=== PATIENT | male | born 1945 | race Caucasian/White ===

== ENCOUNTER 2016-08-16 21:07 | Inpatient (IN) | payer MEDICARE, OTHER ==
[2016-08-16] MEDS ORDERED: SODIUM CHLORIDE 0.9% 1,000 ML IV STA ×2 (22:11)
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
[2016-08-16 22:45] LABS: Basophils % (A) 0 %; CH 29.2; CHCM 32.8; Eosinophils % (A) 0 %; HCT 35.1 % (39.0-53.0); HDW 2.34; HGB 11.4 gm/dL (13.0-17.5); Luc # (Auto) 0.08; Luc % (Auto) 1; Lymphocytes # (A) 0.5 k/uL (1.0-4.8); Lymphocytes % (A) 6 %; MCH 28.9 pg (25.0-35.0); MCHC 32.3 g/dL (31.0-37.0); MCV 89.5 fL (80.0-100.0); Mean Platelet Volume 7.9; Monocytes # (A) 0.5 k/uL (0-1.0); Monocytes % (A) 7 %; Neutrophils # (A) 6.5 k/uL (1.3-7.7); Neutrophils % (A) 86 %; RBC 3.92 m/uL (4.30-5.90); RDW 12.7 % (11.5-15.5); WBC 7.6 k/uL (3.8-10.6); WBC (Perox) 8.19
[2016-08-16 22:53] LABS: INR 2.7 (<1.1); Partial Thromboplastin Time 27.9 sec (22.0-30.0); Prothrombin Time 26.5 sec (9.0-12.0)
[2016-08-16 22:56] LABS: ALT 48 U/L (21-72); AST 65 U/L (17-59); Alkaline Phosphatase 85 U/L (38-126); Anion Gap 10 mmol/L; Blood Urea Nitrogen 17 mg/dL (9-20); Calcium 8.7 mg/dL (8.4-10.2); Carbon Dioxide 31 mmol/L (22-30); Chloride 95 mmol/L (98-107); Glucose 203 mg/dL (74-99); Magnesium 1.6 mg/dL (1.6-2.3); Non-African American GFR(MDRD) >60 (>60 ml/min/1.73 sqM); Potassium 4.7 mmol/L (3.5-5.1); Sodium 136 mmol/L (137-145); Total Bilirubin 0.8 mg/dL (0.2-1.3); Total Protein 6.7 g/dL (6.3-8.2)
--- NOTE | 2016-08-16 23:12 | CT ---
EXAMINATION TYPE: CT brain shengine wo con DATE OF EXAM: 08/16/2016 11:04 PM COMPARISON: 12/28/2014 HISTORY: Fall today. CT DLP: 1599.60 mGycm Automated exposure control for dose reduction was used. TECHNIQUE: CT scan of the head and cervical spine are performed without contrast. FINDINGS: There is cerebral cortical atrophy. There is no mass effect nor midline shift. There is n o sign of intracranial hemorrhage. The calvarium is intact. The cervical vertebra have normal alignment. There is moderate anterior spurring from C4 to T1. Facet joints are intact. There is mild multilevel hypertrophic facet arthropathy. The skull base is intact . IMPRESSION: Cerebral cortical atrophy without significant change compared to 12/28/2014. Spondylotic changes in the cervical spine. No fracture seen.
[2016-08-16 23:29] LABS: Troponin I 0.025 ng/mL (0.000-0.034)
[2016-08-16 23:35] LABS: Creatine Kinase MB 7.8 ng/mL (0.0-2.4)
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
[2016-08-17] MEDS ORDERED: SODIUM CHLORIDE 0.9% 2,000 ML IV STA (00:05)
[2016-08-17] MEDS ORDERED: SODIUM CHLORIDE 0.9% 500 ML IV STA (00:05)
[2016-08-17] MEDS ORDERED: SODIUM CHLORIDE 0.9% 1,000 ML IV STA ×2 (00:05)
[2016-08-17 02:42] LABS: Appearance,Urine Cloudy (Clear); Bilirubin,Urine Negative (Negative); Glucose,Urine (UA) Trace (Negative); Ketones,Urine Negative (Negative); Leukocyte Esterase,Urine Negative (Negative); Mucus,Urine Occasional /hpf; Nitrite,Urine Negative (Negative); PH, Urine 6.5 (5.0-8.0); Particle Count 7092; Protein,Urine 3+ (Negative); RBC,Urine 14 /hpf (0-5); Specific Gravity,Urine 1.022 (1.001-1.035); Squamous Epithelial Cell,Urine <1 /hpf (0-4); UA Billing (MACRO vs. MICRO) MICRO; WBC,Urine 4 /hpf (0-5)
[2016-08-17 03:37] VITALS: BMI 36.5
[2016-08-17 08:36] LABS: Anion Gap 9 mmol/L; Blood Urea Nitrogen 15 mg/dL (9-20); Calcium 8.1 mg/dL (8.4-10.2); Carbon Dioxide 26 mmol/L (22-30); Chloride 105 mmol/L (98-107); Glucose 141 mg/dL (74-99); Non-African American GFR(MDRD) >60 (>60 ml/min/1.73 sqM); Potassium 4.2 mmol/L (3.5-5.1); Sodium 140 mmol/L (137-145)
[2016-08-17] MEDS: ENOXAPARIN 40 MG/0.4 ML SYRINGE SQ SCH (09:16)
[2016-08-17] MEDS: DIGOXIN 125 MCG TAB PO SCH (12:27)
[2016-08-17] MEDS: glipiZIDE 10 MG TAB PO SCH ×2 (12:28→18:41)
[2016-08-17] MEDS: levETIRAcetam 250 MG TAB PO SCH (12:29)
[2016-08-17] MEDS: ATORVASTATIN 10 MG TAB PO SCH (12:29)
[2016-08-17 12:42] LABS: Glucose,Whole Blood 276 mg/dL (75-99)
[2016-08-17] MEDS: metFORMIN 500 MG TAB PO SCH ×2 (12:50→18:41)
[2016-08-17] MEDS: INSULIN LISPRO (humaLOG) 300 UNIT/3 ML VIAL SQ SCH ×3 (12:54→20:57)
[2016-08-17] MEDS: PRIMIDONE 250 MG TAB PO SCH ×2 (13:53→20:56)
[2016-08-17] MEDS: LISINOPRIL 20 MG TAB PO SCH (13:53)
[2016-08-17 13:58] LABS: Hemoglobin A1C 5.6 % (4.2-6.1)
[2016-08-17] MEDS: ATENOLOL 50 MG TAB PO SCH ×2 (17:52→20:56)
[2016-08-17 17:57] LABS: Glucose,Whole Blood 56 mg/dL (75-99)
[2016-08-17 18:02] LABS: Glucose,Whole Blood 74 mg/dL (75-99)
[2016-08-17] MEDS: ZOLPIDEM 10 MG TAB PO SCH (20:56)
[2016-08-17 21:13] LABS: Glucose,Whole Blood 191 mg/dL (75-99)
[2016-08-17] MEDS ORDERED: guaiFENesin 600 MG TABLET.ER PO PRN (22:06)
--- NOTE | 2016-08-17 22:44 | HP ---
REASON FOR ADMISSION: Fall and rhabdomyolysis. HISTORY OF PRESENT ILLNESS: This is a 70-year-old gentleman who currently lives by himself, is admitted to the hospital after the patient sustained a fall while getting out of his bathtub. Patient states that he fell in an awkward position, was not able to pull himself out for about 6 hours. Finally, the patient was found by the fire department and was triaged through the emergency room. The patient denies having any overt tenderness. Patient was seen in the ER. Initial eval, including multiple radiologic imaging to rule out occult fractures, was negative. Patient was noted to have a creatine kinase level in the 1800s. Patient's kidney function appears to be normal. Patient today was seen at bedside, was in good spirits, states that he felt that he was just stuck in an awkward position. Patient states that he has been progressively getting worse in the recent times. Of note, the patient uses 2 to 3L of supplemental oxygen for advanced COPD. It appears that the patient has never lived by himself and has multiple mechanical obstructions as well as some issues with some debility. Patient denies having any chest pain, difficulty in breathing, nausea, vomiting, urinary urgency or frequency. REVIEW OF SYSTEMS: A 14-point review of systems was done; none pertinent other than what was mentioned in HPI. Past medical history includes COPD, chronic hypoxic respiratory failure, dyslipidemia, hypertension, diabetes mellitus, history of seizure disorder. SURGERIES: Orthopedic surgery in the past. SOCIAL HISTORY: Was a past smoker, quit a few years ago. Denies any alcohol use. Currently lives by himself. Denies any illicit drug use. FAMILY HISTORY: Not pertinent to the current admission. Medications included: 1. Atenolol. 2. Digoxin. 3. Enalapril. 4. Primidone. 5. Nystatin. 6. Coumadin. 7. Zolpidem. 8. Glipizide. 9. Metformin. 10. Keppra. ALLERGIES: No known drug allergies were reported. PHYSICAL EXAM: Vitals were reviewed. Heart rate is 84, respiratory rate 20, blood pressure is anywhere from 140 to 250 over 68 to 72 diastolic. GENERAL APPEARANCE: Alert, oriented x3. Does not appear to be in distress. HEENT: Head is atraumatic, normocephalic. Pupils are equal, round, reactive to light and accommodation. Neck is supple. No JVD. LUNGS: Good air entry. Clear to auscultation. No abnormal sounds appreciated; however, slightly diminished. HEART: S1, S2 heard. Regular rate and rhythm. No murmurs appreciated. Abdomen is soft, nontender. No organomegaly. LOWER EXTREMITIES: No overt edema noted. Straight leg is negative bilaterally. Neurologically, moves all 4 extremities. Laboratory data include hemoglobin 11.4, hematocrit 35.1, white count 7.6, platelets 123. Sodium 136, potassium 4.7, chloride 95, bicarb 31, BUN 17, creatinine 0.67 and random glucose of 203. ASSESSMENT AND PLAN: 1. Rhabdomyolysis. 2. Chronic hypoxic respiratory failure. 3. Debility. 4. Diabetes mellitus type 2. 5. History of seizures. 6. History of hypertension. 7. Unknown why patient is documented to be on Coumadin. 8. Patient apparently is having some diarrhea as well. PLAN: Will have a PT, OT consult. Will need to assess safety at home. Will need to investigate the need for Coumadin therapy. Labs appear to be stable. Will hold off on metformin and glipizide at this time. Repeat creatinine kinase level will be done in the a.m. If patient will need placement in regard to getting rehab, that will be determined by the evaluation of Physical Therapy.
[2016-08-18 06:58] LABS: Glucose,Whole Blood 129 mg/dL (75-99)
[2016-08-18 07:31] LABS: Basophils % (A) 1 %; CH 28.8; CHCM 31.2; Eosinophils % (A) 1 %; HCT 33.1 % (39.0-53.0); HDW 2.44; HGB 10.3 gm/dL (13.0-17.5); Hypochromasia Slight; Luc # (Auto) 0.13; Luc % (Auto) 3; Lymphocytes % (A) 21 %; MCHC 31.2 g/dL (31.0-37.0); Mean Platelet Volume 8.2; Monocytes # (A) 0.5 k/uL (0-1.0); Monocytes % (A) 10 %; Neutrophils # (A) 3.1 k/uL (1.3-7.7); Neutrophils % (A) 64 %; RBC 3.56 m/uL (4.30-5.90); RDW 12.8 % (11.5-15.5); WBC 4.8 k/uL (3.8-10.6); WBC (Perox) 5.36
[2016-08-18 07:36] LABS: INR 1.5 (<1.1); Prothrombin Time 14.7 sec (9.0-12.0)
[2016-08-18 07:44] LABS: ALT 64 U/L (21-72); AST 111 U/L (17-59); Alkaline Phosphatase 75 U/L (38-126); Anion Gap 8 mmol/L; Blood Urea Nitrogen 15 mg/dL (9-20); Calcium 7.8 mg/dL (8.4-10.2); Carbon Dioxide 27 mmol/L (22-30); Chloride 106 mmol/L (98-107); Glucose 118 mg/dL (74-99); Magnesium 1.7 mg/dL (1.6-2.3); Non-African American GFR(MDRD) >60 (>60 ml/min/1.73 sqM); Potassium 4.3 mmol/L (3.5-5.1); Sodium 141 mmol/L (137-145); Total Bilirubin 0.6 mg/dL (0.2-1.3); Total Protein 5.8 g/dL (6.3-8.2)
[2016-08-18 07:57] LABS: Creatine Kinase 2785 U/L (55-170)
[2016-08-18] MEDS: INSULIN LISPRO (humaLOG) 300 UNIT/3 ML VIAL SQ SCH ×4 (08:37→20:25)
[2016-08-18] MEDS ORDERED: IPRATROPIUM-ALBUTEROL 3 ML NEB INHALATION PRN (08:54)
[2016-08-18] MEDS: ENOXAPARIN 40 MG/0.4 ML SYRINGE SQ SCH (08:55)
[2016-08-18] MEDS: LISINOPRIL 20 MG TAB PO SCH (08:55)
[2016-08-18] MEDS: PRIMIDONE 250 MG TAB PO SCH ×2 (08:55→20:26)
[2016-08-18] MEDS: ATENOLOL 50 MG TAB PO SCH ×2 (08:55→20:24)
[2016-08-18] MEDS: levETIRAcetam 250 MG TAB PO SCH (08:55)
[2016-08-18] MEDS: DIGOXIN 125 MCG TAB PO SCH (08:56)
[2016-08-18] MEDS: ATORVASTATIN 10 MG TAB PO SCH (08:56)
--- NOTE | 2016-08-18 09:26 | XR ---
EXAMINATION TYPE: XR chest 1V portable DATE OF EXAM: 08/18/2016 9:09 AM COMPARISON: 08/16/2016 HISTORY: Pain TECHNIQUE: Single frontal view of the chest is obtained. FINDINGS: Aorta is prominent. Pulmonary hilum are prominent likely the basis of pulmonary arterial h ypertension. There are subsegmental consolidation at the left lung base. No pneumothorax. Arthropathy of the shoulders and diffuse osteopenia noted. Hypertrophic changes of the spine. Talc ar tifact compatible with chronic foreign body is stable. IMPRESSION: 1. Left basilar atelectasis or early infiltrate. 2. Pulmonary hilum are prominent likely in the basis of pulmonary arterial hypertension.
[2016-08-18 12:22] LABS: Glucose,Whole Blood 189 mg/dL (75-99)
[2016-08-18] MEDS: IPRATROPIUM-ALBUTEROL 3 ML NEB INHALATION PRN ×2 (14:54→19:53)
[2016-08-18 17:16] LABS: Glucose,Whole Blood 182 mg/dL (75-99)
--- NOTE | 2016-08-18 17:25 | P.PN ---
Subjective This is a 70-year-old gentleman that was admitted to the hospital after sustaining a fall and being caught around his commode. Patient was noted to have rhabdomyolysis. Patient was admitted to the hospital. A PTOT therapy evaluation was done fairly patient is a 3 person assist to get off the bed. Patient this a.m. stated that he was having some cough nonproductive in nature hence a chest x-ray was done which to me appears nonspecific however a early infiltrate was right on the official read. Denies having any fevers, chills, nausea, vomiting. Patient may complaint is cough that is minimally productive in nature. Objective - Vital Signs Vital signs: Vital Signs Temp 97 F L 08/18/16 12:51 Pulse 74 08/18/16 15:05 Resp 24 08/18/16 12:51 BP 145/67 08/18/16 07:00 Pulse Ox 93 L 08/18/16 12:51 Intake & Output 08/17/16 08/18/16 08/18/16 18:59 06:59 18:59 Intake Total 720 900 720 Output Total 225 Balance 720 900 495 Intake: Intake, IV Titration 900 Amount Sodium Chloride 0.9% 1, 900 000 ml @ 100 mls/hr IV . Q10H STA Rx#:[id number] Oral 720 720 Output: Urine 225 Other: Voiding Method Urinal # Voids 2 1 1 - Exam Physical exam Gen. appearance oriented 3 in no distress Neck is supple no JVD Lungs early on 2 L supplement oxygen, expiratory wheezing appreciated transmitted from the hypopharynx rhonchi appreciated on the left side. Heart S1-S2 heard regular rate and rhythm no murmurs appreciated Abdomen is soft nontender no organomegaly bowel sounds are intact Neurologically cranial nerves II-12 grossly intact no focal motor or sensory deficits noted Skin no abnormalities appreciated - Labs CBC & Chem 7: 08/18/16 07:11 08/18/16 07:11 Labs: Abnormal Lab Results - Last 24 Hours (Table) 08/17/16 08/17/16 08/17/16 Range/Units 17:42 18:00 20:53 RBC (4.30-5.90) m/uL Hgb (13.0-17.5) gm/dL Hct (39.0-53.0) % Plt Count (150-450) k/uL PT (9.0-12.0) sec Creatinine (0.66-1.25) mg/dL Glucose (74-99) mg/dL POC Glucose (mg/dL) 56 L 74 L 191 H (75-99) mg/dL Calcium (8.4-10.2) mg/dL AST (17-59) U/L Creatine Kinase (55-170) U/L Total Protein (6.3-8.2) g/dL Albumin (3.5-5.0) g/dL 08/18/16 08/18/16 08/18/16 Range/Units 06:56 07:11 07:11 RBC 3.56 L (4.30-5.90) m/uL Hgb 10.3 L (13.0-17.5) gm/dL Hct 33.1 L (39.0-53.0) % Plt Count 108 L (150-450) k/uL PT 14.7 H (9.0-12.0) sec Creatinine (0.66-1.25) mg/dL Glucose (74-99) mg/dL POC Glucose (mg/dL) 129 H (75-99) mg/dL Calcium (8.4-10.2) mg/dL AST (17-59) U/L Creatine Kinase (55-170) U/L Total Protein (6.3-8.2) g/dL Albumin (3.5-5.0) g/dL 08/18/16 08/18/16 08/18/16 Range/Units 07:11 12:20 17:13 RBC (4.30-5.90) m/uL Hgb (13.0-17.5) gm/dL Hct (39.0-53.0) % Plt Count (150-450) k/uL PT (9.0-12.0) sec Creatinine 0.61 L (0.66-1.25) mg/dL Glucose 118 H (74-99) mg/dL POC Glucose (mg/dL) 189 H 182 H (75-99) mg/dL Calcium 7.8 L (8.4-10.2) mg/dL AST 111 H (17-59) U/L Creatine Kinase 2785 H (55-170) U/L Total Protein 5.8 L (6.3-8.2) g/dL Albumin 2.9 L (3.5-5.0) g/dL Microbiology - Last 24 Hours (Table) 08/17/16 02:10 Urine Culture - Final Urine,Clean Catch Assessment and Plan Plan: #1 acute exacerbation of COPD in a patient with chronic hypoxic respiratory failure secondary to tracheobronchitis #2 rhabdomyolysis that is getting worse #3 debility #4 diabetes most type II #5 history of seizure disorder #6 history of hypertension And hold off on Coumadin. Patient was not able to appropriately answer why he was on Coumadin patient however did sustain a fall recently the risks of him being anticoagulated her are higher than having benefits. Lovenox for DVT prophylaxis Continue ongoing care. Patient's IV fluids will be decreased. A repeat CK level will be done tomorrow if CK levels trend up patient may benefit from receiving additional IV fluids. Continue ongoing care.
[2016-08-18 20:03] LABS: Glucose,Whole Blood 203 mg/dL (75-99)
[2016-08-18] MEDS: predniSONE 20 MG TAB PO SCH (20:26)
[2016-08-18] MEDS: ZOLPIDEM 10 MG TAB PO SCH (20:26)
[2016-08-18] MEDS: DOXYCYCLINE 50 MG CAP PO SCH (20:27)
[2016-08-19 06:47] LABS: Glucose,Whole Blood 177 mg/dL (75-99)
[2016-08-19 07:24] LABS: Basophils % (A) 0 %; CH 28.8; Eosinophils % (A) 1 %; HCT 32.7 % (39.0-53.0); HDW 2.46; HGB 10.2 gm/dL (13.0-17.5); Hypochromasia Slight; Luc # (Auto) 0.15; Luc % (Auto) 3; Lymphocytes # (A) 1.1 k/uL (1.0-4.8); Lymphocytes % (A) 24 %; MCH 29.3 pg (25.0-35.0); MCHC 31.3 g/dL (31.0-37.0); MCV 93.4 fL (80.0-100.0); Mean Platelet Volume 8.1; Monocytes # (A) 0.5 k/uL (0-1.0); Monocytes % (A) 10 %; Neutrophils # (A) 2.8 k/uL (1.3-7.7); Neutrophils % (A) 62 %; RDW 12.6 % (11.5-15.5); WBC 4.6 k/uL (3.8-10.6); WBC (Perox) 4.72
[2016-08-19 07:26] LABS: INR 1.4 (<1.1)
[2016-08-19 07:31] LABS: ALT 66 U/L (21-72); AST 99 U/L (17-59); Alkaline Phosphatase 77 U/L (38-126); Anion Gap 6 mmol/L; Blood Urea Nitrogen 15 mg/dL (9-20); Calcium 7.9 mg/dL (8.4-10.2); Carbon Dioxide 28 mmol/L (22-30); Chloride 104 mmol/L (98-107); Creatine Kinase 1533 U/L (55-170); Glucose 170 mg/dL (74-99); Magnesium 1.8 mg/dL (1.6-2.3); Non-African American GFR(MDRD) >60 (>60 ml/min/1.73 sqM); Potassium 4.2 mmol/L (3.5-5.1); Sodium 138 mmol/L (137-145); Total Bilirubin 0.5 mg/dL (0.2-1.3); Total Protein 5.6 g/dL (6.3-8.2)
[2016-08-19] MEDS: PRIMIDONE 250 MG TAB PO SCH ×2 (08:18→20:38)
[2016-08-19] MEDS: DOXYCYCLINE 50 MG CAP PO SCH ×2 (08:18→20:37)
[2016-08-19] MEDS: ATENOLOL 50 MG TAB PO SCH ×2 (08:19→20:38)
[2016-08-19] MEDS: predniSONE 20 MG TAB PO SCH ×2 (08:19→20:38)
[2016-08-19] MEDS: ATORVASTATIN 10 MG TAB PO SCH (08:19)
[2016-08-19] MEDS: INSULIN LISPRO (humaLOG) 300 UNIT/3 ML VIAL SQ SCH ×4 (08:19→20:33)
[2016-08-19] MEDS: LISINOPRIL 20 MG TAB PO SCH (08:19)
[2016-08-19] MEDS: levETIRAcetam 250 MG TAB PO SCH (08:19)
[2016-08-19] MEDS: ENOXAPARIN 40 MG/0.4 ML SYRINGE SQ SCH (08:19)
[2016-08-19] MEDS: DIGOXIN 125 MCG TAB PO SCH (08:20)
[2016-08-19] MEDS: IPRATROPIUM-ALBUTEROL 3 ML NEB INHALATION PRN ×4 (09:26→20:21)
[2016-08-19 11:50] LABS: Glucose,Whole Blood 203 mg/dL (75-99)
[2016-08-19 17:12] LABS: Glucose,Whole Blood 257 mg/dL (75-99)
[2016-08-19 20:34] LABS: Glucose,Whole Blood 258 mg/dL (75-99)
[2016-08-19] MEDS: ZOLPIDEM 10 MG TAB PO SCH (20:38)
[2016-08-19] MEDS: WARFARIN 10 MG TAB PO SCH (20:38)
--- NOTE | 2016-08-19 22:14 | PN ---
DATE OF SERVICE: 08/19/2016 This 70-year-old gentleman who was admitted with COPD acute exacerbation with rhabdomyolysis. The patient is being closely monitored. No chest pain or palpitations. No fever. On exam, alert and oriented x3. Pulse 74, blood pressure 130/60, respiratory rate 16, temperature 98.6, pulse ox 98% on room air. HEENT: Conjunctivae normal. NECK: No jugular venous distension. CARDIOVASCULAR: S1 and S2 muffled. RESPIRATORY: Breath sounds diminished in the bases. A few scattered rhonchi and crackles. ABDOMEN: Soft, nontender. LEGS: No edema. NERVOUS SYSTEM: Nonfocal. LABS: WBC 4.6, hemoglobin is 10.2, platelets are 125. Accu-Cheks noted. Albumin is 2.9. ASSESSMENT: 1. Chronic obstructive pulmonary disease exacerbation, with acute hypoxic respiratory failure secondary to acute purulent tracheobronchitis. 2. Acute rhabdomyolysis. 3. Debility. 4. Diabetes mellitus type 2. 5. History of seizure disorder. 6. History of hypertension. 7. Increased CK to 1533. 8. Increased random blood sugar. 9. Thrombocytopenia, mild. 10. Atrial fibrillation history. 11. History of congestive heart failure. 12. Diabetes mellitus. 13. Hyperlipidemia. 14. Hypertension. 15. History of tremors. 16. Previous history of nicotine dependence. 17. History of THC. 18. FULL CODE. RECOMMENDATIONS AND DISCUSSION: In this 70-year-old gentleman who presented with multiple complex medical issues, we will monitor the patient closely, continue with the current medications, continue with symptomatic treatment. Otherwise, at this time I recommend resuming the home medications. The INR was found to be 2.7, but I would recommend resuming the home medication of Coumadin and continue to monitor. Will monitor the response of the PT, INR closely. The digoxin dose has been reduced. The prognosis is guarded because of multiple complex medical issues. Further recommendations to follow.
[2016-08-20 07:09] LABS: Glucose,Whole Blood 151 mg/dL (75-99)
[2016-08-20] MEDS: INSULIN LISPRO (humaLOG) 300 UNIT/3 ML VIAL SQ SCH ×4 (07:36→21:58)
[2016-08-20] MEDS: levETIRAcetam 250 MG TAB PO SCH (07:37)
[2016-08-20] MEDS: LISINOPRIL 20 MG TAB PO SCH (07:37)
[2016-08-20] MEDS: DOXYCYCLINE 50 MG CAP PO SCH ×2 (07:37→21:58)
[2016-08-20] MEDS: ATENOLOL 50 MG TAB PO SCH ×2 (07:37→21:57)
[2016-08-20] MEDS: predniSONE 20 MG TAB PO SCH ×2 (07:37→21:58)
[2016-08-20] MEDS: DIGOXIN 125 MCG TAB PO SCH (07:38)
[2016-08-20] MEDS: PANTOPRAZOLE 40 MG TABLET PO SCH (07:38)
[2016-08-20] MEDS: PRIMIDONE 250 MG TAB PO SCH ×2 (07:38→21:57)
[2016-08-20] MEDS: LINAGLIPTIN 5 MG TABLET PO SCH (07:38)
[2016-08-20] MEDS: ATORVASTATIN 10 MG TAB PO SCH (07:39)
[2016-08-20 08:00] LABS: Basophils % (A) 1 %; CH 29.2; CHCM 32.1; Eosinophils % (A) 1 %; HCT 31.4 % (39.0-53.0); HDW 2.57; HGB 9.8 gm/dL (13.0-17.5); Luc % (Auto) 3; Lymphocytes # (A) 1.1 k/uL (1.0-4.8); Lymphocytes % (A) 29 %; MCH 28.8 pg (25.0-35.0); MCHC 31.4 g/dL (31.0-37.0); MCV 91.6 fL (80.0-100.0); Mean Platelet Volume 8.3; Monocytes # (A) 0.4 k/uL (0-1.0); Monocytes % (A) 9 %; Neutrophils # (A) 2.3 k/uL (1.3-7.7); Neutrophils % (A) 58 %; RBC 3.42 m/uL (4.30-5.90); RDW 12.6 % (11.5-15.5); WBC 3.9 k/uL (3.8-10.6); WBC (Perox) 4.28
[2016-08-20] MEDS: IPRATROPIUM-ALBUTEROL 3 ML NEB INHALATION PRN ×4 (08:00→21:01)
[2016-08-20 08:06] LABS: INR 1.3 (<1.1); Prothrombin Time 12.7 sec (9.0-12.0)
[2016-08-20 08:16] LABS: ALT 87 U/L (21-72); AST 102 U/L (17-59); Alkaline Phosphatase 85 U/L (38-126); Anion Gap 3 mmol/L; Blood Urea Nitrogen 15 mg/dL (9-20); Calcium 8.1 mg/dL (8.4-10.2); Carbon Dioxide 33 mmol/L (22-30); Chloride 104 mmol/L (98-107); Creatine Kinase 848 U/L (55-170); Glucose 151 mg/dL (74-99); Non-African American GFR(MDRD) >60 (>60 ml/min/1.73 sqM); Potassium 4.3 mmol/L (3.5-5.1); Sodium 140 mmol/L (137-145); Total Bilirubin 0.6 mg/dL (0.2-1.3); Total Protein 5.6 g/dL (6.3-8.2)
[2016-08-20 11:45] LABS: Glucose,Whole Blood 155 mg/dL (75-99)
[2016-08-20 17:04] LABS: Glucose,Whole Blood 178 mg/dL (75-99)
[2016-08-20] MEDS: WARFARIN 10 MG TAB PO SCH (17:18)
--- NOTE | 2016-08-20 21:22 | PN ---
This 70-year-old gentleman was admitted with COPD acute exacerbation, also had acute rhabdomyolysis. The patient also had debility, general medical debility and gait dysfunction also. No chest pain or palpitations. No fever. On exam, alert and oriented times three. Pulse is 81, blood pressure 155/88, respirations 18, temperature 97.8, pulse ox 94% on 2 L. HEENT: Conjunctivae normal. NECK: No jugular venous distention. CARDIOVASCULAR: S1, S2 muffled. RESPIRATORY: Breath sounds diminished at the bases. A few scattered rhonchi and crackles. ABDOMEN: Soft, nontender. LEGS: No edema. No swelling. Nervous system: No focal deficits. LABS: WBC is 3.1, hemoglobin is 9.8. Albumin is 2.8. ASSESSMENT: 1. Chronic obstructive pulmonary disease acute exacerbation with acute hypoxic respiratory failure secondary to acute purulent tracheobronchitis. 2. Acute rhabdomyolysis. 3. Debility medical. 4. Diabetes type 2. 5. History of seizure disorder. 6. History of hypertension. 7. Increased CK,. 8. Increased random blood sugar. 9. Thrombocytopenia, mild. 10. Atrial fibrillation history. 11. History of congestive heart failure. 12. Type 2 diabetes mellitus. 13. History of hypertension. 14. Hyperlipidemia. 15. History of tremors. 16. History of previous history of nicotine dependence. 17. History of THC. 18. FULL CODE. RECOMMENDATIONS AND DISCUSSION: In this 70-year-old gentleman who presented with multiple complex medical issues. We will monitor the patient closely. Continue the current medications, continue symptomatic treatment. Otherwise, at this time, I would recommend continue with monitor. Rhabdomyolysis. Otherwise PT, OT evaluation. Continue to monitor. Possible ECF rehab. Guarded prognosis. Further recommendations to follow. MTDD
[2016-08-20 21:39] LABS: Glucose,Whole Blood 203 mg/dL (75-99)
[2016-08-20] MEDS: CYANOCOBALAMIN 500 MCG TAB PO SCH (21:57)
[2016-08-20] MEDS: ZOLPIDEM 10 MG TAB PO SCH (22:00)
[2016-08-21 06:48] LABS: Glucose,Whole Blood 164 mg/dL (75-99)
[2016-08-21] MEDS: IPRATROPIUM-ALBUTEROL 3 ML NEB INHALATION PRN ×2 (07:30→12:33)
[2016-08-21] MEDS: PRIMIDONE 250 MG TAB PO SCH (07:32)
[2016-08-21] MEDS: LISINOPRIL 20 MG TAB PO SCH (07:32)
[2016-08-21] MEDS: predniSONE 20 MG TAB PO SCH (07:32)
[2016-08-21] MEDS: LINAGLIPTIN 5 MG TABLET PO SCH (07:32)
[2016-08-21] MEDS: ATORVASTATIN 10 MG TAB PO SCH (07:33)
[2016-08-21] MEDS: PANTOPRAZOLE 40 MG TABLET PO SCH (07:33)
[2016-08-21] MEDS: DIGOXIN 125 MCG TAB PO SCH (07:33)
[2016-08-21] MEDS: DOXYCYCLINE 50 MG CAP PO SCH (07:35)
[2016-08-21] MEDS: levETIRAcetam 250 MG TAB PO SCH (07:35)
[2016-08-21] MEDS: ATENOLOL 50 MG TAB PO SCH (07:36)
[2016-08-21 07:55] LABS: Basophils % (A) 0 %; CH 28.8; Eosinophils # (A) 0.1 k/uL (0-0.7); Eosinophils % (A) 1 %; HDW 2.62; HGB 9.9 gm/dL (13.0-17.5); Luc # (Auto) 0.15; Luc % (Auto) 3; Lymphocytes # (A) 1.3 k/uL (1.0-4.8); Lymphocytes % (A) 24 %; MCHC 32.1 g/dL (31.0-37.0); MCV 90.4 fL (80.0-100.0); Mean Platelet Volume 7.5; Monocytes # (A) 0.5 k/uL (0-1.0); Monocytes % (A) 8 %; Neutrophils # (A) 3.5 k/uL (1.3-7.7); Neutrophils % (A) 64 %; RBC 3.43 m/uL (4.30-5.90); RDW 12.5 % (11.5-15.5); WBC 5.5 k/uL (3.8-10.6); WBC (Perox) 5.68
[2016-08-21 08:02] LABS: INR 1.9 (<1.1); Prothrombin Time 18.1 sec (9.0-12.0)
[2016-08-21 08:10] LABS: ALT 86 U/L (21-72); AST 84 U/L (17-59); Alkaline Phosphatase 98 U/L (38-126); Anion Gap 7 mmol/L; Blood Urea Nitrogen 14 mg/dL (9-20); Calcium 8.2 mg/dL (8.4-10.2); Carbon Dioxide 31 mmol/L (22-30); Chloride 102 mmol/L (98-107); Creatine Kinase 614 U/L (55-170); Glucose 162 mg/dL (74-99); Non-African American GFR(MDRD) >60 (>60 ml/min/1.73 sqM); Potassium 4.5 mmol/L (3.5-5.1); Sodium 140 mmol/L (137-145); Total Bilirubin 0.7 mg/dL (0.2-1.3); Total Protein 5.7 g/dL (6.3-8.2)
[2016-08-21] MEDS: INSULIN LISPRO (humaLOG) 300 UNIT/3 ML VIAL SQ SCH ×2 (08:27→12:52)
[2016-08-21 11:07] LABS: Glucose,Whole Blood 216 mg/dL (75-99)
[2016-08-21] MEDS: CYANOCOBALAMIN 500 MCG TAB PO SCH (12:52)
[2016-08-21 14:21] VITALS: BP 164/77; PULSE 85; RESP 16; TEMP 97.2
--- NOTE | 2016-08-21 14:32 | DS ---
DATE OF ADMISSION: 08/17/2016 DATE OF DISCHARGE: FINAL DIAGNOSES: 1. Chronic obstructive pulmonary disease acute exacerbation, with acute hypoxic respiratory failure secondary to acute purulent tracheobronchitis and acute rhabdomyolysis. 2. Medical debility, general. 3. Gait dysfunction. 4. Diabetes mellitus type 2. 5. History of seizure disorder. 6. History of hypertension. 7. Increased creatinine kinase with acute rhabdomyolysis. 8. Increased random blood sugar. 9. Thrombocytopenia, mild. 10. Atrial fibrillation history. 11. History of congestive heart failure. 12. Diabetes mellitus type 2. 13. Hypertension. 14. Hyperlipidemia. 15. History of tremors. 16. Previous history of nicotine dependence. 17. History of THC. 18. FULL CODE. DISCHARGE DISPOSITION: The patient will be discharged in a stable condition with guarded prognosis. Total time taken 35 minutes. The patient will be transferred to [facility]. HISTORY OF PRESENT ILLNESS: This 70-year-old gentleman with a past medical history of multiple medical problems as mentioned earlier being followed by Dr. Argueta in the outpatient setting, admitted with COPD acute exacerbation as well as acute respiratory failure, acute tracheobronchitis. The patient was treated with bronchodilators and other medications. Patient improved significantly. On exam, vitals are stable. CARDIOVASCULAR SYSTEM: S1, S2 muffled. A few scattered rhonchi. ABDOMEN: Soft. NERVOUS SYSTEM: No focal deficits. Hemoglobin is 9.9. The patient will be discharged in a stable condition with guarded prognosis with the follow advice: 1. Diet is cardiac. 2. Activity limited until followup. 3. Follow up with Dr. Argueta after discharge from the [facility]. 4. Follow up with Dr. Rose in 2 to 3 days. 5. CBC, BMP in [facility] in 2 to 3 days. Medications will be: 1. Vitamin B12 five hundred mg p.o. daily. 2. Lanoxin 125 mcg p.o. daily. 3. Vibramycin 100 mg p.o. b.i.d. for 5 days. 4. Low scale 150 to 200 = 2 units; 201 to 250 = 4 units; 251 to 300 = 6 units: 301 to 350 = 8 units; 351 to 400 = 10 units, more than 400 call. 5. Albuterol Atrovent updrafts q.i.d. and p.r.n. 6. Zestril 20 mg p.o. daily. 7. Protonix 40 mg p.o. daily. 8. Mysoline 250 mg p.o. b.i.d. 9. Onglyza 5 mg p.o. daily. 10. Zocor 20 mg q.h.s. 11. Coumadin 20 mg Sunday, Sunday, Sunday, Sunday, , Sunday. 12. Coumadin 15 mg on Sunday. 13. PT, INR on a daily basis. 14. Ambien 10 mg q.h.s. p.r.n. for sleep. 15. Mucinex 600 mg p.o. b.i.d. 16. Keppra 250 mg p.o. daily. 17. Metformin 1000 mg p.o. b.i.d. 18. Prednisone taper so that will be 40 mg daily for 3 days, 30 for 3 days; 20 for 3 days, 10 for 3 days and then discontinue.
[2016-08-25] MEDS ORDERED: WARFARIN 10 MG TAB PO SCH (18:00)
== END 2016-08-21 16:00 | DRG 557 ==
LOC: EC 21:07 → 3SUR 08-17 00:07
PROVIDERS: ADMIT Hospitalist; ATTEND Hospitalist
DX: M62.82 Rhabdomyolysis (principal); J96.21 Acute and chronic respiratory failure with hypoxia; Z99.81 Dependence on supplemental oxygen; I48.2 Chronic atrial fibrillation; D69.6 Thrombocytopenia, unspecified; I11.0 Hypertensive heart disease with heart failure; I50.9 Heart failure, unspecified; E11.9 Type 2 diabetes mellitus without complications; G40.909 Epilepsy, unspecified, not intractable, without status epilepticus; J44.0 Chronic obstructive pulmonary disease with (acute) lower respiratory infection; J44.1 Chronic obstructive pulmonary disease with (acute) exacerbation; J20.9 Acute bronchitis, unspecified; E78.5 Hyperlipidemia, unspecified; R25.1 Tremor, unspecified; R26.9 Unspecified abnormalities of gait and mobility; Z79.01 Long term (current) use of anticoagulants; Z79.84 Long term (current) use of oral hypoglycemic drugs; Z79.899 Other long term (current) drug therapy; Z87.891 Personal history of nicotine dependence; W18.2XXA Fall in (into) shower or empty bathtub, initial encounter; Y92.002 Bathroom of unspecified non-institutional (private) residence as the place of occurrence of the external cause
CPT/HCPCS: 36415; 70450; 71010; 72125; 72170; 80048; 80053; 81001; 82550; 82553; 83036; 83735; 84100; 84484; 85025; 85610; 85730; 87086; 93005; 94640; 94760; 99285

== ENCOUNTER 2016-12-25 10:31 | Inpatient (IN) | payer MEDICARE, OTHER ==
[~2016-12-25 10:31] MED LIST: HUMAN PROTHROMBIN COMPLX 500 UNIT/16 ML VIAL IV ONE
[2016-12-25] MEDS ORDERED: SODIUM CHLORIDE 0.9% 1,000 ML IV STA (11:22)
[2016-12-25] MEDS ORDERED: PANTOPRAZOLE 40 MG/10 ML VIAL IVP STA (11:22)
[2016-12-25 12:38] LABS: Basophils % (A) 0 %; CH 28.8; CHCM 33.3; Eosinophils # (A) 0.2 k/uL (0-0.7); Eosinophils % (A) 2 %; HCT 29.6 % (39.0-53.0); HGB 9.9 gm/dL (13.0-17.5); Luc # (Auto) 0.15; Luc % (Auto) 1; Lymphocytes # (A) 1.1 k/uL (1.0-4.8); Lymphocytes % (A) 10 %; MCHC 33.3 g/dL (31.0-37.0); Mean Platelet Volume 7.1; Monocytes # (A) 0.7 k/uL (0-1.0); Monocytes % (A) 7 %; Neutrophils # (A) 8.6 k/uL (1.3-7.7); Neutrophils % (A) 80 %; RDW 12.7 % (11.5-15.5); WBC 10.7 k/uL (3.8-10.6); WBC (Perox) 11.52
[2016-12-25 12:42] LABS: Appearance,Urine Turbid (Clear); Bacteria,Urine Occasional /hpf; Bilirubin,Urine Negative (Negative); Glucose,Urine (UA) Negative (Negative); Ketones,Urine Negative (Negative); Leukocyte Esterase,Urine Trace (Negative); Nitrite,Urine Negative (Negative); PH, Urine 5.5 (5.0-8.0); Particle Count 135540; Protein,Urine 2+ (Negative); RBC,Urine >182 /hpf (0-5); Specific Gravity,Urine 1.025 (1.001-1.035); Squamous Epithelial Cell,Urine 6 /hpf (0-4); UA Billing (MACRO vs. MICRO) MICRO; Urobilinogen,Urine <2.0 mg/dL (<2.0); WBC,Urine 2 /hpf (0-5)
[2016-12-25 12:57] LABS: ALT 19 U/L (21-72); AST 38 U/L (17-59); Alkaline Phosphatase 104 U/L (38-126); Anion Gap 10 mmol/L; Blood Urea Nitrogen 23 mg/dL (9-20); Calcium 8.9 mg/dL (8.4-10.2); Carbon Dioxide 28 mmol/L (22-30); Chloride 104 mmol/L (98-107); Glucose 159 mg/dL (74-99); Non-African American GFR(MDRD) >60 (>60 ml/min/1.73 sqM); Sodium 142 mmol/L (137-145); Total Bilirubin 1.3 mg/dL (0.2-1.3); Total Protein 6.6 g/dL (6.3-8.2)
[2016-12-25 12:59] LABS: INR >10.0 (<1.1); Partial Thromboplastin Time 67.5 sec (22.0-30.0); Prothrombin Time >130.0 sec (9.0-12.0)
[2016-12-25] MEDS ORDERED: PHYTONADIONE 10 MG in SODIUM CHLORIDE 0.9% 50 ML IVPB STA (13:03)
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
[2016-12-25] MEDS ORDERED: ONDANSETRON 4 MG/2 ML VIAL IVP PRN (14:21)
[2016-12-25] MEDS ORDERED: NALOXONE 0.4 MG/ML 1 ML VIAL IV PRN (14:21)
[2016-12-25] MEDS ORDERED: HUMAN PROTHROMBIN COMPLX IV ONE ×2 (14:38→15:15)
--- NOTE | 2016-12-25 15:05 | ED ---
Medical Decision Making - Medical Decision Making The EKG shows atrial fibrillation with a slow ventricular response at a rate of 58. The QRS duration is 88 and the QTc interval is 392. There is no acute ST- T wave changes noted. - Lab Data Result diagrams: 12/25/16 12:08 12/25/16 12:08 Lab Results 12/25/16 12/25/16 12/25/16 Range/Units 12:08 12:08 12:08 WBC 10.7 H (3.8-10.6) k/uL RBC 3.40 L (4.30-5.90) m/uL Hgb 9.9 L (13.0-17.5) gm/dL Hct 29.6 L (39.0-53.0) % MCV 87.0 (80.0-100.0) fL MCH 29.0 (25.0-35.0) pg MCHC 33.3 (31.0-37.0) g/dL RDW 12.7 (11.5-15.5) % Plt Count 200 (150-450) k/uL Neutrophils % 80 % Lymphocytes % 10 % Monocytes % 7 % Eosinophils % 2 % Basophils % 0 % Neutrophils # 8.6 H (1.3-7.7) k/uL Lymphocytes # 1.1 (1.0-4.8) k/uL Monocytes # 0.7 (0-1.0) k/uL Eosinophils # 0.2 (0-0.7) k/uL Basophils # 0.0 (0-0.2) k/uL PT >130.0 H (9.0-12.0) sec INR >10.0 H* (<1.1) APTT 67.5 H (22.0-30.0) sec Sodium 142 (137-145) mmol/L Potassium 5.0 (3.5-5.1) mmol/L Chloride 104 (98-107) mmol/L Carbon Dioxide 28 (22-30) mmol/L Anion Gap 10 mmol/L BUN 23 H (9-20) mg/dL Creatinine 0.97 (0.66-1.25) mg/dL Est GFR (MDRD) Af Amer >60 (>60 ml/min/1.73 sqM) Est GFR (MDRD) Non-Af >60 (>60 ml/min/1.73 sqM) Glucose 159 H (74-99) mg/dL Calcium 8.9 (8.4-10.2) mg/dL Total Bilirubin 1.3 (0.2-1.3) mg/dL AST 38 (17-59) U/L ALT 19 L (21-72) U/L Alkaline Phosphatase 104 (38-126) U/L Total Protein 6.6 (6.3-8.2) g/dL Albumin 3.4 L (3.5-5.0) g/dL Urine Color Urine Appearance (Clear) Urine pH (5.0-8.0) Ur Specific [place] (1.001-1.035) Urine Protein (Negative) Urine Glucose (UA) (Negative) Urine Ketones (Negative) Urine Blood (Negative) Urine Nitrite (Negative) Urine Bilirubin (Negative) Urine Urobilinogen (<2.0) mg/dL Ur Leukocyte Esterase (Negative) Urine RBC (0-5) /hpf Urine WBC (0-5) /hpf Ur Squamous Epith Cells (0-4) /hpf Urine Bacteria (None) /hpf Stool Occult Blood (Negative) 12/25/16 12/25/16 Range/Units 12:08 13:09 WBC (3.8-10.6) k/uL RBC (4.30-5.90) m/uL Hgb (13.0-17.5) gm/dL Hct (39.0-53.0) % MCV (80.0-100.0) fL MCH (25.0-35.0) pg MCHC (31.0-37.0) g/dL RDW (11.5-15.5) % Plt Count (150-450) k/uL Neutrophils % % Lymphocytes % % Monocytes % % Eosinophils % % Basophils % % Neutrophils # (1.3-7.7) k/uL Lymphocytes # (1.0-4.8) k/uL Monocytes # (0-1.0) k/uL Eosinophils # (0-0.7) k/uL Basophils # (0-0.2) k/uL PT (9.0-12.0) sec INR (<1.1) APTT (22.0-30.0) sec Sodium (137-145) mmol/L Potassium (3.5-5.1) mmol/L Chloride (98-107) mmol/L Carbon Dioxide (22-30) mmol/L Anion Gap mmol/L BUN (9-20) mg/dL Creatinine (0.66-1.25) mg/dL Est GFR (MDRD) Af Amer (>60 ml/min/1.73 sqM) Est GFR (MDRD) Non-Af (>60 ml/min/1.73 sqM) Glucose (74-99) mg/dL Calcium (8.4-10.2) mg/dL Total Bilirubin (0.2-1.3) mg/dL AST (17-59) U/L ALT (21-72) U/L Alkaline Phosphatase (38-126) U/L Total Protein (6.3-8.2) g/dL Albumin (3.5-5.0) g/dL Urine Color Dark Brown Urine Appearance Turbid (Clear) Urine pH 5.5 (5.0-8.0) Ur Specific [place] 1.025 (1.001-1.035) Urine Protein 2+ H (Negative) Urine Glucose (UA) Negative (Negative) Urine Ketones Negative (Negative) Urine Blood Moderate H (Negative) Urine Nitrite Negative (Negative) Urine Bilirubin Negative (Negative) Urine Urobilinogen <2.0 (<2.0) mg/dL Ur Leukocyte Esterase Trace H (Negative) Urine RBC >182 H (0-5) /hpf Urine WBC 2 (0-5) /hpf Ur Squamous Epith Cells 6 H (0-4) /hpf Urine Bacteria Occasional H (None) /hpf Stool Occult Blood Positive (Negative) Disposition Clinical Impression: Anemia, GI bleed, Hematuria, Contusion, Hyperglycemia, Chronic atrial fibrillation, Warfarin-induced coagulopathy Disposition: ADMITTED IP TO THIS [facility] Condition: Critical
[2016-12-25 15:17] LABS: Glucose,Whole Blood 112 mg/dL (75-99)
[2016-12-25] MEDS: LINAGLIPTIN 5 MG TABLET PO SCH (16:50)
[2016-12-25 17:40] VITALS: BMI 31.9
[2016-12-25 18:47] LABS: CH 28.4; CHCM 30.9; HCT 30.3 % (39.0-53.0); HDW 2.39; HGB 9.9 gm/dL (13.0-17.5); Hypochromasia Slight; MCH 30.1 pg (25.0-35.0); MCHC 32.6 g/dL (31.0-37.0); Mean Platelet Volume 7.4; RBC 3.29 m/uL (4.30-5.90); RDW 13.1 % (11.5-15.5); WBC 10.1 k/uL (3.8-10.6)
[2016-12-25 18:49] LABS: MCV 92.2 fL (80.0-100.0)
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
[2016-12-25 19:41] LABS: INR 1.2 (<1.1)
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
[2016-12-25] MEDS ORDERED: ATROPINE SULFATE 0.1 MG/ML 10ML SYRINGE ONE (20:42)
[2016-12-25] MEDS: ZOLPIDEM 10 MG TAB PO SCH (20:55)
[2016-12-25] MEDS: ATORVASTATIN 10 MG TAB PO SCH (20:55)
[2016-12-25] MEDS: CARBIDOPA-LEVODOPA 25-100 MG 1 EACH TAB PO SCH (20:55)
[2016-12-25] MEDS: ATENOLOL 50 MG TAB PO SCH (20:55)
[2016-12-25] MEDS: LISINOPRIL 20 MG TAB PO SCH (20:56)
[2016-12-25] MEDS: SULFAMETHOX-TMP 800-160MG 1 EACH TAB PO SCH (20:56)
[2016-12-25] MEDS: INSULIN LISPRO (humaLOG) 300 UNIT/3 ML VIAL SQ SCH (20:56)
[2016-12-25] MEDS ORDERED: glipiZIDE 5 MG TAB PO SCH (21:00)
[2016-12-25] MEDS ORDERED: metFORMIN 500 MG TAB PO SCH (21:00)
[2016-12-25 21:08] LABS: Glucose,Whole Blood 127 mg/dL (75-99)
[2016-12-25 23:44] LABS: Hemoglobin A1C 5.7 % (4.2-6.1)
[2016-12-26 06:15] LABS: ALT 23 U/L (21-72); AST 31 U/L (17-59); Alkaline Phosphatase 83 U/L (38-126); Anion Gap 5 mmol/L; Blood Urea Nitrogen 25 mg/dL (9-20); Calcium 8.5 mg/dL (8.4-10.2); Carbon Dioxide 28 mmol/L (22-30); Chloride 108 mmol/L (98-107); Glucose 76 mg/dL (74-99); Magnesium 1.9 mg/dL (1.6-2.3); Non-African American GFR(MDRD) >60 (>60 ml/min/1.73 sqM); Phosphorous 3.3 mg/dL (2.5-4.5); Potassium 5.1 mmol/L (3.5-5.1); Sodium 141 mmol/L (137-145); Total Bilirubin 1.7 mg/dL (0.2-1.3); Total Protein 5.6 g/dL (6.3-8.2)
[2016-12-26 06:26] LABS: INR 1.1 (<1.1); Prothrombin Time 11.3 sec (9.0-12.0)
[2016-12-26 06:39] LABS: Basophils # (A) 0.1 k/uL (0-0.2); Basophils % (A) 1 %; CH 28.7; CHCM 31.9; Eosinophils # (A) 0.3 k/uL (0-0.7); Eosinophils % (A) 4 %; HDW 2.49; HGB 9.2 gm/dL (13.0-17.5); Luc # (Auto) 0.21; Luc % (Auto) 3; Lymphocytes # (A) 1.5 k/uL (1.0-4.8); Lymphocytes % (A) 20 %; MCH 29.7 pg (25.0-35.0); MCHC 32.9 g/dL (31.0-37.0); MCV 90.5 fL (80.0-100.0); Monocytes # (A) 0.6 k/uL (0-1.0); Monocytes % (A) 8 %; Neutrophils # (A) 5.1 k/uL (1.3-7.7); Neutrophils % (A) 65 %; RBC 3.09 m/uL (4.30-5.90); RDW 12.6 % (11.5-15.5); WBC 7.8 k/uL (3.8-10.6); WBC (Perox) 8.26
--- NOTE | 2016-12-26 07:44 | HP ---
DATE OF ADMISSION: REASON FOR ADMISSION: Bleeding. HISTORY OF PRESENTING ILLNESS: This is a 71-year-old male with a history of chronic atrial fibrillation on anticoagulation comes into the hospital with easy bruising and a significant amount of pain in his right forearm. Patient was noted to have extensive bruising all over the body. Patient was also noted to have dark stools and hematuria during the last 3 to 4 days. Patient states that he has not been to his doctor for P, INR check. Patient has been taking about 15 to 20 mg of Coumadin over the last 2 months. Patient states that his oral intake has been decreased in the recent time. The patient states that he has also been on Bactrim for a chronic right lower extremity cellulitis. At this time, patient denies having any chest pain, difficulty in breathing, nausea, vomiting. Patient was given a dose of vitamin K 10 mg IV piggyback in the emergency room. I spoke to the emergency physician with the patient with ongoing bleeding and significant INR. I ordered a 5000 unit bolus of ( ) to be given stat. Patient is seen in the emergency room. States to have some pain in his right upper arm. No other complaints are reported. Fourteen-point review of systems was done; none pertinent other than what was mentioned above. Home medications include: 1. Zocor. 2. Coumadin. 3. Metformin. 4. Saxagliptin. 5. Atenolol. 6. Sinemet. 7. Digoxin. 8. Vasotec. 9. Multivitamin. 10. Prilosec. 11. Bactrim. 12. Glipizide. ALLERGIES: No known drug allergies. Past medical history includes chronic atrial fibrillation, diabetes mellitus, chronic hypoxic respiratory failure, history of fall, heart failure, dyslipidemia. Surgical history includes orthopedic surgery. SOCIAL HISTORY: He smokes marijuana regularly. Former smoker. Denies illicit drug use or alcohol use. FAMILY HISTORY: Not pertinent to current admission. VITALS: Temperature is 97.6, heart rate is 53, respiratory rate 18, blood pressure 157/82, saturating 98% on 2 L supplemental oxygen. Patient appears to be comfortable. Denies having any distress. NECK: Supple. No JVD. FACE: Some bleeding is noted on the end of the lip. LUNGS: Diminished breath sounds. No rhonchi, wheezing or crackles. HEART: S1, S2. Regular rate and rhythm. No murmurs appreciated. However, patient appears to be going in and out of atrial fibrillation. SKIN: A large ecchymosis noted on the right upper arm. Multiple ecchymosis with underlying hematoma noted. Multiple ecchymosis noted throughout the body. EXTREMITIES: 1+ pitting edema noted. FEET: No open wounds. NEURO: No focal motor or sensory deficits noted. ABDOMINAL EXAM: No flank tenderness. Soft, nontender, no organomegaly. Laboratory data include hemoglobin 9.1, hematocrit 29.6, white count 10.7, platelets of 200. Sodium 142, potassium 5, chloride 104, bicarb 28, BUN 23, creatinine 0.97. ASSESSMENT AND PLAN: 1. Coumadin toxicity with active bleeding. 2. Chronic atrial fibrillation. 3. Congestive heart failure. 4. Osteomyelitis of the right ankle on Bactrim. 5. Diabetes mellitus. 6. Fall. 7. Anemia with an acute blood loss. 8. Chronic obstructive pulmonary disease with chronic hypoxic respiratory failure. 9. Dyslipidemia. PLAN: As discussed, the patient was given ( ) vitamin K. A stat repeat PT, INR will be done thereafter. Continue with ongoing care. Monitor hemoglobin serial. Lower extremity Dopplers can be done. The patient can be triaged out of the intensive care unit once PT, INR is improved. Discussed with the patient regarding cessation of Coumadin. Thereafter will be likely started on aspirin or Xarelto Patient's CHADS score is at least 4, which does put him at a high risk for strokes in the future. A digoxin level was also obtained. Continue ongoing care.
[2016-12-26 08:09] LABS: Glucose,Whole Blood 87 mg/dL (75-99)
--- NOTE | 2016-12-26 08:09 | XR ---
EXAMINATION TYPE: XR chest 1V portable DATE OF EXAM: 12/26/2016 CLINICAL HISTORY: Difficulty breathing . TECHNIQUE: Single AP portable upright view of the chest is obtained. COMPARISON: Chest x-ray from August 18, 2016. Older x-rays back to April 16, 2015. FINDINGS: There is chronic parenchymal change with persistent small left pleural effusion or pleural thickening. There is no suspicious focal airspace opacity or pneumothorax seen bilaterally. There is persistent cardiomegaly. There is multilevel spurring in the spine. There are healing left posterior lateral sixth and seventh rib fractures. Multiple irregular hyperdense possible metallic foreign bod ies are redemonstrated throughout the thorax from remote injury. IMPRESSION: Chronic parenchymal change with persistent small left pleural effusion or pleural thicken ing, no suspicious focal infiltrate.
[2016-12-26] MEDS: metFORMIN 500 MG TAB PO SCH ×2 (08:15→17:36)
[2016-12-26] MEDS: ATENOLOL 50 MG TAB PO SCH ×2 (08:37→22:02)
[2016-12-26] MEDS: CARBIDOPA-LEVODOPA 25-100 MG 1 EACH TAB PO SCH ×2 (08:37→22:02)
[2016-12-26] MEDS: INSULIN LISPRO (humaLOG) 300 UNIT/3 ML VIAL SQ SCH ×3 (08:37→18:17)
[2016-12-26] MEDS: DIGOXIN 250 MCG TAB PO SCH (08:37)
[2016-12-26] MEDS: PANTOPRAZOLE 40 MG/10 ML VIAL IV SCH (08:38)
[2016-12-26] MEDS: SULFAMETHOX-TMP 800-160MG 1 EACH TAB PO SCH ×2 (08:38→22:02)
[2016-12-26] MEDS: glipiZIDE 5 MG TAB PO SCH ×2 (08:39→17:36)
--- NOTE | 2016-12-26 08:47 | US ---
EXAMINATION TYPE: US venous doppler duplex LE BI DATE OF EXAM: 12/26/2016 8:18 AM COMPARISON: NONE CLINICAL HISTORY: r/o DVT, ICU patient with leg swelling. SIDE PERFORMED: Bilateral TECHNIQUE: The lower extremity deep venous system is examined utilizing real time linear array sonog jacinta with graded compression, doppler sonography and color-flow sonography. VESSELS IMAGED: External Iliac Vein (EIV) Common Femoral Vein Deep Femoral Vein Greater Saphenous Vein * Femoral Vein Popliteal Vein Small Saphenous Vein * Proximal Calf Veins (* superficial vessels) Right Leg: Negative for DVT Left Leg: Negative for DVT No popliteal fossa lesion is seen. IMPRESSION: THIS EXAMINATION IS NEGATIVE FOR DVT IN BOTH LEGS.
[2016-12-26] MEDS: MAGNESIUM SULFATE-D5W PMX 1 GM in DEXTROSE/WATER 1 100ML.BAG IVPB SCH ×2 (08:59→09:45)
[2016-12-26] MEDS ORDERED: LINAGLIPTIN 5 MG TABLET PO SCH (09:00)
--- NOTE | 2016-12-26 10:27 | P.PN ---
Subjective 71-year-old male patient maintained on long-term articulation with warfarin for chronic atrial fibrillation. The patient has not checked his Coumadin level for more than 2 months. He noted that he was bruising easily and for that reason came into the emergency department. He was found to be Coumadin toxic with an INR of above 10. He had an extensive bruising of the right upper extremity/forearm. He has also noted some dark urine and he thought it may be a bloody urine/hematuria. He also passed a bowel movement left-sided was black. No bright red blood per rectum. He also noted some bleeding scabs-like lesions in different parts of his body. He typically uses an electric razor to shave and was using that he had a little area of bleeding near his left lip. For all this reasons he came into the hospital and at that point he was found to have an INR of above 10, PTT of 130 and a PTT of 67. The patient was given Kcentra and the patient also received vitamin K as were told from the reports from the emergency department. We don't see documented in the chart and were not sure if the patient really receive this. The patient following that he was moved to the intensive care unit. Currently is resting, comfortably. He did have his dinner. Denies having any other complaints. No further bleeding has been noted. The patient's urine analysis showed significant number of red cells above 182 per high-power field yet there is no gross hematuria. Hemoglobin is at 9.9. A repeat coagulation profile is still pending. Meanwhile , the patient has noted to have chronic swelling lower extremities. 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 The patient also has some increased warmth in his left ankle which is also swollen. Denies gout. Denies trauma to the leg. No cellulitis. No redness. No open wounds or sores. On 12/26/2016 the patient is doing well. No further bleeding episodes. The patient's INR has normalized. The patient has no epistaxis. No hemoptysis. No upper GI bleeding. No lower GI bleeding. No hematuria. No other complaints otherwise. His hemoglobin is at 9.2. Rest of the electrodes are all within normal limits. Hemodynamically stable. The Doppler of the lower extremities was negative for any DVT. X-ray of the left ankle showed no evidence of any fracture. Objective - Vital Signs Vital signs: Vital Signs Temp 98.0 F 12/26/16 08:00 Pulse 66 12/26/16 10:00 Resp 20 12/26/16 10:00 BP 131/63 12/26/16 10:00 Pulse Ox 97 12/26/16 10:00 Intake & Output 12/25/16 12/26/16 12/26/16 18:59 06:59 18:59 Intake Total 500 1350 300 Output Total 150 675 200 Balance 350 675 100 Weight 119 kg 120.3 kg Intake: IV 500 1300 300 Empty Bag 1 bag @ 504 mls 250 /hr IV .Q21M ONE with Human Prothrombin Complx 5,503 unit Rx#:[id number] Magnesium Sulfate-D5w Pmx 200 1 gm In Dextrose/Water 1 100ml.bag @ 100 mls/hr IVPB Q1H [facility] Rx#: [id number] Sodium Chloride 0.9% 1, 250 1300 100 000 ml @ 100 mls/hr IV . Q10H STA Rx#:[id number] Oral 50 Output: Urine 150 675 200 Other: Voiding Method Urinal - Exam The patient appeared well nourished and normally developed. Vital signs as documented. Head exam is unremarkable. No scleral icterus or corneal arcus noted. Neck is without jugular venous distension, thyromegaly, or carotid bruits. Carotid upstrokes are brisk bilaterally. Lungs are clear to auscultation and percussion. Cardiac exam reveals the PMI to be normally sized and situated. Rhythm is irregular secondary to his atrial fibrillation. First and second heart sounds normal. No murmurs, rubs or gallops. Abdominal exam reveals normal bowel sounds, no masses, no organomegaly and no aortic enlargement. Extremities are edematous and both femoral and pedal pulses are normal. The ankles are swollen bilaterally and there is at least +1-2 pitting edema in both lower extremities more so on the right. No open wounds or sores. There is extensive skin bruising and his forearm on the right. - Labs CBC & Chem 7: 12/26/16 05:20 12/26/16 05:20 Labs: Abnormal Lab Results - Last 24 Hours (Table) 12/25/16 12/25/16 12/25/16 Range/Units 12:08 12:08 12:08 WBC 10.7 H (3.8-10.6) k/uL RBC 3.40 L (4.30-5.90) m/uL Hgb 9.9 L (13.0-17.5) gm/dL Hct 29.6 L (39.0-53.0) % Neutrophils # 8.6 H (1.3-7.7) k/uL PT >130.0 H (9.0-12.0) sec INR >10.0 H* (<1.1) APTT 67.5 H (22.0-30.0) sec Chloride (98-107) mmol/L BUN 23 H (9-20) mg/dL Glucose 159 H (74-99) mg/dL POC Glucose (mg/dL) (75-99) mg/dL Total Bilirubin (0.2-1.3) mg/dL ALT 19 L (21-72) U/L Total Protein (6.3-8.2) g/dL Albumin 3.4 L (3.5-5.0) g/dL Urine Protein (Negative) Urine Blood (Negative) Ur Leukocyte Esterase (Negative) Urine RBC (0-5) /hpf Ur Squamous Epith Cells (0-4) /hpf Urine Bacteria (None) /hpf 12/25/16 12/25/16 12/25/16 Range/Units 12:08 15:15 18:31 WBC (3.8-10.6) k/uL RBC 3.29 L (4.30-5.90) m/uL Hgb 9.9 L (13.0-17.5) gm/dL Hct 30.3 L (39.0-53.0) % Neutrophils # (1.3-7.7) k/uL PT (9.0-12.0) sec INR (<1.1) APTT (22.0-30.0) sec Chloride (98-107) mmol/L BUN (9-20) mg/dL Glucose (74-99) mg/dL POC Glucose (mg/dL) 112 H (75-99) mg/dL Total Bilirubin (0.2-1.3) mg/dL ALT (21-72) U/L Total Protein (6.3-8.2) g/dL Albumin (3.5-5.0) g/dL Urine Protein 2+ H (Negative) Urine Blood Moderate H (Negative) Ur Leukocyte Esterase Trace H (Negative) Urine RBC >182 H (0-5) /hpf Ur Squamous Epith Cells 6 H (0-4) /hpf Urine Bacteria Occasional H (None) /hpf 12/25/16 12/26/16 12/26/16 Range/Units 20:48 05:20 05:20 WBC (3.8-10.6) k/uL RBC 3.09 L (4.30-5.90) m/uL Hgb 9.2 L (13.0-17.5) gm/dL Hct 28.0 L (39.0-53.0) % Neutrophils # (1.3-7.7) k/uL PT (9.0-12.0) sec INR (<1.1) APTT (22.0-30.0) sec Chloride 108 H (98-107) mmol/L BUN 25 H (9-20) mg/dL Glucose (74-99) mg/dL POC Glucose (mg/dL) 127 H (75-99) mg/dL Total Bilirubin 1.7 H (0.2-1.3) mg/dL ALT (21-72) U/L Total Protein 5.6 L (6.3-8.2) g/dL Albumin 2.9 L (3.5-5.0) g/dL Urine Protein (Negative) Urine Blood (Negative) Ur Leukocyte Esterase (Negative) Urine RBC (0-5) /hpf Ur Squamous Epith Cells (0-4) /hpf Urine Bacteria (None) /hpf Assessment and Plan Plan: assessment 1 Coumadin toxicity, with some limited skin bruising, hematuria and melanotic stools, the patient was treated with K centra and vitamin K. The Coumadin toxicity recovered and the patient's INR and PT has completely normalized. No evidence of any ongoing bleeding. The patient is hemodynamically stable. Hemoglobin is stable. Coumadin will be restarted a lower dose at 10 mg with close monitoring on outpatient basis. 2 chronic atrial fibrillation, rate controlled 3 CHF 4 osteomyelitis of the right ankle maintained on Bactrim on outpatient basis 5 diabetes mellitus 6 falls 7 bilateral lower extremity swelling likely secondary to CHF 8 anemia, likely chronic 9 chronic tremors 10 COPD with chronic hypoxic respiratory failure maintained on oxygen somewhere between 2-3 L/m nasal cannula 11 hyperlipidemia Plan I had a lengthy discussion with the patient. I gave him the options of new agent anticoagulation is not needed monitoring however the patient assistance he wants to stay on Coumadin. I am a bit concerned knowing that his levels have been low and the patient does have been gradually increased over the past several months to recheck maximum dose of 20 mg on a daily basis with 10 mg on weekends. [facility] have been achiness adjustments. He is also chronically on Bactrim which I don't think it's cannot make a whole lot of interaction as long as the patient remains on Bactrim for osteomyelitis. We'll given 10 mg of Coumadin today. We'll recheck his PT/INR. He came moved out of the intensive care unit. No need for bridging therapy. The long-term anticoagulation is being given for chronic atrial fibrillation.
[2016-12-26] MEDS: MULTIVITAMINS, THERA 1 EACH TAB PO SCH (11:51)
[2016-12-26 12:12] LABS: Glucose,Whole Blood 101 mg/dL (75-99)
[2016-12-26] MEDS: LINAGLIPTIN 5 MG TABLET PO SCH (16:34)
[2016-12-26 17:49] LABS: Glucose,Whole Blood 135 mg/dL (75-99)
[2016-12-26] MEDS ORDERED: WARFARIN 10 MG TAB PO ONE (18:00)
--- NOTE | 2016-12-26 18:20 | P.PN ---
Subjective REASON FOR ADMISSION: Bleeding. HISTORY OF PRESENTING ILLNESS: This is a 71-year-old male with a history of chronic atrial fibrillation on anticoagulation comes into the hospital with easy bruising and a significant amount of pain in his right forearm. Patient was noted to have extensive bruising all over the body. Patient was also noted to have dark stools and hematuria during the last 3 to 4 days. Patient states that he has not been to his doctor for P, INR check. Patient has been taking about 15 to 20 mg of Coumadin over the last 2 months. Patient states that his oral intake has been decreased in the recent time. The patient states that he has also been on Bactrim for a chronic right lower extremity cellulitis. At this time, patient denies having any chest pain, difficulty in breathing, nausea, vomiting. Patient was given a dose of vitamin K 10 mg IV piggyback in the emergency room. I spoke to the emergency physician with the patient with ongoing bleeding and significant INR. I ordered a 5000 unit bolus of ( ) to be given stat. Patient is seen in the emergency room. States to have some pain in his right upper arm. No other complaints are reported. Fourteen-point review of systems was done; none pertinent other than what was mentioned above. 12/26/16 states to be feeling better no cp, marshal, nausea, vomiting, no further episodes of hematuria or bloody stools noted Physical exam Patient appears to be comfortable. Denies having any distress. NECK: Supple. No JVD. FACE: Some bleeding is noted on the end of the lip. LUNGS: Diminished breath sounds. No rhonchi, wheezing or crackles. HEART: Irregular irregular no murmurs appreciated SKIN: A large ecchymosis noted on the right upper arm. Multiple ecchymosis with underlying hematoma noted. Multiple ecchymosis noted throughout the body. EXTREMITIES: 1+ pitting edema noted. FEET: No open wounds. NEURO: No focal motor or sensory deficits noted. ABDOMINAL EXAM: No flank tenderness. Soft, nontender, no organomegaly. Objective - Vital Signs Vital signs: Vital Signs Temp 98.4 F 12/26/16 16:00 Pulse 58 L 12/26/16 18:00 Resp 20 12/26/16 18:00 BP 143/58 12/26/16 18:00 Pulse Ox 99 12/26/16 18:00 Intake & Output 06/12/0612/26/16 12/26/16 18:59 06:59 18:59 Intake Total 500 1350 580 Output Total 150 675 500 Balance 350 675 80 Weight 119 kg 120.3 kg Intake: IV 500 1300 300 Empty Bag 1 bag @ 504 mls 250 /hr IV .Q21M ONE with Human Prothrombin Complx 5,503 unit Rx#:[id number] Magnesium Sulfate-D5w Pmx 200 1 gm In Dextrose/Water 1 100ml.bag @ 100 mls/hr IVPB Q1H [facility] Rx#: [id number] Sodium Chloride 0.9% 1, 250 1300 100 000 ml @ 100 mls/hr IV . Q10H STA Rx#:[id number] Oral 50 280 Output: Urine 150 675 500 Other: Voiding Method Urinal # Voids 0 - Labs CBC & Chem 7: 12/26/16 05:20 12/26/16 05:20 Labs: Abnormal Lab Results - Last 24 Hours (Table) 12/25/16 12/25/16 12/26/16 Range/Units 18:31 20:48 05:20 RBC 3.29 L 3.09 L (4.30-5.90) m/uL Hgb 9.9 L 9.2 L (13.0-17.5) gm/dL Hct 30.3 L 28.0 L (39.0-53.0) % Chloride (98-107) mmol/L BUN (9-20) mg/dL POC Glucose (mg/dL) 127 H (75-99) mg/dL Total Bilirubin (0.2-1.3) mg/dL Total Protein (6.3-8.2) g/dL Albumin (3.5-5.0) g/dL 12/26/16 12/26/16 12/26/16 Range/Units 05:20 12:10 17:42 RBC (4.30-5.90) m/uL Hgb (13.0-17.5) gm/dL Hct (39.0-53.0) % Chloride 108 H (98-107) mmol/L BUN 25 H (9-20) mg/dL POC Glucose (mg/dL) 101 H 135 H (75-99) mg/dL Total Bilirubin 1.7 H (0.2-1.3) mg/dL Total Protein 5.6 L (6.3-8.2) g/dL Albumin 2.9 L (3.5-5.0) g/dL Assessment and Plan Plan: ASSESSMENT AND PLAN: 1. Coumadin toxicity with active bleeding. 2. Chronic atrial fibrillation. 3. Congestive heart failure. 4. Osteomyelitis of the right ankle on Bactrim. 5. Diabetes mellitus. 6. Fall. 7. Anemia with an acute blood loss. 8. Chronic obstructive pulmonary disease with chronic hypoxic respiratory failure. 9. Dyslipidemia. PLAN: pt didnot want novel anticoagulants restart coumadin 10mg check PT/INR CHADSVASC of atleast 4 pt consult unstable in the recent times will eval if pt benefits from short term rehab
[2016-12-26] MEDS: ZOLPIDEM 10 MG TAB PO SCH (22:02)
[2016-12-26] MEDS: ATORVASTATIN 10 MG TAB PO SCH (22:02)
[2016-12-26] MEDS: LISINOPRIL 20 MG TAB PO SCH (22:03)
[2016-12-26 22:07] LABS: Glucose,Whole Blood 89 mg/dL (75-99)
[2016-12-27 05:02] LABS: INR 1.2 (<1.1); Prothrombin Time 11.5 sec (9.0-12.0)
[2016-12-27 05:13] LABS: Phosphorous 3.3 mg/dL (2.5-4.5)
[2016-12-27 05:22] LABS: % Iron Saturation 16.2 % (20-50)
[2016-12-27] MEDS: metFORMIN 500 MG TAB PO SCH ×2 (07:49→16:44)
[2016-12-27] MEDS: glipiZIDE 5 MG TAB PO SCH ×2 (07:49→16:44)
[2016-12-27] MEDS: ATENOLOL 50 MG TAB PO SCH ×2 (09:29→20:47)
[2016-12-27] MEDS: CARBIDOPA-LEVODOPA 25-100 MG 1 EACH TAB PO SCH ×2 (09:29→20:47)
[2016-12-27] MEDS: PANTOPRAZOLE 40 MG/10 ML VIAL IV SCH (09:30)
[2016-12-27] MEDS: SULFAMETHOX-TMP 800-160MG 1 EACH TAB PO SCH ×2 (09:30→20:47)
[2016-12-27] MEDS: DIGOXIN 250 MCG TAB PO SCH (09:30)
[2016-12-27] MEDS: MULTIVITAMINS, THERA 1 EACH TAB PO SCH (12:32)
--- NOTE | 2016-12-27 13:28 | P.PN ---
Subjective Principal diagnosis: Hypercoagulopathy, warfarin toxicity 71-year-old male patient maintained on long-term articulation with warfarin for chronic atrial fibrillation. The patient has not checked his Coumadin level for more than 2 months. He noted that he was bruising easily and for that reason came into the emergency department. He was found to be Coumadin toxic with an INR of above 10. He had an extensive bruising of the right upper extremity/forearm. He has also noted some dark urine and he thought it may be a bloody urine/hematuria. He also passed a bowel movement left-sided was black. No bright red blood per rectum. He also noted some bleeding scabs-like lesions in different parts of his body. He typically uses an electric razor to shave and was using that he had a little area of bleeding near his left lip. For all this reasons he came into the hospital and at that point he was found to have an INR of above 10, PTT of 130 and a PTT of 67. The patient was given Kcentra and the patient also received vitamin K as were told from the reports from the emergency department. We don't see documented in the chart and were not sure if the patient really receive this. The patient following that he was moved to the intensive care unit. Currently is resting, comfortably. He did have his dinner. Denies having any other complaints. No further bleeding has been noted. The patient's urine analysis showed significant number of red cells above 182 per high-power field yet there is no gross hematuria. Hemoglobin is at 9.9. A repeat coagulation profile is still pending. Meanwhile , the patient has noted to have chronic swelling lower extremities. 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 The patient also has some increased warmth in his left ankle which is also swollen. Denies gout. Denies trauma to the leg. No cellulitis. No redness. No open wounds or sores. On 12/26/2016 the patient is doing well. No further bleeding episodes. The patient's INR has normalized. The patient has no epistaxis. No hemoptysis. No upper GI bleeding. No lower GI bleeding. No hematuria. No other complaints otherwise. His hemoglobin is at 9.2. Rest of the electrodes are all within normal limits. Hemodynamically stable. The Doppler of the lower extremities was negative for any DVT. X-ray of the left ankle showed no evidence of any fracture. Patient is seen again today 12/27/2016 in follow-up on the regular medical floor. He is awake and alert in no acute distress. He has had no GI bleeding. No hematuria. No hemoptysis. No abdominal complaints. INR 1.2. Objective - Vital Signs Vital signs: Vital Signs Temp 98.7 F 12/26/16 23:00 Pulse 63 12/26/16 23:00 Resp 24 12/27/16 08:00 BP 120/59 12/26/16 23:00 Pulse Ox 95 12/26/16 23:00 Intake & Output 12/26/16 12/27/16 12/27/16 18:59 06:59 18:59 Intake Total 580 450 Output Total 500 1375 Balance 80 -925 Weight 120 kg 120 kg Intake: IV 300 Magnesium Sulfate-D5w Pmx 200 1 gm In Dextrose/Water 1 100ml.bag @ 100 mls/hr IVPB Q1H [facility] Rx#: [id number] Sodium Chloride 0.9% 1, 100 000 ml @ 100 mls/hr IV . Q10H STA Rx#:[id number] Oral 280 450 Output: Urine 500 1375 Other: Voiding Method Urinal Urinal Urinal # Voids 0 0 - Exam The patient appeared well nourished and normally developed. Vital signs as documented. Head exam is unremarkable. No scleral icterus or corneal arcus noted. Neck is without jugular venous distension, thyromegaly, or carotid bruits. Carotid upstrokes are brisk bilaterally. Lungs are clear to auscultation and percussion. Cardiac exam reveals the PMI to be normally sized and situated. Rhythm is irregular secondary to his atrial fibrillation. First and second heart sounds normal. No murmurs, rubs or gallops. Abdominal exam reveals normal bowel sounds, no masses, no organomegaly and no aortic enlargement. Extremities are edematous and both femoral and pedal pulses are normal. The ankles are swollen bilaterally and there is at least +1-2 pitting edema in both lower extremities more so on the right. No open wounds or sores. There is extensive skin bruising and his forearm on the right. - Labs CBC & Chem 7: 12/26/16 05:20 12/26/16 05:20 Labs: Abnormal Lab Results - Last 24 Hours (Table) 12/26/16 12/27/16 Range/Units 17:42 04:00 POC Glucose (mg/dL) 135 H (75-99) mg/dL Iron 44 L (49-181) ug/dL % Saturation 16.2 L (20-50) % Assessment and Plan Plan: assessment 1 Coumadin toxicity, with some limited skin bruising, hematuria and melanotic stools, the patient was treated with K centra and vitamin K. The Coumadin toxicity recovered and the patient's INR and PT has completely normalized. No evidence of any ongoing bleeding. The patient is hemodynamically stable. Hemoglobin is stable. Coumadin will be restarted a lower dose at 10 mg with close monitoring on outpatient basis. 2 chronic atrial fibrillation, rate controlled 3 CHF 4 osteomyelitis of the right ankle maintained on Bactrim on outpatient basis 5 diabetes mellitus 6 falls 7 bilateral lower extremity swelling likely secondary to CHF 8 anemia, likely chronic 9 chronic tremors 10 COPD with chronic hypoxic respiratory failure maintained on oxygen somewhere between 2-3 L/m nasal cannula 11 hyperlipidemia Plan The patient was seen and evaluated by Dr. Watts. No further critical care issues. He is currently stable. We'll follow him on an as-needed basis.
--- NOTE | 2016-12-27 16:08 | CDI ---
In responding to this query, please exercise your independent professional judgment. The [facility] Coding Staff and Clinical Documentation Specialists appreciate your assistance in clarifying documentation, maintaining compliance with coding guidelines, accurately documenting patients condition and capturing severity of illness. The fact that a question is asked does not imply that any particular answer is desired or expected. Communication forms are a method of clarifying documentation and are not made part of the Legal Health Record. Thank you in advance for your clarification. Last Revision, May 2015 Lashay Keyes [address] [facility] [place] [address] Documentation Clarification Form Date: 12/27/2016 3:54:00 PM From: Christine Hung Admit Date: 12/25/2016 2:21:00 PM Patient Name: Gerson Pickard Visit Number: [id number] Discharge Date: Dr. Salty Macias The patient has diabetes, as indicated in your H&P and progress notes. Clinical Indicators: Per past medical history. Labs: Glucose on [id number] Hemoglobin A1c 5.7 Treatment: Monitor glucose per orders Metformin PO per orders Glucotrol PO per orders Humalog SQ per orders (now DC) In order to capture the severity of Illness and necessary documentation specificity, please clarify: DM Type 1 DM Type 2 DM due to underlying condition, specify (e.g. Cushings syndrome) Drug/chemical induced DM (document the drug/chemical) Gestational DM Unable to Determine Other Condition Please document any body system complications or specific manifestations related to the diabetes: Controlled or Uncontrolled Diabetic Nephropathy Diabetic Autonomic Neuropathy Diabetic Amyotrophy Diabetic Peripheral Vascular Disease Proliferative diabetic retinopathy with macular edema Diabetic foot ulcers, specify location Hyperglycemia Hyperosmolarity Other condition Please document in your progress notes and discharge summary in order to capture severity of illness and risk of mortality. Include clinical findings that support your diagnosis. FYI: Press F11 to launch patient chart. Place X here if this finding has no clinical significance, is not applicable or if you are not able to provide any additional documentation. MTDD
[2016-12-27] MEDS: LINAGLIPTIN 5 MG TABLET PO SCH (16:44)
[2016-12-27 17:29] LABS: Glucose,Whole Blood 98 mg/dL (75-99)
--- NOTE | 2016-12-27 18:22 | P.PN ---
Subjective REASON FOR ADMISSION: Bleeding. HISTORY OF PRESENTING ILLNESS: This is a 71-year-old male with a history of chronic atrial fibrillation on anticoagulation comes into the hospital with easy bruising and a significant amount of pain in his right forearm. Patient was noted to have extensive bruising all over the body. Patient was also noted to have dark stools and hematuria during the last 3 to 4 days. Patient states that he has not been to his doctor for P, INR check. Patient has been taking about 15 to 20 mg of Coumadin over the last 2 months. Patient states that his oral intake has been decreased in the recent time. The patient states that he has also been on Bactrim for a chronic right lower extremity cellulitis. At this time, patient denies having any chest pain, difficulty in breathing, nausea, vomiting. Patient was given a dose of vitamin K 10 mg IV piggyback in the emergency room. I spoke to the emergency physician with the patient with ongoing bleeding and significant INR. I ordered a 5000 unit bolus of ( ) to be given stat. Patient is seen in the emergency room. States to have some pain in his right upper arm. No other complaints are reported. Fourteen-point review of systems was done; none pertinent other than what was mentioned above. 12/26/16 states to be feeling better no cp, marshal, nausea, vomiting, no further episodes of hematuria or bloody stools noted 12/27/16 continues to complaint of pain in his right forearm doesnot want novel anticoagulants is concerned about restarting warfarin Physical exam Patient appears to be comfortable. Denies having any distress. NECK: Supple. No JVD. FACE: Some bleeding is noted on the end of the lip. LUNGS: Diminished breath sounds. No rhonchi, wheezing or crackles. HEART: Irregular irregular no murmurs appreciated SKIN: A large ecchymosis noted on the right upper arm. Multiple ecchymosis with underlying hematoma noted. Multiple ecchymosis noted throughout the body. EXTREMITIES: 1+ pitting edema noted. FEET: No open wounds. NEURO: No focal motor or sensory deficits noted. ABDOMINAL EXAM: No flank tenderness. Soft, nontender, no organomegaly. Objective - Vital Signs Vital signs: Vital Signs Temp 98.4 F 12/27/16 15:00 Pulse 64 12/27/16 15:00 Resp 24 12/27/16 16:00 BP 119/69 12/27/16 15:00 Pulse Ox 95 12/27/16 15:00 Intake & Output 12/26/16 12/27/16 12/27/16 18:59 06:59 18:59 Intake Total 613 841 1455 Output Total 500 1375 Balance 80 -925 1200 Weight 120 kg 120 kg Intake: IV 300 Magnesium Sulfate-D5w Pmx 200 1 gm In Dextrose/Water 1 100ml.bag @ 100 mls/hr IVPB Q1H ELIZABETH Rx#: [id number] Sodium Chloride 0.9% 1, 100 000 ml @ 100 mls/hr IV . Q10H STA Rx#:[id number] Oral [id number] Output: Urine 500 1375 Other: Voiding Method Urinal Urinal Urinal # Voids 0 0 - Labs CBC & Chem 7: 12/26/16 05:20 12/26/16 05:20 Labs: Abnormal Lab Results - Last 24 Hours (Table) 12/27/16 Range/Units 04:00 Iron 44 L (49-181) ug/dL % Saturation 16.2 L (20-50) % Assessment and Plan Plan: ASSESSMENT AND PLAN: 1. Coumadin toxicity with active bleeding. 2. Chronic atrial fibrillation. 3. Congestive heart failure. 4. Osteomyelitis of the right ankle on Bactrim. 5. Diabetes mellitus. 6. Fall. 7. Anemia with an acute blood loss. 8. Chronic obstructive pulmonary disease with chronic hypoxic respiratory failure. 9. Dyslipidemia. PLAN: pt didnot want novel anticoagulants check PT/INR CHADSVASC of atleast 4 Dc home with home care hold off on anticoagulation for atleast 1 week. can follow up with cardiology and restart at that time
[2016-12-27] MEDS: ATORVASTATIN 10 MG TAB PO SCH (20:46)
[2016-12-27] MEDS: ZOLPIDEM 10 MG TAB PO SCH (20:46)
[2016-12-27] MEDS: LISINOPRIL 20 MG TAB PO SCH (20:47)
[2016-12-27 21:36] LABS: Glucose,Whole Blood 94 mg/dL (75-99)
[2016-12-28] MEDS: metFORMIN 500 MG TAB PO SCH (07:20)
[2016-12-28] MEDS: glipiZIDE 5 MG TAB PO SCH (07:20)
[2016-12-28 07:32] LABS: Glucose,Whole Blood 87 mg/dL (75-99)
[2016-12-28 08:26] VITALS: RESP 18
[2016-12-28] MEDS: ATENOLOL 50 MG TAB PO SCH (08:30)
[2016-12-28] MEDS: CARBIDOPA-LEVODOPA 25-100 MG 1 EACH TAB PO SCH (08:30)
[2016-12-28] MEDS: DIGOXIN 250 MCG TAB PO SCH (08:31)
[2016-12-28] MEDS: SULFAMETHOX-TMP 800-160MG 1 EACH TAB PO SCH (08:31)
[2016-12-28 08:57] LABS: INR 1.4 (<1.1); Prothrombin Time 13.5 sec (9.0-12.0)
[2016-12-28 09:10] LABS: Magnesium 1.7 mg/dL (1.6-2.3); Phosphorous 3.3 mg/dL (2.5-4.5)
[2016-12-28 11:46] LABS: Glucose,Whole Blood 94 mg/dL (75-99)
[2016-12-28] MEDS: MULTIVITAMINS, THERA 1 EACH TAB PO SCH (12:49)
[2016-12-28 14:54] VITALS: BP 152/80; PULSE 75; TEMP 98.2
--- NOTE | 2016-12-28 19:49 | P.DS ---
Providers Date of admission: 12/25/16 14:21 Attending physician: Tracey Schilling Consults: 12/25/16 14:39 Consult Physician Urgent Consulting Provider: Shanita Watts Consult Reason/Comments: ICU mgmt Do you want consulting provider notified?: Yes Primary care physician: Edi Love Hospital Course: REASON FOR ADMISSION: Bleeding. HISTORY OF PRESENTING ILLNESS: This is a 71-year-old male with a history of chronic atrial fibrillation on anticoagulation comes into the hospital with easy bruising and a significant amount of pain in his right forearm. Patient was noted to have extensive bruising all over the body. Patient was also noted to have dark stools and hematuria during the last 3 to 4 days. Patient states that he has not been to his doctor for P, INR check. Patient has been taking about 15 to 20 mg of Coumadin over the last 2 months. Patient states that his oral intake has been decreased in the recent time. The patient states that he has also been on Bactrim for a chronic right lower extremity cellulitis. At this time, patient denies having any chest pain, difficulty in breathing, nausea, vomiting. Patient was given a dose of vitamin K 10 mg IV piggyback in the emergency room. I spoke to the emergency physician with the patient with ongoing bleeding and significant INR. I ordered a 5000 unit bolus of ( ) to be given stat. Patient is seen in the emergency room. States to have some pain in his right upper arm. No other complaints are reported. Fourteen-point review of systems was done; none pertinent other than what was mentioned above. 12/26/16 states to be feeling better no cp, marshal, nausea, vomiting, no further episodes of hematuria or bloody stools noted 12/27/16 continues to complaint of pain in his right forearm doesnot want novel anticoagulants is concerned about restarting warfarin 12/28/16 doing well Physical exam Patient appears to be comfortable. Denies having any distress. NECK: Supple. No JVD. FACE: Some bleeding is noted on the end of the lip. LUNGS: Diminished breath sounds. No rhonchi, wheezing or crackles. HEART: Irregular irregular no murmurs appreciated SKIN: A large ecchymosis noted on the right upper arm. Multiple ecchymosis with underlying hematoma noted. Multiple ecchymosis noted throughout the body. EXTREMITIES: 1+ pitting edema noted. FEET: No open wounds. NEURO: No focal motor or sensory deficits noted. ABDOMINAL EXAM: No flank tenderness. Soft, nontender, no organomegaly. ASSESSMENT AND PLAN: 1. Coumadin toxicity with active bleeding. 2. Chronic atrial fibrillation. 3. Congestive heart failure. 4. Osteomyelitis of the right ankle on Bactrim. 5. Diabetes mellitus. type 2 6. Fall. 7. Anemia with an acute blood loss. 8. Chronic obstructive pulmonary disease with chronic hypoxic respiratory failure. 9. Dyslipidemia. PLAN: pt didnot want novel anticoagulants check PT/INR CHADSVASC of atleast 4 Dc home with home care hold off on anticoagulation for atleast 1 week. restart on sunday can follow up with cardiology and restart at that time Patient Condition at Discharge: Critical Plan - Discharge Summary New Discharge Prescriptions: New Warfarin Sodium 10 mg PO DAILY #30 tab Continue metFORMIN HCL 1,000 mg PO BID Simvastatin [Zocor] 20 mg PO HS Saxagliptin HCl [Onglyza] 5 mg PO DAILY Zolpidem Tartrate [Ambien] 10 mg PO HS #10 tablet Sulfamethox-Tmp 800-160Mg [Bactrim DS 800-160 mg] 1 tab PO BID glipiZIDE [Glipizide] 5 mg PO BID Multivitamins, Thera [Multivitamin (formulary)] 1 tab PO DAILY Carbidopa-Levodopa 25-100 mg [Sinemet 25-100 mg] 1 tab PO BID Enalapril [Vasotec] 5 mg PO BID Digoxin [Lanoxin] 250 mcg PO DAILY Atenolol [Tenormin] 100 mg PO BID Omeprazole [PriLOSEC] 20 mg PO DAILY Discontinued Warfarin [Coumadin] 20 mg PO SUMOTUWETHSA Warfarin [Coumadin] 15 mg PO FR Discharge Medication List Simvastatin [Zocor] 20 mg PO HS 08/03/14 [History] metFORMIN HCL 1,000 mg PO BID 08/03/14 [History] Saxagliptin HCl [Onglyza] 5 mg PO DAILY 08/17/16 [History] Zolpidem Tartrate [Ambien] 10 mg PO HS #10 tablet 08/21/16 [Rx] Atenolol [Tenormin] 100 mg PO BID 12/25/16 [History] Carbidopa-Levodopa 25-100 mg [Sinemet 25-100 mg] 1 tab PO BID 12/25/16 [History] Digoxin [Lanoxin] 250 mcg PO DAILY 12/25/16 [History] Enalapril [Vasotec] 5 mg PO BID 12/25/16 [History] Multivitamins, Thera [Multivitamin (formulary)] 1 tab PO DAILY 12/25/16 [History ] Omeprazole [PriLOSEC] 20 mg PO DAILY 12/25/16 [History] Sulfamethox-Tmp 800-160Mg [Bactrim DS 800-160 mg] 1 tab PO BID 12/25/16 [History ] glipiZIDE [Glipizide] 5 mg PO BID 12/25/16 [History] Warfarin Sodium 10 mg PO DAILY #30 tab 12/28/16 [Rx] Follow up Appointment(s)/Referral(s): Edi Love MD [Primary Care Provider] - 01/01/17 11:20 am Barber Laws MD [STAFF PHYSICIAN] - 1 Week (cardiology office will call patient at home to schedule appt) Patient Instructions/Handouts: Warfarin (By mouth), Gastrointestinal Bleeding ( DC), Hematuria (GEN) Discharge Disposition: HOME SELF-CARE
[2016-12-28] MEDS ORDERED: PANTOPRAZOLE 40 MG TABLET PO SCH (21:00)
== END 2016-12-28 16:40 | disposition home or self-care (01) | DRG 813 ==
LOC: EC 10:31 → 6ICU 14:21 → 5MS5E 12-27 08:39
PROVIDERS: ADMIT Internal Medicine; ATTEND Internal Medicine
DX: D68.32 Hemorrhagic disorder due to extrinsic circulating anticoagulants (principal); J96.11 Chronic respiratory failure with hypoxia; E11.622 Type 2 diabetes mellitus with other skin ulcer; I11.0 Hypertensive heart disease with heart failure; D62 Acute posthemorrhagic anemia; I50.9 Heart failure, unspecified; E11.65 Type 2 diabetes mellitus with hyperglycemia; K92.2 Gastrointestinal hemorrhage, unspecified; L03.115 Cellulitis of right lower limb; L97.319 Non-pressure chronic ulcer of right ankle with unspecified severity; M86.8X7 Other osteomyelitis, ankle and foot; E11.69 Type 2 diabetes mellitus with other specified complication; I48.2 Chronic atrial fibrillation; J44.9 Chronic obstructive pulmonary disease, unspecified; R31.0 Gross hematuria; T45.515A Adverse effect of anticoagulants, initial encounter; S50.11XA Contusion of right forearm, initial encounter; E78.5 Hyperlipidemia, unspecified; F12.90 Cannabis use, unspecified, uncomplicated; R25.1 Tremor, unspecified; Z91.81 History of falling; Z99.81 Dependence on supplemental oxygen; Z79.01 Long term (current) use of anticoagulants; Z79.84 Long term (current) use of oral hypoglycemic drugs; Z79.899 Other long term (current) drug therapy; Z87.891 Personal history of nicotine dependence
CPT/HCPCS: 36415; 71010; 80053; 80162; 81001; 82272; 82607; 83036; 83540; 83550; 83735; 84100; 85025; 85027; 85610; 85730; 93005; 93970; 96361; 96365; 96375; 99285

== ENCOUNTER 2017-03-13 17:19 | Inpatient (IN) | payer MEDICARE, OTHER ==
[2017-03-13] MEDS ORDERED: NITROGLYCERIN OINT 1 INCH/GM PACKET TOPICAL STA (17:57)
--- NOTE | 2017-03-13 17:59 | ED ---
SOB HPI - General Chief Complaint: Shortness of Breath Stated Complaint: MONIKA Time Seen by Provider: 03/13/17 17:29 Source: patient Mode of arrival: wheelchair - History of Present Illness Initial Comments: This is a 71-year-old male with a history of CHF who is chronically on 3 L of oxygen at home who presents emergency department for worsening shortness of breath over the last couple of days. He states that it's worse with exertion and laying flat. He's had to turn his oxygen up to 5 L at times because he becomes so short of breath. He denies any chest pain or jaw pain. He does admit to some increased lower extremity swelling. He states he's been compliant with his medications. He did run out of his enalapril however was able to get a temporary prescription through his primary doctor which she filled today. He states he did not miss any doses. He denies any history of COPD. No fevers or chills. He is coughing up some phlegm. He denies any other complaints. - Related Data Home Medications Medication Instructions Recorded Confirmed Simvastatin [Zocor] 20 mg PO HS 08/03/14 12/25/16 metFORMIN HCL 1,000 mg PO BID 08/03/14 12/25/16 Saxagliptin HCl [Onglyza] 5 mg PO DAILY 08/17/16 12/25/16 Atenolol [Tenormin] 100 mg PO BID 12/25/16 12/25/16 Carbidopa-Levodopa 25-100 mg 1 tab PO BID 12/25/16 12/25/16 [Sinemet 25-100 mg] Digoxin [Lanoxin] 250 mcg PO DAILY 12/25/16 12/25/16 Enalapril [Vasotec] 5 mg PO BID 12/25/16 12/25/16 Multivitamins, Thera [Multivitamin 1 tab PO DAILY 12/25/16 12/25/16 (formulary)] Omeprazole [PriLOSEC] 20 mg PO DAILY 12/25/16 12/25/16 Sulfamethox-Tmp 800-160Mg [Bactrim 1 tab PO BID 12/25/16 12/25/16 DS 800-160 mg] glipiZIDE [Glipizide] 5 mg PO BID 12/25/16 12/25/16 Previous Rx's Medication Instructions Recorded Zolpidem Tartrate [Ambien] 10 mg PO HS #10 tablet 08/21/16 Warfarin Sodium 10 mg PO DAILY #30 tab 12/28/16 Allergies Allergy/AdvReac Type Severity Reaction Status Date / Time No Known Allergies Allergy Verified 03/13/17 17:28 Review of Systems ROS Statement: Those systems with pertinent positive or pertinent negative responses have been documented in the HPI. ROS Other: All systems not noted in ROS Statement are negative. Past Medical History Past Medical History: Atrial Fibrillation, Heart Failure, Diabetes Mellitus, Hyperlipidemia, Hypertension Additional Past Medical History / Comment(s): Tremors, chronic S2 lites of the right ankle maintained on Bactrim on outpatient basis, chronic atrial fibrillation , diabetes mellitus, chronic hypoxic respiratory failure on home O2 , hypertension, chronic lower extremities edema, previous history of marijuana use, previous history of falls. History of Any Multi-Drug Resistant Organisms: None Reported Past Surgical History: Orthopedic Surgery Additional Past Surgical History / Comment(s): COMPOUND FX OF TIB/FIB R/T SHRAPNEL, liver injury with questionable surgical intervention to control the injury/bleed Past Anesthesia/Blood Transfusion Reactions: No Reported Reaction Past Psychological History: No Psychological Hx Reported Smoking Status: Former smoker Past Alcohol Use History: None Reported Past Drug Use History: Marijuana - Past Family History Mother Additional Family Medical History / Comment(s): patient unaware of family medical history. He was adopted General Exam - General Exam Comments Initial Comments: Constitutional: Awake alert Appears comfortable Head: Normocephalic atraumatic Eyes: no conjunctival injection No scleral icterus EOMI Neck: Mild JVD Supple Heart: Regular rate rhythm normal S1-S2 no murmurs Lungs: Conversation all dyspnea, no respiratory distress, bibasilar rales Abdomen: Soft nondistended nontender Extremities: There is pitting edema up to the knees bilaterally DP pulses intact Radial pulses intact Neuro: A&Ox3 No focal neurologic deficits Psych: Appropriate mood and affect Course Vital Signs 03/13/17 03/13/17 17:21 19:09 Temperature 98 F Pulse Rate 61 70 Respiratory 22 Rate Blood Pressure 150/70 147/70 O2 Sat by Pulse 94 L 94 L Oximetry - Reevaluation(s) Reevaluation #1: 03/13/17 17:59 EKG showing atrial fibrillation with a rate of 67. No abnormal ST segment changes or T-wave inversions. QTC is 386. Other intervals normal. No ectopy. Medical Decision Making - Medical Decision Making This is a 71-year-old male who presents emergency department for progressively worsening shortness of breath over the last couple of days. On arrival the patient's oxygen saturations were 88-89% on his usual 3 L. He is improved after 94% on 4 L. Chest x-ray appears to have pleural effusions consistent with CHF exacerbation. The patient was given nitro paste and also Lasix 40 mg once. Spoke with Dr. Daley about the admission and he accepts the admission. Dr. Giraldo will be placed on consult patient. The patient agrees with the plan. - Lab Data Result diagrams: 03/13/17 17:50 03/13/17 17:50 Lab Results 03/13/17 03/13/17 03/13/17 Range/Units 17:50 17:50 17:50 WBC 6.5 (3.8-10.6) k/uL RBC 3.64 L (4.30-5.90) m/uL Hgb 10.1 L (13.0-17.5) gm/dL Hct 33.2 L (39.0-53.0) % MCV 91.2 (80.0-100.0) fL MCH 27.8 (25.0-35.0) pg MCHC 30.4 L (31.0-37.0) g/dL RDW 13.1 (11.5-15.5) % Plt Count 188 (150-450) k/uL Neutrophils % 76 % Lymphocytes % 12 % Monocytes % 7 % Eosinophils % 2 % Basophils % 1 % Neutrophils # 4.9 (1.3-7.7) k/uL Lymphocytes # 0.8 L (1.0-4.8) k/uL Monocytes # 0.5 (0-1.0) k/uL Eosinophils # 0.1 (0-0.7) k/uL Basophils # 0.0 (0-0.2) k/uL Hypochromasia Moderate PT 48.3 H (9.0-12.0) sec INR 4.9 H (<1.2) APTT (22.0-30.0) sec Sodium 141 (137-145) mmol/L Potassium 5.1 (3.5-5.1) mmol/L Chloride 101 (98-107) mmol/L Carbon Dioxide 33 H (22-30) mmol/L Anion Gap 7 mmol/L BUN 17 (9-20) mg/dL Creatinine 0.80 (0.66-1.25) mg/dL Est GFR (MDRD) Af Amer >60 (>60 ml/min/1.73 sqM) Est GFR (MDRD) Non-Af >60 (>60 ml/min/1.73 sqM) Glucose 121 H (74-99) mg/dL Calcium 9.1 (8.4-10.2) mg/dL Magnesium 1.6 (1.6-2.3) mg/dL Total Bilirubin 0.9 (0.2-1.3) mg/dL AST 16 L (17-59) U/L ALT 24 (21-72) U/L Alkaline Phosphatase 87 (38-126) U/L CK-MB (CK-2) (0.0-2.4) ng/mL Troponin I (0.000-0.034) ng/mL NT-Pro-B Natriuret Pep pg/mL Total Protein 6.0 L (6.3-8.2) g/dL Albumin 3.2 L (3.5-5.0) g/dL 03/13/17 03/13/17 03/13/17 Range/Units 17:50 17:50 17:50 WBC (3.8-10.6) k/uL RBC (4.30-5.90) m/uL Hgb (13.0-17.5) gm/dL Hct (39.0-53.0) % MCV (80.0-100.0) fL MCH (25.0-35.0) pg MCHC (31.0-37.0) g/dL RDW (11.5-15.5) % Plt Count (150-450) k/uL Neutrophils % % Lymphocytes % % Monocytes % % Eosinophils % % Basophils % % Neutrophils # (1.3-7.7) k/uL Lymphocytes # (1.0-4.8) k/uL Monocytes # (0-1.0) k/uL Eosinophils # (0-0.7) k/uL Basophils # (0-0.2) k/uL Hypochromasia PT (9.0-12.0) sec INR (<1.2) APTT 35.6 H (22.0-30.0) sec Sodium (137-145) mmol/L Potassium (3.5-5.1) mmol/L Chloride (98-107) mmol/L Carbon Dioxide (22-30) mmol/L Anion Gap mmol/L BUN (9-20) mg/dL Creatinine (0.66-1.25) mg/dL Est GFR (MDRD) Af Amer (>60 ml/min/1.73 sqM) Est GFR (MDRD) Non-Af (>60 ml/min/1.73 sqM) Glucose (74-99) mg/dL Calcium (8.4-10.2) mg/dL Magnesium (1.6-2.3) mg/dL Total Bilirubin (0.2-1.3) mg/dL AST (17-59) U/L ALT (21-72) U/L Alkaline Phosphatase (38-126) U/L CK-MB (CK-2) 0.7 (0.0-2.4) ng/mL Troponin I <0.012 (0.000-0.034) ng/mL NT-Pro-B Natriuret Pep 2520 pg/mL Total Protein (6.3-8.2) g/dL Albumin (3.5-5.0) g/dL Disposition Clinical Impression: Congestive heart failure Disposition: ADMITTED IP TO THIS HOSP Condition: Serious Referrals: Edi Love MD [Primary Care Provider] - 1-2 days
[2017-03-13 18:04] LABS: Basophils % (A) 1 %; CH 27.7; CHCM 30.6; Eosinophils # (A) 0.1 k/uL (0-0.7); Eosinophils % (A) 2 %; HCT 33.2 % (39.0-53.0); HDW 2.49; HGB 10.1 gm/dL (13.0-17.5); Hypochromasia Moderate; Luc # (Auto) 0.12; Luc % (Auto) 2; Lymphocytes # (A) 0.8 k/uL (1.0-4.8); Lymphocytes % (A) 12 %; MCH 27.8 pg (25.0-35.0); MCHC 30.4 g/dL (31.0-37.0); MCV 91.2 fL (80.0-100.0); Mean Platelet Volume 7.7; Monocytes # (A) 0.5 k/uL (0-1.0); Monocytes % (A) 7 %; Neutrophils # (A) 4.9 k/uL (1.3-7.7); Neutrophils % (A) 76 %; RBC 3.64 m/uL (4.30-5.90); RDW 13.1 % (11.5-15.5); WBC 6.5 k/uL (3.8-10.6); WBC (Perox) 6.63
[2017-03-13 18:09] LABS: INR 4.9 (<1.2); Prothrombin Time 48.3 sec (9.0-12.0)
--- NOTE | 2017-03-13 18:18 | XR ---
EXAMINATION TYPE: XR chest 1V portable DATE OF EXAM: 03/13/2017 COMPARISON: December 26, 2006 HISTORY: Dyspnea TECHNIQUE: Single frontal AP portable upright radiograph. FINDINGS: Axial the prior study is blunting of the costophrenic angles bilaterally, left greater than right. The findings are accompanied with a meniscus interface, suggesting bilateral pleural effusion s, [id number] in volume and associated with a component of the bibasilar lung airlessness. Con current lung base bronchopneumonia can be clinically excluded. There is no pneumothorax. The upper and mid lungs are clear bilaterally. Mildly enlarged cardiac silhouette is redemonstrated. Multifocal subcentimeter metallic irregular shaped opacities over the chest are redemonstrated, uncha nged. The skeletal structures are unremarkable, with redemonstration of the previously seen old remodeled l eft posterior-lateral rib fractures. IMPRESSION: INTERVAL DEVELOPMENT OF SMALL BILATERAL PLEURAL EFFUSIONS, GREATER ON THE LEFT.
[2017-03-13] MEDS ORDERED: FUROSEMIDE 10 MG/ML 4 ML VIAL IV STA (18:30)
[2017-03-13 18:40] LABS: Creatine Kinase MB 0.7 ng/mL (0.0-2.4); Troponin I <0.012 ng/mL (0.000-0.034)
[2017-03-13 18:48] LABS: ALT 24 U/L (21-72); AST 16 U/L (17-59); Alkaline Phosphatase 87 U/L (38-126); Anion Gap 7 mmol/L; Blood Urea Nitrogen 17 mg/dL (9-20); Calcium 9.1 mg/dL (8.4-10.2); Carbon Dioxide 33 mmol/L (22-30); Chloride 101 mmol/L (98-107); Glucose 121 mg/dL (74-99); Magnesium 1.6 mg/dL (1.6-2.3); Non-African American GFR(MDRD) >60 (>60 ml/min/1.73 sqM); Potassium 5.1 mmol/L (3.5-5.1); Sodium 141 mmol/L (137-145); Total Bilirubin 0.9 mg/dL (0.2-1.3)
[2017-03-13] MEDS ORDERED: metFORMIN 500 MG TAB PO STA (19:25)
[2017-03-13] MEDS ORDERED: glipiZIDE 5 MG TAB PO STA (19:26)
[2017-03-13 21:35] LABS: Glucose,Whole Blood 126 mg/dL (75-99)
[2017-03-13] MEDS: ATENOLOL 50 MG TAB PO SCH (21:36)
[2017-03-13] MEDS: CARBIDOPA-LEVODOPA 25-100 MG 1 EACH TAB PO SCH (21:37)
[2017-03-13] MEDS: SULFAMETHOX-TMP 800-160MG 1 EACH TAB PO SCH (21:37)
[2017-03-13] MEDS: ATORVASTATIN 10 MG TAB PO SCH (21:37)
[2017-03-13] MEDS: ZOLPIDEM 10 MG TAB PO SCH (23:15)
[2017-03-14 00:32] LABS: Creatine Kinase MB 0.7 ng/mL (0.0-2.4); Troponin I 0.015 ng/mL (0.000-0.034)
[2017-03-14 06:15] LABS: Glucose,Whole Blood 72 mg/dL (75-99)
[2017-03-14] MEDS: PANTOPRAZOLE 40 MG TABLET PO SCH (06:41)
[2017-03-14 07:09] LABS: Creatine Kinase MB 0.6 ng/mL (0.0-2.4); Troponin I 0.016 ng/mL (0.000-0.034)
[2017-03-14 07:34] LABS: Cholesterol 111 mg/dL (<200); HDL Cholesterol 36 mg/dL (40-60)
[2017-03-14 08:11] LABS: Creatine Kinase <20 U/L (55-170)
[2017-03-14] MEDS ORDERED: glipiZIDE 5 MG TAB PO SCH (09:00)
[2017-03-14] MEDS ORDERED: metFORMIN 500 MG TAB PO SCH (09:00)
[2017-03-14] MEDS ORDERED: DIGOXIN 250 MCG TAB PO SCH (09:00)
[2017-03-14] MEDS: ATENOLOL 50 MG TAB PO SCH ×3 (09:28→22:26)
[2017-03-14] MEDS: LINAGLIPTIN 5 MG TABLET PO SCH (09:30)
[2017-03-14] MEDS: SULFAMETHOX-TMP 800-160MG 1 EACH TAB PO SCH ×2 (09:31→19:56)
[2017-03-14] MEDS: LISINOPRIL 20 MG TAB PO SCH (09:31)
[2017-03-14 11:47] LABS: Glucose,Whole Blood 117 mg/dL (75-99)
--- NOTE | 2017-03-14 12:01 | P.HPIM ---
History of Present Illness 71-year-old male in admitted to the emergency room with history of shortness of breath of with cough with sputum. The patient's and chronic atrial fibrillation. Diabetic Review of Systems Constitutional: Reports fatigue Cardiovascular: Reports edema Respiratory: Reports cough with sputum Neurological: Reports tremors Past Medical History Past Medical History: Atrial Fibrillation, Heart Failure, Diabetes Mellitus, Hyperlipidemia, Hypertension, Osteoarthritis (OA), Pneumonia Additional Past Medical History / Comment(s): Tremors, chronic osteomylitis of the right ankle maintained on Bactrim on outpatient basis, chronic hypoxic respiratory failure on home O2 - 3L HOME 02, chronic lower extremities edema, falls History of Any Multi-Drug Resistant Organisms: None Reported Past Surgical History: Orthopedic Surgery Additional Past Surgical History / Comment(s): COMPOUND FX OF TIB/FIB R/T SHRAPNEL, liver injury with questionable surgical intervention to control the injury/bleed Past Anesthesia/Blood Transfusion Reactions: No Reported Reaction Past Psychological History: No Psychological Hx Reported Smoking Status: Former smoker Past Alcohol Use History: None Reported Additional Past Alcohol Use History / Comment(s): NONE SINCE AGE 35 Past Drug Use History: Marijuana Additional Drug Use History / Comment(s): HX OF DRUG USE - marijuana, NONE SINCE AGE 25 OR 30 - Past Family History Mother Additional Family Medical History / Comment(s): patient unaware of family medical history. He was adopted Medications and Allergies Home Medications Medication Instructions Recorded Confirmed Type Simvastatin [Zocor] 20 mg PO HS 08/03/14 03/13/17 History metFORMIN HCL 1,000 mg PO BID 08/03/14 03/13/17 History Saxagliptin HCl [Onglyza] 5 mg PO DAILY 08/17/16 03/13/17 History Atenolol [Tenormin] 100 mg PO BID 12/25/16 03/13/17 History Carbidopa-Levodopa 25-100 mg 1 tab PO BID 12/25/16 03/13/17 History [Sinemet 25-100 mg] Digoxin [Lanoxin] 250 mcg PO DAILY 12/25/16 03/13/17 History Enalapril [Vasotec] 5 mg PO BID 12/25/16 03/13/17 History Multivitamins, Thera [Multivitamin 1 tab PO DAILY 12/25/16 03/13/17 History (formulary)] Omeprazole [PriLOSEC] 20 mg PO DAILY 12/25/16 03/13/17 History Sulfamethox-Tmp 800-160Mg [Bactrim 1 tab PO BID 12/25/16 03/13/17 History DS 800-160 mg] glipiZIDE [Glipizide] 10 mg PO BID 12/25/16 03/13/17 History Calcium Carb-Vit D 500Mg-200Un 1 tab PO TID 03/13/17 03/13/17 History [Oscal 500+D] Cyanocobalamin (Vitamin B-12) 1,000 mcg PO BID 03/13/17 03/13/17 History [Vitamin B-12] Glucosam/Lopez-Msm1/C/Jay/Bosw 1 tab PO BID 03/13/17 03/13/17 History [Glucosamine-Chondroitin Tablet] Vitamin C 250mg Chewable Tab 250 mg PO DAILY 03/13/17 03/13/17 History Allergies Allergy/AdvReac Type Severity Reaction Status Date / Time No Known Allergies Allergy Verified 03/13/17 21:11 Physical Exam Vitals: Vital Signs Temp Pulse Pulse Resp BP BP Pulse Ox 03/14/17 08:00 97.4 F L 61 16 161/75 4 L 03/14/17 03:24 97 F L 61 18 149/74 95 03/14/17 00:00 55 L 18 151/71 97 03/13/17 21:29 68 03/13/17 20:18 97.2 F L 68 18 166/77 98 03/13/17 19:54 97.4 F L 64 22 181/83 94 L 03/13/17 19:09 70 22 147/70 94 L 03/13/17 17:21 98 F 61 150/70 94 L Intake and Output 03/13/17 03/14/17 03/14/17 22:59 06:59 14:59 Intake Total 360 360 Output Total 500 850 125 Balance -500 -490 235 Intake: Oral 360 360 Output: Urine 500 850 125 Other: Weight 137.7 kg 134.9 kg - Constitutional General appearance: obese - EENT Eyes: PERRLA Ears: bilateral: normal - Neck Neck: normal ROM - Respiratory Respiratory: bilateral: diminished - Cardiovascular Rhythm: irregularly irregular Abnormal Heart Sounds: systolic murmur leg Peripheral Edema: bilateral: 2+ - Gastrointestinal General gastrointestinal: soft - Integumentary Integumentary: normal - Neurologic Neurologic: CNII-XII intact - Musculoskeletal Musculoskeletal: generalized weakness - Psychiatric Psychiatric: A&O x's 3, appropriate affect, intact judgment & insight Results CBC & Chem 7: 03/13/17 17:50 03/13/17 17:50 Labs: Abnormal Lab Results - Last 24 Hours (Table) 03/13/17 03/13/17 03/13/17 Range/Units 17:50 17:50 17:50 RBC 3.64 L (4.30-5.90) m/uL Hgb 10.1 L (13.0-17.5) gm/dL Hct 33.2 L (39.0-53.0) % MCHC 30.4 L (31.0-37.0) g/dL Lymphocytes # 0.8 L (1.0-4.8) k/uL PT 48.3 H (9.0-12.0) sec INR 4.9 H (<1.2) APTT (22.0-30.0) sec Carbon Dioxide 33 H (22-30) mmol/L Glucose 121 H (74-99) mg/dL POC Glucose (mg/dL) (75-99) mg/dL AST 16 L (17-59) U/L Total Creatine Kinase (55-170) U/L Total Protein 6.0 L (6.3-8.2) g/dL Albumin 3.2 L (3.5-5.0) g/dL HDL Cholesterol (40-60) mg/dL 03/13/17 03/13/17 03/13/17 Range/Units 17:50 21:34 23:33 RBC (4.30-5.90) m/uL Hgb (13.0-17.5) gm/dL Hct (39.0-53.0) % MCHC (31.0-37.0) g/dL Lymphocytes # (1.0-4.8) k/uL PT (9.0-12.0) sec INR (<1.2) APTT 35.6 H (22.0-30.0) sec Carbon Dioxide (22-30) mmol/L Glucose (74-99) mg/dL POC Glucose (mg/dL) 126 H (75-99) mg/dL AST (17-59) U/L Total Creatine Kinase 23 L (55-170) U/L Total Protein (6.3-8.2) g/dL Albumin (3.5-5.0) g/dL HDL Cholesterol (40-60) mg/dL 03/14/17 03/14/17 03/14/17 Range/Units 06:07 06:07 06:10 RBC (4.30-5.90) m/uL Hgb (13.0-17.5) gm/dL Hct (39.0-53.0) % MCHC (31.0-37.0) g/dL Lymphocytes # (1.0-4.8) k/uL PT (9.0-12.0) sec INR (<1.2) APTT (22.0-30.0) sec Carbon Dioxide (22-30) mmol/L Glucose (74-99) mg/dL POC Glucose (mg/dL) 72 L (75-99) mg/dL AST (17-59) U/L Total Creatine Kinase <20 L (55-170) U/L Total Protein (6.3-8.2) g/dL Albumin (3.5-5.0) g/dL HDL Cholesterol 36 L (40-60) mg/dL 03/14/17 Range/Units 11:28 RBC (4.30-5.90) m/uL Hgb (13.0-17.5) gm/dL Hct (39.0-53.0) % MCHC (31.0-37.0) g/dL Lymphocytes # (1.0-4.8) k/uL PT (9.0-12.0) sec INR (<1.2) APTT (22.0-30.0) sec Carbon Dioxide (22-30) mmol/L Glucose (74-99) mg/dL POC Glucose (mg/dL) 117 H (75-99) mg/dL AST (17-59) U/L Total Creatine Kinase (55-170) U/L Total Protein (6.3-8.2) g/dL Albumin (3.5-5.0) g/dL HDL Cholesterol (40-60) mg/dL Chest x-ray: report reviewed Thrombosis Risk Factor Assmnt - Choose All That Apply Any of the Below Risk Factors Present?: Yes Each Factor Represents 1 point: Obesity (BMI >25), Swollen legs (current) Other Risk Factors: Yes Each Risk Factor Represents 2 Points: Age 61-74 years Other congenital or acquired thrombophilia - If yes, enter type in comment: No Thrombosis Risk Factor Assessment Total Risk Factor Score: 4 Thrombosis Risk Factor Assessment Level: Moderate Risk Assessment and Plan Plan: Assessment Congestive heart failure awaiting echo report Pleural effusion History of atrial fibrillation Diabetes type 2 Hyperlipidemia Resting tremors Hypertension Chronic respiratory failure on home O2 Lower extremity edema Plan Consultation with cardiology and pulmonology
[2017-03-14] MEDS: CARBIDOPA-LEVODOPA 25-100 MG 1 EACH TAB PO SCH ×2 (12:44→19:56)
[2017-03-14 12:57] LABS: INR 4.8 (<1.2); Prothrombin Time 47.8 sec (9.0-12.0)
--- NOTE | 2017-03-14 14:29 | P.CRDCN ---
History of Present Illness History of present illness: Patient admitted with shortness of breath and cough No chest discomfort Being treated for pneumonitis No syncope no dizziness no palpitations Past history of hypertension, atrial fibrillation, adult onset diabetes Medication list was reviewed and as documented in the chart NO KNOWN DRUG ALLERGIES Labs are reviewed, hemoglobin 10.1, potassium 5.1 daily functions are normal INR 4.8, normal troponins, LDL 55 HDL 36 total cholesterol 111 triglycerides 98 On examination, he is afebrile 97.4F pulse rate in the 60s nighttime bradycardia noted blood pressure 149/74 to 161/75 mmHg, blood pressure is elevated Rhythm irregular no murmurs no gallops Breath sounds decreased bilaterally with some crackles at bases bilaterally Abdomen soft nontender Mild bilateral lower extremity edema Suggest 40 mg by mouth Lasix daily Reduce atenolol to total of 150 mrem by mouth daily, reduce digoxin to 0.125 g by mouth daily Add Amlodipine if blood pressure is consistently elevated 2-D echo and Doppler study to assess cardiac structure and function Check TSH Past Medical History Past Medical History: Atrial Fibrillation, Heart Failure, Diabetes Mellitus, Hyperlipidemia, Hypertension, Osteoarthritis (OA), Pneumonia Additional Past Medical History / Comment(s): Tremors, chronic osteomylitis of the right ankle maintained on Bactrim on outpatient basis, chronic hypoxic respiratory failure on home O2 - 3L HOME 02, chronic lower extremities edema, falls History of Any Multi-Drug Resistant Organisms: None Reported Past Surgical History: Orthopedic Surgery Additional Past Surgical History / Comment(s): COMPOUND FX OF TIB/FIB R/T SHRAPNEL, liver injury with questionable surgical intervention to control the injury/bleed Past Anesthesia/Blood Transfusion Reactions: No Reported Reaction Past Psychological History: No Psychological Hx Reported Smoking Status: Former smoker Past Alcohol Use History: None Reported Additional Past Alcohol Use History / Comment(s): NONE SINCE AGE 35 Past Drug Use History: Marijuana Additional Drug Use History / Comment(s): HX OF DRUG USE - marijuana, NONE SINCE AGE 25 OR 30 - Past Family History Mother Additional Family Medical History / Comment(s): patient unaware of family medical history. He was adopted Medications and Allergies Home Medications Medication Instructions Recorded Confirmed Type Simvastatin [Zocor] 20 mg PO HS 08/03/14 03/13/17 History metFORMIN HCL 1,000 mg PO BID 08/03/14 03/13/17 History Saxagliptin HCl [Onglyza] 5 mg PO DAILY 08/17/16 03/13/17 History Atenolol [Tenormin] 100 mg PO BID 12/25/16 03/13/17 History Carbidopa-Levodopa 25-100 mg 1 tab PO BID 12/25/16 03/13/17 History [Sinemet 25-100 mg] Digoxin [Lanoxin] 250 mcg PO DAILY 12/25/16 03/13/17 History Enalapril [Vasotec] 5 mg PO BID 12/25/16 03/13/17 History Multivitamins, Thera [Multivitamin 1 tab PO DAILY 12/25/16 03/13/17 History (formulary)] Omeprazole [PriLOSEC] 20 mg PO DAILY 12/25/16 03/13/17 History Sulfamethox-Tmp 800-160Mg [Bactrim 1 tab PO BID 12/25/16 03/13/17 History DS 800-160 mg] glipiZIDE [Glipizide] 10 mg PO BID 12/25/16 03/13/17 History Calcium Carb-Vit D 500Mg-200Un 1 tab PO TID 03/13/17 03/13/17 History [Oscal 500+D] Cyanocobalamin (Vitamin B-12) 1,000 mcg PO BID 03/13/17 03/13/17 History [Vitamin B-12] Glucosam/Lopez-Msm1/C/Jay/Bosw 1 tab PO BID 03/13/17 03/13/17 History [Glucosamine-Chondroitin Tablet] Vitamin C 250mg Chewable Tab 250 mg PO DAILY 03/13/17 03/13/17 History Allergies Allergy/AdvReac Type Severity Reaction Status Date / Time No Known Allergies Allergy Verified 03/13/17 21:11 Physical Exam Vitals: Vital Signs Temp Pulse Pulse Resp BP BP Pulse Ox 03/14/17 08:00 97.4 F L 61 16 161/75 4 L 03/14/17 03:24 97 F L 61 18 149/74 95 03/14/17 00:00 55 L 18 151/71 97 03/13/17 21:29 68 03/13/17 20:18 97.2 F L 68 18 166/77 98 03/13/17 19:54 97.4 F L 64 22 181/83 94 L 03/13/17 19:09 70 22 147/70 94 L 03/13/17 17:21 98 F 61 150/70 94 L Intake and Output 03/13/17 03/14/17 03/14/17 22:59 06:59 14:59 Intake Total 360 597 Output Total 500 850 125 Balance -500 -490 472 Intake: Oral 360 597 Output: Urine 500 850 125 Other: Weight 137.7 kg 134.9 kg Results 03/13/17 17:50 03/13/17 17:50 Cardiac Enzymes 03/13/17 03/13/17 03/13/17 Range/Units 17:50 17:50 23:33 AST 16 L (17-59) U/L CK-MB (CK-2) 0.7 0.7 (0.0-2.4) ng/mL Troponin I <0.012 0.015 (0.000-0.034) ng/mL 03/14/17 Range/Units 06:07 AST (17-59) U/L CK-MB (CK-2) 0.6 (0.0-2.4) ng/mL Troponin I 0.016 (0.000-0.034) ng/mL Coagulation 03/13/17 03/13/17 03/14/17 Range/Units 17:50 17:50 06:07 PT 48.3 H 47.8 H (9.0-12.0) sec APTT 35.6 H (22.0-30.0) sec Lipids 03/14/17 Range/Units 06:07 Triglycerides 98 (<150) mg/dL Cholesterol 111 (<200) mg/dL HDL Cholesterol 36 L (40-60) mg/dL CBC 03/13/17 Range/Units 17:50 WBC 6.5 (3.8-10.6) k/uL RBC 3.64 L (4.30-5.90) m/uL Hgb 10.1 L (13.0-17.5) gm/dL Hct 33.2 L (39.0-53.0) % Plt Count 188 (150-450) k/uL Comprehensive Metabolic Panel 03/13/17 Range/Units 17:50 Sodium 141 (137-145) mmol/L Potassium 5.1 (3.5-5.1) mmol/L Chloride 101 (98-107) mmol/L Carbon Dioxide 33 H (22-30) mmol/L BUN 17 (9-20) mg/dL Creatinine 0.80 (0.66-1.25) mg/dL Glucose 121 H (74-99) mg/dL Calcium 9.1 (8.4-10.2) mg/dL AST 16 L (17-59) U/L ALT 24 (21-72) U/L Alkaline Phosphatase 87 (38-126) U/L Total Protein 6.0 L (6.3-8.2) g/dL Albumin 3.2 L (3.5-5.0) g/dL Current Medications Generic Name Dose Route Start Last Admin Trade Name Freq PRN Reason Stop Dose Admin Atenolol 100 mg 03/15/17 09:00 Tenormin PO QAM [facility] Atenolol 50 mg 03/14/17 18:00 Tenormin PO DAILY@1800 [facility] Atorvastatin Calcium 10 mg 03/13/17 21:00 03/13/17 21:37 Lipitor PO 10 mg HS [facility] Administration Carbidopa/Levodopa 1 each 03/13/17 21:00 03/14/17 12:44 Sinemet 25-100 PO 1 each BID [facility] Administration Digoxin 125 mcg 03/14/17 13:07 Lanoxin PO DAILY [facility] Furosemide 40 mg 03/14/17 13:15 Lasix PO DAILY [facility] Glipizide 5 mg 03/14/17 09:00 03/14/17 09:30 Glucotrol PO 5 mg BID [facility] Administration Linagliptin 5 mg 03/14/17 09:00 03/14/17 09:30 Tradjenta PO 5 mg DAILY [facility] Administration Lisinopril 20 mg 03/14/17 09:00 03/14/17 09:31 Zestril PO 20 mg DAILY [facility] Administration Metformin HCl 1,000 mg 03/14/17 09:00 03/14/17 09:31 Glucophage PO 1,000 mg BID [facility] Administration Pantoprazole Sodium 40 mg 03/14/17 07:30 03/14/17 06:41 Protonix PO 40 mg [id number]-[id number] [facility] Administration Trimethoprim/Sulfamethoxazole 1 each 03/13/17 21:00 03/14/17 09:31 Bactrim Ds PO 1 each BID [facility] Administration Warfarin Sodium 10 mg 03/14/17 09:00 Coumadin PO DAILY [facility] Zolpidem Tartrate 10 mg 03/13/17 21:00 03/13/17 23:15 Ambien PO 10 mg HS [facility] Administration Intake and Output 03/13/17 03/14/17 03/14/17 22:59 06:59 14:59 Intake Total 360 597 Output Total 500 850 125 Balance -500 -460 092 Intake: Oral 360 597 Output: Urine 500 850 125 Other: Weight 137.7 kg 134.9 kg 03/13/17 17:50 03/13/17 17:50
[2017-03-14 14:47] VITALS: BMI 38.2
[2017-03-14 16:48] LABS: Glucose,Whole Blood 84 mg/dL (75-99)
[2017-03-14] MEDS: glipiZIDE 5 MG TAB PO SCH (16:55)
[2017-03-14] MEDS: metFORMIN 500 MG TAB PO SCH (16:55)
[2017-03-14] MEDS: FUROSEMIDE 40 MG TAB PO SCH (16:55)
[2017-03-14] MEDS: ZOLPIDEM 10 MG TAB PO SCH (19:55)
[2017-03-14] MEDS: ATORVASTATIN 10 MG TAB PO SCH (19:55)
[2017-03-14 20:42] LABS: Glucose,Whole Blood 92 mg/dL (75-99)
[2017-03-15 03:14] LABS: Glucose,Whole Blood 85 mg/dL (75-99)
[2017-03-15 06:11] LABS: Glucose,Whole Blood 83 mg/dL (75-99)
[2017-03-15 06:33] LABS: INR 2.9 (<1.2)
[2017-03-15] MEDS: PANTOPRAZOLE 40 MG TABLET PO SCH (06:41)
[2017-03-15] MEDS: glipiZIDE 5 MG TAB PO SCH ×2 (06:41→16:57)
[2017-03-15] MEDS: metFORMIN 500 MG TAB PO SCH ×2 (06:41→16:57)
[2017-03-15] MEDS: ATENOLOL 50 MG TAB PO SCH ×2 (08:26→17:37)
[2017-03-15] MEDS: LINAGLIPTIN 5 MG TABLET PO SCH (08:26)
[2017-03-15] MEDS: FUROSEMIDE 40 MG TAB PO SCH (08:27)
[2017-03-15] MEDS: CARBIDOPA-LEVODOPA 25-100 MG 1 EACH TAB PO SCH ×2 (08:27→21:03)
[2017-03-15] MEDS: DIGOXIN 125 MCG TAB PO SCH (08:27)
[2017-03-15] MEDS: LISINOPRIL 20 MG TAB PO SCH (08:28)
[2017-03-15] MEDS: SULFAMETHOX-TMP 800-160MG 1 EACH TAB PO SCH ×2 (08:28→21:03)
--- NOTE | 2017-03-15 11:17 | ECHOF ---
Referral Reason:CHF MEASUREMENTS -------- HEIGHT: 188.0 cm WEIGHT: 134.7 kg BP: 161/75 RVIDd: 3.7 cm (< 3.3) IVSd: 1.3 cm (0.6 - 1.1) LVIDd: 5.5 cm (3.9 - 5.3) LVPWd: 1.3 cm (0.6 - 1.1) IVSs: 1.7 cm LVIDs: 4.3 cm LVPWs: 1.5 cm LAESV Index (A-L): 28.15 ml/m Ao Diam: 3.7 cm (2.0 - 3.7) AV Cusp: 2.4 cm (1.5 - 2.6) LA Diam: 4.2 cm (2.7 - 3.8) MV EXCURSION: 24.729 mm (> 18.000) MV EF SLOPE: 140 mm/s (70 - 150) EPSS: 1.6 cm RAP: 5.00 mmHg RVSP: 44.50 mmHg FINDINGS -------- Atrial fibrillation. This was a technically difficult study with suboptimal views. The left ventricle is mildly dilated. Overall left ventricular systolic function is normal with, an EF between 55 - 60 %. The right ventricle is normal in size and function. LA is midly dilated 29-33ml/m2. The right atrium is normal in size. 1.5mg of Definity was utilized for enhancement of images Aortic valve is trileaflet and is mildly thickened. There is no evidence of aortic regurgitation. There is no evidence of aortic stenosis. The mitral valve leaflets are mildly thickened. There is trace to mild mitral regurgitation. Mild tricuspid regurgitation present. There is mild pulmonary hypertension. The right ventricular systolic pressure, as measured by Doppler, is 44.50mmHg. The pulmonic valve was not well visualized. The aortic root size is normal. The inferior vena cava is dilated with no significant inspiratory collapse which is consistent estimated right atrial pressure of >20 mmHg. The pericardium is normal. There is no pericardial effusion. CONCLUSIONS -------- 1. Atrial fibrillation. 2. Mild tricuspid regurgitation present. 3. There is mild pulmonary hypertension. 4. The right ventricular systolic pressure, as measured by Doppler, is 44.50mmHg. 5. The pulmonic valve was not well visualized. 6. The aortic root size is normal. 7. The inferior vena cava is dilated with no significant inspiratory collapse which is consistent estimated right atrial pressure of >20 mmHg. 8. There is no pericardial effusion. 9. This was a technically difficult study with suboptimal views. 10. The left ventricle is mildly dilated. 11. Overall left ventricular systolic function is normal with, an EF between 55 - 60 %. 12. LA is midly dilated 29-33ml/m2. 13. 1.5mg of Definity was utilized for enhancement of images 14. Aortic valve is trileaflet and is mildly thickened. 15. The mitral valve leaflets are mildly thickened. 16. There is trace to mild mitral regurgitation. IT TEACHER: Johan Acevedo RDCS
[2017-03-15] MEDS ORDERED: IPRATROPIUM-ALBUTEROL 3 ML NEB INHALATION PRN (11:42)
--- NOTE | 2017-03-15 11:42 | P.CNPUL ---
History of Present Illness Consult date: 03/15/17 Requesting physician: Edi Love History of present illness: This is a 71-year-old gentleman with a known history of atrial fibrillation maintained on warfarin, congestive heart failure, chronic obstructive pulmonary disease with chronic hypoxic respiratory failure on 3 L/m in the home setting, diabetes mellitus, hyperlipidemia, hypertension. He follows with Dr. Love in the outpatient setting. He presented to the emergency room on 03/13/2017 with complaints of increasing shortness of breath. He was also having difficulty laying flat to breathe and he had turned up his oxygen to 5 L and was still quite short of breath. He presented to the emergency room for the same. His chest x-ray showed small bilateral pleural effusions greater on the left. He is admitted for CHF exacerbation. ProBNP level [id number] His echocardiogram revealed preserved left ventricular systolic function with an ejection fraction between 55 and 60%. There is mild pulmonary hypertension with an RVSP of 45 mmHg. He is seen today in consultation on the selective care unit. He is quite sleepy currently. He does arouse to verbal stimuli and is answering yes and no questions appropriately. He denies any worsening shortness of breath at this time. No cough or congestion. He remains in a negative balance. He is maintaining O2 saturations in the mid 90s on 4 L/m per nasal cannula. He is afebrile. Review of Systems 12 point review of system was conducted. All negative other than as mentioned in HPI. Past Medical History Past Medical History: Atrial Fibrillation, Heart Failure, Diabetes Mellitus, Hyperlipidemia, Hypertension, Osteoarthritis (OA), Pneumonia Additional Past Medical History / Comment(s): Tremors, chronic osteomylitis of the right ankle maintained on Bactrim on outpatient basis, chronic hypoxic respiratory failure on home O2 - 3L HOME 02, chronic lower extremities edema, falls History of Any Multi-Drug Resistant Organisms: None Reported Past Surgical History: Orthopedic Surgery Additional Past Surgical History / Comment(s): COMPOUND FX OF TIB/FIB R/T SHRAPNEL, liver injury with questionable surgical intervention to control the injury/bleed Past Anesthesia/Blood Transfusion Reactions: No Reported Reaction Past Psychological History: No Psychological Hx Reported Smoking Status: Former smoker Past Alcohol Use History: None Reported Additional Past Alcohol Use History / Comment(s): NONE SINCE AGE 35 Past Drug Use History: Marijuana Additional Drug Use History / Comment(s): HX OF DRUG USE - marijuana, NONE SINCE AGE 25 OR 30 - Past Family History Mother Additional Family Medical History / Comment(s): patient unaware of family medical history. He was adopted Medications and Allergies Home Medications Medication Instructions Recorded Confirmed Type Simvastatin [Zocor] 20 mg PO HS 08/03/14 03/13/17 History metFORMIN HCL 1,000 mg PO BID 08/03/14 03/13/17 History Saxagliptin HCl [Onglyza] 5 mg PO DAILY 08/17/16 03/13/17 History Atenolol [Tenormin] 100 mg PO BID 12/25/16 03/13/17 History Carbidopa-Levodopa 25-100 mg 1 tab PO BID 12/25/16 03/13/17 History [Sinemet 25-100 mg] Digoxin [Lanoxin] 250 mcg PO DAILY 12/25/16 03/13/17 History Enalapril [Vasotec] 5 mg PO BID 12/25/16 03/13/17 History Multivitamins, Thera [Multivitamin 1 tab PO DAILY 12/25/16 03/13/17 History (formulary)] Omeprazole [PriLOSEC] 20 mg PO DAILY 12/25/16 03/13/17 History Sulfamethox-Tmp 800-160Mg [Bactrim 1 tab PO BID 12/25/16 03/13/17 History DS 800-160 mg] glipiZIDE [Glipizide] 10 mg PO BID 12/25/16 03/13/17 History Calcium Carb-Vit D 500Mg-200Un 1 tab PO TID 03/13/17 03/13/17 History [Oscal 500+D] Cyanocobalamin (Vitamin B-12) 1,000 mcg PO BID 03/13/17 03/13/17 History [Vitamin B-12] Glucosam/Lopez-Msm1/C/Jay/Bosw 1 tab PO BID 03/13/17 03/13/17 History [Glucosamine-Chondroitin Tablet] Vitamin C 250mg Chewable Tab 250 mg PO DAILY 03/13/17 03/13/17 History Allergies Allergy/AdvReac Type Severity Reaction Status Date / Time No Known Allergies Allergy Verified 03/13/17 21:11 Physical Exam Vitals: Vital Signs Temp Pulse Resp BP Pulse Ox 03/15/17 08:00 97.8 F 58 L 18 157/77 95 03/15/17 03:42 97.8 F 74 18 156/76 93 L 03/15/17 00:00 98.1 F 67 18 157/72 93 L 03/14/17 20:00 97.1 F L 55 L 18 142/67 97 03/14/17 16:00 66 134/78 93 L Intake and Output 03/14/17 03/15/17 03/15/17 22:59 06:59 14:59 Intake Total 236 118 Output Total 300 Balance 236 -300 118 Intake: Oral 236 118 Output: Urine 300 Other: Voiding Method Urinal Urinal # Voids 1 Weight 135.4 kg GENERAL EXAM: Alert, comfortable in no apparent distress. HEAD: Normocephalic. EYES: Normal reaction of pupils, equal size. NOSE: Clear with pink turbinates. THROAT: No erythema or exudates. NECK: No masses, no significant JVD. CHEST: No chest wall deformity. LUNGS: Equal air entry with crackles in bilateral bases. CVS: S1 and S2 normal with no audible murmurs, regular rhythm. ABDOMEN: No hepatosplenomegaly, normal bowel sounds, no guarding or rigidity. Extremities: There is 1-2+ lower extremity edema. Changes of chronic venous stasis. Results - Laboratory Findings CBC and BMP: 03/13/17 17:50 03/13/17 17:50 PT/INR, D-dimer PT 28.0 sec (9.0-12.0) H 03/15/17 05:22 INR 2.9 (<1.2) H 03/15/17 05:22 Abnormal lab findings: Abnormal Labs 03/13/17 03/13/17 03/13/17 17:50 17:50 17:50 RBC 3.64 L Hgb 10.1 L Hct 33.2 L MCHC 30.4 L Lymphocytes # 0.8 L PT 48.3 H INR 4.9 H APTT Carbon Dioxide 33 H Glucose 121 H POC Glucose (mg/dL) AST 16 L Total Creatine Kinase Total Protein 6.0 L Albumin 3.2 L HDL Cholesterol 03/13/17 03/13/17 03/13/17 17:50 21:34 23:33 RBC Hgb Hct MCHC Lymphocytes # PT INR APTT 35.6 H Carbon Dioxide Glucose POC Glucose (mg/dL) 126 H AST Total Creatine Kinase 23 L Total Protein Albumin HDL Cholesterol 03/14/17 03/14/17 03/14/17 06:07 06:07 06:07 RBC Hgb Hct MCHC Lymphocytes # PT 47.8 H INR 4.8 H APTT Carbon Dioxide Glucose POC Glucose (mg/dL) AST Total Creatine Kinase <20 L Total Protein Albumin HDL Cholesterol 36 L 03/14/17 03/14/17 03/15/17 06:10 11:28 05:22 RBC Hgb Hct MCHC Lymphocytes # PT 28.0 H INR 2.9 H APTT Carbon Dioxide Glucose POC Glucose (mg/dL) 72 L 117 H AST Total Creatine Kinase Total Protein Albumin HDL Cholesterol - Diagnostic Findings Chest x-ray: image reviewed Assessment and Plan Plan: Impression: #1 Acute exacerbation of chronic diastolic congestive heart failure. #2 Acute exacerbation of chronic obstructive pulmonary disease. #3 Acute on chronic hypoxic respiratory failure secondary to above, maintained on 3 L/m per nasal cannula in the outpatient setting. #4 History of chronic tobacco use. #5 Atrial fibrillation, anticoagulated with warfarin, initially supra therapeutic at 4.9. Currently 2.9. #6 Diabetes mellitus. #7 Chronic venous stasis of the lower extremities secondary to congestive heart failure. #8 Osteomyelitis of the right ankle maintained on Bactrim in the outpatient setting. #9 Chronic tremors. #10 Hyperlipidemia. #11 Hypertension. Plan: The patient was seen and evaluated by Dr. Barros. His chest x-ray and labs were reviewed. We will add DuoNeb inhalations 4 times a day and when necessary. We will also add Pulmicort and Perforomist inhalations twice a day. He would benefit from a follow-up appointment in our office to perform pulmonary function testing to evaluate the severity of his COPD. In the interim, we'll continue to follow make further recommendations based on his clinical status. Time with Patient: Greater than 30
[2017-03-15 11:49] LABS: Glucose,Whole Blood 69 mg/dL (75-99)
[2017-03-15 12:07] LABS: Glucose,Whole Blood 73 mg/dL (75-99)
[2017-03-15] MEDS: amLODIPine 5 MG TAB PO SCH (12:21)
--- NOTE | 2017-03-15 12:28 | P.PN ---
Subjective This is a 71-year-old gentleman with a known history of atrial fibrillation maintained on warfarin, congestive heart failure, chronic obstructive pulmonary disease with chronic hypoxic respiratory failure on 3 L/m in the home setting, diabetes mellitus, hyperlipidemia, hypertension. He follows with Dr. Love in the outpatient setting. He presented to the emergency room on 03/13/2017 with complaints of increasing shortness of breath. He was also having difficulty laying flat to breathe and he had turned up his oxygen to 5 L and was still quite short of breath. He presented to the emergency room for the same. His chest x-ray showed small bilateral pleural effusions greater on the left. He is admitted for CHF exacerbation. ProBNP level 2520 His echocardiogram revealed preserved left ventricular systolic function with an ejection fraction between 55 and 60%. There is mild pulmonary hypertension with an RVSP of 45 mmHg. He is seen today in consultation on the selective care unit. He is quite sleepy currently. He does arouse to verbal stimuli and is answering yes and no questions appropriately. He denies any worsening shortness of breath at this time. No cough or congestion. He remains in a negative balance. He is maintaining O2 saturations in the mid 90s on 4 L/m per nasal cannula. He is afebrile. Patient seen and examined this morning. Seems to be unhappy about everything. Breathing overall has been stable. INR is 2.9 today. He was initiated on 40 mg of by mouth Lasix yesterday by Dr. Salinas which we will continue. Patient was initiated on DuoNeb and inhalers by pulmonary. Objective - Vital Signs Vital signs: Vital Signs Temp 97.8 F 03/15/17 08:00 Pulse 58 L 03/15/17 08:00 Resp 18 03/15/17 08:00 BP 157/77 03/15/17 08:00 Pulse Ox 95 03/15/17 08:30 Intake & Output 03/14/17 03/15/17 03/15/17 18:59 06:59 18:59 Intake Total 833 118 Output Total 125 300 Balance 708 -300 118 Weight 134.9 kg 135.4 kg Intake: Oral 833 118 Output: Urine 125 300 Other: Voiding Method Urinal # Voids 1 - Exam GENERAL EXAM: Alert, comfortable in no apparent distress. HEAD: Normocephalic. EYES: Normal reaction of pupils, equal size. NOSE: Clear with pink turbinates. THROAT: No erythema or exudates. NECK: No masses, no significant JVD. CHEST: No chest wall deformity. LUNGS: Equal air entry with crackles in bilateral bases. CVS: S1 and S2 normal with no audible murmurs, regular rhythm. ABDOMEN: No hepatosplenomegaly, normal bowel sounds, no guarding or rigidity. Extremities: There is 1+ lower extremity edema. Changes of chronic venous stasis. - Labs CBC & Chem 7: 03/13/17 17:50 03/13/17 17:50 Labs: Abnormal Lab Results - Last 24 Hours (Table) 03/14/17 03/15/17 03/15/17 Range/Units 06:07 05:22 11:47 PT 47.8 H 28.0 H (9.0-12.0) sec INR 4.8 H 2.9 H (<1.2) POC Glucose (mg/dL) 69 L (75-99) mg/dL 03/15/17 Range/Units 12:05 PT (9.0-12.0) sec INR (<1.2) POC Glucose (mg/dL) 73 L (75-99) mg/dL Assessment and Plan (1) COPD exacerbation Status: Acute (2) Diastolic CHF, acute on chronic Status: Acute (3) Nicotine dependence Status: Acute (4) Diabetes Status: Acute (5) HTN (hypertension) Status: Acute (6) Hyperlipemia Status: Acute (7) Venous stasis Status: Acute (8) Osteomyelitis Status: Acute Plan: Echo with Doppler study was performed which revealed an ejection fraction of 55- 60%. From cardiology's perspective, we will recommend to continue current dose of oral diuretics. We will follow this patient with you now on an as-needed basis only, please don't hesitate to call with any questions. Patient has been advised to follow-up with Dr. Giraldo in the office post discharge. DNP note has been reviewed, I agree with a documented findings and plan of care. Patient was seen and examined.
[2017-03-15] MEDS: IPRATROPIUM-ALBUTEROL 3 ML NEB INHALATION SCH ×3 (13:28→20:18)
[2017-03-15] MEDS: WARFARIN 10 MG TAB PO SCH (13:54)
[2017-03-15 16:37] LABS: Glucose,Whole Blood 124 mg/dL (75-99)
[2017-03-15] MEDS: methylPREDNISolone SOD SUCCI 40 MG/ML 1 ML VIAL IV SCH (17:01)
[2017-03-15] MEDS: WARFARIN 5 MG TAB PO SCH (17:38)
--- NOTE | 2017-03-15 18:47 | P.PN ---
Subjective Patient resting in bed this morning on exam patient was lethargic. Awaiting pulmonology consultation Objective - Vital Signs Vital signs: Vital Signs Temp 97.5 F L 03/15/17 16:00 Pulse 64 03/15/17 16:00 Resp 16 03/15/17 16:00 BP 153/70 03/15/17 16:00 Pulse Ox 94 L 03/15/17 16:00 Intake & Output 03/14/17 03/15/17 03/15/17 18:59 06:59 18:59 Intake Total 833 454 Output Total 125 300 375 Balance 708 -300 79 Weight 134.9 kg 135.4 kg Intake: Oral 833 454 Output: Urine 125 300 375 Other: Voiding Method Urinal Urinal # Voids 1 1 - Constitutional General appearance: Present: obese - EENT Eyes: Present: PERRLA Ears: bilateral: normal - Neck Neck: Present: normal ROM - Respiratory Respiratory: bilateral: diminished - Cardiovascular Rhythm: irregularly irregular Abnormal Heart Sounds: Present: systolic murmur - Gastrointestinal General gastrointestinal: Present: soft - Integumentary Integumentary Comment(s): Venous stasis - Neurologic Neurologic: Present: CNII-XII intact - Musculoskeletal Musculoskeletal: Present: generalized weakness - Psychiatric Psychiatric: Present: A&O x's 3, appropriate affect, intact judgment & insight - Labs CBC & Chem 7: 03/13/17 17:50 03/13/17 17:50 Labs: Abnormal Lab Results - Last 24 Hours (Table) 03/15/17 03/15/17 03/15/17 Range/Units 05:22 11:47 12:05 PT 28.0 H (9.0-12.0) sec INR 2.9 H (<1.2) POC Glucose (mg/dL) 69 L 73 L (75-99) mg/dL 03/15/17 Range/Units 16:35 PT (9.0-12.0) sec INR (<1.2) POC Glucose (mg/dL) 124 H (75-99) mg/dL - Imaging and Cardiology Chest x-ray: report reviewed Assessment and Plan Plan: Assessment Congestive heart failure chronic diastolic dysfunction Diabetes type 2 Chronic leg edema Hypertension Resting tremor Chronic respiratory failure on home O2 Atrial fibrillation Hyperlipidemia Plan Continue consultation with pulmonology and cardiology
[2017-03-15] MEDS: FORMOTEROL FUMARATE 20 MCG/2 ML NEBU INHALATION SCH (20:18)
[2017-03-15] MEDS: BUDESONIDE 1 MG/2 ML NEBU INHALATION SCH (20:18)
[2017-03-15] MEDS: ZOLPIDEM 10 MG TAB PO SCH (21:03)
[2017-03-15] MEDS: ATORVASTATIN 10 MG TAB PO SCH (21:04)
[2017-03-15 21:33] LABS: Glucose,Whole Blood 208 mg/dL (75-99)
[2017-03-16] MEDS: methylPREDNISolone SOD SUCCI 40 MG/ML 1 ML VIAL IV SCH ×3 (00:59→16:52)
[2017-03-16 06:02] LABS: Glucose,Whole Blood 216 mg/dL (75-99)
[2017-03-16] MEDS: PANTOPRAZOLE 40 MG TABLET PO SCH (06:32)
[2017-03-16] MEDS: metFORMIN 500 MG TAB PO SCH ×2 (06:32→16:52)
[2017-03-16] MEDS: glipiZIDE 5 MG TAB PO SCH ×2 (06:32→17:13)
[2017-03-16 07:13] LABS: INR 1.9 (<1.2)
[2017-03-16] MEDS: IPRATROPIUM-ALBUTEROL 3 ML NEB INHALATION SCH ×4 (08:39→20:03)
[2017-03-16] MEDS: BUDESONIDE 1 MG/2 ML NEBU INHALATION SCH ×2 (08:39→20:02)
[2017-03-16] MEDS: FORMOTEROL FUMARATE 20 MCG/2 ML NEBU INHALATION SCH ×2 (08:39→20:04)
[2017-03-16] MEDS: ATENOLOL 50 MG TAB PO SCH ×2 (09:35→16:52)
[2017-03-16] MEDS: DIGOXIN 125 MCG TAB PO SCH (09:35)
[2017-03-16] MEDS: CARBIDOPA-LEVODOPA 25-100 MG 1 EACH TAB PO SCH ×2 (09:35→20:57)
[2017-03-16] MEDS: amLODIPine 5 MG TAB PO SCH (09:35)
[2017-03-16] MEDS: FUROSEMIDE 40 MG TAB PO SCH (09:36)
[2017-03-16] MEDS: LINAGLIPTIN 5 MG TABLET PO SCH (09:36)
[2017-03-16] MEDS: SULFAMETHOX-TMP 800-160MG 1 EACH TAB PO SCH ×2 (09:36→20:57)
[2017-03-16] MEDS: LISINOPRIL 20 MG TAB PO SCH (09:36)
[2017-03-16 11:41] LABS: Glucose,Whole Blood 134 mg/dL (75-99)
--- NOTE | 2017-03-16 11:53 | P.PN ---
Subjective This is a 71-year-old gentleman with a known history of atrial fibrillation maintained on warfarin, congestive heart failure, chronic obstructive pulmonary disease with chronic hypoxic respiratory failure on 3 L/m in the home setting, diabetes mellitus, hyperlipidemia, hypertension. He follows with Dr. Love in the outpatient setting. He presented to the emergency room on 03/13/2017 with complaints of increasing shortness of breath. He was also having difficulty laying flat to breathe and he had turned up his oxygen to 5 L and was still quite short of breath. He presented to the emergency room for the same. His chest x-ray showed small bilateral pleural effusions greater on the left. He is admitted for CHF exacerbation. ProBNP level MMDXX His echocardiogram revealed preserved left ventricular systolic function with an ejection fraction between 55 and 60%. There is mild pulmonary hypertension with an RVSP of 45 mmHg. He is seen today in consultation on the selective care unit. He is quite sleepy currently. He does arouse to verbal stimuli and is answering yes and no questions appropriately. He denies any worsening shortness of breath at this time. No cough or congestion. He remains in a negative balance. He is maintaining O2 saturations in the mid 90s on 4 L/m per nasal cannula. He is afebrile. The patient is seen again today 03/16/2017 in follow-up on the selective care unit. He is currently awake and alert sitting up at the bedside. He denies any shortness of breath, cough or congestion. No chest pain palpitations lightheadedness or dizziness. He is breathing easier today as compared to yesterday. He is maintaining good O2 saturations in the upper 90s on 4 L/m per nasal cannula. He's been afebrile. Hemodynamically stable. Objective - Vital Signs Vital signs: Vital Signs Temp 97.5 F L 03/16/17 09:30 Pulse 82 03/16/17 09:30 Resp 18 03/16/17 09:30 BP 158/70 03/16/17 09:30 Pulse Ox 97 03/16/17 09:30 Intake & Output 03/15/17 03/16/17 03/16/17 18:59 06:59 18:59 Intake Total 454 180 Output Total 375 300 325 Balance 79 -300 -145 Weight 133.7 kg Intake: Oral 454 180 Output: Urine 375 300 325 Other: Voiding Method Urinal Urinal Urinal # Voids 1 1 0 - Exam GENERAL EXAM: Alert, comfortable in no apparent distress. HEAD: Normocephalic. EYES: Normal reaction of pupils, equal size. NOSE: Clear with pink turbinates. THROAT: No erythema or exudates. NECK: No masses, no significant JVD. CHEST: No chest wall deformity. LUNGS: Equal air entry with crackles in bilateral bases. CVS: S1 and S2 normal with no audible murmurs, regular rhythm. ABDOMEN: No hepatosplenomegaly, normal bowel sounds, no guarding or rigidity. Extremities: There is 1-2+ lower extremity edema. Changes of chronic venous stasis. - Labs CBC & Chem 7: 03/13/17 17:50 03/13/17 17:50 Labs: Abnormal Lab Results - Last 24 Hours (Table) 03/15/17 03/15/17 03/15/17 Range/Units 11:47 12:05 16:35 PT (9.0-12.0) sec INR (<1.2) POC Glucose (mg/dL) 69 L 73 L 124 H (75-99) mg/dL 03/15/17 03/16/17 03/16/17 Range/Units 21:22 05:59 06:25 PT 18.0 H (9.0-12.0) sec INR 1.9 H (<1.2) POC Glucose (mg/dL) 208 H 216 H (75-99) mg/dL 03/16/17 Range/Units 11:39 PT (9.0-12.0) sec INR (<1.2) POC Glucose (mg/dL) 134 H (75-99) mg/dL Assessment and Plan Plan: Impression: #1 Acute exacerbation of chronic diastolic congestive heart failure. #2 Acute exacerbation of chronic obstructive pulmonary disease. #3 Acute on chronic hypoxic respiratory failure secondary to above, maintained on 3 L/m per nasal cannula in the outpatient setting. #4 History of chronic tobacco use. #5 Atrial fibrillation, anticoagulated with warfarin, initially supra therapeutic at 4.9. Currently 1.9. #6 Diabetes mellitus. #7 Chronic venous stasis of the lower extremities secondary to congestive heart failure. #8 Osteomyelitis of the right ankle maintained on Bactrim in the outpatient setting. #9 Chronic tremors. #10 Hyperlipidemia. #11 Hypertension. Plan: The patient was seen and evaluated by Dr. Barros. He is improved today as compared to yesterday. We will continue DuoNeb inhalations 4 times a day and when necessary. We will continue Pulmicort and Perforomist inhalations twice a day. Continue IV Solu-Medrol. We will continue to follow.
--- NOTE | 2017-03-16 13:51 | P.PN ---
Subjective Patient was admitted for acute respiratory failure secondary to pain start failure exacerbation chronic diastolic dysfunction. And mild pulmonary hypertension. Patient is little tender tremulous but his respiratory status did improve. Patient denied any chest pain, nausea, dysuria, vomiting. Objective - Vital Signs Vital signs: Vital Signs Temp 97.5 F L 03/16/17 09:30 Pulse 60 03/16/17 12:17 Resp 18 03/16/17 12:00 BP 138/65 03/16/17 12:00 Pulse Ox 97 03/16/17 12:00 Intake & Output 03/15/17 03/16/17 03/16/17 18:59 06:59 18:59 Intake Total 454 180 Output Total 375 300 325 Balance 79 -300 -145 Weight 133.7 kg Intake: Oral 454 180 Output: Urine 375 300 325 Other: Voiding Method Urinal Urinal Urinal # Voids 1 1 0 - Exam PHYSICAL EXAMINATION: GENERAL: The patient is alert and oriented x3, not in any acute distress. Well developed, well nourished. Tremulous HEENT: Pupils are round and equally reacting to light. EOMI. No scleral icterus. No conjunctival pallor. Normocephalic, atraumatic. No pharyngeal erythema. No thyromegaly. CARDIOVASCULAR: S1 and S2 present. No murmurs, rubs, or gallops. PULMONARY: Chest is clear to auscultation, no wheezing or crackles are appreciated in bilateral lower lung bases. ABDOMEN: Soft, nontender, nondistended, normoactive bowel sounds. No palpable organomegaly. MUSCULOSKELETAL: No joint swelling or deformity. EXTREMITIES: No cyanosis, clubbing, or pedal edema. NEUROLOGICAL: Gross neurological examination did not reveal any focal deficits. SKIN: No rashes. - Labs CBC & Chem 7: 03/13/17 17:50 03/13/17 17:50 Labs: Abnormal Lab Results - Last 24 Hours (Table) 03/15/17 03/15/17 03/16/17 Range/Units 16:35 21:22 05:59 PT (9.0-12.0) sec INR (<1.2) POC Glucose (mg/dL) 124 H 208 H 216 H (75-99) mg/dL 03/16/17 03/16/17 Range/Units 06:25 11:39 PT 18.0 H (9.0-12.0) sec INR 1.9 H (<1.2) POC Glucose (mg/dL) 134 H (75-99) mg/dL Assessment and Plan Plan: #1 Acute exacerbation of chronic diastolic congestive heart failure. Improved and Lasix is being switched to oral. #2 Acute exacerbation of chronic obstructive pulmonary disease. Patient insists steroids and inhalational treatments. #3 Acute on chronic hypoxic respiratory failure secondary to above, maintained on 3 L/m per nasal cannula in the outpatient setting. #4 History of chronic tobacco use. #5 Atrial fibrillation, anticoagulated with warfarin, initially supra therapeutic at 4.9. Currently 1.9. Patient was resumed on warfarin #6 Diabetes mellitus. Fairly well controlled #7 Chronic venous stasis of the lower extremities secondary to congestive heart failure. #8 Osteomyelitis of the right ankle maintained on Bactrim in the outpatient setting. #9 Chronic tremors. #10 Hyperlipidemia. #11 Hypertension.
[2017-03-16 16:47] LABS: Glucose,Whole Blood 383 mg/dL (75-99)
[2017-03-16] MEDS: WARFARIN 5 MG TAB PO SCH (16:53)
[2017-03-16] MEDS: ATORVASTATIN 10 MG TAB PO SCH (20:57)
[2017-03-16] MEDS: ZOLPIDEM 10 MG TAB PO SCH (20:58)
[2017-03-16 21:27] LABS: Glucose,Whole Blood 258 mg/dL (75-99)
[2017-03-17] MEDS: methylPREDNISolone SOD SUCCI 40 MG/ML 1 ML VIAL IV SCH ×3 (02:26→17:30)
[2017-03-17 06:25] LABS: Glucose,Whole Blood 116 mg/dL (75-99)
[2017-03-17] MEDS: PANTOPRAZOLE 40 MG TABLET PO SCH (06:40)
[2017-03-17] MEDS: metFORMIN 500 MG TAB PO SCH ×2 (06:40→17:30)
[2017-03-17] MEDS: glipiZIDE 5 MG TAB PO SCH ×2 (06:40→17:30)
[2017-03-17 06:45] LABS: CH 28.6; CHCM 31.2; HCT 31.2 % (39.0-53.0); HDW 2.29; HGB 9.4 gm/dL (13.0-17.5); Hypochromasia Slight; MCH 27.9 pg (25.0-35.0); MCHC 30.2 g/dL (31.0-37.0); MCV 92.3 fL (80.0-100.0); Mean Platelet Volume 8.1; RBC 3.38 m/uL (4.30-5.90); RDW 14.3 % (11.5-15.5); WBC 7.2 k/uL (3.8-10.6)
[2017-03-17 06:53] LABS: INR 1.7 (<1.2); Prothrombin Time 16.7 sec (9.0-12.0)
[2017-03-17 07:05] LABS: Anion Gap 6 mmol/L; Blood Urea Nitrogen 30 mg/dL (9-20); Calcium 9.1 mg/dL (8.4-10.2); Carbon Dioxide 37 mmol/L (22-30); Chloride 98 mmol/L (98-107); Glucose 108 mg/dL (74-99); Non-African American GFR(MDRD) >60 (>60 ml/min/1.73 sqM); Potassium 4.8 mmol/L (3.5-5.1); Sodium 141 mmol/L (137-145)
[2017-03-17] MEDS: DIGOXIN 125 MCG TAB PO SCH (07:37)
[2017-03-17] MEDS: amLODIPine 5 MG TAB PO SCH (07:37)
[2017-03-17] MEDS: LISINOPRIL 20 MG TAB PO SCH (07:37)
[2017-03-17] MEDS: CARBIDOPA-LEVODOPA 25-100 MG 1 EACH TAB PO SCH ×2 (07:37→21:22)
[2017-03-17] MEDS: SULFAMETHOX-TMP 800-160MG 1 EACH TAB PO SCH ×2 (07:37→21:21)
[2017-03-17] MEDS: LINAGLIPTIN 5 MG TABLET PO SCH (07:37)
[2017-03-17] MEDS: FUROSEMIDE 40 MG TAB PO SCH (07:37)
[2017-03-17] MEDS: ATENOLOL 50 MG TAB PO SCH ×2 (07:38→17:30)
[2017-03-17] MEDS: IPRATROPIUM-ALBUTEROL 3 ML NEB INHALATION SCH ×4 (08:01→20:13)
[2017-03-17] MEDS: BUDESONIDE 1 MG/2 ML NEBU INHALATION SCH ×2 (08:01→20:13)
[2017-03-17] MEDS: FORMOTEROL FUMARATE 20 MCG/2 ML NEBU INHALATION SCH ×2 (08:01→20:13)
[2017-03-17 12:14] LABS: Glucose,Whole Blood 74 mg/dL (75-99)
[2017-03-17 12:14] LABS: Glucose,Whole Blood 74 mg/dL (75-99)
--- NOTE | 2017-03-17 12:16 | P.PN ---
Subjective This is a 71-year-old gentleman with a known history of atrial fibrillation maintained on warfarin, congestive heart failure, chronic obstructive pulmonary disease with chronic hypoxic respiratory failure on 3 L/m in the home setting, diabetes mellitus, hyperlipidemia, hypertension. He follows with Dr. Love in the outpatient setting. He presented to the emergency room on 03/13/2017 with complaints of increasing shortness of breath. He was also having difficulty laying flat to breathe and he had turned up his oxygen to 5 L and was still quite short of breath. He presented to the emergency room for the same. His chest x-ray showed small bilateral pleural effusions greater on the left. He is admitted for CHF exacerbation. ProBNP level [id number] His echocardiogram revealed preserved left ventricular systolic function with an ejection fraction between 55 and 60%. There is mild pulmonary hypertension with an RVSP of 45 mmHg. He is seen today in consultation on the selective care unit. He is quite sleepy currently. He does arouse to verbal stimuli and is answering yes and no questions appropriately. He denies any worsening shortness of breath at this time. No cough or congestion. He remains in a negative balance. He is maintaining O2 saturations in the mid 90s on 4 L/m per nasal cannula. He is afebrile. The patient is seen again today 03/16/2017 in follow-up on the selective care unit. He is currently awake and alert sitting up at the bedside. He denies any shortness of breath, cough or congestion. No chest pain palpitations lightheadedness or dizziness. He is breathing easier today as compared to yesterday. He is maintaining good O2 saturations in the upper 90s on 4 L/m per nasal cannula. He's been afebrile. Hemodynamically stable. The patient is seen again today 03/17/2017 in follow-up on the selective care unit. He is awake and alert in no acute distress. He denies any worsening shortness of breath cough or congestion today. He denies any chest pain, palpitations lightheadedness or dizziness. He is maintaining good O2 saturations in the mid 90s on room air. He's been afebrile. Hemodynamically stable. No leukocytosis. Hemoglobin 9.4. INR 1.7. Objective - Vital Signs Vital signs: Vital Signs Temp 98.0 F 03/17/17 07:51 Pulse 73 03/17/17 12:00 Resp 18 03/17/17 12:00 BP 142/67 03/17/17 07:51 Pulse Ox 94 L 03/17/17 07:51 Intake & Output 03/16/17 03/17/17 03/17/17 18:59 06:59 18:59 Intake Total 180 500 200 Output Total 325 400 1 Balance -145 100 199 Intake: Oral 180 500 200 Output: Urine 325 400 1 Other: Voiding Method Urinal Urinal Urinal # Voids 0 2 100 - Exam GENERAL EXAM: Alert, comfortable in no apparent distress. HEAD: Normocephalic. EYES: Normal reaction of pupils, equal size. NOSE: Clear with pink turbinates. THROAT: No erythema or exudates. NECK: No masses, no significant JVD. CHEST: No chest wall deformity. LUNGS: Equal air entry with crackles in bilateral bases. CVS: S1 and S2 normal with no audible murmurs, regular rhythm. ABDOMEN: No hepatosplenomegaly, normal bowel sounds, no guarding or rigidity. Extremities: There is 1-2+ lower extremity edema. Changes of chronic venous stasis. - Labs CBC & Chem 7: 03/17/17 06:22 03/17/17 06:22 Labs: Abnormal Lab Results - Last 24 Hours (Table) 03/16/17 03/16/17 03/17/17 Range/Units 16:45 21:25 06:22 RBC (4.30-5.90) m/uL Hgb (13.0-17.5) gm/dL Hct (39.0-53.0) % MCHC (31.0-37.0) g/dL Plt Count (150-450) k/uL PT 16.7 H (9.0-12.0) sec INR 1.7 H (<1.2) Carbon Dioxide (22-30) mmol/L BUN (9-20) mg/dL Glucose (74-99) mg/dL POC Glucose (mg/dL) 383 H 258 H (75-99) mg/dL 03/17/17 03/17/17 03/17/17 Range/Units 06:22 06:22 06:23 RBC 3.38 L (4.30-5.90) m/uL Hgb 9.4 L (13.0-17.5) gm/dL Hct 31.2 L (39.0-53.0) % MCHC 30.2 L (31.0-37.0) g/dL Plt Count 149 L (150-450) k/uL PT (9.0-12.0) sec INR (<1.2) Carbon Dioxide 37 H (22-30) mmol/L BUN 30 H (9-20) mg/dL Glucose 108 H (74-99) mg/dL POC Glucose (mg/dL) 116 H (75-99) mg/dL Assessment and Plan Plan: Impression: #1 Acute exacerbation of chronic diastolic congestive heart failure. #2 Acute exacerbation of chronic obstructive pulmonary disease. #3 Acute on chronic hypoxic respiratory failure secondary to above, maintained on 3 L/m per nasal cannula in the outpatient setting. #4 History of chronic tobacco use. #5 Atrial fibrillation, anticoagulated with warfarin, initially supra therapeutic at 4.9. Currently 1.7. #6 Diabetes mellitus. #7 Chronic venous stasis of the lower extremities secondary to congestive heart failure. #8 Osteomyelitis of the right ankle maintained on Bactrim in the outpatient setting. #9 Chronic tremors. #10 Hyperlipidemia. #11 Hypertension. Plan: The patient was seen and evaluated by Dr. Barros. We will continue DuoNeb inhalations 4 times a day and when necessary. We will continue Pulmicort and Perforomist inhalations twice a day. We will discontinue the IV Solu-Medrol initiated prednisone burst and taper. We will continue to follow.
[2017-03-17 16:51] LABS: Glucose,Whole Blood 104 mg/dL (75-99)
--- NOTE | 2017-03-17 17:18 | P.PN ---
Subjective Date of service 03/17/2017 Progress note being dictated for Dr. Russell Interval history: Patient was admitted for acute respiratory failure secondary to pain start failure exacerbation chronic diastolic dysfunction. And mild pulmonary hypertension. Patient is little tender tremulous but his respiratory status did improve. Patient denied any chest pain, nausea, dysuria, vomiting. 03/17/2017 maintained on nebulized bronchodilators, steroids with O2 sats in the mid 90s on room air. Afebrile. Denies chest pain, palpitations. Complains of exertional shortness of breath, near baseline. Anticoagulated on warfarin with INR 1.7. Hemoglobin 9.4. Objective - Vital Signs Vital signs: Vital Signs Temp 97.7 F 03/17/17 16:00 Pulse 56 L 03/17/17 16:13 Resp 20 03/17/17 16:00 BP 139/68 03/17/17 16:00 Pulse Ox 94 L 03/17/17 16:00 Intake & Output 03/16/17 03/17/17 03/17/17 18:59 06:59 18:59 Intake Total 180 500 440 Output Total 325 400 401 Balance -145 100 39 Intake: Oral 180 500 440 Output: Urine 325 400 401 Other: Voiding Method Urinal Urinal Urinal # Voids 0 2 100 - Exam GENERAL: The patient is alert and oriented x3, no acute distress. Well developed , well nourished. HEENT: Pupils are equal. No scleral icterus. No conjunctival pallor. Normocephalic, atraumatic. CARDIOVASCULAR: S1 and S2 present. No murmurs, rubs, or gallops. Positive edema. PULMONARY: Bibasilar crackles, no wheezing or rhonchi ABDOMEN: Soft, nontender, nondistended, positive bowel sounds. No palpable organomegaly. MUSCULOSKELETAL: No joint swelling or deformity. EXTREMITIES: No cyanosis, clubbing, or pedal edema. NEUROLOGICAL: Gross neurological examination did not reveal any focal deficits. Chronic tremors. SKIN: No rashes. Chronic venous stasis of the lower extremities. - Labs CBC & Chem 7: 03/17/17 06:22 03/17/17 06:22 Labs: Abnormal Lab Results - Last 24 Hours (Table) 03/16/17 03/17/17 03/17/17 Range/Units 21:25 06:22 06:22 RBC 3.38 L (4.30-5.90) m/uL Hgb 9.4 L (13.0-17.5) gm/dL Hct 31.2 L (39.0-53.0) % MCHC 30.2 L (31.0-37.0) g/dL Plt Count 149 L (150-450) k/uL PT 16.7 H (9.0-12.0) sec INR 1.7 H (<1.2) Carbon Dioxide (22-30) mmol/L BUN (9-20) mg/dL Glucose (74-99) mg/dL POC Glucose (mg/dL) 258 H (75-99) mg/dL 03/17/17 03/17/17 03/17/17 Range/Units 06:22 06:23 12:07 RBC (4.30-5.90) m/uL Hgb (13.0-17.5) gm/dL Hct (39.0-53.0) % MCHC (31.0-37.0) g/dL Plt Count (150-450) k/uL PT (9.0-12.0) sec INR (<1.2) Carbon Dioxide 37 H (22-30) mmol/L BUN 30 H (9-20) mg/dL Glucose 108 H (74-99) mg/dL POC Glucose (mg/dL) 116 H 74 L (75-99) mg/dL 03/17/17 03/17/17 Range/Units 12:09 16:38 RBC (4.30-5.90) m/uL Hgb (13.0-17.5) gm/dL Hct (39.0-53.0) % MCHC (31.0-37.0) g/dL Plt Count (150-450) k/uL PT (9.0-12.0) sec INR (<1.2) Carbon Dioxide (22-30) mmol/L BUN (9-20) mg/dL Glucose (74-99) mg/dL POC Glucose (mg/dL) 74 L 104 H (75-99) mg/dL Assessment and Plan Plan: #1 Acute exacerbation of chronic diastolic congestive heart failure. #2 Acute exacerbation of chronic obstructive pulmonary disease. #3 Acute on chronic hypoxic respiratory failure secondary to above, maintained on 3 L/m per nasal cannula in the outpatient setting. #4 Atrial fibrillation #5 Diabetes mellitus. #6 Osteomyelitis of the right ankle maintained on Bactrim in the outpatient setting. Plan: Continue on current medication regime , Lasix, warfarin, nebulized bronchodilators, steroids, monitoring and symptomatic treatment. Steroid taper as per pulmonary. Close monitoring of Accu-Cheks. Further recommendations to follow. Discharge planning in progress.
[2017-03-17] MEDS: WARFARIN 5 MG TAB PO SCH (17:30)
[2017-03-17 21:07] LABS: Glucose,Whole Blood 199 mg/dL (75-99)
[2017-03-17] MEDS: ATORVASTATIN 10 MG TAB PO SCH (21:22)
[2017-03-17] MEDS: ZOLPIDEM 10 MG TAB PO SCH (21:29)
[2017-03-18] MEDS: methylPREDNISolone SOD SUCCI 40 MG/ML 1 ML VIAL IV SCH ×2 (02:14→07:53)
[2017-03-18 06:06] LABS: Glucose,Whole Blood 225 mg/dL (75-99)
[2017-03-18] MEDS: PANTOPRAZOLE 40 MG TABLET PO SCH (06:35)
[2017-03-18] MEDS: glipiZIDE 5 MG TAB PO SCH (06:35)
[2017-03-18] MEDS: metFORMIN 500 MG TAB PO SCH (06:35)
[2017-03-18 06:55] LABS: Anion Gap 6 mmol/L; Blood Urea Nitrogen 29 mg/dL (9-20); Calcium 9.1 mg/dL (8.4-10.2); Carbon Dioxide 35 mmol/L (22-30); Chloride 97 mmol/L (98-107); Glucose 220 mg/dL (74-99); Non-African American GFR(MDRD) >60 (>60 ml/min/1.73 sqM); Potassium 5.4 mmol/L (3.5-5.1); Sodium 138 mmol/L (137-145)
[2017-03-18 07:00] LABS: INR 1.7 (<1.2)
[2017-03-18] MEDS: amLODIPine 5 MG TAB PO SCH (07:53)
[2017-03-18] MEDS: FUROSEMIDE 40 MG TAB PO SCH (07:53)
[2017-03-18] MEDS: LISINOPRIL 20 MG TAB PO SCH (07:53)
[2017-03-18] MEDS: LINAGLIPTIN 5 MG TABLET PO SCH (07:53)
[2017-03-18] MEDS: ATENOLOL 50 MG TAB PO SCH (07:53)
[2017-03-18] MEDS: DIGOXIN 125 MCG TAB PO SCH (07:54)
[2017-03-18] MEDS: SULFAMETHOX-TMP 800-160MG 1 EACH TAB PO SCH (07:54)
[2017-03-18] MEDS: CARBIDOPA-LEVODOPA 25-100 MG 1 EACH TAB PO SCH (07:54)
[2017-03-18] MEDS: BUDESONIDE 1 MG/2 ML NEBU INHALATION SCH (08:17)
[2017-03-18] MEDS: FORMOTEROL FUMARATE 20 MCG/2 ML NEBU INHALATION SCH (08:17)
[2017-03-18] MEDS: IPRATROPIUM-ALBUTEROL 3 ML NEB INHALATION SCH ×2 (08:17→11:16)
--- NOTE | 2017-03-18 11:22 | P.PN ---
Subjective Progress note dated 03/18/2017 Patient is seen again on 03/18/2017. He is on selective care unit. He is awake and alert. No acute distress. No worsening shortness of breath cough congestion phlegm production fever chills nausea vomiting or diarrhea. No chest pain or chest discomfort. Saturations are reasonable on room air in the low to mid 90s. Hemoglobin is stable. The patient seemed be doing better. He was admitted with a diagnosis of heart failure. Initially when we saw him, he was a low lethargic and sleepy. He's coming along nicely. His diagnoses include acute exacerbation of chronic diastolic CHF as well as a COPD exacerbation. In addition, he has a history of hypoxemic respiratory failure chronic tobacco use atrial fibrillation diabetes chronic venous stasis ulcers of the lower extremities osteomyelitis chronic tremors hyperlipidemia and hypertension. Objective - Vital Signs Vital signs: Vital Signs Temp 98.8 F 03/18/17 08:00 Pulse 68 03/18/17 08:43 Resp 18 03/18/17 08:00 BP 162/88 03/18/17 08:00 Pulse Ox 95 03/18/17 08:00 Intake & Output 03/17/17 03/18/17 03/18/17 18:59 06:59 18:59 Intake Total 680 240 Output Total 851 50 Balance -171 -50 240 Intake: Oral 680 240 Output: Urine 851 50 Other: Voiding Method Urinal Urinal Urinal # Voids 2 1 300 - Exam No acute distress, no respiratory distress. No audible wheezing. HEENT examination is grossly unremarkable. Mucous membranes are moist. No oral lesions. Neck supple. Full range of motion. No adenopathy thyromegaly or neck vein distention. Cardiovascular examination reveals distant heart sounds. S1-S2 normal. No S3- S4. No audible murmur. Lungs reveal a few scattered bibasilar crackles. Breath sounds bilaterally. No rhonchi. No wheezes. No other adventitious lung sounds noted. Abdomen is obese. Bowel sounds are heard. Extremities are intact. No cyanosis or clubbing. There is a slight edema. It has improved. Skin without rash. Neurologic examination is nonfocal. - Labs CBC & Chem 7: 03/17/17 06:22 03/18/17 06:14 Labs: Abnormal Lab Results - Last 24 Hours (Table) 03/17/17 03/17/1703/17/17 Range/Units 12:07 12:09 16:38 PT (9.0-12.0) sec INR (<1.2) Potassium (3.5-5.1) mmol/L Chloride (98-107) mmol/L Carbon Dioxide (22-30) mmol/L BUN (9-20) mg/dL Glucose (74-99) mg/dL POC Glucose (mg/dL) 74 L 74 L 104 H (75-99) mg/dL 03/17/17 03/18/17 03/18/17 Range/Units 21:04 06:03 06:14 PT 16.0 H (9.0-12.0) sec INR 1.7 H (<1.2) Potassium (3.5-5.1) mmol/L Chloride (98-107) mmol/L Carbon Dioxide (22-30) mmol/L BUN (9-20) mg/dL Glucose (74-99) mg/dL POC Glucose (mg/dL) 199 H 225 H (75-99) mg/dL 03/18/17 Range/Units 06:14 PT (9.0-12.0) sec INR (<1.2) Potassium 5.4 H (3.5-5.1) mmol/L Chloride 97 L (98-107) mmol/L Carbon Dioxide 35 H (22-30) mmol/L BUN 29 H (9-20) mg/dL Glucose 220 H (74-99) mg/dL POC Glucose (mg/dL) (75-99) mg/dL Assessment and Plan (1) COPD exacerbation Status: Acute (2) Congestive heart failure Status: Acute (3) Diabetes Status: Acute (4) Diastolic CHF, acute on chronic Status: Acute (5) HTN (hypertension) Status: Acute (6) Hyperlipemia Status: Acute (7) Nicotine dependence Status: Acute (8) Osteomyelitis Status: Acute (9) Venous stasis Status: Acute (10) Anemia Status: Acute (11) Chronic atrial fibrillation Status: Acute (12) Weakness Status: Acute Plan: Plan dated 03/18/2017 The patient seems be doing better. We'll continue to follow. The patient some medications are reviewed. The Solu-Medrol was changed to prednisone yesterday. We'll make sure that all his other medications have been properly adjusted. We'll continue to follow. Overall prognosis remains guarded. Time with Patient: Less than 30
[2017-03-18 11:31] VITALS: BP 148/66; RESP 20; TEMP 98.2
--- NOTE | 2017-03-18 11:43 | PN ---
DATE OF SERVICE: 03/17/17 This 71 -year-old gentleman who was admitted with CHF acute exacerbation also complaining of generalized tiredness and weakness. The patient is followed by Dr. Edi Love in the outpatient setting. The patient is refusing further evaluation including PT/OT and possible ECF rehab also. Please refer to the nurse practitioner notes and impression documented as a scribe for further information. Past medical history reviewed. REVIEW OF SYSTEMS: Cardiovascular: No angina. Respiratory: As mentioned earlier. GI: No nausea or vomiting. : No dysuria. Nervous system: No numbness or weakness. Current medications are reviewed and include: 1. DuoNeb q.i.d. and prn. 2. Norvasc 5 mg daily. 3. Tenormin 50 mg daily. 4. Lipitor 10 mg q.h.s. 5. Pulmicort 1 mg b.i.d. 6. Sinemet 25/100 one po b.i.d. 7. Perforomist. 8. Lasix. 9. Glucotrol. 10. Zestril. 11. Glucophage. 12. Solu-Medrol. 13. Protonix. 14. Bactrim DS. 15. Coumadin. 16. Ambien. We will continue to monitor. Adjust medications. Fluid and electrolytes balance closely. Guarded prognosis. Further recommendations to follow. MTDD
[2017-03-18 11:57] LABS: Glucose,Whole Blood 132 mg/dL (75-99)
[2017-03-18 12:56] VITALS: PULSE 69
--- NOTE | 2017-03-18 18:28 | P.DS ---
Providers Date of admission: 03/13/17 19:24 Attending physician: Edi Love Consults: 03/13/17 19:21 Consult Physician Routine Consulting Provider: Mike Giraldo Consult Reason/Comments: CHF Do you want consulting provider notified?: Yes, Notify in am 03/14/17 11:54 Consult Physician Urgent Consulting Provider: Shanita Watts Consult Reason/Comments: pleural effusions Do you want consulting provider notified?: Yes Primary care physician: Edi Love Hospital Course: This 71-year-old gentleman who is being followed by Dr. Ilda Love in the outpatient setting was admitted with a CHF acute exacerbation. Patient also had a COPD acute exacerbation. Patient was treated in conjunction with Dr. Barros and as was cardiology. Patient improved significantly. Patient is keen on going home. She'll be discharged with following admission recommendations. On exam vitals stable cardio S1-S2 normal. Respiratory system few rhonchi. Abdomen soft nontender. Final diagnosis 1. Acute exacerbation of chronic diastolic CHF 2. Acute exacerbation of COPD 3. Acute on chronic hypoxic respiratory failure secondary to above 4. Atrial fibrillation 5. Diabetes was type II 6. Osteomyelitis of the right ankle maintained on the Bactrim Patient Condition at Discharge: Serious Plan - Discharge Summary New Discharge Prescriptions: New amLODIPine [Norvasc] 5 mg PO DAILY #30 tab Atenolol [Tenormin] 50 mg PO DAILY@1800 #30 tab Budesonide-Formot 160-4.5 Mcg [Symbicort 160-4.5 Mcg Inhaler] 2 puff INHALATION RT-BID #1 inh Furosemide [Lasix] 40 mg PO DAILY #30 tab Lisinopril [Zestril] 20 mg PO DAILY #30 tab predniSONE 10 mg PO DIRECTED #30 tab Digoxin [Lanoxin] 125 mcg PO DAILY #30 tab Warfarin [Coumadin] 5 mg PO DAILY@1800 #10 tab Atenolol [Tenormin] 100 mg PO QAM #60 tab Ipratropium-Albuterol Nebulize [Duoneb 0.5 mg-3 mg/3 ml Soln] 3 ml INHALATION QID #120 neb Continue metFORMIN HCL 1,000 mg PO BID Simvastatin [Zocor] 20 mg PO HS Saxagliptin HCl [Onglyza] 5 mg PO DAILY Zolpidem Tartrate [Ambien] 10 mg PO HS #10 tablet Sulfamethox-Tmp 800-160Mg [Bactrim DS 800-160 mg] 1 tab PO BID glipiZIDE [Glipizide] 10 mg PO BID Multivitamins, Thera [Multivitamin (formulary)] 1 tab PO DAILY Carbidopa-Levodopa 25-100 mg [Sinemet 25-100 mg] 1 tab PO BID Omeprazole [PriLOSEC] 20 mg PO DAILY Cyanocobalamin (Vitamin B-12) [Vitamin B-12] 1,000 mcg PO BID Calcium Carb-Vit D 500Mg-200Un [Oscal 500+D] 1 tab PO TID Glucosam/Lopez-Msm1/C/Jay/Bosw [Glucosamine-Chondroitin Tablet] 1 tab PO BID Vitamin C 250mg Chewable Tab 250 mg PO DAILY Discontinued Enalapril [Vasotec] 5 mg PO BID Warfarin Sodium 10 mg PO DAILY #30 tab Discharge Medication List Simvastatin [Zocor] 20 mg PO HS 08/03/14 [History] metFORMIN HCL 1,000 mg PO BID 08/03/14 [History] Saxagliptin HCl [Onglyza] 5 mg PO DAILY 08/17/16 [History] Zolpidem Tartrate [Ambien] 10 mg PO HS #10 tablet 08/21/16 [Rx] Carbidopa-Levodopa 25-100 mg [Sinemet 25-100 mg] 1 tab PO BID 12/25/16 [History] Multivitamins, Thera [Multivitamin (formulary)] 1 tab PO DAILY 12/25/16 [History ] Omeprazole [PriLOSEC] 20 mg PO DAILY 12/25/16 [History] Sulfamethox-Tmp 800-160Mg [Bactrim DS 800-160 mg] 1 tab PO BID 12/25/16 [History ] glipiZIDE [Glipizide] 10 mg PO BID 12/25/16 [History] Calcium Carb-Vit D 500Mg-200Un [Oscal 500+D] 1 tab PO TID 03/13/17 [History] Cyanocobalamin (Vitamin B-12) [Vitamin B-12] 1,000 mcg PO BID 03/13/17 [History] Glucosam/Lopez-Msm1/C/Jay/Bosw [Glucosamine-Chondroitin Tablet] 1 tab PO BID [History] Vitamin C 250mg Chewable Tab 250 mg PO DAILY 03/13/17 [History] Atenolol [Tenormin] 50 mg PO DAILY@1800 #30 tab 03/18/17 [Rx] Atenolol [Tenormin] 100 mg PO QAM #60 tab 03/18/17 [Rx] Budesonide-Formot 160-4.5 Mcg [Symbicort 160-4.5 Mcg Inhaler] 2 puff INHALATION RT-BID #1 inh 03/18/17 [Rx] Digoxin [Lanoxin] 125 mcg PO DAILY #30 tab 03/18/17 [Rx] Furosemide [Lasix] 40 mg PO DAILY #30 tab 03/18/17 [Rx] Ipratropium-Albuterol Nebulize [Duoneb 0.5 mg-3 mg/3 ml Soln] 3 ml INHALATION QID #120 neb 03/18/17 [Rx] Lisinopril [Zestril] 20 mg PO DAILY #30 tab 03/18/17 [Rx] Warfarin [Coumadin] 5 mg PO DAILY@1800 #10 tab 03/18/17 [Rx] amLODIPine [Norvasc] 5 mg PO DAILY #30 tab 03/18/17 [Rx] predniSONE 10 mg PO DIRECTED #30 tab 03/18/17 [Rx] Follow up Appointment(s)/Referral(s): Edi Love MD [Primary Care Provider] - 3 Days (patient will make own follow up apt.) Ash Barros DO [Doctor of Osteopathic Medicine] - 2 Weeks (Patient will make own follow up apt.) Mike Giraldo MD [STAFF PHYSICIAN] - 1 Week (Patient will make own follow up APT.) Ambulatory/Diagnostic Orders: Prothrombin Time INR [LAB.AMB] Time Frame: 3 Days, Location: Determined By Patient Activity/Diet/Wound Care/Special Instructions: IF OK with Cardiology & Pulmonary 3lnc O2 Case management to arrange for nebulizer Diet: CHF diet,RAMON, consistent carb Accu-Cheks before meals and at bedtime, maintain log and take to follow-up visit with PCP for further recommendations Activity: Limited until follow up Discharge Disposition: HOME SELF-CARE
[2017-03-18] MEDS ORDERED: SYMBICORT 160-4.5 MCG INHALER INHALATION SCH (20:00)
== END 2017-03-18 14:10 | disposition home or self-care (01) | DRG 291 ==
LOC: EC 17:19 → 6SEL 19:24
PROVIDERS: ADMIT Family Medicine; ATTEND Family Medicine
DX: I11.0 Hypertensive heart disease with heart failure (principal); J96.21 Acute and chronic respiratory failure with hypoxia; E11.69 Type 2 diabetes mellitus with other specified complication; M86.671 Other chronic osteomyelitis, right ankle and foot; I27.2 Other secondary pulmonary hypertension; J44.1 Chronic obstructive pulmonary disease with (acute) exacerbation; I50.33 Acute on chronic diastolic (congestive) heart failure; I48.2 Chronic atrial fibrillation; D64.9 Anemia, unspecified; E78.5 Hyperlipidemia, unspecified; R25.1 Tremor, unspecified; I87.8 Other specified disorders of veins; M19.91 Primary osteoarthritis, unspecified site; Z99.81 Dependence on supplemental oxygen; Z79.84 Long term (current) use of oral hypoglycemic drugs; Z79.01 Long term (current) use of anticoagulants; Z79.899 Other long term (current) drug therapy; Z87.891 Personal history of nicotine dependence; Z91.81 History of falling
CPT/HCPCS: 36415; 71010; 80048; 80053; 80061; 82550; 82553; 83735; 83880; 84443; 84484; 85025; 85027; 85610; 85730; 93005; 93306; 94640; 94760; 96374; 99285

== ENCOUNTER 2017-12-12 17:13 | Inpatient (IN) | payer MEDICARE, OTHER ==
[2017-12-12 17:21] LABS: Glucose,Whole Blood 161 mg/dL (75-99)
[2017-12-12] MEDS ORDERED: SODIUM CHLORIDE 0.9% 1,000 ML IV STA (17:39)
[2017-12-12 17:55] LABS: Basophils % (A) 0 %; Eosinophils # (A) 0.1 k/uL (0-0.7); Eosinophils % (A) 1 %; HCT 34.7 % (39.0-53.0); HGB 11.4 gm/dL (13.0-17.5); Lymphocytes # (A) 0.7 k/uL (1.0-4.8); Lymphocytes % (A) 7 %; MCH 28.3 pg (25.0-35.0); MCHC 32.9 g/dL (31.0-37.0); Monocytes # (A) 0.6 k/uL (0-1.0); Monocytes % (A) 6 %; Neutrophils # (A) 8.6 k/uL (1.3-7.7); Neutrophils % (A) 85 %; Platelet Count 160 k/uL (150-450); RBC 4.03 m/uL (4.30-5.90); RDW 13.5 % (11.5-15.5); WBC 10.2 k/uL (3.8-10.6)
[2017-12-12 18:21] LABS: INR 1.1 (<1.2); Partial Thromboplastin Time 22.9 sec (22.0-30.0)
--- NOTE | 2017-12-12 18:45 | ED ---
General Adult HPI - General Chief complaint: Weakness Stated complaint: Weakness Time Seen by Provider: 12/12/17 17:15 Source: patient Mode of arrival: EMS Limitations: physical limitation - History of Present Illness Initial comments: 72 years old male brought in by ambulance, he was in the shower where he slid in the tub,, he added he didn't fall he just slept, no head injury no injury to the upper or lower extremities he laid in the tub for about an hour trying to get up he got himself in an awkward position he was not able to get out of the top. He denies any headache complaining about mild back pain because of the way he laid in the top. The chest pain 3 days ago no abdominal pain no frequency urgency dysuria no trauma to the upper or lower extremities - Related Data Home Medications Medication Instructions Recorded Confirmed Simvastatin [Zocor] 20 mg PO HS 08/03/14 12/12/17 Omeprazole [PriLOSEC] 20 mg PO DAILY 12/25/16 12/12/17 Saxagliptin HCl [Onglyza] 5 mg PO DAILY 07/02/17 12/12/17 Warfarin [Coumadin] 20 mg PO MOWEFR 07/02/17 12/12/17 glipiZIDE [Glucotrol] 10 mg PO BID 07/02/17 12/12/17 metFORMIN HCL 1,000 mg PO BID 07/02/17 12/12/17 Albuterol Inhaler [Ventolin Hfa 1 puff INHALATION RT-Q6H PRN 12/12/17 12/12/17 Inhaler] Atenolol 100 mg PO BID 12/12/17 12/12/17 Digoxin 250 mcg PO DAILY 12/12/17 12/12/17 Enalapril [Vasotec] 5 mg PO BID 12/12/17 12/12/17 Furosemide [Lasix] 20 mg PO DAILY 12/12/17 12/12/17 Multivitamins, Thera [Multivitamin 1 tab PO DAILY 12/12/17 12/12/17 (formulary)] Warfarin [Coumadin] 15 mg PO SUTUTHSA 12/12/17 12/12/17 Previous Rx's Medication Instructions Recorded Zolpidem [Ambien] 10 mg PO HS PRN tab 07/07/17 Allergies Allergy/AdvReac Type Severity Reaction Status Date / Time No Known Allergies Allergy Verified 12/12/17 17:53 Review of Systems ROS Statement: Those systems with pertinent positive or pertinent negative responses have been documented in the HPI. ROS Other: All systems not noted in ROS Statement are negative. Past Medical History Past Medical History: Atrial Fibrillation, Heart Failure, Diabetes Mellitus, Hyperlipidemia, Hypertension, Osteoarthritis (OA), Pneumonia Additional Past Medical History / Comment(s): Tremors, chronic osteomylitis of the right ankle maintained on Bactrim on outpatient basis, chronic hypoxic respiratory failure on home O2 - 3L HOME 02, chronic lower extremities edema, falls History of Any Multi-Drug Resistant Organisms: None Reported Past Surgical History: Orthopedic Surgery Additional Past Surgical History / Comment(s): COMPOUND FX OF TIB/FIB R/T SHRAPNEL, liver injury with questionable surgical intervention to control the injury/bleed Past Anesthesia/Blood Transfusion Reactions: No Reported Reaction Past Psychological History: No Psychological Hx Reported Smoking Status: Former smoker Past Alcohol Use History: None Reported Past Drug Use History: Marijuana - Past Family History Mother Additional Family Medical History / Comment(s): patient unaware of family medical history. He was adopted General Exam - General Exam Comments Initial Comments: General: The patient is awake and alert, in no distress, and does not appear acutely ill. He is hard of hearing but GCS is 15 Skin: Skin is warm and dry and no rashes or lesions are noted. Eye: Pupils are equal, round and reactive to light, extra-ocular movements are intact; there is normal conjunctiva bilaterally. Ears, nose, mouth and throat: There are moist mucous membranes and no oral lesions. Neck: The neck is supple, there is no tenderness or JVD. Cardiovascular: There is a regular rate and rhythm. No murmur, rub or gallop is appreciated. Respiratory: To auscultation bilateral, no wheezing no rhonchi no distress respiratory keller noticed Gastrointestinal: Soft, non-distended, non-tender abdomen without masses or organomegaly noted. There is no rebound or guarding present. Bowel sounds are unremarkable. Back: There is no tenderness to palpation in the midline. There is no obvious deformity. Musculoskeletal: Normal ROM, no tenderness, There is no pedal edema. There is no calf tenderness or swelling. No cords were appreciated. Neurological: CN II-XII intact, Cranial nerves III through XII are intact. There are no obvious motor or sensory deficits. Coordination appears grossly intact. Speech is normal. Psychiatric: Cooperative, appropriate mood & affect, normal judgment. Limitations: physical limitation Course Vital Signs 12/12/17 12/12/17 17:15 18:43 Temperature 98.1 F Pulse Rate 74 73 Respiratory 18 18 Rate Blood Pressure 131/69 136/63 O2 Sat by Pulse 96 96 Oximetry (The patient's labs were reviewed, CBC, comp his metabolic panel, INR are unremarkable chest x-ray is unremarkable as well, some urinalysis is pending we ambulated him in the ER he is not very stable on his feet he did walk felt like there was increased risk of fall and injury we can observe him overnight and see if that helps him. I noticed patient's INR is quite subtherapeutic not sure if he has been compliant with his medications, give him a Lovenox 100 mg subcu justonce EKG Findings - EKG Comments: EKG Findings:: EKG is a atrial fibrillation ventricular rate is 73 MD interval is, QRS duration is 88 QT/QTc is 366/43 review of this EKG does not reveal any ST elevation or ST depression Medical Decision Making - Lab Data Result diagrams: 12/12/17 17:30 12/12/17 18:58 Lab Results 12/12/17 12/12/17 12/12/17 Range/Units 17:17 17:30 18:58 WBC 10.2 (3.8-10.6) k/uL RBC 4.03 L (4.30-5.90) m/uL Hgb 11.4 L (13.0-17.5) gm/dL Hct 34.7 L (39.0-53.0) % MCV 86.0 (80.0-100.0) fL MCH 28.3 (25.0-35.0) pg MCHC 32.9 (31.0-37.0) g/dL RDW 13.5 (11.5-15.5) % Plt Count 160 (150-450) k/uL Neutrophils % 85 % Lymphocytes % 7 % Monocytes % 6 % Eosinophils % 1 % Basophils % 0 % Neutrophils # 8.6 H (1.3-7.7) k/uL Lymphocytes # 0.7 L (1.0-4.8) k/uL Monocytes # 0.6 (0-1.0) k/uL Eosinophils # 0.1 (0-0.7) k/uL Basophils # 0.0 (0-0.2) k/uL PT 11.0 (9.0-12.0) sec INR 1.1 (<1.2) APTT 22.9 (22.0-30.0) sec Sodium (137-145) mmol/L Potassium (3.5-5.1) mmol/L Chloride (98-107) mmol/L Carbon Dioxide (22-30) mmol/L Anion Gap mmol/L BUN (9-20) mg/dL Creatinine (0.66-1.25) mg/dL Est GFR (CKD-EPI)AfAm (>60 ml/min/1.73 sqM) Est GFR (CKD-EPI)NonAf (>60 ml/min/1.73 sqM) Glucose (74-99) mg/dL POC Glucose (mg/dL) 161 H (75-99) mg/dL POC Glu Hot Frame Tender ID [facility] [place], [place] Calcium (8.4-10.2) mg/dL Magnesium (1.6-2.3) mg/dL Total Bilirubin (0.2-1.3) mg/dL AST (17-59) U/L ALT (21-72) U/L Alkaline Phosphatase (38-126) U/L Total Creatine Kinase (55-170) U/L CK-MB (CK-2) (0.0-2.4) ng/mL CK-MB (CK-2) Rel Index Troponin I (0.000-0.034) ng/mL Total Protein (6.3-8.2) g/dL Albumin (3.5-5.0) g/dL 12/12/17 12/12/17 Range/Units 18:58 18:58 WBC (3.8-10.6) k/uL RBC (4.30-5.90) m/uL Hgb (13.0-17.5) gm/dL Hct (39.0-53.0) % MCV (80.0-100.0) fL MCH (25.0-35.0) pg MCHC (31.0-37.0) g/dL RDW (11.5-15.5) % Plt Count (150-450) k/uL Neutrophils % % Lymphocytes % % Monocytes % % Eosinophils % % Basophils % % Neutrophils # (1.3-7.7) k/uL Lymphocytes # (1.0-4.8) k/uL Monocytes # (0-1.0) k/uL Eosinophils # (0-0.7) k/uL Basophils # (0-0.2) k/uL PT (9.0-12.0) sec INR (<1.2) APTT (22.0-30.0) sec Sodium 139 (137-145) mmol/L Potassium 4.8 (3.5-5.1) mmol/L Chloride 100 (98-107) mmol/L Carbon Dioxide 31 H (22-30) mmol/L Anion Gap 8 mmol/L BUN 23 H (9-20) mg/dL Creatinine 0.79 (0.66-1.25) mg/dL Est GFR (CKD-EPI)AfAm >90 (>60 ml/min/1.73 sqM) Est GFR (CKD-EPI)NonAf >90 (>60 ml/min/1.73 sqM) Glucose 121 H (74-99) mg/dL POC Glucose (mg/dL) (75-99) mg/dL POC Glu Hot Frame Tender ID Calcium 9.8 (8.4-10.2) mg/dL Magnesium 1.6 (1.6-2.3) mg/dL Total Bilirubin 0.5 (0.2-1.3) mg/dL AST 48 (17-59) U/L ALT 32 (21-72) U/L Alkaline Phosphatase 94 (38-126) U/L Total Creatine Kinase 88 (55-170) U/L CK-MB (CK-2) 1.1 (0.0-2.4) ng/mL CK-MB (CK-2) Rel Index 1.3 Troponin I 0.018 (0.000-0.034) ng/mL Total Protein 6.2 L (6.3-8.2) g/dL Albumin 3.5 (3.5-5.0) g/dL Disposition Clinical Impression: Generalized weakness, Atrial fibrillation, Subtherapeutic international normalized ratio (INR) Disposition: ADMITTED IP TO THIS HOSP Condition: Good
--- NOTE | 2017-12-12 18:48 | XR ---
EXAMINATION TYPE: XR chest 2V DATE OF EXAM: 12/12/2017 COMPARISON: 07/02/2017 HISTORY: Chest pain TECHNIQUE: Frontal and lateral views of the chest are obtained. FINDINGS: There is no heart failure nor confluent pneumonic infiltrate. There are old left-sided hea led rib fractures. There are numerous metallic foreign bodies over the posterior chest. Heart is slig htly enlarged. There is no pleural effusion. There are small linear density at the left lung base. IMPRESSION: Subsegmental atelectasis at the left lung base is improved compared to old exam. No hear t failure.
--- NOTE | 2017-12-12 18:49 | XR ---
EXAMINATION TYPE: XR cervical spine comp DATE OF EXAM: 12/12/2017 COMPARISON: 05/30/2012 HISTORY: Neck pain after sitting in bathtub. TECHNIQUE: 5 views FINDINGS: Cervical vertebra have fairly normal alignment. There is anterior spurring from C4 to T1. P osterior elements are intact. Atlantoaxial facet joint is normal. There are no cervical ribs. There i s numerous metallic posterior foreign bodies. IMPRESSION: Spondylotic changes in the mid and lower cervical spine with anterior spurring. No fractu re. No significant change compared to old exam.
[2017-12-12 19:32] LABS: ALT 32 U/L (21-72); AST 48 U/L (17-59); Albumin 3.5 g/dL (3.5-5.0); Alkaline Phosphatase 94 U/L (38-126); Anion Gap 8 mmol/L; Blood Urea Nitrogen 23 mg/dL (9-20); Calcium 9.8 mg/dL (8.4-10.2); Carbon Dioxide 31 mmol/L (22-30); Chloride 100 mmol/L (98-107); Glucose 121 mg/dL (74-99); Magnesium 1.6 mg/dL (1.6-2.3); Potassium 4.8 mmol/L (3.5-5.1); Sodium 139 mmol/L (137-145); Total Bilirubin 0.5 mg/dL (0.2-1.3); Total Protein 6.2 g/dL (6.3-8.2)
[2017-12-12 19:43] LABS: Creatine Kinase MB 1.1 ng/mL (0.0-2.4); Troponin I 0.018 ng/mL (0.000-0.034)
[2017-12-12] MEDS ORDERED: NALOXONE 0.4 MG/ML 1 ML VIAL IV PRN (20:15)
[2017-12-12] MEDS ORDERED: ACETAMINOPHEN TAB 325 MG TAB PO PRN (20:15)
[2017-12-12] MEDS ORDERED: ZOLPIDEM 10 MG TAB PO PRN (20:18)
[2017-12-12] MEDS ORDERED: ENOXAPARIN 100 MG/ML SYRINGE SQ STA (21:24)
[2017-12-12] MEDS: ATENOLOL 50 MG TAB PO SCH (22:34)
[2017-12-12] MEDS: ATORVASTATIN 10 MG TAB PO SCH (22:34)
[2017-12-12] MEDS: WARFARIN 10 MG TAB PO SCH (22:34)
[2017-12-12] MEDS: glipiZIDE 10 MG TAB PO SCH (22:35)
[2017-12-13 07:36] LABS: Glucose,Whole Blood 104 mg/dL (75-99)
[2017-12-13] MEDS: ATENOLOL 50 MG TAB PO SCH ×2 (07:42→21:39)
[2017-12-13] MEDS: metFORMIN 500 MG TAB PO SCH ×2 (07:42→18:34)
[2017-12-13] MEDS: FUROSEMIDE 20 MG TAB PO SCH ×2 (07:43→07:48)
[2017-12-13] MEDS: LISINOPRIL 20 MG TAB PO SCH (07:43)
[2017-12-13] MEDS: DIGOXIN 250 MCG TAB PO SCH (07:43)
[2017-12-13] MEDS: glipiZIDE 10 MG TAB PO SCH ×2 (07:44→21:40)
[2017-12-13] MEDS: LINAGLIPTIN 5 MG TABLET PO SCH (07:44)
[2017-12-13] MEDS: PANTOPRAZOLE 40 MG TABLET PO SCH (07:44)
[2017-12-13] MEDS: ALBUTEROL NEBULIZED 2.5 MG/3 ML INHALATION PRN ×2 (09:13→16:47)
[2017-12-13 12:02] LABS: Glucose,Whole Blood 93 mg/dL (75-99)
[2017-12-13] MEDS: CALCIUM CARB-VIT D 500MG-200UN 1 EACH TAB PO SCH (12:21)
[2017-12-13] MEDS: MULTIVITAMINS, THERA 1 EACH TAB PO SCH (12:21)
--- NOTE | 2017-12-13 12:30 | P.HPIM ---
History of Present Illness Patient presented to the emergency room with complaints of increasing weakness states he slipped in the shower tub and was able to get out of the tub was brought to the emergency room for EMS. Noted that INR was nontherapeutic patient states he is was unable to get his pharmacy to have the prescription filled Review of Systems Constitutional: Reports weakness Respiratory: Reports cough, Reports dyspnea Past Medical History Past Medical History: Atrial Fibrillation, Heart Failure, Diabetes Mellitus, GERD/Reflux, Hyperlipidemia, Hypertension, Osteoarthritis (OA), Pneumonia Additional Past Medical History / Comment(s): Tremors, chronic osteomylitis of the right ankle maintained on Bactrim on outpatient basis, chronic hypoxic respiratory failure on home O2 - 3L HOME 02, chronic lower extremities edema, falls, past gi bleed/coumadin toxcity, anemia History of Any Multi-Drug Resistant Organisms: None Reported Past Surgical History: Orthopedic Surgery Additional Past Surgical History / Comment(s): COMPOUND FX OF TIB/FIB R/T SHRAPNEL, liver injury with questionable surgical intervention to control the injury/bleed Past Anesthesia/Blood Transfusion Reactions: No Reported Reaction Smoking Status: Former smoker - Past Family History Mother Additional Family Medical History / Comment(s): patient unaware of family medical history. He was adopted Medications and Allergies Home Medications Medication Instructions Recorded Confirmed Type Simvastatin [Zocor] 20 mg PO HS 08/03/14 12/12/17 History Omeprazole [PriLOSEC] 20 mg PO DAILY 12/25/16 12/12/17 History Saxagliptin HCl [Onglyza] 5 mg PO DAILY 07/02/17 12/12/17 History Warfarin [Coumadin] 20 mg PO MOWEFR 07/02/17 12/12/17 History glipiZIDE [Glucotrol] 10 mg PO BID 07/02/17 12/12/17 History metFORMIN HCL 1,000 mg PO BID 07/02/17 12/12/17 History Zolpidem [Ambien] 10 mg PO HS PRN tab 07/07/17 12/12/17 Rx Albuterol Inhaler [Ventolin Hfa 1 puff INHALATION RT-Q6H PRN 12/12/17 12/12/17 History Inhaler] Atenolol 100 mg PO BID 12/12/17 12/12/17 History Digoxin 250 mcg PO DAILY 12/12/17 12/12/17 History Enalapril [Vasotec] 5 mg PO BID 12/12/17 12/12/17 History Furosemide [Lasix] 20 mg PO DAILY 12/12/17 12/12/17 History Multivitamins, Thera [Multivitamin 1 tab PO DAILY 12/12/17 12/12/17 History (formulary)] Warfarin [Coumadin] 15 mg PO SUTUTHSA 12/12/17 12/12/17 History Calcium Carbonate/Vitamin D3 1 each PO DAILY 12/13/17 12/13/17 History [Calcium 500-Vit D3 200 Tablet] Allergies Allergy/AdvReac Type Severity Reaction Status Date / Time No Known Allergies Allergy Verified 12/12/17 17:53 Physical Exam Vitals: Vital Signs Temp Pulse Pulse Resp BP BP Pulse Ox 12/13/17 09:23 58 L 16 12/13/17 09:13 56 L 16 12/13/17 09:01 95 12/13/17 07:00 97.6 F 61 18 139/66 95 12/12/17 21:58 97.5 F L 67 16 131/82 95 12/12/17 21:31 95 12/12/17 21:24 85 20 154/66 94 L 12/12/17 18:43 73 18 136/63 96 12/12/17 17:15 98.1 F 74 18 131/69 96 Intake and Output 12/12/17 12/13/17 12/13/17 22:59 06:59 14:59 Intake Total 240 Output Total 300 Balance -300 240 Intake: Oral 240 Output: Urine 300 Other: Voiding Method Urinal # Voids 2 Weight 122.47 kg 122.5 kg - Constitutional General appearance: obese - EENT Eyes: PERRLA Ears: bilateral: normal - Neck Neck: normal ROM - Respiratory Respiratory: bilateral: diminished - Cardiovascular Rhythm: irregularly irregular - Gastrointestinal General gastrointestinal: soft - Integumentary Integumentary: normal - Neurologic Neurologic: CNII-XII intact - Musculoskeletal Musculoskeletal: generalized weakness - Psychiatric Psychiatric: A&O x's 3, appropriate affect, intact judgment & insight Results CBC & Chem 7: 12/12/17 17:30 12/12/17 18:58 Labs: Abnormal Lab Results - Last 24 Hours (Table) 05/23/18 05/23/18 05/23/18 Range/Units 17:17 17:30 18:58 RBC 4.03 L (4.30-5.90) m/uL Hgb 11.4 L (13.0-17.5) gm/dL Hct 34.7 L (39.0-53.0) % Neutrophils # 8.6 H (1.3-7.7) k/uL Lymphocytes # 0.7 L (1.0-4.8) k/uL Carbon Dioxide 31 H (22-30) mmol/L BUN 23 H (9-20) mg/dL Glucose 121 H (74-99) mg/dL POC Glucose (mg/dL) 161 H (75-99) mg/dL Total Protein 6.2 L (6.3-8.2) g/dL 12/13/17 Range/Units 07:25 RBC (4.30-5.90) m/uL Hgb (13.0-17.5) gm/dL Hct (39.0-53.0) % Neutrophils # (1.3-7.7) k/uL Lymphocytes # (1.0-4.8) k/uL Carbon Dioxide (22-30) mmol/L BUN (9-20) mg/dL Glucose (74-99) mg/dL POC Glucose (mg/dL) 104 H (75-99) mg/dL Total Protein (6.3-8.2) g/dL Chest x-ray: report reviewed Thrombosis Risk Factor Assmnt - Choose All That Apply Each Factor Represents 1 point: Obesity (BMI >25) Each Risk Factor Represents 2 Points: Age 61-74 years Thrombosis Risk Factor Assessment Total Risk Factor Score: 3 Thrombosis Risk Factor Assessment Level: Moderate Risk Assessment and Plan Plan: Assessment Generalized weakness Atrial fibrillation Noncompliance with medication History of resting tremors History of congestive heart failure diabetes type 2 Hypertension hyperlipidemia Osteoarthritis Chronic hypoxic respiratory failure home O2 3 L Chronic osteomyelitis Plan Consultation with occupational therapy physical therapy and director of social work
[2017-12-13 14:38] LABS: INR 1.2 (<1.2); Prothrombin Time 11.8 sec (9.0-12.0)
[2017-12-13 17:39] LABS: Glucose,Whole Blood 147 mg/dL (75-99)
[2017-12-13] MEDS: WARFARIN 7.5 MG TAB PO SCH (18:34)
[2017-12-13 19:29] LABS: Hemoglobin A1C 6.2 % (4.0-6.0)
[2017-12-13 20:52] LABS: Glucose,Whole Blood 141 mg/dL (75-99)
[2017-12-13] MEDS: ATORVASTATIN 10 MG TAB PO SCH (21:40)
[2017-12-14] MEDS: ALBUTEROL NEBULIZED 2.5 MG/3 ML INHALATION PRN ×3 (07:21→19:31)
[2017-12-14 07:42] LABS: Glucose,Whole Blood 88 mg/dL (75-99)
[2017-12-14 07:45] LABS: INR 1.5 (<1.2); Prothrombin Time 13.6 sec (9.0-12.0)
[2017-12-14] MEDS: ATENOLOL 50 MG TAB PO SCH ×2 (08:17→21:29)
[2017-12-14] MEDS: PANTOPRAZOLE 40 MG TABLET PO SCH (08:17)
[2017-12-14] MEDS: LISINOPRIL 20 MG TAB PO SCH (08:17)
[2017-12-14] MEDS: glipiZIDE 10 MG TAB PO SCH ×2 (08:17→21:29)
[2017-12-14] MEDS: LINAGLIPTIN 5 MG TABLET PO SCH (08:17)
[2017-12-14] MEDS: metFORMIN 500 MG TAB PO SCH ×2 (08:18→17:54)
[2017-12-14] MEDS: DIGOXIN 250 MCG TAB PO SCH (08:18)
[2017-12-14] MEDS: CALCIUM CARB-VIT D 500MG-200UN 1 EACH TAB PO SCH (08:18)
[2017-12-14] MEDS: FUROSEMIDE 20 MG TAB PO SCH (08:18)
[2017-12-14 11:29] LABS: Glucose,Whole Blood 122 mg/dL (75-99)
[2017-12-14] MEDS: MULTIVITAMINS, THERA 1 EACH TAB PO SCH ×2 (12:09→15:57)
[2017-12-14 17:49] LABS: Glucose,Whole Blood 92 mg/dL (75-99)
[2017-12-14] MEDS: INSULIN ASPART 100 UNIT/ML 1 ML 10 ML VIAL SQ SCH ×2 (17:53→21:30)
[2017-12-14] MEDS: WARFARIN 10 MG TAB PO SCH (17:54)
[2017-12-14] MEDS: SODIUM CHLORIDE 0.9% 1,000 ML IV SCH (17:55)
--- NOTE | 2017-12-14 19:17 | P.PN ---
Subjective Progress Note Date: 12/14/17 Progress note being dictated for Dr. Russell Interval history: Is a 72-year-old gentleman admitted with generalized weakness , status post fall, subtherapeutic INR, and multiple other medical issues. Significant generalized weakness persist, proximal myopathy. Complains of increased weakness and difficulty ambulating. Exertional fatigue. Good diet intake, no nausea or vomiting. Denies chest pain, palpitations or increasing shortness of breath. Denies lightheadedness or dizziness or focal deficits. Evaluated by physical therapy and subacute rehab recommended. Patient now willing to proceed with subacute rehab. Review of systems: CONSTITUTIONAL: No fever, no malaise, no fatigue. HEENT: No recent visual problems or hearing problems. Denied any sore throat. CARDIOVASCULAR: No chest pain,no palpitations, no syncope. PULMONARY: shortness of breath with exertion, no cough, no hemoptysis. GASTROINTESTINAL: No diarrhea, no nausea, no vomiting, no abdominal pain. Normoactive bowel sounds. NEUROLOGICAL: No headaches, positive generalized weakness, no numbness. HEMATOLOGICAL: Denies any bleeding or petechiae. GENITOURINARY: Denies any burning micturition, frequency, or urgency. MUSCULOSKELETAL/RHEUMATOLOGICAL: Denies any joint pain, swelling, muscle pain. ENDOCRINE: Denies any polyuria or polydipsia. PSYCHIATRIC: No anxiety, no depression The rest of the 14 point review of systems is negative Active Medications Acetaminophen (Tylenol Tab) 650 mg PO Q6HR PRN PRN Reason: Mild Pain or Fever > 100.5 Albuterol Sulfate (Ventolin Nebulized) 2.5 mg INHALATION RT-Q6H PRN PRN Reason: Shortness Of Breath Last Admin: 12/14/17 13:25 Dose: 2.5 mg Atenolol (Tenormin) 100 mg PO BID [facility] Last Admin: 12/14/17 08:17 Dose: 100 mg Atorvastatin Calcium (Lipitor) 10 mg PO HS [facility] Last Admin: 12/13/17 21:40 Dose: 10 mg Calcium Carbonate (Oscal 500+D) 1 each PO DAILY [facility] Last Admin: 12/14/17 08:18 Dose: 1 each Digoxin (Lanoxin) 250 mcg PO DAILY [facility] Last Admin: 12/14/17 08:18 Dose: 250 mcg Furosemide (Lasix) 20 mg PO DAILY [facility] Last Admin: 12/14/17 08:18 Dose: 20 mg Glipizide (Glucotrol) 10 mg PO BID [facility] Last Admin: 12/14/17 08:17 Dose: 10 mg Sodium Chloride (Saline 0.9%) 1,000 mls @ 50 mls/hr IV .Q20H [facility] Last Admin: 12/14/17 17:55 Dose: 50 mls/hr Insulin Aspart (Novolog) 0 unit SQ ACHS [facility] PRN Reason: Protocol Last Admin: 12/14/17 17:53 Dose: Not Given Linagliptin (Tradjenta) 5 mg PO DAILY [facility] Last Admin: 12/14/17 08:17 Dose: 5 mg Lisinopril (Zestril) 20 mg PO DAILY [facility] Last Admin: 12/14/17 08:17 Dose: 20 mg Metformin HCl (Glucophage) 1,000 mg PO BID-W/MEALS [facility] Last Admin: 12/14/17 17:54 Dose: 1,000 mg Multivitamins (Theragran) 1 each PO DAILY@1200 [facility] Last Admin: 12/14/17 15:57 Dose: 1 each Naloxone HCl (Narcan) 0.2 mg IV Q2M PRN PRN Reason: Opioid Reversal Pantoprazole Sodium (Protonix) 40 mg PO AC-BRKFST [facility] Last Admin: 12/14/17 08:17 Dose: 40 mg Warfarin Sodium (Coumadin) 15 mg PO SUTUTHSA [facility] Last Admin: 12/13/17 18:34 Dose: 15 mg Warfarin Sodium (Coumadin) 20 mg PO MOWEFR [facility] Last Admin: 12/14/17 17:54 Dose: 20 mg Zolpidem Tartrate (Ambien) 10 mg PO HS PRN PRN Reason: Insomnia Objective - Vital Signs Vital signs: Vital Signs Temp 98.2 F 12/14/17 15:00 Pulse 73 12/14/17 15:00 Resp 18 12/14/17 15:00 BP 149/68 12/14/17 15:00 Pulse Ox 96 12/14/17 15:00 Intake & Output 12/13/17 12/14/17 12/14/17 18:59 06:59 18:59 Intake Total 480 480 Output Total 425 Balance 480 -425 480 Weight 123.5 kg Intake: Oral 480 480 Output: Urine 425 Other: Voiding Method Urinal Urinal # Voids 4 1 4 # Bowel Movements 0 0 - Exam PHYSICAL EXAM: VITAL SIGNS: As above GENERAL: Sitting up in bed, tired appearing HEENT: Conjunctivae normal. eyes normal. Oral mucosa moist NECK: No JVD. No thyroid enlargement. No LNs CARDIOVASCULAR: S1, S2 muffled. Occasional Bradycardic, No murmur RESPIRATION: Breath sounds diminished in the bases. No rhonchi or crackles. No bronchial breathing. ABDOMEN: Soft, nontender . No guarding. no masses palpable. Bowel sounds heard. LEGS: No edema, no swelling PSYCHIATRY: Alert and oriented -3, mood and affect normal. NERVOUS SYSTEM: Cranial N 2-12 grossly normal. Moves all 4 limbs; significant proximal weakness. No focal deficits. Skin: no ulcer no rash - Labs CBC & Chem 7: 12/12/17 17:30 12/12/17 18:58 Labs: Abnormal Lab Results - Last 24 Hours (Table) 12/12/17 12/13/17 12/14/17 Range/Units 17:30 20:49 07:03 PT 13.6 H (9.0-12.0) sec INR 1.5 H (<1.2) POC Glucose (mg/dL) 141 H (75-99) mg/dL Hemoglobin A1c 6.2 H (4.0-6.0) % 12/14/17 Range/Units 11:22 PT (9.0-12.0) sec INR (<1.2) POC Glucose (mg/dL) 122 H (75-99) mg/dL Hemoglobin A1c (4.0-6.0) % Assessment and Plan Assessment: 1. Acute proximal myopathy 2. Degenerative joint disease, osteoarthritis, gait dysfunction 3. Medical debility, significant fatigue with minimal exertion, status post fall 4. Chronic atrial fibrillation 5 hypertension 6. Chronic hypoxic respiratory failure Plan: Continue current medication regime ,monitoring and symptomatic treatment. GI and DVT prophylaxis. PT/OT. Up in chair for all meals. Close monitoring of electrolytes with repeat labs ordered for a.m. daily PT INR. Digoxin level ordered. Subacute rehab recommended at discharge and patient initially declined but agreeable. Discharge planning in progress for subacute rehab. Further recommendations to follow The impression and plan of care has been dictated as directed. : I performed a history and examination of this patient, discussed the same with the dictator. I agree with the dictator's note ,documented as a scribe. Any additional findings or plans will be noted.
[2017-12-14 20:56] LABS: Glucose,Whole Blood 163 mg/dL (75-99)
[2017-12-14] MEDS: ATORVASTATIN 10 MG TAB PO SCH (21:29)
[2017-12-14 22:11] LABS: Appearance,Urine Clear (Clear); Bacteria,Urine Rare /hpf; Bilirubin,Urine Negative (Negative); Blood,Urine Trace (Negative); Color,Urine Yellow; Glucose,Urine (UA) Negative (Negative); Hyaline Casts,Urine 4 /lpf (0-2); Ketones,Urine Negative (Negative); Leukocyte Esterase,Urine Negative (Negative); Mucus,Urine Rare /hpf; Nitrite,Urine Negative (Negative); PH, Urine 5.5 (5.0-8.0); Protein,Urine 2+ (Negative); RBC,Urine 3 /hpf (0-5); Specific Gravity,Urine 1.014 (1.001-1.035); Urobilinogen,Urine <2.0 mg/dL (<2.0); WBC,Urine 1 /hpf (0-5)
[2017-12-15 07:17] LABS: Glucose,Whole Blood 86 mg/dL (75-99)
[2017-12-15] MEDS: INSULIN ASPART 100 UNIT/ML 1 ML 10 ML VIAL SQ SCH ×4 (07:32→21:13)
[2017-12-15 08:19] LABS: INR 1.9 (<1.2)
[2017-12-15 08:22] LABS: Basophils % (A) 0 %; Eosinophils # (A) 0.3 k/uL (0-0.7); Eosinophils % (A) 5 %; HCT 30.4 % (39.0-53.0); Lymphocytes # (A) 1.3 k/uL (1.0-4.8); Lymphocytes % (A) 21 %; MCH 27.9 pg (25.0-35.0); MCHC 31.8 g/dL (31.0-37.0); MCV 87.7 fL (80.0-100.0); Mean Platelet Volume 7.4; Monocytes # (A) 0.5 k/uL (0-1.0); Monocytes % (A) 8 %; Neutrophils % (A) 64 %; Platelet Count 151 k/uL (150-450); RBC 3.47 m/uL (4.30-5.90); RDW 13.7 % (11.5-15.5); WBC 6.2 k/uL (3.8-10.6)
[2017-12-15 08:24] LABS: HGB 9.7 gm/dL (13.0-17.5)
[2017-12-15] MEDS: ALBUTEROL NEBULIZED 2.5 MG/3 ML INHALATION PRN ×3 (08:30→19:59)
[2017-12-15] MEDS: PANTOPRAZOLE 40 MG TABLET PO SCH (08:49)
[2017-12-15] MEDS: FUROSEMIDE 20 MG TAB PO SCH (08:50)
[2017-12-15] MEDS: LISINOPRIL 20 MG TAB PO SCH (08:50)
[2017-12-15] MEDS: CALCIUM CARB-VIT D 500MG-200UN 1 EACH TAB PO SCH (08:50)
[2017-12-15] MEDS: metFORMIN 500 MG TAB PO SCH ×2 (08:50→16:31)
[2017-12-15] MEDS: MULTIVITAMINS, THERA 1 EACH TAB PO SCH (08:50)
[2017-12-15] MEDS: LINAGLIPTIN 5 MG TABLET PO SCH (08:51)
[2017-12-15] MEDS: ATENOLOL 50 MG TAB PO SCH ×2 (08:51→21:13)
[2017-12-15] MEDS: DIGOXIN 250 MCG TAB PO SCH (08:51)
[2017-12-15] MEDS: glipiZIDE 10 MG TAB PO SCH ×2 (08:51→16:36)
[2017-12-15 09:38] LABS: Anion Gap 10 mmol/L; Blood Urea Nitrogen 19 mg/dL (9-20); Calcium 8.9 mg/dL (8.4-10.2); Carbon Dioxide 32 mmol/L (22-30); Chloride 104 mmol/L (98-107); Digoxin 0.7 ng/mL; Glucose 78 mg/dL (74-99); Potassium 4.3 mmol/L (3.5-5.1); Sodium 146 mmol/L (137-145)
[2017-12-15 12:18] LABS: Glucose,Whole Blood 117 mg/dL (75-99)
[2017-12-15] MEDS: SODIUM CHLORIDE 0.9% 1,000 ML IV SCH (13:02)
[2017-12-15] MEDS: WARFARIN 7.5 MG TAB PO SCH (16:31)
[2017-12-15 16:48] LABS: Glucose,Whole Blood 104 mg/dL (75-99)
[2017-12-15 20:56] LABS: Glucose,Whole Blood 92 mg/dL (75-99)
[2017-12-15] MEDS: ATORVASTATIN 10 MG TAB PO SCH (21:13)
--- NOTE | 2017-12-16 00:01 | PN ---
PROGRESS NOTE DATE OF SERVICE: 12/15/2017 This 72-year-old gentleman with a past history of multiple medical problems, admitted with generalized weakness. The patient also had a fall. The patient is being evaluated for possible ECF rehab at this time. No chest pain. No palpitations. No fever. PHYSICAL EXAM: Alert and oriented x3. Pulse 71, blood pressure 130/64, respirations 18, temperature 97.4, pulse ox 94% on room air. HEENT: Conjunctivae normal. NECK: No jugular venous distention. CARDIOVASCULAR: S1, S2 muffled. RESPIRATORY: Breath sounds diminished in the bases. A few scattered rhonchi. No crackles. ABDOMEN: Soft, nontender. No mass palpable. LEGS: No edema. No swelling. NERVOUS SYSTEM: Diffusely weak and emaciated. LABS: WBC 6.9, hemoglobin is 9.7. Sodium 146. ASSESSMENT: 1. Acute proximal myopathy with gait dysfunction. 2. Degenerative joint disease and assess gait dysfunction. 3. Medical debility exacerbation, status post fall. 4. Chronic atrial fibrillation. 5. Hypertension. 6. Chronic hypoxic respiratory failure. RECOMMENDATIONS AND DISCUSSION: Recommend to continue current medical management and symptomatic treatment. PT/ OT evaluation. Possible ECF rehab. The patient is at high risk of fall. Once again, the importance of compliance was discussed with the patient. Guarded prognosis. Further recommendations to follow. MMODL / IJN: [id number] / MTDD
[2017-12-16] MEDS: INSULIN ASPART 100 UNIT/ML 1 ML 10 ML VIAL SQ SCH ×4 (07:29→22:36)
[2017-12-16 07:37] LABS: Glucose,Whole Blood 112 mg/dL (75-99)
[2017-12-16] MEDS: CALCIUM CARB-VIT D 500MG-200UN 1 EACH TAB PO SCH (07:40)
[2017-12-16] MEDS: LINAGLIPTIN 5 MG TABLET PO SCH (07:41)
[2017-12-16] MEDS: PANTOPRAZOLE 40 MG TABLET PO SCH (07:41)
[2017-12-16] MEDS: metFORMIN 500 MG TAB PO SCH ×2 (07:41→17:33)
[2017-12-16] MEDS: DIGOXIN 250 MCG TAB PO SCH (07:41)
[2017-12-16] MEDS: ATENOLOL 50 MG TAB PO SCH ×2 (07:41→23:18)
[2017-12-16] MEDS: FUROSEMIDE 20 MG TAB PO SCH (07:41)
[2017-12-16] MEDS: LISINOPRIL 20 MG TAB PO SCH (07:41)
[2017-12-16] MEDS: glipiZIDE 10 MG TAB PO SCH ×2 (07:41→22:35)
[2017-12-16] MEDS: ALBUTEROL NEBULIZED 2.5 MG/3 ML INHALATION PRN ×3 (07:48→19:36)
[2017-12-16] MEDS: SODIUM CHLORIDE 0.9% 1,000 ML IV SCH (08:20)
[2017-12-16 08:22] LABS: Basophils % (A) 1 %; Eosinophils # (A) 0.3 k/uL (0-0.7); Eosinophils % (A) 5 %; HCT 31.3 % (39.0-53.0); Lymphocytes # (A) 1.2 k/uL (1.0-4.8); Lymphocytes % (A) 19 %; MCH 28.3 pg (25.0-35.0); MCHC 31.8 g/dL (31.0-37.0); MCV 88.8 fL (80.0-100.0); Mean Platelet Volume 7.2; Monocytes # (A) 0.5 k/uL (0-1.0); Monocytes % (A) 8 %; Neutrophils # (A) 4.3 k/uL (1.3-7.7); Neutrophils % (A) 67 %; Platelet Count 164 k/uL (150-450); RBC 3.52 m/uL (4.30-5.90); RDW 13.8 % (11.5-15.5); WBC 6.5 k/uL (3.8-10.6)
[2017-12-16 08:34] LABS: INR 2.3 (<1.2); Prothrombin Time 20.6 sec (9.0-12.0)
[2017-12-16 08:41] LABS: Anion Gap 8 mmol/L; Blood Urea Nitrogen 18 mg/dL (9-20); Calcium 8.6 mg/dL (8.4-10.2); Carbon Dioxide 33 mmol/L (22-30); Chloride 103 mmol/L (98-107); Glucose 107 mg/dL (74-99); Potassium 4.4 mmol/L (3.5-5.1); Sodium 144 mmol/L (137-145)
[2017-12-16 12:10] LABS: Glucose,Whole Blood 78 mg/dL (75-99)
[2017-12-16] MEDS: MULTIVITAMINS, THERA 1 EACH TAB PO SCH (13:34)
[2017-12-16 17:28] LABS: Glucose,Whole Blood 113 mg/dL (75-99)
[2017-12-16] MEDS: WARFARIN 7.5 MG TAB PO SCH (17:33)
--- NOTE | 2017-12-16 19:59 | PN ---
PROGRESS NOTE DATE OF SERVICE: 12/16/2017 INTERVAL HISTORY: This 72-year-old gentleman who was admitted with generalized weakness and tiredness is awaiting ECF rehab. No chest pain. No palpitations. No fever. PHYSICAL EXAM: Alert and oriented times three. Pulse 73, blood pressure 173/78, respirations 18, temperature 98.4, pulse ox 98% on room air. HEENT: Conjunctivae normal. Oral mucosa moist. NECK: No JVD. No carotid bruit. No lymph node enlargement. CARDIOVASCULAR: S1, S2. RESPIRATORY: Diminished breath sounds at the bases. No rhonchi, no crackles. ABDOMEN: Soft, nontender. LEGS: No swelling. NERVOUS SYSTEM: Diffusely weak. LABS: WBC 6.2, hemoglobin is 10, INR 2.3. ASSESSMENT: 1. Acute proximal myopathy with gait dysfunction. 2. DJD with gait dysfunction. 3. Medical debility exacerbation, status post fall. 4. Chronic atrial fibrillation. 5. Hypertension. 6. Chronic hypoxic respiratory failure. RECOMMENDATIONS: Recommend to continue current management, continue symptomatic treatment. Otherwise, at this time I recommend PT, OT evaluation. Guarded prognosis. Blood pressure only elevated slightly for the first time, continue to monitor. Further recommendations to follow. MMODL / IJN: [id number] /
[2017-12-16 21:20] LABS: Glucose,Whole Blood 134 mg/dL (75-99)
[2017-12-16] MEDS: ATORVASTATIN 10 MG TAB PO SCH (22:35)
[2017-12-17] MEDS: SODIUM CHLORIDE 0.9% 1,000 ML IV SCH (04:57)
[2017-12-17 07:38] LABS: Glucose,Whole Blood 84 mg/dL (75-99)
[2017-12-17] MEDS: ALBUTEROL NEBULIZED 2.5 MG/3 ML INHALATION PRN ×2 (07:38→20:32)
[2017-12-17] MEDS: INSULIN ASPART 100 UNIT/ML 1 ML 10 ML VIAL SQ SCH ×4 (07:42→21:28)
[2017-12-17] MEDS: glipiZIDE 10 MG TAB PO SCH ×2 (07:48→17:31)
[2017-12-17] MEDS: LINAGLIPTIN 5 MG TABLET PO SCH (07:48)
[2017-12-17] MEDS: DIGOXIN 250 MCG TAB PO SCH (07:48)
[2017-12-17] MEDS: FUROSEMIDE 20 MG TAB PO SCH (07:48)
[2017-12-17] MEDS: PANTOPRAZOLE 40 MG TABLET PO SCH (07:48)
[2017-12-17] MEDS: ATENOLOL 50 MG TAB PO SCH ×2 (07:48→21:28)
[2017-12-17] MEDS: metFORMIN 500 MG TAB PO SCH ×2 (07:48→17:23)
[2017-12-17] MEDS: CALCIUM CARB-VIT D 500MG-200UN 1 EACH TAB PO SCH (07:48)
[2017-12-17] MEDS: LISINOPRIL 20 MG TAB PO SCH (07:49)
[2017-12-17 08:10] LABS: INR 2.5 (<1.2); Prothrombin Time 22.2 sec (9.0-12.0)
[2017-12-17 08:21] LABS: Basophils % (A) 1 %; Eosinophils # (A) 0.3 k/uL (0-0.7); Eosinophils % (A) 4 %; HCT 31.4 % (39.0-53.0); Lymphocytes # (A) 1.2 k/uL (1.0-4.8); Lymphocytes % (A) 18 %; MCHC 31.7 g/dL (31.0-37.0); MCV 88.3 fL (80.0-100.0); Mean Platelet Volume 6.9; Monocytes # (A) 0.5 k/uL (0-1.0); Monocytes % (A) 8 %; Neutrophils # (A) 4.6 k/uL (1.3-7.7); Neutrophils % (A) 68 %; Platelet Count 173 k/uL (150-450); RBC 3.56 m/uL (4.30-5.90); RDW 13.7 % (11.5-15.5); WBC 6.8 k/uL (3.8-10.6)
[2017-12-17 08:29] LABS: Anion Gap 8 mmol/L; Blood Urea Nitrogen 21 mg/dL (9-20); Calcium 8.6 mg/dL (8.4-10.2); Carbon Dioxide 34 mmol/L (22-30); Chloride 101 mmol/L (98-107); Glucose 83 mg/dL (74-99); Potassium 4.2 mmol/L (3.5-5.1); Sodium 143 mmol/L (137-145)
[2017-12-17 12:16] LABS: Glucose,Whole Blood 100 mg/dL (75-99)
[2017-12-17] MEDS: MULTIVITAMINS, THERA 1 EACH TAB PO SCH (13:28)
[2017-12-17] MEDS: WARFARIN 10 MG TAB PO SCH (17:24)
[2017-12-17 17:27] LABS: Glucose,Whole Blood 87 mg/dL (75-99)
[2017-12-17 21:04] LABS: Glucose,Whole Blood 92 mg/dL (75-99)
[2017-12-17] MEDS: ATORVASTATIN 10 MG TAB PO SCH (21:28)
--- NOTE | 2017-12-17 23:12 | PN ---
PROGRESS NOTE DATE OF SERVICE: 12/17/2017 This 72-year-old gentleman who was admitted with acute proximal myopathy and gait dysfunction is being evaluated for ECF rehab. No chest pain. No palpitations. No fever. PHYSICAL EXAM: Alert and oriented x3. Pulse 77, blood pressure 131/74, respiration 18, temperature 98 degrees, pulse ox 94% on 2 L. HEENT: Conjunctivae normal. Oral mucosa moist. Neck is no jugular venous distention. No carotid bruit. No lymph node enlargement. CARDIOVASCULAR: S1 and S2. RESPIRATORY: Breath sounds diminished at the bases. No rhonchi, no crackles. ABDOMEN: Soft, nontender. No mass palpable. LEGS: No edema. NERVOUS SYSTEM: Proximal muscle emaciation, weakness and wasting also present. LABS: WBC 6.8, hemoglobin is 10. INR is 2.5. ASSESSMENT: 1. Acute proximal myopathy with gait dysfunction. 2. Degenerative joint disease with gait dysfunction. 3. Medical debility, status post fall. 4. Chronic atrial fibrillation. 5. Hypertension. 6. Chronic hypoxic respiratory failure. RECOMMENDATIONS: Recommend to continue current management and continue with symptomatic treatment. Otherwise, PT/OT evaluation, possible ECF rehab. Guarded prognosis. Further recommendations to follow. MMODL / IJN: [id number] /
[2017-12-18] MEDS: SODIUM CHLORIDE 0.9% 1,000 ML IV SCH (01:59)
[2017-12-18] MEDS: ATENOLOL 50 MG TAB PO SCH (06:35)
[2017-12-18 07:26] LABS: Glucose,Whole Blood 106 mg/dL (75-99)
[2017-12-18] MEDS: INSULIN ASPART 100 UNIT/ML 1 ML 10 ML VIAL SQ SCH ×2 (07:37→11:47)
[2017-12-18] MEDS: PANTOPRAZOLE 40 MG TABLET PO SCH (07:41)
[2017-12-18] MEDS: glipiZIDE 10 MG TAB PO SCH (07:41)
[2017-12-18] MEDS: metFORMIN 500 MG TAB PO SCH (07:41)
[2017-12-18] MEDS: FUROSEMIDE 20 MG TAB PO SCH (08:26)
[2017-12-18] MEDS: LINAGLIPTIN 5 MG TABLET PO SCH (08:26)
[2017-12-18] MEDS: CALCIUM CARB-VIT D 500MG-200UN 1 EACH TAB PO SCH (08:26)
[2017-12-18] MEDS: LISINOPRIL 20 MG TAB PO SCH (08:26)
[2017-12-18] MEDS: DIGOXIN 250 MCG TAB PO SCH (08:27)
[2017-12-18 08:33] LABS: Basophils # (A) 0.1 k/uL (0-0.2); Basophils % (A) 1 %; Eosinophils # (A) 0.3 k/uL (0-0.7); Eosinophils % (A) 3 %; HCT 34.3 % (39.0-53.0); HGB 10.8 gm/dL (13.0-17.5); Lymphocytes # (A) 1.4 k/uL (1.0-4.8); Lymphocytes % (A) 18 %; MCH 27.7 pg (25.0-35.0); MCHC 31.5 g/dL (31.0-37.0); MCV 88.1 fL (80.0-100.0); Mean Platelet Volume 7.3; Monocytes # (A) 0.7 k/uL (0-1.0); Monocytes % (A) 9 %; Neutrophils # (A) 5.2 k/uL (1.3-7.7); Neutrophils % (A) 67 %; Platelet Count 182 k/uL (150-450); RBC 3.89 m/uL (4.30-5.90); RDW 13.9 % (11.5-15.5); WBC 7.7 k/uL (3.8-10.6)
[2017-12-18 08:38] LABS: INR 2.8 (<1.2); Prothrombin Time 25.4 sec (9.0-12.0)
[2017-12-18 09:04] LABS: Anion Gap 10 mmol/L; Blood Urea Nitrogen 21 mg/dL (9-20); Carbon Dioxide 33 mmol/L (22-30); Chloride 100 mmol/L (98-107); Glucose 113 mg/dL (74-99); Potassium 4.4 mmol/L (3.5-5.1); Sodium 143 mmol/L (137-145)
[2017-12-18] MEDS: ALBUTEROL NEBULIZED 2.5 MG/3 ML INHALATION PRN (11:30)
[2017-12-18] MEDS: MULTIVITAMINS, THERA 1 EACH TAB PO SCH (11:48)
[2017-12-18 12:31] LABS: Glucose,Whole Blood 93 mg/dL (75-99)
--- NOTE | 2017-12-18 12:45 | P.DS ---
Providers Date of admission: 12/14/17 09:22 Expected date of discharge: 12/18/17 Attending physician: Edi Love Primary care physician: Edi Love Hospital Course: 72-year-old male was admitted to the emergency room after a fall in the bathtub of patient was evaluated by OT PT stabilized and ready for transferred to extended care facility medically Chest Assessment Generalized weakness with fall Atrial fibrillation History of congestive heart failure Diabetes type 2 Hypertension Hyperlipidemia Osteoarthritis Chronic hypoxic respiratory failure home O2 3 L Chronic osteomyelitis angle Tremor Plan Transfer to [facility] Patient Condition at Discharge: Good Plan - Discharge Summary Discharge Rx Participant: No New Discharge Prescriptions: New Acetaminophen Tab [Tylenol] 650 mg PO Q6HR PRN tab PRN Reason: Mild Pain Or Fever > 100.5 Zolpidem [Ambien] 10 mg PO HS PRN #30 tab PRN Reason: Insomnia Continue Simvastatin [Zocor] 20 mg PO HS Omeprazole [PriLOSEC] 20 mg PO DAILY glipiZIDE [Glucotrol] 10 mg PO BID Saxagliptin HCl [Onglyza] 5 mg PO DAILY metFORMIN HCL 1,000 mg PO BID Warfarin [Coumadin] 15 mg PO SUTUTHSA Multivitamins, Thera [Multivitamin (formulary)] 1 tab PO DAILY Furosemide [Lasix] 20 mg PO DAILY Enalapril [Vasotec] 5 mg PO BID Digoxin 250 mcg PO DAILY Atenolol 100 mg PO BID Albuterol Inhaler [Ventolin Hfa Inhaler] 1 puff INHALATION RT-Q6H PRN PRN Reason: Shortness Of Breath Calcium Carbonate/Vitamin D3 [Calcium 500-Vit D3 200 Tablet] 1 each PO DAILY Discontinued Warfarin [Coumadin] 20 mg PO MOWEFR Zolpidem [Ambien] 10 mg PO HS PRN tab PRN Reason: Insomnia Discharge Medication List Simvastatin [Zocor] 20 mg PO HS 08/03/14 [History] Omeprazole [PriLOSEC] 20 mg PO DAILY 12/25/16 [History] Saxagliptin HCl [Onglyza] 5 mg PO DAILY 07/02/17 [History] glipiZIDE [Glucotrol] 10 mg PO BID 07/02/17 [History] metFORMIN HCL 1,000 mg PO BID 07/02/17 [History] Albuterol Inhaler [Ventolin Hfa Inhaler] 1 puff INHALATION RT-Q6H PRN 12/12/17 [ History] Atenolol 100 mg PO BID 12/12/17 [History] Digoxin 250 mcg PO DAILY 12/12/17 [History] Enalapril [Vasotec] 5 mg PO BID 12/12/17 [History] Furosemide [Lasix] 20 mg PO DAILY 12/12/17 [History] Multivitamins, Thera [Multivitamin (formulary)] 1 tab PO DAILY 12/12/17 [History ] Warfarin [Coumadin] 15 mg PO SUTUTHSA 12/12/17 [History] Calcium Carbonate/Vitamin D3 [Calcium 500-Vit D3 200 Tablet] 1 each PO DAILY [History] Acetaminophen Tab [Tylenol] 650 mg PO Q6HR PRN tab 12/18/17 [Rx] Zolpidem [Ambien] 10 mg PO HS PRN #30 tab 12/18/17 [Rx] Follow up Appointment(s)/Referral(s): Edi Love MD [Primary Care Provider] - 1-2 days [facility], [NON-STAFF] - 1 Week
[2017-12-18 15:21] VITALS: BP 131/76; PULSE 76; RESP 20; TEMP 98.9
== END 2017-12-18 16:11 | DRG 92 ==
LOC: EC 17:13 → 4MS4W 20:18 → OBSVTOIN 12-14 09:22
PROVIDERS: ADMIT Family Medicine; ATTEND Family Medicine
DX: G72.89 Other specified myopathies (principal); J96.11 Chronic respiratory failure with hypoxia; M86.60 Other chronic osteomyelitis, unspecified site; E11.69 Type 2 diabetes mellitus with other specified complication; E78.5 Hyperlipidemia, unspecified; I11.0 Hypertensive heart disease with heart failure; I48.2 Chronic atrial fibrillation; I50.9 Heart failure, unspecified; K21.9 Gastro-esophageal reflux disease without esophagitis; M19.90 Unspecified osteoarthritis, unspecified site; R79.1 Abnormal coagulation profile; R25.1 Tremor, unspecified; R26.89 Other abnormalities of gait and mobility; H91.90 Unspecified hearing loss, unspecified ear; Z79.01 Long term (current) use of anticoagulants; Z79.899 Other long term (current) drug therapy; Z79.84 Long term (current) use of oral hypoglycemic drugs; Z99.81 Dependence on supplemental oxygen; Z91.14 Patient's other noncompliance with medication regimen; Z87.891 Personal history of nicotine dependence; Z87.01 Personal history of pneumonia (recurrent); Z91.81 History of falling; W18.2XXA Fall in (into) shower or empty bathtub, initial encounter; Y92.9 Unspecified place or not applicable
CPT/HCPCS: 36415; 71046; 72050; 80048; 80053; 80162; 81001; 82550; 82553; 83036; 83735; 84484; 85025; 85610; 85730; 93005; 94640; 94760; 96360; 96361; 99285

== ENCOUNTER 2018-01-10 23:00 | Observation (INO) | payer MEDICARE, OTHER ==
[2018-01-10] MEDS ORDERED: ASPIRIN 81 MG PO STA (23:19)
[2018-01-10] MEDS ORDERED: NITROGLYCERIN OINT 1 INCH/GM PACKET TOPICAL STA (23:19)
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
[2018-01-10 23:35] LABS: Basophils # (A) 0.1 k/uL (0-0.2); Basophils % (A) 1 %; Eosinophils # (A) 0.2 k/uL (0-0.7); Eosinophils % (A) 3 %; HCT 35.8 % (39.0-53.0); HGB 11.9 gm/dL (13.0-17.5); Lymphocytes # (A) 1.5 k/uL (1.0-4.8); Lymphocytes % (A) 18 %; MCH 28.1 pg (25.0-35.0); MCHC 33.2 g/dL (31.0-37.0); MCV 84.7 fL (80.0-100.0); Mean Platelet Volume 7.9; Monocytes # (A) 0.7 k/uL (0-1.0); Monocytes % (A) 9 %; Neutrophils # (A) 5.9 k/uL (1.3-7.7); Neutrophils % (A) 69 %; Platelet Count 180 k/uL (150-450); RBC 4.23 m/uL (4.30-5.90); RDW 13.8 % (11.5-15.5); WBC 8.5 k/uL (3.8-10.6)
[2018-01-10 23:44] LABS: INR 1.5 (<1.2); Partial Thromboplastin Time 27.1 sec (22.0-30.0); Prothrombin Time 13.9 sec (9.0-12.0)
[2018-01-10 23:46] LABS: ALT 35 U/L (21-72); AST 28 U/L (17-59); Albumin 3.6 g/dL (3.5-5.0); Alkaline Phosphatase 122 U/L (38-126); Anion Gap 7 mmol/L; Blood Urea Nitrogen 24 mg/dL (9-20); Calcium 9.2 mg/dL (8.4-10.2); Carbon Dioxide 33 mmol/L (22-30); Chloride 101 mmol/L (98-107); Glucose 120 mg/dL (74-99); Magnesium 1.8 mg/dL (1.6-2.3); Potassium 4.7 mmol/L (3.5-5.1); Sodium 141 mmol/L (137-145); Total Bilirubin 0.6 mg/dL (0.2-1.3); Total Protein 6.4 g/dL (6.3-8.2)
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
[2018-01-11 00:07] LABS: Creatine Kinase MB 0.7 ng/mL (0.0-2.4); Troponin I 0.012 ng/mL (0.000-0.034)
[2018-01-11] MEDS ORDERED: NITROGLYCERIN SL TABS 0.4 MG TAB SUBLINGUAL PRN (00:42)
[2018-01-11 01:32] VITALS: BMI 32.5
[2018-01-11] MEDS ORDERED: MORPHINE SULFATE 2 MG/ML SYRINGE IVP PRN (01:32)
[2018-01-11] MEDS ORDERED: HYDROcodone/APAP 5-325MG 1 EACH TAB PO PRN (01:32)
[2018-01-11] MEDS ORDERED: NITROGLYCERIN OINT 1 INCH/GM PACKET TOPICAL SCH (06:00)
[2018-01-11 06:39] LABS: Creatine Kinase 32 U/L (55-170)
[2018-01-11 06:52] LABS: Creatine Kinase MB 0.7 ng/mL (0.0-2.4); Troponin I <0.012 ng/mL (0.000-0.034)
[2018-01-11 06:57] LABS: Glucose,Whole Blood 110 mg/dL (75-99)
[2018-01-11] MEDS ORDERED: DOBUTamine DRIP for NUC MED 500 MG in DEXTROSE/WATER 1 250ML.BAG IV ONE (09:30)
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
[2018-01-11 13:00] LABS: Glucose,Whole Blood 146 mg/dL (75-99)
[2018-01-11 13:58] LABS: Creatine Kinase 34 U/L (55-170)
[2018-01-11 14:11] LABS: Creatine Kinase MB 0.7 ng/mL (0.0-2.4); Troponin I <0.012 ng/mL (0.000-0.034)
[2018-01-11] MEDS ORDERED: ZOLPIDEM 10 MG TAB PO PRN (14:24)
[2018-01-11 17:07] LABS: Glucose,Whole Blood 189 mg/dL (75-99)
--- NOTE | 2018-01-11 17:28 | P.HPIM ---
History of Present Illness H&P Date: 01/11/18 Chief Complaint: Chest pain Patient is a 78-year-old male with a known history of chronic persistent atrial fibrillation on anticoagulation with Coumadin, hypertension, diabetes type 2, CHF with mild systolic dysfunction ejection fraction 40-40% and pulmonary hypertension and also recent GI bleed due to supratherapeutic INR level came to ER with complaints of chest pain. Patient woke up yesterday with pressure in his chest which was radiating to the back abdominal shoulders. Associated with shortness of breath. INR is subtherapeutic at 1.7. Patient has not been taking Coumadin lately due to recent GI bleed. Patient is hard of hearing as well. There is a question of noncompliance with medications. Denied any other complaints. He underwent cardiac catheterization in 2004 that reveals mild atherosclerotic irregularity in the coronary arteries. LAD moderate caliber with no occlusive disease, circumflex moderate caliber free of occlusive disease, ramus intermedius free of occlusive disease, RCA with mild irregularities with no significant stenosis. EKG reveals atrial fibrillation with slow ventricular response heart rate 45. Chest x-ray possible new left upper lobe infiltrate consistent with pneumonia, no heart failure. Laboratory data reviewed, hemoglobin 11.9, platelets 180, INR 1.5, d-dimer 0.29 , sodium 141, potassium 4.7, creatinine 0.83, cardiac enzymes negative 2, proBNP 1210, digoxin level 0.8. Current cardiac medications include Coumadin, simvastatin 20 mg daily, Lasix 20 mg daily, enalapril 5 mg twice a day, digoxin 250 g daily and atenolol 100 mg twice a day. Review of Systems Constitutional: Patient denies any fever or chills . No generalized weakness or weight loss. Abdomen: Patient denied nausea vomiting and diarrhea and abdominal pain. Cardiovascular: Patient denies any chest pain or short of breath no palpitations. Respiratory: patient denied any cough is from production. No shortness of breath Neurologic: Patient denied any numbness or tingling headache. Musculoskeletal: Patient denies any complaints of joint swelling or deformity. Complete review of systems could not be obtained from the patient Past Medical History Past Medical History: Atrial Fibrillation, Heart Failure, Diabetes Mellitus, GERD/Reflux, Hyperlipidemia, Hypertension, Osteoarthritis (OA), Pneumonia Additional Past Medical History / Comment(s): Tremors, chronic osteomylitis of the right ankle maintained on Bactrim on outpatient basis, chronic hypoxic respiratory failure on home O2 - 3L HOME 02, chronic lower extremities edema, falls, past gi bleed/coumadin toxcity, anemia History of Any Multi-Drug Resistant Organisms: None Reported Past Surgical History: Orthopedic Surgery Additional Past Surgical History / Comment(s): COMPOUND FX OF TIB/FIB R/T SHRAPNEL, liver injury with questionable surgical intervention to control the injury/bleed Past Anesthesia/Blood Transfusion Reactions: No Reported Reaction Smoking Status: Former smoker - Past Family History Mother Additional Family Medical History / Comment(s): patient unaware of family medical history. He was adopted Medications and Allergies Home Medications Medication Instructions Recorded Confirmed Type Simvastatin [Zocor] 20 mg PO HS 08/03/14 01/10/18 History Omeprazole [PriLOSEC] 20 mg PO DAILY 12/25/16 01/10/18 History Saxagliptin HCl [Onglyza] 5 mg PO DAILY 07/02/17 01/10/18 History glipiZIDE [Glucotrol] 10 mg PO BID 07/02/17 01/10/18 History metFORMIN HCL 1,000 mg PO BID 07/02/17 01/10/18 History Albuterol Inhaler [Ventolin Hfa 1 puff INHALATION RT-Q6H PRN 12/12/17 01/10/18 History Inhaler] Atenolol 100 mg PO BID 12/12/17 01/10/18 History Digoxin 250 mcg PO DAILY 12/12/17 01/10/18 History Enalapril [Vasotec] 5 mg PO BID 12/12/17 01/10/18 History Furosemide [Lasix] 20 mg PO DAILY 12/12/17 01/10/18 History Multivitamins, Thera [Multivitamin 1 tab PO DAILY 12/12/17 01/10/18 History (formulary)] Calcium Carbonate/Vitamin D3 1 each PO DAILY 12/13/17 01/10/18 History [Calcium 500-Vit D3 200 Tablet] Acetaminophen Tab [Tylenol] 650 mg PO Q6HR PRN tab 12/18/17 01/10/18 Rx Zolpidem [Ambien] 10 mg PO HS PRN #30 tab 12/18/17 01/10/18 Rx Warfarin [Coumadin] 5 mg PO DAILY 01/10/18 01/10/18 History Warfarin [Coumadin] 10 mg PO DAILY 01/10/18 01/10/18 History Allergies Allergy/AdvReac Type Severity Reaction Status Date / Time No Known Allergies Allergy Verified 01/10/18 23:27 Physical Exam Vitals: Vital Signs Temp Pulse Pulse Resp BP BP Pulse Ox 01/11/18 15:05 96 01/11/18 11:46 97.9 F 53 L 18 151/73 96 01/11/18 11:43 18 01/11/18 08:30 18 01/11/18 07:20 97.5 F L 51 L 18 129/60 97 01/11/18 04:00 20 01/11/18 01:40 98.2 F 64 20 157/83 94 L 01/11/18 01:01 98.2 F 56 L 20 152/71 96 01/11/18 00:33 48 L 18 147/77 97 01/10/18 23:04 97.4 F L 54 L 20 168/76 96 Intake and Output 01/11/18 01/11/18 01/11/18 06:59 14:59 22:59 Intake Total 222 Balance 222 Intake: Oral 222 Other: Voiding Method Toilet # Voids 1 2 Weight 111.5 kg 111.13 kg PHYSICAL EXAMINATION: Patient is lying in the bed comfortably, no acute distress, awake alert and oriented.. HEENT: Normocephalic. Neck is supple. Pupils reactive. Nostrils clear. Oral cavity is moist. Ears reveal no drainage. Neck reveals no JVD, carotid bruits, or thyromegaly. CHEST EXAMINATION: Trachea is central. Symmetrical expansion. Bibasilar diminished air entry. Lung aleman clear to auscultation and percussion. CARDIAC: Normal S1, S2 with no gallops. No murmurs . Irregularly regular rhythm. ABDOMEN: Soft. Bowel sounds normal. No organomegaly. No abdominal bruits. Extremities: reveal no edema. No clubbing or cyanosis Neurologically awake, alert, oriented x3 with well-coordinated movements. No focal deficits noted. Heart a feeling Skin: No rash or skin lesions. Psychiatric: Cooperative. Nonsuicidal Musculoskeletal: No joint swelling or deformity. Normal range of motion. Results CBC & Chem 7: 01/10/18 23:27 01/10/18 23:27 Labs: Abnormal Lab Results - Last 24 Hours (Table) 01/10/18 01/10/18 01/10/18 Range/Units 23:27 23:27 23:27 RBC 4.23 L (4.30-5.90) m/uL Hgb 11.9 L (13.0-17.5) gm/dL Hct 35.8 L (39.0-53.0) % PT (9.0-12.0) sec INR (<1.2) Carbon Dioxide 33 H (22-30) mmol/L BUN 24 H (9-20) mg/dL Glucose 120 H (74-99) mg/dL POC Glucose (mg/dL) (75-99) mg/dL Total Creatine Kinase 46 L (55-170) U/L 01/10/18 01/11/18 01/11/18 Range/Units 23:27 05:44 06:56 RBC (4.30-5.90) m/uL Hgb (13.0-17.5) gm/dL Hct (39.0-53.0) % PT 13.9 H (9.0-12.0) sec INR 1.5 H (<1.2) Carbon Dioxide (22-30) mmol/L BUN (9-20) mg/dL Glucose (74-99) mg/dL POC Glucose (mg/dL) 110 H (75-99) mg/dL Total Creatine Kinase 32 L (55-170) U/L 01/11/18 01/11/18 Range/Units 12:55 13:10 RBC (4.30-5.90) m/uL Hgb (13.0-17.5) gm/dL Hct (39.0-53.0) % PT (9.0-12.0) sec INR (<1.2) Carbon Dioxide (22-30) mmol/L BUN (9-20) mg/dL Glucose (74-99) mg/dL POC Glucose (mg/dL) 146 H (75-99) mg/dL Total Creatine Kinase 34 L (55-170) U/L Thrombosis Risk Factor Assmnt - Choose All That Apply Each Factor Represents 1 point: Obesity (BMI >25) Each Risk Factor Represents 2 Points: Age 61-74 years Thrombosis Risk Factor Assessment Total Risk Factor Score: 3 Thrombosis Risk Factor Assessment Level: Moderate Risk Assessment and Plan Assessment: Atypical chest pain. Ruled out acute coronary syndrome Chronic persistent atrial fibrillation on anticoagulation with Coumadin. Soft peptic INR Recent GI bleed. Hemoglobin stable Chronic CHF with systolic dysfunction Hypertension Diabetes type 2 GERD Osteoarthritis of multiple joints Tremors Chronic hypoxic respiratory failure on home oxygen Chronic lower extremity edema stable Previous history of smoking Medication noncompliance Plan: Patient be continued on telemetry monitoring. Serial troponin 3 negative. Patient underwent stress echocardiogram showed no inducible ischemia. Does ox and level and anti-proBNP level were within normal limits. Atenolol dose was decreased to 50 mg twice a day. Continue the Coumadin dosing Cardiology is on board and further recommendations based on the clinical course. Time with Patient: Greater than 30
[2018-01-11] MEDS ORDERED: WARFARIN 7.5 MG TAB PO SCH (18:00)
[2018-01-11] MEDS: metFORMIN 500 MG TAB PO SCH (20:10)
[2018-01-11] MEDS: LISINOPRIL 10 MG TAB PO SCH (20:11)
[2018-01-11] MEDS: ATENOLOL 50 MG TAB PO SCH (20:11)
[2018-01-11] MEDS: glipiZIDE 10 MG TAB PO SCH (20:11)
[2018-01-11] MEDS ORDERED: NON-FORMULARY DRUG (Atenolol [Atenolol] 100 MG) PO SCH (21:00)
[2018-01-11] MEDS ORDERED: ATORVASTATIN 10 MG TAB PO SCH (21:00)
[2018-01-11 21:01] LABS: Glucose,Whole Blood 246 mg/dL (75-99)
[2018-01-12 05:32] LABS: Cholesterol 122 mg/dL (<200); HDL Cholesterol 33 mg/dL (40-60); LDL Cholesterol,Calculated 68 mg/dL (0-99); Triglycerides 104 mg/dL (<150)
[2018-01-12] MEDS ORDERED: PANTOPRAZOLE 40 MG TABLET PO SCH (07:30)
[2018-01-12 07:41] LABS: Glucose,Whole Blood 98 mg/dL (75-99)
[2018-01-12 08:32] VITALS: RESP 16
[2018-01-12] MEDS: metFORMIN 500 MG TAB PO SCH (08:48)
[2018-01-12] MEDS: LISINOPRIL 10 MG TAB PO SCH (08:48)
[2018-01-12] MEDS: glipiZIDE 10 MG TAB PO SCH (08:48)
[2018-01-12] MEDS: ATENOLOL 50 MG TAB PO SCH (08:49)
[2018-01-12] MEDS ORDERED: MULTIVITAMINS, THERA 1 EACH TAB PO SCH (09:00)
[2018-01-12] MEDS ORDERED: FUROSEMIDE 20 MG TAB PO SCH (09:00)
[2018-01-12] MEDS ORDERED: WARFARIN 10 MG TAB PO SCH (09:00)
[2018-01-12] MEDS ORDERED: LINAGLIPTIN 5 MG TABLET PO SCH (09:00)
[2018-01-12] MEDS ORDERED: ASPIRIN 325 MG TAB PO SCH (09:00)
[2018-01-12] MEDS ORDERED: ASPIRIN 81 MG PO SCH (09:00)
[2018-01-12] MEDS ORDERED: DIGOXIN 250 MCG TAB PO SCH (09:00)
[2018-01-12 12:24] VITALS: BP 159/71; PULSE 58; TEMP 98
[2018-01-12 12:35] LABS: Glucose,Whole Blood 197 mg/dL (75-99)
[2018-01-12 13:02] LABS: Hemoglobin A1C 6.2 % (4.0-6.0)
--- NOTE | 2018-01-13 00:32 | P.DS ---
Providers Date of admission: 01/11/18 00:43 Expected date of discharge: 01/12/18 Attending physician: Oscar Russell Consults: 01/11/18 00:42 Consult Physician Urgent Consulting Provider: Mike Giraldo Consult Reason/Comments: cp Do you want consulting provider notified?: Yes Primary care physician: [facility] Course: Discharge diagnosis Atypical chest pain. Ruled out acute coronary syndrome Chronic persistent atrial fibrillation on anticoagulation with Coumadin. Soft peptic INR Recent GI bleed. Hemoglobin stable Chronic CHF with systolic dysfunction Hypertension Diabetes type 2 GERD Osteoarthritis of multiple joints Tremors Chronic hypoxic respiratory failure on home oxygen Chronic lower extremity edema stable Previous history of smoking Medication noncompliance Hospital course Patient is a 78-year-old male with a known history of chronic persistent atrial fibrillation on anticoagulation with Coumadin, hypertension, diabetes type 2, CHF with mild systolic dysfunction ejection fraction 40-40% and pulmonary hypertension and also recent GI bleed due to supratherapeutic INR level came to ER with complaints of chest pain. Patient woke up yesterday with pressure in his chest which was radiating to the back abdominal shoulders. Associated with shortness of breath. INR is subtherapeutic at 1.7. Patient has not been taking Coumadin lately due to recent GI bleed. Patient is hard of hearing as well. There is a question of noncompliance with medications. Denied any other complaints. He underwent cardiac catheterization in 2004 that reveals mild atherosclerotic irregularity in the coronary arteries. LAD moderate caliber with no occlusive disease, circumflex moderate caliber free of occlusive disease, ramus intermedius free of occlusive disease, RCA with mild irregularities with no significant stenosis. EKG reveals atrial fibrillation with slow ventricular response heart rate 45. Chest x-ray possible new left upper lobe infiltrate consistent with pneumonia, no heart failure. Laboratory data reviewed, hemoglobin 11.9, platelets 180, INR 1.5, d-dimer 0.29 , sodium 141, potassium 4.7, creatinine 0.83, cardiac enzymes negative 2, proBNP 1210, digoxin level 0.8. Current cardiac medications include Coumadin, simvastatin 20 mg daily, Lasix 20 mg daily, enalapril 5 mg twice a day, digoxin 250 g daily and atenolol 100 mg twice a day. Plan: Patient was continued on telemetry monitoring. Serial troponin 3 negative. Patient underwent stress echocardiogram showed no inducible ischemia. Dizoxin and level and anti-proBNP level were within normal limits. Atenolol dose was decreased to 50 mg twice a day. Continued the Coumadin dosing. Otherwise patient denied any complaints of chest pain. Stable to be discharged home.. Discharge physical examination was done and vitals reviewed Vital Signs - 24 hr 01/12/18 01/12/18 01/12/18 04:00 08:00 12:00 Temperature 98.4 F 97.5 F L 98 F Pulse Rate [ 48 L 50 L 58 L Pulse Oximetery ] Respiratory 18 16 16 Rate Blood Pressure 180/78 170/74 159/71 [Right Arm] O2 Sat by Pulse 97 98 96 Oximetry Patient Condition at Discharge: Fair Plan - Discharge Summary New Discharge Prescriptions: New Atenolol [Tenormin] 50 mg PO BID #60 tab Lisinopril [Zestril] 10 mg PO BID #60 tab Continue Simvastatin [Zocor] 20 mg PO HS Omeprazole [PriLOSEC] 20 mg PO DAILY glipiZIDE [Glucotrol] 10 mg PO BID Saxagliptin HCl [Onglyza] 5 mg PO DAILY metFORMIN HCL 1,000 mg PO BID Multivitamins, Thera [Multivitamin (formulary)] 1 tab PO DAILY Furosemide [Lasix] 20 mg PO DAILY Digoxin 250 mcg PO DAILY Albuterol Inhaler [Ventolin Hfa Inhaler] 1 puff INHALATION RT-Q6H PRN PRN Reason: Shortness Of Breath Calcium Carbonate/Vitamin D3 [Calcium 500-Vit D3 200 Tablet] 1 each PO DAILY Acetaminophen Tab [Tylenol] 650 mg PO Q6HR PRN tab PRN Reason: Mild Pain Or Fever > 100.5 Zolpidem [Ambien] 10 mg PO HS PRN #30 tab PRN Reason: Insomnia Warfarin [Coumadin] 10 mg PO DAILY Warfarin [Coumadin] 5 mg PO DAILY Discontinued Enalapril [Vasotec] 5 mg PO BID Atenolol 100 mg PO BID Discharge Medication List Simvastatin [Zocor] 20 mg PO HS 08/03/14 [History] Omeprazole [PriLOSEC] 20 mg PO DAILY 12/25/16 [History] Saxagliptin HCl [Onglyza] 5 mg PO DAILY 07/02/17 [History] glipiZIDE [Glucotrol] 10 mg PO BID 07/02/17 [History] metFORMIN HCL 1,000 mg PO BID 07/02/17 [History] Albuterol Inhaler [Ventolin Hfa Inhaler] 1 puff INHALATION RT-Q6H PRN 12/12/17 [ History] Digoxin 250 mcg PO DAILY 12/12/17 [History] Furosemide [Lasix] 20 mg PO DAILY 12/12/17 [History] Multivitamins, Thera [Multivitamin (formulary)] 1 tab PO DAILY 12/12/17 [History ] Calcium Carbonate/Vitamin D3 [Calcium 500-Vit D3 200 Tablet] 1 each PO DAILY [History] Acetaminophen Tab [Tylenol] 650 mg PO Q6HR PRN tab 12/18/17 [Rx] Zolpidem [Ambien] 10 mg PO HS PRN #30 tab 12/18/17 [Rx] Warfarin [Coumadin] 5 mg PO DAILY 01/10/18 [History] Warfarin [Coumadin] 10 mg PO DAILY 01/10/18 [History] Atenolol [Tenormin] 50 mg PO BID #60 tab 01/12/18 [Rx] Lisinopril [Zestril] 10 mg PO BID #60 tab 01/12/18 [Rx] Follow up Appointment(s)/Referral(s): Inocencio Cooney DO [Primary Care Provider] - 1-2 days Mike Giraldo MD [STAFF PHYSICIAN] - 2 Weeks (Call for appointment.) Patient Instructions/Handouts: Chest Pain (DC) Discharge Disposition: HOME WITH HOME HEALTH SERVICES
--- NOTE | 2018-01-14 15:54 | ECHOS ---
Stress Test Results/Findings: Exam Performed: dobutamine stress echo Exam Date: 01/11/18 Reason for Exam: chest pain Height: 6 ft Weight: 111.13 kg Protocol: dse Stage: 4 Duration of Exercise: 11:31 Resting Heart Rate: 67 Resting Blood Pressure: 146/83 Maximum Achieved Heart Rate: 138 Maximum Achieved Blood Pressure: 169/51 85% PMHR: 126 100% PMHR: 148 METS: na Technologist Comment: Stress Test Results/Findings: This is a 72-year-old gentleman with history of COPD, hypertension and diabetes and also hypercholesterolemia who was admitted to the hospital with atypical chest pain. Stress data: Baseline EKG showed atrial fibrillation with controlled ventricular response with occasional PVCs. A standard dose of dobutamine was initiated and was titrated to maximum of 40 mics. His blood pressure at rest is 146/80 with a pulse rate of 67. Patient achieved a maximum heart rate of 138 with a blood pressure 139/67. Patient is not expected any chest pain. No arrhythmias are detected. Echo data: Baseline echo images showed atypical motion of the septum related to pulmonary hypertension and COPD. Exercise echo images, especially at peak infusion showed augmentation of wall motion and thickening in all segments. Patient did not express any chest pain. Final impression: #1. Negative dobutamine stress test #2. Negative dobutamine stress echo. [facility]
--- NOTE | 2018-01-15 11:18 | ECHOF ---
Referral Reason:cp MEASUREMENTS -------- HEIGHT: 182.9 cm WEIGHT: 111.1 kg BP: RVIDd: 3.5 cm (< 3.3) IVSd: 1.6 cm (0.6 - 1.1) LVIDd: 4.9 cm (3.9 - 5.3) LVPWd: 1.5 cm (0.6 - 1.1) IVSs: 1.6 cm LVIDs: 4.9 cm LVPWs: 1.4 cm LAESV Index (A-L): 34.13 ml/m Ao Diam: 3.8 cm (2.0 - 3.7) AV Cusp: 2.2 cm (1.5 - 2.6) LA Diam: 4.3 cm (2.7 - 3.8) MV EXCURSION: 20.651 mm (> 18.000) MV EF SLOPE: 114 mm/s (70 - 150) EPSS: 0.8 cm RAP: 20.00 mmHg RVSP: 74.20 mmHg FINDINGS -------- Sinus rhythm. This was a techncally difficult study with suboptimal views, , Lumason utilized for enhancement of im ages. The left ventricular size is normal. There is mild concentric left ventricular hypertrophy. Overa ll left ventricular systolic function is low-normal with, an EF between 50 - 55 %. The right ventricle is moderately enlarged. The left atrium is mildly dilated. LA is moderately dilated 34-39 ml/m2 The right atrial size is normal. 5.0mg OF Lumason UTLIZED: 2 OR MORE WALL SEGMENTS NOT VISUALIZED. There is mild aortic valve sclerosis. There is no evidence of aortic regurgitation. Mild mitral annular calcification present. Mild mitral regurgitation is present. Mild tricuspid regurgitation present. There is moderate to severe pulmonary hypertension. The rig ht ventricular systolic pressure, as measured by Doppler, is 74.20mmHg. Trace/mild (physiologic) pulmonic regurgitation. The aortic root size is normal. The inferior vena cava is dilated with no significant inspiratory collapse which is consistent estima julianna right atrial pressure of >20 mmHg. There is no pericardial effusion. CONCLUSIONS -------- 1. This was a techncally difficult study with suboptimal views, , Lumason utilized for enhancement of images. 2. The left ventricular size is normal. 3. There is mild concentric left ventricular hypertrophy. 4. Overall left ventricular systolic function is low-normal with, an EF between 50 - 55 %. 5. The right ventricle is moderately enlarged. 6. The left atrium is mildly dilated. 7. LA is moderately dilated 34-39 ml/m2 8. The right atrial size is normal. 9. 5.0mg OF Lumason UTLIZED: 2 OR MORE WALL SEGMENTS NOT VISUALIZED. 10. There is mild aortic valve sclerosis. 11. Mild mitral annular calcification present. 12. Mild tricuspid regurgitation present. 13. There is moderate to severe pulmonary hypertension. 14. The right ventricular systolic pressure, as measured by Doppler, is 74.20mmHg. 15. Trace/mild (physiologic) pulmonic regurgitation. 16. The aortic root size is normal. 17. The inferior vena cava is dilated with no significant inspiratory collapse which is consistent es timated right atrial pressure of >20 mmHg. 18. There is no pericardial effusion. DIRECTOR REGULATORY COMPLIANCE: Mackenzie Velarde RDCS
== END 2018-01-12 15:03 | disposition home health service (06) ==
LOC: EC 23:00 → 3OBS 01-11 00:43
PROVIDERS: ADMIT Hospitalist; ATTEND Hospitalist
DX: R07.9 Chest pain, unspecified (principal); I48.1 Persistent atrial fibrillation; I11.0 Hypertensive heart disease with heart failure; I50.22 Chronic systolic (congestive) heart failure; J96.11 Chronic respiratory failure with hypoxia; Z99.81 Dependence on supplemental oxygen; R79.1 Abnormal coagulation profile; T45.516A Underdosing of anticoagulants, initial encounter; Z91.128 Patient's intentional underdosing of medication regimen for other reason; E78.5 Hyperlipidemia, unspecified; E11.9 Type 2 diabetes mellitus without complications; Z91.14 Patient's other noncompliance with medication regimen; M15.9 Polyosteoarthritis, unspecified; K21.9 Gastro-esophageal reflux disease without esophagitis; Z87.891 Personal history of nicotine dependence; R25.1 Tremor, unspecified; H91.90 Unspecified hearing loss, unspecified ear; D64.9 Anemia, unspecified; Z18.10 Retained metal fragments, unspecified; Z87.828 Personal history of other (healed) physical injury and trauma; Z87.19 Personal history of other diseases of the digestive system; Z79.01 Long term (current) use of anticoagulants; Z79.84 Long term (current) use of oral hypoglycemic drugs; Z79.899 Other long term (current) drug therapy
CPT/HCPCS: 99285 ×2; 96374; 36415; 94760; 93005; 93351; 85379; 83880; 80061; 80053; 82550 ×2; 82553 ×2; 80162; 83735; 84484 ×2; 85025; 85610; 85730; 83036; 71046; G0378 ×2; C8929; J1250; J2270; Q9950; 93306

== ENCOUNTER 2018-03-18 15:08 | Emergency (ER) | payer MEDICARE, OTHER ==
[2018-03-18 15:17] VITALS: BP 142/69; PULSE 65; RESP 16; TEMP 97.7
--- NOTE | 2018-03-18 15:30 | ED ---
Fall HPI - General Chief Complaint: Fall Stated Complaint: Fall Time Seen by Provider: 03/18/18 15:19 Source: patient, EMS, RN notes reviewed Mode of arrival: ambulatory Limitations: no limitations - History of Present Illness Initial Comments: 72-year-old male presents to the emergency Department chief complaint trip and fall. Patient states that he fell onto his right knee when he was trying to fix his shoes and bent over with his walker. He denies any head injury no loss conscious. He states he has a small abrasion to his right elbow states he has full range of motion minimal discomfort. He states all his pain is just proximal to his right knee. He states is swollen and he cannot ambulate and at this time. Patient denies any hip pain. He's had no prior knee surgeries. - Related Data Home Medications Medication Instructions Recorded Confirmed Simvastatin [Zocor] 20 mg PO HS 08/03/14 01/10/18 Omeprazole [PriLOSEC] 20 mg PO DAILY 12/25/16 01/10/18 Saxagliptin HCl [Onglyza] 5 mg PO DAILY 07/02/17 01/10/18 glipiZIDE [Glucotrol] 10 mg PO BID 07/02/17 01/10/18 metFORMIN HCL 1,000 mg PO BID 07/02/17 01/10/18 Albuterol Inhaler [Ventolin Hfa 1 puff INHALATION RT-Q6H PRN 12/12/17 01/10/18 Inhaler] Digoxin 250 mcg PO DAILY 12/12/17 01/10/18 Furosemide [Lasix] 20 mg PO DAILY 12/12/17 01/10/18 Multivitamins, Thera [Multivitamin 1 tab PO DAILY 12/12/17 01/10/18 (formulary)] Calcium Carbonate/Vitamin D3 1 each PO DAILY 12/13/17 01/10/18 [Calcium 500-Vit D3 200 Tablet] Warfarin [Coumadin] 5 mg PO DAILY 01/10/18 01/10/18 Warfarin [Coumadin] 10 mg PO DAILY 01/10/18 01/10/18 Previous Rx's Medication Instructions Recorded Acetaminophen Tab [Tylenol] 650 mg PO Q6HR PRN tab 12/18/17 Zolpidem [Ambien] 10 mg PO HS PRN #30 tab 12/18/17 Atenolol [Tenormin] 50 mg PO BID #60 tab 01/12/18 Lisinopril [Zestril] 10 mg PO BID #60 tab 01/12/18 Allergies Allergy/AdvReac Type Severity Reaction Status Date / Time No Known Allergies Allergy Verified 03/18/18 15:17 Review of Systems ROS Statement: Those systems with pertinent positive or pertinent negative responses have been documented in the HPI. ROS Other: All systems not noted in ROS Statement are negative. Past Medical History Past Medical History: Atrial Fibrillation, Heart Failure, Diabetes Mellitus, GERD/Reflux, Hyperlipidemia, Hypertension, Osteoarthritis (OA), Pneumonia Additional Past Medical History / Comment(s): Tremors, chronic osteomylitis of the right ankle maintained on Bactrim on outpatient basis, chronic hypoxic respiratory failure on home O2 - 3L HOME 02, chronic lower extremities edema, falls, past gi bleed/coumadin toxcity, anemia History of Any Multi-Drug Resistant Organisms: None Reported Past Surgical History: Orthopedic Surgery Additional Past Surgical History / Comment(s): COMPOUND FX OF TIB/FIB R/T SHRAPNEL, liver injury with questionable surgical intervention to control the injury/bleed Past Anesthesia/Blood Transfusion Reactions: No Reported Reaction Past Psychological History: No Psychological Hx Reported Smoking Status: Former smoker - Past Family History Mother Additional Family Medical History / Comment(s): patient unaware of family medical history. He was adopted General Exam Limitations: no limitations General appearance: alert, in no apparent distress Neck exam: Present: normal inspection, full ROM. Absent: tenderness, meningismus, lymphadenopathy Respiratory exam: Present: normal lung sounds bilaterally. Absent: respiratory distress, wheezes, rales, rhonchi, stridor Cardiovascular Exam: Present: regular rate, normal rhythm, normal heart sounds. Absent: systolic murmur, diastolic murmur, rubs, gallop, clicks Extremities exam: Present: other (Moderate to severe tenderness just proximal to the right knee patient has limited range of motion there is mild swelling, small abrasion over the right knee. The leg is neurovascularly intact, right elbow small abrasion full range of motion no tenderness) Neurological exam: Present: alert, oriented X3, CN II-XII intact, reflexes normal. Absent: motor sensory deficit Skin exam: Present: warm, dry, intact, normal color. Absent: rash Course Vital Signs 03/18/18 15:10 Temperature 97.7 F Pulse Rate 65 Respiratory 16 Rate Blood Pressure 142/69 O2 Sat by Pulse 95 Oximetry Medical Decision Making - Medical Decision Making 72-year-old male presented for a fall, right knee pain. There is no acute fracture on x-ray. Patient does have multiple metallic foreign bodies which is from [place] per patient. Patient will be discharged advised ice, use walker as directed and return for any worsening symptoms. Disposition Clinical Impression: Fall, Contusion of right knee Disposition: HOME SELF-CARE Condition: Stable Instructions: Knee Pain (ED) Additional Instructions: Please return to the Emergency Department if symptoms worsen or any other concerns. Is patient prescribed a controlled substance at d/c from ED?: No Referrals: Edi Love MD [Primary Care Provider] - 1-2 days Time of Disposition: 15:47
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
== END 2018-03-18 16:24 | disposition home or self-care (01) ==
LOC: EC 15:08
DX: S80.01XA Contusion of right knee, initial encounter (principal); S50.311A Abrasion of right elbow, initial encounter; E11.9 Type 2 diabetes mellitus without complications; E78.5 Hyperlipidemia, unspecified; K21.9 Gastro-esophageal reflux disease without esophagitis; J96.11 Chronic respiratory failure with hypoxia; I48.91 Unspecified atrial fibrillation; I11.0 Hypertensive heart disease with heart failure; I50.9 Heart failure, unspecified; Z99.81 Dependence on supplemental oxygen; Z79.01 Long term (current) use of anticoagulants; Z79.84 Long term (current) use of oral hypoglycemic drugs; Z79.899 Other long term (current) drug therapy; Z87.891 Personal history of nicotine dependence; W01.0XXA Fall on same level from slipping, tripping and stumbling without subsequent striking against object, initial encounter; Y93.01 Activity, walking, marching and hiking; Y92.009 Unspecified place in unspecified non-institutional (private) residence as the place of occurrence of the external cause
CPT/HCPCS: 99283; 99284

== ENCOUNTER 2018-11-12 18:25 | Observation (INO) | payer MEDICARE, OTHER ==
[2018-11-12] MEDS ORDERED: IPRATROPIUM-ALBUTEROL 3 ML NEB INHALATION STA (18:58)
[2018-11-12 19:11] LABS: Basophils % (A) 1 %; Eosinophils # (A) 0.2 k/uL (0-0.7); Eosinophils % (A) 4 %; HCT 32.4 % (39.0-53.0); Hypochromasia Slight; Lymphocytes % (A) 18 %; MCH 28.9 pg (25.0-35.0); MCV 93.2 fL (80.0-100.0); Monocytes # (A) 0.4 k/uL (0-1.0); Monocytes % (A) 7 %; Neutrophils # (A) 3.9 k/uL (1.3-7.7); Neutrophils % (A) 69 %; Platelet Count 139 k/uL (150-450); RBC 3.48 m/uL (4.30-5.90); RDW 13.3 % (11.5-15.5); WBC 5.6 k/uL (3.8-10.6)
[2018-11-12 19:24] LABS: ALT 24 U/L (21-72); AST 31 U/L (17-59); Albumin 3.8 g/dL (3.5-5.0); Alkaline Phosphatase 86 U/L (38-126); Anion Gap 3 mmol/L; Blood Urea Nitrogen 17 mg/dL (9-20); Calcium 9.2 mg/dL (8.4-10.2); Carbon Dioxide 35 mmol/L (22-30); Chloride 103 mmol/L (98-107); Glucose 77 mg/dL (74-99); Magnesium 1.9 mg/dL (1.6-2.3); Potassium 5.4 mmol/L (3.5-5.1); Sodium 141 mmol/L (137-145); Total Bilirubin 0.7 mg/dL (0.2-1.3); Total Protein 6.8 g/dL (6.3-8.2)
--- NOTE | 2018-11-12 19:25 | ED ---
SOB HPI - General Chief Complaint: Shortness of Breath Stated Complaint: SOB Time Seen by Provider: 11/12/18 18:29 Source: patient, EMS, RN notes reviewed, old records reviewed Mode of arrival: EMS - History of Present Illness Initial Comments: This is a 73-year-old male the ER for evaluation. They presents for evaluation regards to shortness of breath. Patient admits to significant lower extremity edema shortness of breath not feeling well. Weakness. Patient has multiple medical comorbidities including heart disease A. fib, patient does have home O2 was not wearing it tonight. He became short of breath and is that tenderness had completely emergency room. No chest pain. No recent fevers. Cough congestion MD Complaint: shortness of breath -: hour(s) Severity: mild Severity scale (1-10): 3 Quality: other (No pain) Consistency: constant Improves With: oxygen Worsens With: exertion Known History Of: COPD Associated Symptoms: cough, palpitations Treatments Prior to Arrival: none - Related Data Home Medications Medication Instructions Recorded Confirmed Simvastatin [Zocor] 20 mg PO HS 08/03/14 11/12/18 Omeprazole [PriLOSEC] 20 mg PO DAILY 12/25/16 11/12/18 glipiZIDE [Glucotrol] 10 mg PO AC-BID 07/02/17 11/12/18 Digoxin 250 mcg PO DAILY 12/12/17 11/12/18 Primidone [Mysoline] 250 mg PO BID 03/18/18 11/12/18 Ascorbic Acid [Vitamin C] 250 mg PO DAILY 11/12/18 11/12/18 Atenolol [Tenormin] 100 mg PO BID 11/12/18 11/12/18 Calcium Carb-Vit D 250Mg-125Un 1 tab PO TID 11/12/18 11/12/18 [Oscal 250+D] Coumadin (Mg Unknown ) 1 tab PO DIRECTED 11/12/18 11/12/18 Enalapril [Vasotec] 5 mg PO BID 11/12/18 11/12/18 Multivitamins, Thera [Multivitamin 1 tab PO DAILY 11/12/18 11/12/18 (formulary)] Rivastigmine 20 Mg 1 tab PO DAILY 11/12/18 11/12/18 metFORMIN HCL 1,000 mg PO BID 11/12/18 11/12/18 Previous Rx's Medication Instructions Recorded Zolpidem [Ambien] 10 mg PO HS PRN #30 tab 12/18/17 Allergies Allergy/AdvReac Type Severity Reaction Status Date / Time No Known Allergies Allergy Verified 11/12/18 19:00 Review of Systems ROS Statement: Those systems with pertinent positive or pertinent negative responses have been documented in the HPI. ROS Other: All systems not noted in ROS Statement are negative. Past Medical History Past Medical History: Atrial Fibrillation, Heart Failure, Diabetes Mellitus, GERD/Reflux, Hyperlipidemia, Hypertension, Osteoarthritis (OA), Pneumonia Additional Past Medical History / Comment(s): Tremors, chronic osteomylitis of the right ankle maintained on Bactrim on outpatient basis, chronic hypoxic respiratory failure on home O2 - 3L HOME 02, chronic lower extremities edema, falls, past gi bleed/coumadin toxcity, anemia History of Any Multi-Drug Resistant Organisms: None Reported Past Surgical History: Orthopedic Surgery Additional Past Surgical History / Comment(s): COMPOUND FX OF TIB/FIB R/T SHRAPNEL, liver injury with questionable surgical intervention to control the injury/bleed Past Anesthesia/Blood Transfusion Reactions: No Reported Reaction Past Psychological History: No Psychological Hx Reported Smoking Status: Former smoker Past Alcohol Use History: None Reported Past Drug Use History: None Reported - Past Family History Mother Additional Family Medical History / Comment(s): patient unaware of family medical history. He was adopted General Exam General appearance: alert, in no apparent distress Head exam: Present: atraumatic, normocephalic, normal inspection Eye exam: Present: normal appearance, PERRL, EOMI. Absent: scleral icterus, conjunctival injection, periorbital swelling ENT exam: Present: normal exam, mucous membranes moist Neck exam: Present: normal inspection. Absent: tenderness, meningismus, lymphadenopathy Respiratory exam: Present: normal lung sounds bilaterally. Absent: respiratory distress, wheezes, rales, rhonchi, stridor Cardiovascular Exam: Present: normal rhythm, bradycardia, normal heart sounds. Absent: systolic murmur, diastolic murmur, rubs, gallop, clicks GI/Abdominal exam: Present: soft, normal bowel sounds. Absent: distended, tenderness, guarding, rebound, rigid Extremities exam: Present: normal inspection, full ROM, normal capillary refill. Absent: tenderness, pedal edema, joint swelling, calf tenderness Back exam: Present: normal inspection Neurological exam: Present: alert, oriented X3, CN II-XII intact Psychiatric exam: Present: normal affect, normal mood Skin exam: Present: warm, dry, intact, normal color. Absent: rash Course Vital Signs 11/12/18 11/12/18 11/12/18 18:44 18:57 18:59 Temperature 98.3 F Pulse Rate 50 L Respiratory 16 20 Rate Blood Pressure 157/79 O2 Sat by Pulse 98 Oximetry 11/12/18 11/12/18 11/12/18 19:25 19:32 20:01 Temperature Pulse Rate 49 L 50 L 56 L Respiratory 16 Rate Blood Pressure 157/79 O2 Sat by Pulse 99 Oximetry - Reevaluation(s) Reevaluation #1: 11/12/18 19:55 Medical record is reviewed Medical Decision Making - Medical Decision Making 70 female the ER for evaluation shortness of breath, patient found to be bradycardic with acute pulmonary edema, will admit for diuresis, breathing treatments as needed and cardiology evaluation regarding bradycardia - Lab Data Result diagrams: 11/12/18 19:00 11/12/18 19:00 Lab Results 11/12/18 11/12/18 11/12/18 Range/Units 19:00 19:00 19:00 WBC 5.6 (3.8-10.6) k/uL RBC 3.48 L (4.30-5.90) m/uL Hgb 10.0 L (13.0-17.5) gm/dL Hct 32.4 L (39.0-53.0) % MCV 93.2 (80.0-100.0) fL MCH 28.9 (25.0-35.0) pg MCHC 31.0 (31.0-37.0) g/dL RDW 13.3 (11.5-15.5) % Plt Count 139 L (150-450) k/uL Neutrophils % 69 % Lymphocytes % 18 % Monocytes % 7 % Eosinophils % 4 % Basophils % 1 % Neutrophils # 3.9 (1.3-7.7) k/uL Lymphocytes # 1.0 (1.0-4.8) k/uL Monocytes # 0.4 (0-1.0) k/uL Eosinophils # 0.2 (0-0.7) k/uL Basophils # 0.0 (0-0.2) k/uL Hypochromasia Slight PT (9.0-12.0) sec INR (<1.2) APTT (22.0-30.0) sec Sodium 141 (137-145) mmol/L Potassium 5.4 H (3.5-5.1) mmol/L Chloride 103 (98-107) mmol/L Carbon Dioxide 35 H (22-30) mmol/L Anion Gap 3 mmol/L BUN 17 (9-20) mg/dL Creatinine 0.74 (0.66-1.25) mg/dL Est GFR (CKD-EPI)AfAm >90 (>60 ml/min/1.73 sqM) Est GFR (CKD-EPI)NonAf >90 (>60 ml/min/1.73 sqM) Glucose 77 (74-99) mg/dL Calcium 9.2 (8.4-10.2) mg/dL Magnesium 1.9 (1.6-2.3) mg/dL Total Bilirubin 0.7 (0.2-1.3) mg/dL AST 31 (17-59) U/L ALT 24 (21-72) U/L Alkaline Phosphatase 86 (38-126) U/L Troponin I (0.000-0.034) ng/mL NT-Pro-B Natriuret Pep 2710 pg/mL Total Protein 6.8 (6.3-8.2) g/dL Albumin 3.8 (3.5-5.0) g/dL 11/12/18 11/12/18 Range/Units 19:00 19:00 WBC (3.8-10.6) k/uL RBC (4.30-5.90) m/uL Hgb (13.0-17.5) gm/dL Hct (39.0-53.0) % MCV (80.0-100.0) fL MCH (25.0-35.0) pg MCHC (31.0-37.0) g/dL RDW (11.5-15.5) % Plt Count (150-450) k/uL Neutrophils % % Lymphocytes % % Monocytes % % Eosinophils % % Basophils % % Neutrophils # (1.3-7.7) k/uL Lymphocytes # (1.0-4.8) k/uL Monocytes # (0-1.0) k/uL Eosinophils # (0-0.7) k/uL Basophils # (0-0.2) k/uL Hypochromasia PT 10.1 (9.0-12.0) sec INR 0.9 (<1.2) APTT 24.4 (22.0-30.0) sec Sodium (137-145) mmol/L Potassium (3.5-5.1) mmol/L Chloride (98-107) mmol/L Carbon Dioxide (22-30) mmol/L Anion Gap mmol/L BUN (9-20) mg/dL Creatinine (0.66-1.25) mg/dL Est GFR (CKD-EPI)AfAm (>60 ml/min/1.73 sqM) Est GFR (CKD-EPI)NonAf (>60 ml/min/1.73 sqM) Glucose (74-99) mg/dL Calcium (8.4-10.2) mg/dL Magnesium (1.6-2.3) mg/dL Total Bilirubin (0.2-1.3) mg/dL AST (17-59) U/L ALT (21-72) U/L Alkaline Phosphatase (38-126) U/L Troponin I <0.012 (0.000-0.034) ng/mL NT-Pro-B Natriuret Pep pg/mL Total Protein (6.3-8.2) g/dL Albumin (3.5-5.0) g/dL - EKG Data -: EKG Interpreted by Me (EKG shows A. fib rate of 40, QRS 80, QTC 369) - Radiology Data Radiology results: report reviewed (Chest x-ray does show pulmonary edema), image reviewed Disposition Clinical Impression: Systolic congestive heart failure, Congestive heart failure, COPD exacerbation, Weakness, Bradycardia Disposition: ADMITTED IP TO THIS HOSP Condition: Fair Is patient prescribed a controlled substance at d/c from ED?: No Referrals: Edi Love MD [Primary Care Provider] - 1-2 days
[2018-11-12 19:28] LABS: INR 0.9 (<1.2); Partial Thromboplastin Time 24.4 sec (22.0-30.0); Prothrombin Time 10.1 sec (9.0-12.0)
--- NOTE | 2018-11-12 19:54 | XR ---
EXAMINATION: XR chest 2V DATE AND TIME: 11/12/2018 7:40 PM CLINICAL INDICATION: PHH; difficulty breathing TECHNIQUE: Departmental protocol COMPARISON: 01/10/2018 chest radiographs FINDINGS: Scattered metallic debris redemonstrated, greater on the right. There is a fine reticular pattern of increased density bilaterally suggesting mild interstitial phase pulmonary edema. The pleural spaces are negative. The cardiac silhouette is moderately enlarged. The remainder of the mediastinal silhouette is unremar kable. The skeletal structures are negative for acute findings. Remote remodeled left posterior lateral rib fractures redemonstrated. Soft tissues are negative for acute findings. IMPRESSION: Mild cardiogenic pulmonary edema pattern.
[2018-11-12] MEDS: SODIUM CHLORIDE 0.9% 1,000 ML IV SCH (21:28)
[2018-11-12 22:22] LABS: Glucose,Whole Blood 56 mg/dL (75-99)
[2018-11-12 22:49] LABS: Glucose,Whole Blood 109 mg/dL (75-99)
[2018-11-12] MEDS: FUROSEMIDE 10 MG/ML 4 ML VIAL IV SCH (22:51)
[2018-11-13] MEDS ORDERED: HEPARIN SODIUM,PORCINE 5,000 UNIT/ML 1 ML VIAL IV PRN (01:02)
[2018-11-13] MEDS ORDERED: HEPARIN SODIUM,PORCINE 5,000 UNIT/ML 1 ML VIAL IV ONE (01:02)
[2018-11-13] MEDS ORDERED: ZOLPIDEM 10 MG TAB PO PRN (01:09)
[2018-11-13] MEDS ORDERED: HEPARIN SOD,PORK IN 0.45% NACL 25,000 UNIT in 0.45% NACL 1 250ML.BAG IV SCH (01:15)
[2018-11-13] MEDS: FUROSEMIDE 10 MG/ML 4 ML VIAL IV SCH (02:08)
[2018-11-13] MEDS: ATORVASTATIN 10 MG TAB PO SCH ×2 (02:08→20:53)
[2018-11-13 06:07] LABS: Basophils % (A) 1 %; Eosinophils # (A) 0.2 k/uL (0-0.7); Eosinophils % (A) 5 %; HCT 31.4 % (39.0-53.0); HGB 9.6 gm/dL (13.0-17.5); Hypochromasia Slight; Lymphocytes # (A) 1.2 k/uL (1.0-4.8); Lymphocytes % (A) 24 %; MCH 27.9 pg (25.0-35.0); MCHC 30.4 g/dL (31.0-37.0); MCV 91.8 fL (80.0-100.0); Mean Platelet Volume 8.2; Monocytes # (A) 0.4 k/uL (0-1.0); Monocytes % (A) 8 %; Neutrophils % (A) 61 %; Platelet Count 128 k/uL (150-450); RBC 3.42 m/uL (4.30-5.90); RDW 13.3 % (11.5-15.5); WBC 4.9 k/uL (3.8-10.6)
[2018-11-13 06:28] LABS: ALT 31 U/L (21-72); AST 19 U/L (17-59); Albumin 3.3 g/dL (3.5-5.0); Alkaline Phosphatase 92 U/L (38-126); Anion Gap 3 mmol/L; Blood Urea Nitrogen 16 mg/dL (9-20); Calcium 9.1 mg/dL (8.4-10.2); Carbon Dioxide 35 mmol/L (22-30); Chloride 102 mmol/L (98-107); Glucose 116 mg/dL (74-99); Potassium 4.6 mmol/L (3.5-5.1); Sodium 140 mmol/L (137-145); Total Bilirubin 0.4 mg/dL (0.2-1.3)
[2018-11-13 06:46] LABS: Glucose,Whole Blood 114 mg/dL (75-99)
[2018-11-13] MEDS ORDERED: RIVASTIGMINE PO SCH (09:00)
[2018-11-13] MEDS ORDERED: DIGOXIN 250 MCG TAB PO SCH (09:00)
[2018-11-13] MEDS ORDERED: ATENOLOL 50 MG TAB PO SCH (09:00)
[2018-11-13 09:12] LABS: Digoxin 0.5 ng/mL
[2018-11-13] MEDS: DABIGATRAN 150 MG CAP PO SCH ×2 (09:15→20:52)
[2018-11-13] MEDS: CALCIUM CARB-VIT D 250MG-125UN 1 EACH TAB PO SCH ×3 (09:16→20:52)
[2018-11-13] MEDS: ASCORBIC ACID 500 MG TAB PO SCH (09:16)
[2018-11-13] MEDS: MULTIVITAMINS, THERA 1 EACH TAB PO SCH (09:16)
[2018-11-13] MEDS: metFORMIN 500 MG TAB PO SCH ×2 (09:16→20:53)
[2018-11-13] MEDS: glipiZIDE 10 MG TAB PO SCH ×2 (09:16→17:44)
[2018-11-13] MEDS: PRIMIDONE 250 MG TAB PO SCH ×2 (09:16→20:53)
[2018-11-13] MEDS: PANTOPRAZOLE 40 MG TABLET PO SCH (09:17)
[2018-11-13] MEDS: LISINOPRIL 20 MG TAB PO SCH (09:17)
[2018-11-13] MEDS: hydrALAZINE HCL 25 MG TAB PO SCH ×3 (09:17→20:53)
--- NOTE | 2018-11-13 09:44 | P.CRDCN ---
History of Present Illness History of present illness: This is a 73-year-old male past medical history significant for chronic persistent atrial fibrillation with non-compliance of his coumadin, hypertension, dyslipidemia, diabetes mellitus, chronic respiratory failure on home oxygen and former nicotine dependence. He sees Dr. Giraldo in the office, however has not been to the office since 2017. We have been asked to see him in consultation for shortness of breath. He states over the last week or so he has been feeling increasingly short of breath despite wearing oxygen at home. He has chronic lower extremity edema, but he states it is slightly worse than usual. He also has been dizzy, light headed and has been having episodes of diarrhea. He denies chest pain, palpitations, nausea or vomiting. EKG on arrival reveals atrial fibrillation with slow ventricular response, heart rate is 48. No acute ST or T wave abnormalities noted. Chest x-ray reveals mild pulmonary edema. Laboratory data reviewed, WBC 4.9, hemoglobin 9.6, platelets 128, sodium 140, potassium 4.6, creatinine 0.73, cardiac enzymes negative 3, Magnesium 1.9, and T proBNP 2710, TSH 2.74 and digoxin level 0.5. Current cardiac medications include atenolol 100 mg twice a day, digoxin 250 g daily, enalapril 5 mg twice a day and simvastatin 20 mg daily. Most recent stress test was a dobutamine stress echocardiogram performed December 2017 was negative for stress induced ischemia at target heart rate. Most recent echocardiogram obtained 12/2017 reveals preserved LV systolic function with EF 50-55%, moderately dilated LA, mild TR and severe pulmonary hypertension with an RVSP of 74 mmHg. Cardiac catheterization performed in 2004 revealed mild atherosclerotic irregularity in the coronary arteries with no obstructive disease. At the time of my exam: CONSTITUTIONAL: Denies fever. Denies chills. EYES: Denies blurred vision. Denies vision changes. Denies eye pain. EARS, NOSE, MOUTH & THROAT: Denies headache. Denies sore throat. Denies ear pain. CARDIOVASCULAR: Denies chest pain. Complains of shortness of breath. Denies orthopnea. Denies PND. Denies palpitations. RESPIRATORY: Denies cough. GASTROINTESTINAL: Denies abdominal pain. Denies diarrhea. Denies constipation. Denies nausea. Denies vomiting. MUSCULOSKELETAL: Denies myalgias. INTEGUMENTARY: Denies pruitis. Denies rash. NEUROLOGIC: Denies numbness. Denies tingling. Denies weakness. PSYCHIATRIC: Denies anxiety. Denies depression. ENDOCRINE: Denies fatigue. Denies weight change. Denies polydipsia. Denies polyurina. GENITOURINARY: Denies burning, hematuria or urgency with micturation. HEMATOLOGIC: Denies history of anemia. Denies bleeding. Blood pressure 159/80 heart rate 51 afebrile maintaining oxygen saturation on nasal cannula GENERAL: This is a 73-year-old male in no apparent distress at the time of my examination. HEENT: Head is atraumatic, normocephalic. Pupils are equal, round. Sclerae anicteric. Conjunctivae are clear. Mucous membranes of the mouth are moist. Neck is supple. There is no jugular venous distention. No carotid bruit is heard. LUNGS: Fine bibasilar rales, no wheezes or rhonchi. No chest wall tenderness is noted on palpation or with deep breathing. HEART: Irregular rate and rhythm without murmurs, rubs or gallops. S1 and S2 heard. ABDOMEN: Soft, nontender. Bowel sounds are heard. No organomegaly noted. EXTREMITIES: No evidence of peripheral edema and no calf tenderness noted. VASCULAR: Radial and dorsalis pedis pulses palpated, no evidence of clubbing. NEUROLOGIC: Patient is awake, alert and oriented x3. ASSESSMENT Chronic persistent atrial fibrillation with slow ventricular response Acute on chronic diastolic heart failure Pulmonary hypertension Hypertension Diabetes mellitus Dyslipidemia Chronic hypoxic respiratory failure on home oxygen Chronic lower extremity edema History of Coumadin toxicity secondary to noncompliance Former nicotine dependence PLAN Discontinue atenolol and digoxin for low heart rates. Initiate on hydralazine 25 mg TID. Give another dose of IV lasix 40 mg this morning, then transition to PO lasix at 40 mg daily. Lengthy discussion had with the patient regarding retirement anti-coagulation and the importance of strict compliance. He states it is hard for him to get in to check his blood levels for coumadin dosing and therefore stopped taking it about 2-3 months ago. Advised him to try one of the new anti-coagulants and he is refusing eliquis or xarelto but willing to try pradaxa. We will ask Case Management to check his cost monthly. Ongoing telemetry monitoring. Further recommendations to follow based on clinical course. Thank you kindly for this consultation. Nurse Practitioner note has been reviewed, I agree with a documented findings and plan of care. Patient was seen and examined. Past Medical History Past Medical History: Atrial Fibrillation, Heart Failure, Diabetes Mellitus, GERD/Reflux, Hyperlipidemia, Hypertension, Osteoarthritis (OA), Pneumonia Additional Past Medical History / Comment(s): Tremors, chronic osteomylitis of the right ankle maintained on Bactrim on outpatient basis, chronic hypoxic respiratory failure on home O2 - 3L HOME 02, chronic lower extremities edema, falls, past gi bleed/coumadin toxcity, anemia History of Any Multi-Drug Resistant Organisms: None Reported Past Surgical History: Orthopedic Surgery Additional Past Surgical History / Comment(s): COMPOUND FX OF TIB/FIB R/T SHRAPNEL, liver injury with questionable surgical intervention to control the injury/bleed Past Anesthesia/Blood Transfusion Reactions: No Reported Reaction Past Psychological History: No Psychological Hx Reported Additional Psychological History / Comment(s): lives at [facility] Smoking Status: Former smoker Past Alcohol Use History: None Reported Additional Past Alcohol Use History / Comment(s): started smoking at age 12 and quit 2007. moked 1.5 ppd. no alcohol SINCE AGE 35 quit 15 yrs ago. Past Drug Use History: None Reported Additional Drug Use History / Comment(s): HX OF DRUG USE - marijuana, NONE SINCE AGE 25 OR 30 - Past Family History Mother Additional Family Medical History / Comment(s): patient unaware of family medical history. He was adopted Medications and Allergies Home Medications Medication Instructions Recorded Confirmed Type Simvastatin [Zocor] 20 mg PO HS 08/03/14 11/12/18 History Omeprazole [PriLOSEC] 20 mg PO DAILY 12/25/16 11/12/18 History glipiZIDE [Glucotrol] 10 mg PO AC-BID 07/02/17 11/12/18 History Digoxin 250 mcg PO DAILY 12/12/17 11/12/18 History Zolpidem [Ambien] 10 mg PO HS PRN #30 tab 12/18/17 11/12/18 Rx Primidone [Mysoline] 250 mg PO BID 03/18/18 11/12/18 History Ascorbic Acid [Vitamin C] 250 mg PO DAILY 11/12/18 11/12/18 History Atenolol [Tenormin] 100 mg PO BID 11/12/18 11/12/18 History Calcium Carb-Vit D 250Mg-125Un 1 tab PO TID 11/12/18 11/12/18 History [Oscal 250+D] Coumadin (Mg Unknown ) 1 tab PO DIRECTED 11/12/18 11/12/18 History Enalapril [Vasotec] 5 mg PO BID 11/12/18 11/12/18 History Multivitamins, Thera [Multivitamin 1 tab PO DAILY 11/12/18 11/12/18 History (formulary)] Rivastigmine 20 Mg 1 tab PO DAILY 11/12/18 11/12/18 History metFORMIN HCL 1,000 mg PO BID 11/12/18 11/12/18 History Allergies Allergy/AdvReac Type Severity Reaction Status Date / Time No Known Allergies Allergy Verified 11/12/18 19:00 Physical Exam Vitals: Vital Signs Temp Pulse Pulse Resp BP BP Pulse Ox 11/13/18 04:44 98.1 F 51 L 15 185/82 95 11/13/18 03:24 48 L 16 11/12/18 22:58 57 L 16 11/12/18 22:27 98.0 F 77 15 178/67 95 11/12/18 21:30 51 L 18 139/68 98 11/12/18 21:00 56 L 18 144/70 92 L 11/12/18 20:58 17 11/12/18 20:01 56 L 16 157/79 99 11/12/18 19:32 50 L 11/12/18 19:25 49 L 11/12/18 18:59 20 11/12/18 18:57 98 11/12/18 18:44 98.3 F 50 L 16 157/79 Intake and Output 11/12/18 11/13/18 11/13/18 22:59 06:59 14:59 Output Total 300 625 Balance -300 -625 Output: Urine 300 625 Other: Voiding Method Urinal Urinal Weight 138.346 kg Results 11/13/18 05:45 11/13/18 05:45 Cardiac Enzymes 11/12/18 11/12/18 11/13/18 Range/Units 19:00 19:00 01:09 AST 31 (17-59) U/L Troponin I <0.012 0.013 (0.000-0.034) ng/mL 11/13/18 11/13/18 Range/Units 05:45 05:45 AST 19 (17-59) U/L Troponin I 0.013 (0.000-0.034) ng/mL Coagulation 11/12/18 Range/Units 19:00 PT 10.1 (9.0-12.0) sec APTT 24.4 (22.0-30.0) sec CBC 11/12/18 11/13/18 Range/Units 19:00 05:45 WBC 5.6 4.9 (3.8-10.6) k/uL RBC 3.48 L 3.42 L (4.30-5.90) m/uL Hgb 10.0 L 9.6 L (13.0-17.5) gm/dL Hct 32.4 L 31.4 L (39.0-53.0) % Plt Count 139 L 128 L (150-450) k/uL Comprehensive Metabolic Panel 11/12/18 11/13/18 Range/Units 19:00 05:45 Sodium 141 140 (137-145) mmol/L Potassium 5.4 H 4.6 (3.5-5.1) mmol/L Chloride 103 102 (98-107) mmol/L Carbon Dioxide 35 H 35 H (22-30) mmol/L BUN 17 16 (9-20) mg/dL Creatinine 0.74 0.73 (0.66-1.25) mg/dL Glucose 77 116 H (74-99) mg/dL Calcium 9.2 9.1 (8.4-10.2) mg/dL AST 31 19 (17-59) U/L ALT 24 31 (21-72) U/L Alkaline Phosphatase 86 92 (38-126) U/L Total Protein 6.8 6.0 L (6.3-8.2) g/dL Albumin 3.8 3.3 L (3.5-5.0) g/dL Current Medications Generic Name Dose Route Start Last Admin Trade Name Freq PRN Reason Stop Dose Admin Albuterol/Ipratropium 3 ml 11/12/18 20:18 Duoneb 0.5 Mg-3 Mg/3 Ml Soln INHALATION RT-QID PRN Shortness Of Breath Or Wheezing Ascorbic Acid 250 mg 11/13/18 09:00 Vitamin C PO DAILY ELIZABETH Atenolol 100 mg 11/13/18 09:00 Tenormin PO BID [facility] Atorvastatin Calcium 10 mg 11/13/18 01:11 11/13/18 02:08 Lipitor PO 10 mg HS ELIZABETH Administration Calcium Carbonate 1 each 11/13/18 09:00 Oscal 250+D PO TID [facility] Digoxin 250 mcg 11/13/18 09:00 Lanoxin PO DAILY [facility] Furosemide 40 mg 11/12/18 22:00 11/13/18 02:08 Lasix IV 40 mg Q8H ELIZABETH Administration Glipizide 10 mg 11/13/18 07:30 Glucotrol PO AC-BID [facility] Heparin Sodium (Porcine) 0 unit 11/13/18 01:02 Heparin IV PER PROTOCOL PRN Low PTT Protocol Sodium Chloride 1,000 mls @ 20 mls/hr 11/12/18 20:30 11/12/18 21:28 Saline 0.9% IV 20 mls/hr .Q24H ELIZABETH Administration Heparin Sodium/Sodium Chloride 250 mls @ 9.684 mls/hr 11/13/18 01:15 11/13/18 02:15 25,000 unit/ Sodium Chloride IV 7 units/kg/hr .Q24H ELIZABETH 9.684 mls/hr Administration Protocol 7 UNITS/KG/HR Lisinopril 20 mg 11/13/18 09:00 Zestril PO DAILY [facility] Metformin HCl 1,000 mg 11/13/18 09:00 Glucophage PO BID [facility] Multivitamins 1 each 11/13/18 09:00 Theragran PO DAILY [facility] Rivastigmine 20 Mg 1 tab 11/13/18 09:00 Tab PO DAILY [facility] Pantoprazole Sodium 40 mg 11/13/18 07:30 Protonix PO DAILY@0730 [facility] Primidone 250 mg 11/13/18 09:00 Mysoline PO BID [facility] Zolpidem Tartrate 10 mg 11/13/18 01:09 Ambien PO HS PRN Insomnia Intake and Output 11/12/18 11/13/18 11/13/18 22:59 06:59 14:59 Output Total 300 625 Balance -300 -625 Output: Urine 300 625 Other: Voiding Method Urinal Urinal Weight 138.346 kg 11/13/18 05:45 11/13/18 05:45
[2018-11-13 10:43] LABS: Cholesterol 140 mg/dL (<200); HDL Cholesterol 49 mg/dL (40-60); LDL Cholesterol,Calculated 72 mg/dL (0-99); Triglycerides 96 mg/dL (<150)
[2018-11-13 10:50] LABS: Glucose,Whole Blood 247 mg/dL (75-99)
--- NOTE | 2018-11-13 11:00 | ECHOF ---
Referral Reason:sob MEASUREMENTS -------- HEIGHT: 182.9 cm WEIGHT: 138.3 kg BP: RVIDd: 2.4 cm (< 3.3) IVSd: 1.5 cm (0.6 - 1.1) LVIDd: 6.9 cm (3.9 - 5.3) LVPWd: 1.2 cm (0.6 - 1.1) IVSs: 1.7 cm LVIDs: 4.8 cm LVPWs: 1.7 cm LAESV Index (A-L): 59.09 ml/m Ao Diam: 3.5 cm (2.0 - 3.7) AV Cusp: 2.3 cm (1.5 - 2.6) LA Diam: 3.8 cm (2.7 - 3.8) MV EXCURSION: 26.377 mm (> 18.000) MV EF SLOPE: 138 mm/s (70 - 150) EPSS: 1.6 cm MV E Nikolay: 0.99 m/s MV DecT: 237 ms MV A Nikolay: 0.39 m/s MV E/A Ratio: 2.56 AR PHT: 442 ms RAP: 5.00 mmHg RVSP: 11.20 mmHg FINDINGS -------- Sinus rhythm with extra systolic beats. This was a technically difficult study with suboptimal views. The left ventricle is moderately dilated. There is moderate concentric left ventricular hypertrophy . Overall left ventricular systolic function is mildly impaired with, an EF between 45 - 50 %. The right ventricle is normal in size. LA is severely dilated >40 ml/m2 The right atrial size is normal. Lumason used Aortic valve is trileaflet and is mildly thickened. Trace amount of aortic regurgitation. The mitral valve leaflets are mildly thickened. Mild mitral regurgitation is present. Mild tricuspid regurgitation present. The right ventricular systolic pressure, not well quantified There is no pulmonic regurgitation present. The aortic root size is normal. IVC Not well visulized. There is no pericardial effusion. CONCLUSIONS -------- 1. Sinus rhythm with extra systolic beats. 2. This was a technically difficult study with suboptimal views. 3. The left ventricle is moderately dilated. 4. There is moderate concentric left ventricular hypertrophy. 5. The right ventricle is normal in size. 6. LA is severely dilated >40 ml/m2 7. The right atrial size is normal. 8. Lumason used 9. Aortic valve is trileaflet and is mildly thickened. 10. Trace amount of aortic regurgitation. 11. The mitral valve leaflets are mildly thickened. 12. Mild mitral regurgitation is present. 13. Mild tricuspid regurgitation present. 14. The right ventricular systolic pressure, not well quantified. 15. There is no pulmonic regurgitation present. 16. The aortic root size is normal. 17. IVC Not well visulized. 18. There is no pericardial effusion. JUSTICE COURT JUDGE: Patricia Sosa RDCS
[2018-11-13] MEDS ORDERED: FUROSEMIDE 10 MG/ML 4 ML VIAL IV STA (11:02)
--- NOTE | 2018-11-13 11:36 | P.HPIM ---
History of Present Illness 73-year-old male who lives in assisted living states For 1 week he has felt dizzy little nauseous and short of breath. Was evaluated in the emergency room and found to be bradycardic and congestive heart failure. Patient was trans ferred to observation for consultation with cardiology Review of Systems Constitutional: Reports fatigue, Reports weakness Respiratory: Reports dyspnea Past Medical History Past Medical History: Atrial Fibrillation, Heart Failure, Diabetes Mellitus, GERD/Reflux, Hyperlipidemia, Hypertension, Osteoarthritis (OA), Pneumonia Additional Past Medical History / Comment(s): Tremors, chronic osteomylitis of the right ankle maintained on Bactrim on outpatient basis, chronic hypoxic respiratory failure on home O2 - 3L HOME 02, chronic lower extremities edema, falls, past gi bleed/coumadin toxcity, anemia History of Any Multi-Drug Resistant Organisms: None Reported Past Surgical History: Orthopedic Surgery Additional Past Surgical History / Comment(s): COMPOUND FX OF TIB/FIB R/T SHRAPNEL, liver injury with questionable surgical intervention to control the injury/bleed Past Anesthesia/Blood Transfusion Reactions: No Reported Reaction Past Psychological History: No Psychological Hx Reported Additional Psychological History / Comment(s): lives at [facility] Smoking Status: Former smoker Past Alcohol Use History: None Reported Additional Past Alcohol Use History / Comment(s): started smoking at age 12 and quit 2007. moked 1.5 ppd. no alcohol SINCE AGE 35 quit 15 yrs ago. Past Drug Use History: None Reported Additional Drug Use History / Comment(s): HX OF DRUG USE - marijuana, NONE SINCE AGE 25 OR 30 - Past Family History Mother Additional Family Medical History / Comment(s): patient unaware of family medical history. He was adopted Medications and Allergies Home Medications Medication Instructions Recorded Confirmed Type Simvastatin [Zocor] 20 mg PO HS 08/03/14 11/12/18 History Omeprazole [PriLOSEC] 20 mg PO DAILY 12/25/16 11/12/18 History glipiZIDE [Glucotrol] 10 mg PO AC-BID 07/02/17 11/12/18 History Zolpidem [Ambien] 10 mg PO HS PRN #30 tab 12/18/17 11/12/18 Rx Primidone [Mysoline] 250 mg PO BID 03/18/18 11/12/18 History Ascorbic Acid [Vitamin C] 250 mg PO DAILY 11/12/18 11/12/18 History Calcium Carb-Vit D 250Mg-125Un 1 tab PO TID 11/12/18 11/12/18 History [Oscal 250+D] Enalapril [Vasotec] 5 mg PO BID 11/12/18 11/12/18 History Multivitamins, Thera [Multivitamin 1 tab PO DAILY 11/12/18 11/12/18 History (formulary)] metFORMIN HCL 1,000 mg PO BID 11/12/18 11/12/18 History Allergies Allergy/AdvReac Type Severity Reaction Status Date / Time No Known Allergies Allergy Verified 11/12/18 19:00 Physical Exam Vitals: Vital Signs Temp Pulse Pulse Resp BP BP BP 11/13/18 08:15 20 11/13/18 08:00 98.1 F 51 L 20 159/80 11/13/18 04:44 98.1 F 51 L 15 185/82 11/13/18 03:24 48 L 16 11/12/18 22:58 57 L 16 11/12/18 22:27 98.0 F 77 15 178/67 11/12/18 21:30 51 L 18 139/68 11/12/18 21:00 56 L 18 144/70 11/12/18 20:58 17 11/12/18 20:01 56 L 16 157/79 11/12/18 19:32 50 L 11/12/18 19:25 49 L 11/12/18 18:59 20 11/12/18 18:57 11/12/18 18:44 98.3 F 50 L 16 157/79 Pulse Ox 11/13/18 08:15 11/13/18 08:00 95 11/13/18 04:44 95 11/13/18 03:24 11/12/18 22:58 11/12/18 22:27 95 11/12/18 21:30 98 11/12/18 21:00 92 L 11/12/18 20:58 11/12/18 20:01 99 11/12/18 19:32 11/12/18 19:25 11/12/18 18:59 11/12/18 18:57 98 11/12/18 18:44 Intake and Output 11/12/18 11/13/18 11/13/18 22:59 06:59 14:59 Intake Total 122 Output Total 300 625 200 Balance -300 -625 -78 Intake: Oral 122 Output: Urine 300 625 200 Other: Voiding Method Urinal Urinal Urinal # Voids 1 Weight 138.346 kg - Constitutional General appearance: mild distress - EENT Eyes: PERRLA Ears: bilateral: normal - Neck Neck: normal ROM - Respiratory Respiratory: bilateral: CTA - Cardiovascular Rhythm: irregularly irregular Abnormal Heart Sounds: systolic murmur leg Peripheral Edema: bilateral: 3+ - Gastrointestinal General gastrointestinal: soft - Integumentary Integumentary: normal - Neurologic Tremors chronic Neurologic: CNII-XII intact - Musculoskeletal Musculoskeletal: generalized weakness - Psychiatric Psychiatric: A&O x's 3, appropriate affect, intact judgment & insight Results CBC & Chem 7: 11/13/18 05:45 11/13/18 05:45 Labs: Abnormal Lab Results - Last 24 Hours (Table) 11/12/18 11/12/18 11/12/18 Range/Units 19:00 19:00 22:19 RBC 3.48 L (4.30-5.90) m/uL Hgb 10.0 L (13.0-17.5) gm/dL Hct 32.4 L (39.0-53.0) % MCHC (31.0-37.0) g/dL Plt Count 139 L (150-450) k/uL Potassium 5.4 H (3.5-5.1) mmol/L Carbon Dioxide 35 H (22-30) mmol/L Glucose (74-99) mg/dL POC Glucose (mg/dL) 56 L (75-99) mg/dL Total Protein (6.3-8.2) g/dL Albumin (3.5-5.0) g/dL 11/12/18 11/13/18 11/13/18 Range/Units 22:47 05:45 05:45 RBC 3.42 L (4.30-5.90) m/uL Hgb 9.6 L (13.0-17.5) gm/dL Hct 31.4 L (39.0-53.0) % MCHC 30.4 L (31.0-37.0) g/dL Plt Count 128 L (150-450) k/uL Potassium (3.5-5.1) mmol/L Carbon Dioxide 35 H (22-30) mmol/L Glucose 116 H (74-99) mg/dL POC Glucose (mg/dL) 109 H (75-99) mg/dL Total Protein 6.0 L (6.3-8.2) g/dL Albumin 3.3 L (3.5-5.0) g/dL 11/13/18 11/13/18 Range/Units 06:44 10:49 RBC (4.30-5.90) m/uL Hgb (13.0-17.5) gm/dL Hct (39.0-53.0) % MCHC (31.0-37.0) g/dL Plt Count (150-450) k/uL Potassium (3.5-5.1) mmol/L Carbon Dioxide (22-30) mmol/L Glucose (74-99) mg/dL POC Glucose (mg/dL) 114 H 247 H (75-99) mg/dL Total Protein (6.3-8.2) g/dL Albumin (3.5-5.0) g/dL Chest x-ray: report reviewed (Echo reviewed) Thrombosis Risk Factor Assmnt - Choose All That Apply Each Factor Represents 1 point: Obesity (BMI >25), Swollen legs (current) Each Risk Factor Represents 2 Points: Age 61-74 years Other congenital or acquired thrombophilia - If yes, enter type in comment: No Thrombosis Risk Factor Assessment Total Risk Factor Score: 4 Thrombosis Risk Factor Assessment Level: Moderate Risk Assessment and Plan Plan: Assessment Acute on chronic congestive heart failure diastolic dysfunction systolic dysfunction with an ejection fraction of 45% Chronic hypoxic rest for a failure home O2 Anemia chronic disease COPD exacerbation Weakness Bradycardia Atrial fibrillation chronic persistent Diabetes type 2 GERD Osteoarthritis Hyperlipidemia Plan Continue consultation with cardiology
[2018-11-13 11:42] VITALS: BMI 39.1
[2018-11-13 11:47] LABS: Glucose,Whole Blood 186 mg/dL (75-99)
[2018-11-13 16:39] LABS: Glucose,Whole Blood 81 mg/dL (75-99)
[2018-11-13] MEDS: CYANOCOBALAMIN 500 MCG TAB PO SCH (17:44)
[2018-11-13 19:53] LABS: Glucose,Whole Blood 143 mg/dL (75-99)
[2018-11-13] MEDS: IPRATROPIUM-ALBUTEROL 3 ML NEB INHALATION PRN (19:59)
[2018-11-13] MEDS: SODIUM CHLORIDE 0.9% 1,000 ML IV SCH (21:08)
[2018-11-14 06:51] LABS: Glucose,Whole Blood 87 mg/dL (75-99)
[2018-11-14 06:52] LABS: Anion Gap 4 mmol/L; Blood Urea Nitrogen 15 mg/dL (9-20); Calcium 9.2 mg/dL (8.4-10.2); Carbon Dioxide 37 mmol/L (22-30); Chloride 98 mmol/L (98-107); Glucose 79 mg/dL (74-99); Magnesium 1.5 mg/dL (1.6-2.3); Potassium 4.3 mmol/L (3.5-5.1); Sodium 139 mmol/L (137-145)
[2018-11-14] MEDS: IPRATROPIUM-ALBUTEROL 3 ML NEB INHALATION PRN ×2 (07:22→11:53)
[2018-11-14] MEDS: LISINOPRIL 20 MG TAB PO SCH (09:12)
[2018-11-14] MEDS: MULTIVITAMINS, THERA 1 EACH TAB PO SCH (09:12)
[2018-11-14] MEDS: FUROSEMIDE 40 MG TAB PO SCH (09:12)
[2018-11-14] MEDS: PANTOPRAZOLE 40 MG TABLET PO SCH (09:12)
[2018-11-14] MEDS: hydrALAZINE HCL 25 MG TAB PO SCH (09:12)
[2018-11-14] MEDS: CYANOCOBALAMIN 500 MCG TAB PO SCH (09:12)
[2018-11-14] MEDS: CALCIUM CARB-VIT D 250MG-125UN 1 EACH TAB PO SCH ×3 (09:13→20:37)
[2018-11-14] MEDS: ASCORBIC ACID 500 MG TAB PO SCH (09:13)
[2018-11-14] MEDS: PRIMIDONE 250 MG TAB PO SCH ×2 (09:13→20:37)
[2018-11-14] MEDS: DABIGATRAN 150 MG CAP PO SCH ×2 (09:13→20:36)
[2018-11-14 11:43] LABS: Glucose,Whole Blood 115 mg/dL (75-99)
--- NOTE | 2018-11-14 11:44 | P.DS ---
Providers Date of admission: 11/12/18 20:17 Expected date of discharge: 11/14/18 Attending physician: Edi Love Consults: 11/12/18 20:17 Consult Physician Routine Consulting Provider: Alisha Roberts Consult Reason/Comments: leander Do you want consulting provider notified?: Yes Primary care physician: Edi Love Hospital Course: 73-year-old male who lives in the assisted living presented for complaints of shortness of breath lower extremity edema patient was found to be in the congestive heart failure diastolic and systolic dysfunction. Patient has chronic atrial fibrillation. Patient has chronic hypoxic Crestor he failure at home with O2 supplement. Patient was evaluated by cardiology and medication adjusted cleared for discharge Assessment Congestive heart failure acute on chronic systolic and diastolic ejection fraction 45% Atrial fibrillation chronic persistent Chronic hypoxic respiratory failure on home O2 Anemia of chronic disease Diabetes type 2 GERD Hypertension Hyperlipidemia osteoarthritis Plan Discharged home to follow-up with cardiology and family physician Dr. Daley Patient Condition at Discharge: Fair Plan - Discharge Summary Discharge Rx Participant: Yes New Discharge Prescriptions: New hydrALAZINE HCL [Apresoline] 25 mg PO TID #90 tab Furosemide [Lasix] 40 mg PO DAILY #30 tab Dabigatran [Pradaxa] 150 mg PO BID #60 cap Continue Simvastatin [Zocor] 20 mg PO HS Omeprazole [PriLOSEC] 20 mg PO DAILY glipiZIDE [Glucotrol] 10 mg PO AC-BID Zolpidem [Ambien] 10 mg PO HS PRN #30 tab PRN Reason: Insomnia Primidone [Mysoline] 250 mg PO BID Multivitamins, Thera [Multivitamin (formulary)] 1 tab PO DAILY Calcium Carb-Vit D 250Mg-125Un [Oscal 250+D] 1 tab PO TID Ascorbic Acid [Vitamin C] 250 mg PO DAILY metFORMIN HCL 1,000 mg PO BID Enalapril [Vasotec] 5 mg PO BID Discontinued Digoxin 250 mcg PO DAILY Atenolol [Tenormin] 100 mg PO BID Discharge Medication List Simvastatin [Zocor] 20 mg PO HS 08/03/14 [History] Omeprazole [PriLOSEC] 20 mg PO DAILY 12/25/16 [History] glipiZIDE [Glucotrol] 10 mg PO AC-BID 07/02/17 [History] Zolpidem [Ambien] 10 mg PO HS PRN #30 tab 12/18/17 [Rx] Primidone [Mysoline] 250 mg PO BID 03/18/18 [History] Ascorbic Acid [Vitamin C] 250 mg PO DAILY 11/12/18 [History] Calcium Carb-Vit D 250Mg-125Un [Oscal 250+D] 1 tab PO TID 11/12/18 [History] Enalapril [Vasotec] 5 mg PO BID 11/12/18 [History] Multivitamins, Thera [Multivitamin (formulary)] 1 tab PO DAILY 11/12/18 [History] metFORMIN HCL 1,000 mg PO BID 11/12/18 [History] Dabigatran [Pradaxa] 150 mg PO BID #60 cap 11/14/18 [Rx] Furosemide [Lasix] 40 mg PO DAILY #30 tab 11/14/18 [Rx] hydrALAZINE HCL [Apresoline] 25 mg PO TID #90 tab 11/14/18 [Rx] Follow up Appointment(s)/Referral(s): Edi Love MD [Primary Care Provider] - 1-2 days Mike Giraldo MD [STAFF PHYSICIAN] - 12/03/18 3:30 pm
[2018-11-14] MEDS ORDERED: CYANOCOBALAMIN 500 MCG TAB PO SCH (12:00)
[2018-11-14] MEDS: glipiZIDE 10 MG TAB PO SCH ×2 (12:22→17:18)
[2018-11-14] MEDS: metFORMIN 500 MG TAB PO SCH ×2 (12:24→20:36)
[2018-11-14] MEDS ORDERED: hydrALAZINE HCL 25 MG TAB PO STA (12:42)
--- NOTE | 2018-11-14 13:01 | P.PN ---
Subjective This is a 73-year-old male past medical history significant for chronic persistent atrial fibrillation with non-compliance of his coumadin, hypertension, dyslipidemia, diabetes mellitus, chronic respiratory failure on home oxygen and former nicotine dependence. He sees Dr. Giraldo in the office, however has not been to the office since 2017. He is seen and examined resting comfortably in bed. He continues to feel mildly short of breath but overall back to his baseline. No chest pain, dizziness or palpitations. Telemetry tracings reviewed and reveal atrial fibrillation with slow ventricular response rates in the high 40's and low 50's. Improving since stopping atenolol and digoxin. Blood pressure 180/91. Echocardiogram reveals moderately dilated left ventricle with mildly impaired LV systolic function with ejection fraction 45-50%, mild MR and mild TR. GENERAL: This is a 73-year-old male in no apparent distress at the time of my examination. HEENT: Head is atraumatic, normocephalic. Pupils are equal, round. Sclerae anicteric. Conjunctivae are clear. Mucous membranes of the mouth are moist. Neck is supple. There is no jugular venous distention. No carotid bruit is heard. LUNGS: Clear to auscultation bilaterally. No wheezes or rhonchi. No chest wall tenderness is noted on palpation or with deep breathing. HEART: Irregular rate and rhythm without murmurs, rubs or gallops. S1 and S2 heard. EXTREMITIES: No evidence of peripheral edema and no calf tenderness noted. ASSESSMENT Chronic persistent atrial fibrillation with slow ventricular response Acute on chronic diastolic heart failure, resolved Pulmonary hypertension Hypertension Diabetes mellitus Dyslipidemia Chronic hypoxic respiratory failure on home oxygen Chronic lower extremity edema History of Coumadin toxicity secondary to noncompliance Former nicotine dependence PLAN Increase hydralazine to 50 mg 3 times a day. Overall hemodynamically stable and euvolemic. Follow-up with Dr. Giraldo in 2 weeks. Nurse Practitioner note has been reviewed, I agree with a documented findings and plan of care. Patient was seen and examined. Objective - Vital Signs Vital signs: Vital Signs Temp 98.3 F 11/14/18 11:54 Pulse 68 11/14/18 12:12 Resp 18 11/14/18 12:00 BP 180/91 11/14/18 11:54 Pulse Ox 96 11/14/18 11:54 Intake & Output 11/13/18 11/14/18 11/14/18 18:59 06:59 18:59 Intake Total 358 240 Output Total 1750 200 375 Balance -1392 -200 -135 Weight 138.346 kg Intake: Oral 358 240 Output: Urine 1750 200 375 Other: Voiding Method Urinal Urinal Urinal # Voids 2 200 - Labs CBC & Chem 7: 11/13/18 05:45 11/14/18 06:00 Labs: Abnormal Lab Results - Last 24 Hours (Table) 11/13/18 11/14/18 11/14/18 Range/Units 19:52 06:00 11:39 Carbon Dioxide 37 H (22-30) mmol/L POC Glucose (mg/dL) 143 H 115 H (75-99) mg/dL Magnesium 1.5 L (1.6-2.3) mg/dL
[2018-11-14] MEDS: hydrALAZINE HCL 50 MG TAB PO SCH ×2 (16:52→20:37)
[2018-11-14 17:00] LABS: Glucose,Whole Blood 103 mg/dL (75-99)
[2018-11-14 20:23] LABS: Glucose,Whole Blood 98 mg/dL (75-99)
[2018-11-14] MEDS: ATORVASTATIN 10 MG TAB PO SCH (20:36)
[2018-11-14] MEDS: SODIUM CHLORIDE 0.9% 1,000 ML IV SCH (20:36)
[2018-11-15 01:01] VITALS: RESP 17
[2018-11-15 07:46] LABS: Glucose,Whole Blood 95 mg/dL (75-99)
[2018-11-15 08:05] VITALS: BP 182/90; TEMP 99
[2018-11-15] MEDS: DABIGATRAN 150 MG CAP PO SCH (08:09)
[2018-11-15] MEDS: glipiZIDE 10 MG TAB PO SCH (08:09)
[2018-11-15] MEDS: metFORMIN 500 MG TAB PO SCH (08:09)
[2018-11-15] MEDS: PANTOPRAZOLE 40 MG TABLET PO SCH (08:09)
[2018-11-15] MEDS: CALCIUM CARB-VIT D 250MG-125UN 1 EACH TAB PO SCH ×2 (08:09→16:01)
[2018-11-15] MEDS: PRIMIDONE 250 MG TAB PO SCH (08:09)
[2018-11-15] MEDS: MULTIVITAMINS, THERA 1 EACH TAB PO SCH (08:09)
[2018-11-15] MEDS: hydrALAZINE HCL 50 MG TAB PO SCH ×2 (08:09→16:01)
[2018-11-15] MEDS: LISINOPRIL 20 MG TAB PO SCH (08:09)
[2018-11-15] MEDS: ASCORBIC ACID 500 MG TAB PO SCH (08:09)
[2018-11-15] MEDS: CYANOCOBALAMIN 500 MCG TAB PO SCH (08:09)
[2018-11-15] MEDS: FUROSEMIDE 40 MG TAB PO SCH (08:10)
[2018-11-15] MEDS: IPRATROPIUM-ALBUTEROL 3 ML NEB INHALATION PRN (10:57)
[2018-11-15 11:39] LABS: Glucose,Whole Blood 104 mg/dL (75-99)
[2018-11-15 13:12] LABS: Appearance,Urine Clear (Clear); Bilirubin,Urine Negative (Negative); Blood,Urine Negative (Negative); Color,Urine Yellow; Glucose,Urine (UA) Negative (Negative); Ketones,Urine Negative (Negative); Leukocyte Esterase,Urine Negative (Negative); Mucus,Urine Rare /hpf; Nitrite,Urine Negative (Negative); PH, Urine 8.5 (5.0-8.0); Protein,Urine 3+ (Negative); RBC,Urine 2 /hpf (0-5); Specific Gravity,Urine 1.009 (1.001-1.035); Squamous Epithelial Cell,Urine <1 /hpf (0-4); Urobilinogen,Urine <2.0 mg/dL (<2.0); WBC,Urine 1 /hpf (0-5)
--- NOTE | 2018-11-15 13:51 | P.PN ---
Progress Note - Text Patient was seen by me today for nausea and dizziness. He was found to be in congestive heart failure and was bradycardic. Cardiology was consulted cardiology adjusted his medications. He was supposed to be discharged yesterday but apparently had some suicidal thoughts so she stayed. Psychiatry saw him and cleared him for discharge she is no more suicidal. Today's complaining of burning in the urine. He has no suicidal thoughts, no chest pain or racing heart, no cough no shortness breath, is feeling no more lightheaded or dizzy. Today on 11/15/2018 On exam, alert and oriented x3. HEENT: Conjunctivae normal. eyes normal. NECK: No JVD. No thyroid enlargement. No LNs CARDIOVASCULAR: S1, S2 muffled. No murmur RESPIRATION: Breath sounds diminished in the bases. No rhonchi or crackles. No bronchial breathing. ABDOMEN: Soft, nontender . No guarding. no masses palpable. No ascites, No hepatosplenomegaly.Bowel sounds heard. LEGS: No edema. no swelling NERVOUS SYSTEM: Cranial N 2-12 grossly normal. Moves all 4 limbs. No focal deficits. No sensory deficit. No signs of cerebellar dysfucntion. Skin: no ulcer no rash Assessment - CHF exacerbation stable for now - A. fib - Diabetes - Hypertension - Hyperlipidemia Plan - Patient was already discharged but stated because he was having suicidal thoughts. Psychiatric cleared him for discharge. - He is complaining of urinary burning. We'll order for UA. If UA is negative he can be discharged - Agree with the discharge orders from yesterday -
--- NOTE | 2018-11-15 14:35 | P.CN ---
Psychiatric Consult - . Consult date: 11/15/18 Consult:: 11/15/18 09:32 Suicidal Assessment and Plan Assessment: This is a 73-year-old male past medical history significant for chronic persistent atrial fibrillation with non-compliance of his coumadin, hypertension, dyslipidemia, diabetes mellitus, chronic respiratory failure on home oxygen and former nicotine dependence. He sees Dr. Giraldo in the office, however has not been to the office since 2017. He is seen and examined resting comfortably in bed. He continues to feel mildly short of breath but overall back to his baseline. No chest pain, dizziness or palpitations. Telemetry tracings reviewed and reveal atrial fibrillation with slow ventricular response rates in the high 40's and low 50's. Improving since stopping atenolol and digoxin. Blood pressure 180/91. Echocardiogram reveals moderately dilated left ventricle with mildly impaired LV systolic function with ejection fraction 45-50%, mild MR and mild TR. Past Medical History Past Medical History: Atrial Fibrillation, Heart Failure, Diabetes Mellitus, GERD/Reflux, Hyperlipidemia, Hypertension, Osteoarthritis (OA), Pneumonia Additional Past Medical History / Comment(s): Tremors, chronic osteomylitis of the right ankle maintained on Bactrim on outpatient basis, chronic hypoxic respiratory failure on home O2 - 3L HOME 02, chronic lower extremities edema, falls, past gi bleed/coumadin toxcity, anemia History of Any Multi-Drug Resistant Organisms: None Reported Past Surgical History: Orthopedic Surgery Additional Past Surgical History / Comment(s): COMPOUND FX OF TIB/FIB R/T SHRAPNEL, liver injury with questionable surgical intervention to control the injury/bleed Past Anesthesia/Blood Transfusion Reactions: No Reported Reaction Past Psychological History: No Psychological Hx Reported Additional Psychological History / Comment(s): lives at [place] Smoking Status: Former smoker Past Alcohol Use History: None Reported Additional Past Alcohol Use History / Comment(s): started smoking at age 12 and quit 2007. moked 1.5 ppd. no alcohol SINCE AGE 35 quit 15 yrs ago. Past Drug Use History: None Reported Additional Drug Use History / Comment(s): HX OF DRUG USE - marijuana, NONE SINCE AGE 25 OR 30 - Past Family History Mother Additional Family Medical History / Comment(s): patient unaware of family medical history. He was adopted Medications and Allergies Home Medications Medication Instructions Recorded Confirmed Type Simvastatin [Zocor] 20 mg PO HS 08/03/14 11/12/18 History Omeprazole [PriLOSEC] 20 mg PO DAILY 12/25/16 11/12/18 History glipiZIDE [Glucotrol] 10 mg PO AC-BID 07/02/17 11/12/18 History Zolpidem [Ambien] 10 mg PO HS PRN #30 tab 12/18/17 11/12/18 Rx Primidone [Mysoline] 250 mg PO BID 03/18/18 11/12/18 History Ascorbic Acid [Vitamin C] 250 mg PO DAILY 11/12/18 11/12/18 History Calcium Carb-Vit D 250Mg-125Un 1 tab PO TID 11/12/18 11/12/18 History [Oscal 250+D] Enalapril [Vasotec] 5 mg PO BID 11/12/18 11/12/18 History Multivitamins, Thera [Multivitamin 1 tab PO DAILY 11/12/18 11/12/18 History (formulary)] metFORMIN HCL 1,000 mg PO BID 11/12/18 11/12/18 History ASSESSMENT Chronic persistent atrial fibrillation with slow ventricular response Acute on chronic diastolic heart failure, resolved Pulmonary hypertension Hypertension Diabetes mellitus Dyslipidemia Chronic hypoxic respiratory failure on home oxygen Chronic lower extremity edema History of Coumadin toxicity secondary to noncompliance Former nicotine dependence Mental Status Examination - This is a 73-year-old male who lives by himself who was brought hospital with difficulty breathing and found out that is was his heart. This 73-year-old male looks casual somewhat disheveled lying in bed and looks older than his stated age. Speech and language was slow soft in nature. Attitude and behaviors cooperative but guarded in fact that he does not want to go back brace living there is too many old people living there and he has known to socialize with really no one to care for him and he stated yesterday that couches give me a gun and shoot myself was a offhanded comment and stating that he wanted attention. His affect is labile and irritated at times. Mood is somewhat depressed but more just situational in nature. Affect is full range. Orientation person place and time and situation. Thought content within normal no delusions observed. Risk factors he is not suicidal nor is he homicidal. Perception within normal. Concentration and attention span within normal. Rece nt and remote memory within normal. Intelligence is average based on history and vocabulary Syntex grammar and other content. Judgment is fair as well as insight based on his age and lack insight of being alone at age 73. Psychiatric impression: Adjustment disorder with mixed emotions and feelings Psychiatric recommendations: He is not a candidate for 3 [facility] nor does he need to go to any geriatric psych unit. Social work should be more involved in helping range at [employer] activities and engage this 73-year-old in activities that stimulate his sense of being. Thank you for the consult Kvng Wilkerson D.O. PhD (1) Adjustment disorder Current Visit: Yes Status: Acute Code(s): F43.20 - ADJUSTMENT DISORDER, UNSPECIFIED SNOMED Code(s): 81222353 Time with Patient: Greater than 30
[2018-11-15 15:52] VITALS: PULSE 70
== END 2018-11-15 16:41 | disposition home or self-care (01) ==
LOC: EC 18:25 → 1SOBS 20:17 → 4SSUR 11-14 17:13
PROVIDERS: ADMIT Family Medicine; ATTEND Family Medicine
DX: I11.0 Hypertensive heart disease with heart failure (principal); I50.43 Acute on chronic combined systolic (congestive) and diastolic (congestive) heart failure; J44.1 Chronic obstructive pulmonary disease with (acute) exacerbation; I48.2 Chronic atrial fibrillation; J96.11 Chronic respiratory failure with hypoxia; Z99.81 Dependence on supplemental oxygen; D63.8 Anemia in other chronic diseases classified elsewhere; E11.9 Type 2 diabetes mellitus without complications; I27.20 Pulmonary hypertension, unspecified; K21.9 Gastro-esophageal reflux disease without esophagitis; M19.90 Unspecified osteoarthritis, unspecified site; E78.5 Hyperlipidemia, unspecified; I48.1 Persistent atrial fibrillation; R25.1 Tremor, unspecified; R60.0 Localized edema; Z91.14 Patient's other noncompliance with medication regimen; R42 Dizziness and giddiness; R19.7 Diarrhea, unspecified; R45.851 Suicidal ideations; F43.20 Adjustment disorder, unspecified; E66.9 Obesity, unspecified; Z68.39 Body mass index [BMI] 39.0-39.9, adult; R00.1 Bradycardia, unspecified; R53.1 Weakness; Z79.84 Long term (current) use of oral hypoglycemic drugs; Z79.899 Other long term (current) drug therapy; Z87.19 Personal history of other diseases of the digestive system; Z87.891 Personal history of nicotine dependence; Z87.39 Personal history of other diseases of the musculoskeletal system and connective tissue; Z87.81 Personal history of (healed) traumatic fracture; Z91.81 History of falling
CPT/HCPCS: 96376; 96374; 96375; 99285; 36415; 94640 ×5; 93005; 83880; 80061; 80053 ×2; 80048; 84443; 80162; 83735 ×2; 84484 ×2; 85025 ×2; 85610; 85730; 81001; 71046; G0378 ×4; C8929; J1644 ×2; J1940; Q9950; 93306

== ENCOUNTER 2019-04-25 12:40 | Inpatient (IN) | payer MEDICARE, OTHER ==
[2019-04-25] MEDS ORDERED: SODIUM CHLORIDE 0.9% 1,000 ML IV STA (13:28)
[2019-04-25] MEDS ORDERED: ONDANSETRON 4 MG/2 ML VIAL IM STA (13:28)
[2019-04-25 13:45] LABS: Basophils % (A) 1 %; Eosinophils # (A) 0.2 k/uL (0-0.7); Eosinophils % (A) 3 %; HCT 32.9 % (39.0-53.0); HGB 10.7 gm/dL (13.0-17.5); Lymphocytes # (A) 0.7 k/uL (1.0-4.8); Lymphocytes % (A) 15 %; MCH 30.1 pg (25.0-35.0); MCHC 32.4 g/dL (31.0-37.0); MCV 92.8 fL (80.0-100.0); Mean Platelet Volume 7.2; Monocytes # (A) 0.4 k/uL (0-1.0); Monocytes % (A) 8 %; Neutrophils # (A) 3.4 k/uL (1.3-7.7); Neutrophils % (A) 72 %; Platelet Count 167 k/uL (150-450); RBC 3.55 m/uL (4.30-5.90); RDW 12.4 % (11.5-15.5); WBC 4.8 k/uL (3.8-10.6)
[2019-04-25 13:56] LABS: ALT 28 U/L (21-72); AST 50 U/L (17-59); African American GFR (CKD) >90 (>60 ml/min/1.73 sqM); Albumin 3.6 g/dL (3.5-5.0); Alkaline Phosphatase 73 U/L (38-126); Anion Gap 5 mmol/L; Blood Urea Nitrogen 29 mg/dL (9-20); Calcium 9.1 mg/dL (8.4-10.2); Carbon Dioxide 34 mmol/L (22-30); Chloride 101 mmol/L (98-107); Glucose 123 mg/dL (74-99); Magnesium 1.8 mg/dL (1.6-2.3); Phosphorus 4.1 mg/dL (2.5-4.5); Sodium 140 mmol/L (137-145); Total Bilirubin 0.8 mg/dL (0.2-1.3); Total Protein 6.8 g/dL (6.3-8.2)
[2019-04-25 14:05] LABS: Potassium 5.8 mmol/L (3.5-5.1)
[2019-04-25 14:13] LABS: Partial Thromboplastin Time 32.8 sec (22.0-30.0); Prothrombin Time 10.5 sec (9.0-12.0)
--- NOTE | 2019-04-25 14:59 | ED ---
General Adult HPI - General Chief complaint: Weakness Stated complaint: Diarrhe, Dehydrated Time Seen by Provider: 04/25/19 13:28 Source: patient, EMS Mode of arrival: EMS Limitations: no limitations - History of Present Illness Initial comments: Dictation was produced using [employer] dictation software. please excuse any grammatical, word or spelling errors. Chief Complaint: 73-year-old male transferred from [facility] presents with diarrhea 5 days. History of Present Illness: 73-year-old male presents with transfer from [facility]. Patient has multiple comorbidities including atrial fibrillation, heart failure, diabetes, dyslipidemia. Patient is a poor historian. He is not sure why he is here. According to nurse will received report patient was brought here for 5 days of diarrhea. Patient continues to report that he needs colonoscopy and possibly colostomy. He states he has a history of abdominal cancer. The ROS documented in this emergency department record has been reviewed and confirmed by me. Those systems with pertinent positive or negative responses have been documented in the HPI. All other systems are other negative and/or noncontributory. PHYSICAL EXAM: General Impression: Alert and oriented x3, not in acute distress, disheveled HEENT: Normocephalic atraumatic, extra-ocular movements intact, pupils equal and reactive to light bilaterally, mucous membranes moist. Cardiovascular: Heart regular rate and rhythm, S1&S2 audible, no murmurs, rubs or gallops Chest: Lungs clear to auscultation bilaterally, no rhonchi, no wheeze, no rales Abdomen: Bowel sounds present, abdomen soft, she is tenderness to palpation, non-distended, no organomegaly Musculoskeletal: Pulses present and equal in all extremities, no peripheral edema Motor: no focal deficits noted Neurological: CN II-XII grossly intact, no focal motor or sensory deficits noted Skin: Stage II decubitus ulcer to the lower back Psych: Normal affect and mood ED course: 73-year-old male sent in from residential for 5 days of diarrhea. As upon arrival shows heart rate of 103, worse vital signs within acceptable limits. More information was obtained from [facility]. They referred us to patient's pharmacy technology instructor from the phone number of [phone]. Patient's pharmacy technology instructor had patient brought to the emergency department for 5 days of diarrhea. They're concerned because he thought they saw some blood in his diarrhea. They're concerned that his symptoms was something beyond Return evaluation obtained. CBC, coag panel, metabolic panel was obtained. Patient has potassium 5.8 with slight hemolysis. Rest of labs unremarkable. Patient has stable hemoglobin of 10.7. He does have diffuse abdominal pain. This pain is not localized to his left lower quadrant. There is minimal concern of sigmoid diverticulitis at this time. Rhythm I does not have elevated leukocytosis and he is well-appearing at bedside while at rest. Brooks patient's labs patient is objectively dehydrated with elevated BUN/creatinine ratio. Patient given intravenous fluids. Patient's stool sample was ordered to be sent off for C. difficile and stool culture. Patient understandable agreeable to disposition. This patient case with Dr. Esqueda who is willing to accept patients care for hospital admission. EKG interpretation: Ventricular rate 90, A. fib, QS 90, QTC 405. No SC prolongation, no QTC prolongation, no ST or T-wave changes noted. EKG compared to 11/12/2018 showing no changes. Overall, this EKG is unremarkable - Related Data Home Medications Medication Instructions Recorded Confirmed Simvastatin [Zocor] 20 mg PO HS 08/03/14 04/25/19 Omeprazole [PriLOSEC] 20 mg PO DAILY 12/25/16 04/25/19 glipiZIDE [Glucotrol] 10 mg PO AC-BID 07/02/17 04/25/19 Ascorbic Acid [Vitamin C] 250 mg PO DAILY 11/12/18 04/25/19 Calcium Carb-Vit D 250Mg-125Un 1 tab PO TID 11/12/18 04/25/19 [Oscal 250+D] Enalapril [Vasotec] 5 mg PO BID 11/12/18 04/25/19 Multivitamins, Thera [Multivitamin 1 tab PO DAILY 11/12/18 04/25/19 (formulary)] metFORMIN HCL 1,000 mg PO BID 11/12/18 04/25/19 Atenolol [Tenormin] 100 mg PO DAILY 04/25/19 04/25/19 Citalopram Hydrobromide [CeleXA] 40 mg PO DAILY 04/25/19 04/25/19 Digoxin [Digitek] 125 mcg PO DAILY 04/25/19 04/25/19 Ergocalciferol (Vitamin D2) 50,000 unit PO Q7D 04/25/19 04/25/19 [Drisdol] Ferrous Sulfate [Feosol] 325 mg PO DAILY 04/25/19 04/25/19 Glucos Sul 2Kcl/MSM/Chond/C/Mn 1 cap PO BID 04/25/19 04/25/19 [Glucosamine Chondroitin Cap] Sennosides [Senna] 8.6 mg PO BID 04/25/19 04/25/19 Tamsulosin HCl [Flomax] 0.4 mg PO DAILY 04/25/19 04/25/19 Previous Rx's Medication Instructions Recorded Zolpidem [Ambien] 10 mg PO HS PRN #30 tab 12/18/17 Dabigatran [Pradaxa] 150 mg PO BID #60 cap 11/14/18 Allergies Allergy/AdvReac Type Severity Reaction Status Date / Time No Known Allergies Allergy Verified 04/25/19 14:07 Review of Systems ROS Statement: Those systems with pertinent positive or pertinent negative responses have been documented in the HPI. ROS Other: All systems not noted in ROS Statement are negative. Past Medical History Past Medical History: Atrial Fibrillation, Heart Failure, Diabetes Mellitus, GERD/Reflux, Hyperlipidemia, Hypertension, Osteoarthritis (OA), Pneumonia Additional Past Medical History / Comment(s): Tremors, chronic osteomylitis of the right ankle maintained on Bactrim on outpatient basis, chronic hypoxic respiratory failure on home O2 - 3L HOME 02, chronic lower extremities edema, falls, past gi bleed/coumadin toxcity, anemia History of Any Multi-Drug Resistant Organisms: None Reported Past Surgical History: Orthopedic Surgery Additional Past Surgical History / Comment(s): COMPOUND FX OF TIB/FIB R/T SHRAPNEL, liver injury with questionable surgical intervention to control the injury/bleed Past Anesthesia/Blood Transfusion Reactions: No Reported Reaction Past Psychological History: Depression Smoking Status: Former smoker Past Alcohol Use History: None Reported Past Drug Use History: None Reported - Past Family History Mother Additional Family Medical History / Comment(s): patient unaware of family medical history. He was adopted General Exam Limitations: no limitations Course Vital Signs 04/25/19 04/25/19 12:58 13:43 Temperature 97.3 F L Pulse Rate 103 H 103 H Respiratory 16 18 Rate Blood Pressure 123/77 123/77 O2 Sat by Pulse 98 98 Oximetry Medical Decision Making - Lab Data Result diagrams: 04/25/19 13:05 04/25/19 13:05 Lab Results 04/25/19 04/25/19 04/25/19 Range/Units 13:05 13:05 13:05 WBC 4.8 (3.8-10.6) k/uL RBC 3.55 L (4.30-5.90) m/uL Hgb 10.7 L (13.0-17.5) gm/dL Hct 32.9 L (39.0-53.0) % MCV 92.8 (80.0-100.0) fL MCH 30.1 (25.0-35.0) pg MCHC 32.4 (31.0-37.0) g/dL RDW 12.4 (11.5-15.5) % Plt Count 167 (150-450) k/uL Neutrophils % 72 % Lymphocytes % 15 % Monocytes % 8 % Eosinophils % 3 % Basophils % 1 % Neutrophils # 3.4 (1.3-7.7) k/uL Lymphocytes # 0.7 L (1.0-4.8) k/uL Monocytes # 0.4 (0-1.0) k/uL Eosinophils # 0.2 (0-0.7) k/uL Basophils # 0.0 (0-0.2) k/uL PT (9.0-12.0) sec INR (<1.2) APTT (22.0-30.0) sec Sodium 140 (137-145) mmol/L Potassium 5.8 H (3.5-5.1) mmol/L Chloride 101 (98-107) mmol/L Carbon Dioxide 34 H (22-30) mmol/L Anion Gap 5 mmol/L BUN 29 H (9-20) mg/dL Creatinine 0.88 (0.66-1.25) mg/dL Est GFR (CKD-EPI)AfAm >90 (>60 ml/min/1.73 sqM) Est GFR (CKD-EPI)NonAf 85 (>60 ml/min/1.73 sqM) Glucose 123 H (74-99) mg/dL Plasma Lactic Acid Jose Alfredo 1.2 (0.7-2.0) mmol/L Calcium 9.1 (8.4-10.2) mg/dL Phosphorus 4.1 (2.5-4.5) mg/dL Magnesium 1.8 (1.6-2.3) mg/dL Total Bilirubin 0.8 (0.2-1.3) mg/dL AST 50 (17-59) U/L ALT 28 (21-72) U/L Alkaline Phosphatase 73 (38-126) U/L Troponin I (0.000-0.034) ng/mL Total Protein 6.8 (6.3-8.2) g/dL Albumin 3.6 (3.5-5.0) g/dL TSH 1.730 (0.465-4.680) mIU/L 04/25/19 04/25/19 Range/Units 13:05 13:05 WBC (3.8-10.6) k/uL RBC (4.30-5.90) m/uL Hgb (13.0-17.5) gm/dL Hct (39.0-53.0) % MCV (80.0-100.0) fL MCH (25.0-35.0) pg MCHC (31.0-37.0) g/dL RDW (11.5-15.5) % Plt Count (150-450) k/uL Neutrophils % % Lymphocytes % % Monocytes % % Eosinophils % % Basophils % % Neutrophils # (1.3-7.7) k/uL Lymphocytes # (1.0-4.8) k/uL Monocytes # (0-1.0) k/uL Eosinophils # (0-0.7) k/uL Basophils # (0-0.2) k/uL PT 10.5 (9.0-12.0) sec INR 1.0 (<1.2) APTT 32.8 H (22.0-30.0) sec Sodium (137-145) mmol/L Potassium (3.5-5.1) mmol/L Chloride (98-107) mmol/L Carbon Dioxide (22-30) mmol/L Anion Gap mmol/L BUN (9-20) mg/dL Creatinine (0.66-1.25) mg/dL Est GFR (CKD-EPI)AfAm (>60 ml/min/1.73 sqM) Est GFR (CKD-EPI)NonAf (>60 ml/min/1.73 sqM) Glucose (74-99) mg/dL Plasma Lactic Acid Jose Alfredo (0.7-2.0) mmol/L Calcium (8.4-10.2) mg/dL Phosphorus (2.5-4.5) mg/dL Magnesium (1.6-2.3) mg/dL Total Bilirubin (0.2-1.3) mg/dL AST (17-59) U/L ALT (21-72) U/L Alkaline Phosphatase (38-126) U/L Troponin I <0.012 (0.000-0.034) ng/mL Total Protein (6.3-8.2) g/dL Albumin (3.5-5.0) g/dL TSH (0.465-4.680) mIU/L Disposition Clinical Impression: Dehydration, Diarrhea Disposition: ADMITTED IP TO THIS HOSP Condition: Fair Referrals: Edi Love MD [Primary Care Provider] - 1-2 days Decision Time: 16:44
--- NOTE | 2019-04-25 15:06 | XR ---
EXAMINATION TYPE: XR abdomen acute w cxr DATE OF EXAM: 04/25/2019 COMPARISON: None HISTORY: Weakness TECHNIQUE: Abdomen is examined in supine and upright views and supplemented with frontal chest FINDINGS: Multiple punctate metallic foreign bodies over the chest and abdomen. The heart size is mildly prominent. Pulmonary vasculature is normal. No suspicious infiltrates are ev ident. No free air is under the diaphragm. Normal colonic bowel gas is present. No mass effect is shanae dent. No suspicious air-fluid levels or differential air-fluid levels are present. Psoas margins are normal. Again cardiomegaly is not evident. Degenerative changes are at the bilateral hips IMPRESSION: 1. Nonspecific abdomen. No acute process evident
[2019-04-25] MEDS ORDERED: NALOXONE 0.4 MG/ML 1 ML VIAL IV PRN (16:32)
[2019-04-25] MEDS ORDERED: metFORMIN 500 MG TAB PO SCH (17:30)
[2019-04-25 17:46] LABS: Appearance,Urine Clear (Clear); Bilirubin,Urine Negative (Negative); Blood,Urine Small (Negative); Color,Urine Yellow; Glucose,Urine (UA) Negative (Negative); Ketones,Urine Negative (Negative); Leukocyte Esterase,Urine Negative (Negative); Mucus,Urine Rare /hpf; Nitrite,Urine Negative (Negative); Protein,Urine 1+ (Negative); RBC,Urine 20 /hpf (0-5); Specific Gravity,Urine 1.017 (1.001-1.035); Squamous Epithelial Cell,Urine <1 /hpf (0-4); Urobilinogen,Urine <2.0 mg/dL (<2.0); WBC,Urine 1 /hpf (0-5)
[2019-04-25] MEDS ORDERED: ZOLPIDEM 10 MG TAB PO PRN (18:06)
--- NOTE | 2019-04-25 18:21 | P.HPIM ---
History of Present Illness 73-year-old pleasant gentleman resident of senior living came in with 5 days of diarrhea multiple episodes patient had blood in the stools. Patient is on anticoagulations for atrial fibrillation which I have to hold in spite of his active atrial fibrillation at this time because the GI bleed. Gastroenterology consulted. Patient is presently in a A. fib with rapid ventricular rate. She does have some moderate amount of abdominal pain. Although he doesn't have any rebound or rigidity. Patient does have constant left ventricular hypertrophy and EF of 40-45% patient is started on IV fluids which will cut down to 75 mL/h. Patient heart rate is presently 160 and patient doesn't have any fever doesn't have any leukocytosis acute abdominal series did not show any significant abnormality. Patient does have lower abdominal pain Review of Systems REVIEW OF SYSTEMS: CONSTITUTIONAL: No fever, no malaise, no fatigue. HEENT: No recent visual problems or hearing problems. Denied any sore throat. CARDIOVASCULAR: No chest pain, orthopnea, PND, no palpitations, no syncope. PULMONARY: No shortness of breath, no cough, no hemoptysis. GASTROINTESTINAL: As mentioned in HPI NEUROLOGICAL: No headaches, no weakness, no numbness. HEMATOLOGICAL: Denies any bleeding or petechiae. GENITOURINARY: Denies any burning micturition, frequency, or urgency. MUSCULOSKELETAL/RHEUMATOLOGICAL: Denies any joint pain, swelling, or any muscle pain. ENDOCRINE: Denies any polyuria or polydipsia. The rest of the 14-point review of systems is negative. Past Medical History Past Medical History: Atrial Fibrillation, Heart Failure, Diabetes Mellitus, GERD/Reflux, Hyperlipidemia, Hypertension, Osteoarthritis (OA), Pneumonia Additional Past Medical History / Comment(s): Tremors, chronic osteomylitis of the right ankle maintained on Bactrim on outpatient basis, chronic hypoxic respiratory failure on home O2 - 3L HOME 02, chronic lower extremities edema, falls, past gi bleed/coumadin toxcity, anemia History of Any Multi-Drug Resistant Organisms: None Reported Past Surgical History: Orthopedic Surgery Additional Past Surgical History / Comment(s): COMPOUND FX OF TIB/FIB R/T SHRAPNEL, liver injury with questionable surgical intervention to control the injury/bleed Past Anesthesia/Blood Transfusion Reactions: No Reported Reaction Past Psychological History: Depression Smoking Status: Former smoker Past Alcohol Use History: None Reported Past Drug Use History: None Reported - Past Family History Mother Additional Family Medical History / Comment(s): patient unaware of family medical history. He was adopted Medications and Allergies Home Medications Medication Instructions Recorded Confirmed Type Simvastatin [Zocor] 20 mg PO HS 08/03/14 04/25/19 History Omeprazole [PriLOSEC] 20 mg PO DAILY 12/25/16 04/25/19 History glipiZIDE [Glucotrol] 10 mg PO AC-BID 07/02/17 04/25/19 History Zolpidem [Ambien] 10 mg PO HS PRN #30 tab 12/18/17 04/25/19 Rx Ascorbic Acid [Vitamin C] 250 mg PO DAILY 11/12/18 04/25/19 History Calcium Carb-Vit D 250Mg-125Un 1 tab PO TID 11/12/18 04/25/19 History [Oscal 250+D] Enalapril [Vasotec] 5 mg PO BID 11/12/18 04/25/19 History Multivitamins, Thera [Multivitamin 1 tab PO DAILY 11/12/18 04/25/19 History (formulary)] metFORMIN HCL 1,000 mg PO BID 11/12/18 04/25/19 History Dabigatran [Pradaxa] 150 mg PO BID #60 cap 11/14/18 04/25/19 Rx Atenolol [Tenormin] 100 mg PO DAILY 04/25/19 04/25/19 History Citalopram Hydrobromide [CeleXA] 40 mg PO DAILY 04/25/19 04/25/19 History Digoxin [Digitek] 125 mcg PO DAILY 04/25/19 04/25/19 History Ergocalciferol (Vitamin D2) 50,000 unit PO Q7D 04/25/19 04/25/19 History [Drisdol] Ferrous Sulfate [Feosol] 325 mg PO DAILY 04/25/19 04/25/19 History Glucos Sul 2Kcl/MSM/Chond/C/Mn 1 cap PO BID 04/25/19 04/25/19 History [Glucosamine Chondroitin Cap] Sennosides [Senna] 8.6 mg PO BID 04/25/19 04/25/19 History Tamsulosin HCl [Flomax] 0.4 mg PO DAILY 04/25/19 04/25/19 History Allergies Allergy/AdvReac Type Severity Reaction Status Date / Time No Known Allergies Allergy Verified 04/25/19 14:07 Physical Exam Vitals: Vital Signs Temp Pulse Resp BP Pulse Ox 04/25/19 17:13 97.3 F L 116 H 18 102/85 96 04/25/19 13:43 103 H 18 123/77 98 04/25/19 12:58 97.3 F L 103 H 16 123/77 98 Intake and Output 04/25/19 04/25/19 04/25/19 06:59 14:59 22:59 Other: Weight 113.398 kg PHYSICAL EXAMINATION: GENERAL: The patient is alert and oriented x3, not in any acute distress. Well developed, well nourished. HEENT: Pupils are round and equally reacting to light. EOMI. No scleral icterus. No conjunctival pallor. Normocephalic, atraumatic. No pharyngeal erythema. No thyromegaly. CARDIOVASCULAR: S1 and S2 present. No murmurs, rubs, or gallops. PULMONARY: Chest is clear to auscultation, no wheezing or crackles. ABDOMEN: Says there is some abdominal wall edema mild tenderness in the month of bilateral lower quadrants. Bowel sounds present MUSCULOSKELETAL: No joint swelling or deformity. EXTREMITIES: No cyanosis, clubbing, or pedal edema. NEUROLOGICAL: Atrophy of both legs SKIN: Patient has stage II sacral decubitus ulcers doesn't appear to be infect ed. Results CBC & Chem 7: 04/25/19 13:05 04/25/19 13:05 Labs: Abnormal Lab Results - Last 24 Hours (Table) 04/25/19 04/25/19 04/25/19 Range/Units 13:05 13:05 13:05 RBC 3.55 L (4.30-5.90) m/uL Hgb 10.7 L (13.0-17.5) gm/dL Hct 32.9 L (39.0-53.0) % Lymphocytes # 0.7 L (1.0-4.8) k/uL APTT 32.8 H (22.0-30.0) sec Potassium 5.8 H (3.5-5.1) mmol/L Carbon Dioxide 34 H (22-30) mmol/L BUN 29 H (9-20) mg/dL Glucose 123 H (74-99) mg/dL Urine Protein (Negative) Urine Blood (Negative) Urine RBC (0-5) /hpf Urine Mucus (None) /hpf 04/25/19 Range/Units 17:25 RBC (4.30-5.90) m/uL Hgb (13.0-17.5) gm/dL Hct (39.0-53.0) % Lymphocytes # (1.0-4.8) k/uL APTT (22.0-30.0) sec Potassium (3.5-5.1) mmol/L Carbon Dioxide (22-30) mmol/L BUN (9-20) mg/dL Glucose (74-99) mg/dL Urine Protein 1+ H (Negative) Urine Blood Small H (Negative) Urine RBC 20 H (0-5) /hpf Urine Mucus Rare H (None) /hpf Assessment and Plan Plan: -Diarrhea, abdominal pain with the possible lower GI bleed: Colitis is a consideration a lot and a CAT scan of the abdomen continue with IV fluids. Because of his low ejection fraction consult left ventricular hypertrophy patient will be monitored heart failure. Anti-coagulation will be held. - atrial fibrillation with rapid ventricular rate patient's anti-coagulation is being held because of GI bleed and patient will be resumed on his home medications will monitor his heart rate on his home medications will not start him on any Cardizem at this time. We'll also obtain levels of digoxin. -Type 2 diabetes mellitus metformin will be held because of diarrhea patient will resume and glipizide and as needed leading scale insulin. 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
[2019-04-25] MEDS: ATORVASTATIN 10 MG TAB PO SCH (20:57)
[2019-04-25] MEDS: glipiZIDE 10 MG TAB PO SCH (20:58)
[2019-04-25] MEDS: METOPROLOL TARTRATE 50 MG TAB PO SCH (20:58)
[2019-04-25] MEDS ORDERED: DABIGATRAN 150 MG CAP PO SCH (21:00)
[2019-04-25] MEDS: CALCIUM CARB-VIT D 250MG-125UN 1 EACH TAB PO SCH (21:00)
[2019-04-25 21:01] LABS: Glucose,Whole Blood 205 mg/dL (75-99)
[2019-04-25] MEDS: SODIUM CHLORIDE 0.9% 1,000 ML IV SCH (22:39)
[2019-04-26] MEDS: SODIUM CHLORIDE 0.9% 1,000 ML IV SCH (00:26)
[2019-04-26 00:32] LABS: ALT 38 U/L (21-72); AST 36 U/L (17-59); African American GFR (CKD) >90 (>60 ml/min/1.73 sqM); Albumin 2.9 g/dL (3.5-5.0); Alkaline Phosphatase 67 U/L (38-126); Anion Gap 3 mmol/L; Blood Urea Nitrogen 27 mg/dL (9-20); Calcium 8.7 mg/dL (8.4-10.2); Carbon Dioxide 36 mmol/L (22-30); Chloride 100 mmol/L (98-107); Glucose 154 mg/dL (74-99); Potassium 4.7 mmol/L (3.5-5.1); Sodium 139 mmol/L (137-145); Total Bilirubin 0.2 mg/dL (0.2-1.3); Total Protein 5.6 g/dL (6.3-8.2)
[2019-04-26] MEDS: HYDROcodone/APAP 5-325MG 1 EACH TAB PO PRN ×4 (02:33→23:44)
[2019-04-26] MEDS: IOPAMIDOL CONTRAST (ORAL USE) VIAL PO PRN ×2 (06:50→07:51)
[2019-04-26 07:00] LABS: Glucose,Whole Blood 98 mg/dL (75-99)
[2019-04-26] MEDS ORDERED: ATENOLOL 50 MG TAB PO SCH (09:00)
[2019-04-26] MEDS: TAMSULOSIN 0.4 MG CAP.ER.24H PO SCH (09:03)
[2019-04-26] MEDS: FERROUS SULFATE 325 MG TAB PO SCH (09:03)
[2019-04-26] MEDS: CITALOPRAM HYDROBROMIDE 20 MG TAB PO SCH (09:03)
[2019-04-26] MEDS: glipiZIDE 10 MG TAB PO SCH ×2 (09:03→17:28)
[2019-04-26] MEDS: METOPROLOL TARTRATE 50 MG TAB PO SCH ×2 (09:04→21:36)
--- NOTE | 2019-04-26 09:05 | CT ---
EXAMINATION TYPE: CT abdomen pelvis w con DATE OF EXAM: 04/26/2019 REFERENCE: NONE HISTORY: lower abominal pain HISTORY: LQP REFERENCE: NONE CT DLP: 2182.3 mGy Automated exposure control for dose reduction was used. TECHNIQUE: Helical acquisition through the abdomen and pelvis was obtained following the oral ingesti on of with Oral Contrast and following intravenous administration of 100 mL of Isovue 300. The data w as reformatted in axial, coronal and sagittal projections. FINDINGS: There are innumerable metallic fragments overlying the soft tissues of the back and buttoc k as well as the proximal thighs. There is some dependent atelectasis in the dependent portions of the lungs. There is no pleural or pe ricardial fluid. The heart is enlarged. Within the abdomen, there are gallstones within the gallbladder. There is a metallic fragment within the liver parenchyma. Spleen is normal. Both adrenal glands are normal. Metallic fragment in the lower pole of the right kidney. There is a simple appearing, exophytic, 5.7 cm cyst arising from the lower pole of the right kidney. There are several prominent cysts arising fr om the upper and mid polar regions of the left kidney. There is stranding about both kidneys. The pancreas is unremarkable. There is mild to moderate atheromatous calcification of the visualized arterial tree. There is no significant axillary, iliac or inguinal adenopathy. There is calcification of the prostate. The bladder is unremarkable. There is moderate stool within the left side of the colon and transverse colon. There is no significa nt diverticular change and there is no radiographic evidence of diverticulitis. The appendix is not v isualized with certainty. Small bowel loops are of normal caliber. There is no free fluid and no free air. There is collapse of the L4 vertebral body which is wedged by approximately 50%. The age of this is n ot determined but I suspect it is chronic. There is facet arthropathy in the lower lumbar spine. Ther e is degenerative disc disease and hypertrophic spondylosis. IMPRESSION: 1. EVIDENCE OF PREVIOUS PENETRATING TRAUMA. 2. CHOLELITHIASIS. 3. CARDIOMEGALY. 4. SIMPLE APPEARING CYSTIC CHANGE IN BOTH KIDNEYS. 5. CONSTIPATION. 6. 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 5. DEGENERATIVE CHANGES WITHIN THE SPINE.
[2019-04-26] MEDS: DIGOXIN 125 MCG TAB PO SCH (09:06)
[2019-04-26] MEDS: CALCIUM CARB-VIT D 250MG-125UN 1 EACH TAB PO SCH ×3 (09:06→23:44)
[2019-04-26] MEDS: PANTOPRAZOLE 40 MG/10 ML VIAL IV SCH (09:06)
--- NOTE | 2019-04-26 09:22 | P.PN ---
Subjective 73-year-old pleasant gentleman resident of detention came in with 5 days of diarrhea multiple episodes patient had blood in the stools. Patient is on anticoagulations for atrial fibrillation which I have to hold in spite of his active atrial fibrillation at this time because the GI bleed. Gastroenterology consulted. Patient is presently in a A. fib with rapid ventricular rate. She does have some moderate amount of abdominal pain. Although he doesn't have any rebound or rigidity. Patient does have constant left ventricular hypertrophy and EF of 40-45% patient is started on IV fluids which will cut down to 75 mL/h. Patient heart rate is presently 160 and patient doesn't have any fever doesn't have any leukocytosis acute abdominal series did not show any significant abnormality. Patient does have lower abdominal pain. 04/26/2019 Patient is still having diarrhea, CT of the abdomen, showed constipation. And some cholelithiasis. Assessment probably will evaluate the patient. Patient is depressed he denied any suicidal ideation to me but patient apparently complained that he wanted to shoot himself and he is tired although it's still do not believe patient does suicidal patient presently has a sitter and psychiatry was consulted Constitutional: Denied any fatigue denied any fever. Cardio vascular: denied any chest pain, palpitations Gastrointestinal as mentioned in HPI Pulmonary: Denied any shortness of breath cough Neurologic denied any new focal deficits All inpatient medications were reviewed and appropriate changes in these medications as dictated in the interval history and assessment and plan. Objective - Vital Signs Vital signs: Vital Signs Temp 99.0 F 04/26/19 01:02 Pulse 65 04/26/19 08:00 Resp 19 04/26/19 08:00 BP 105/67 04/26/19 01:02 Pulse Ox 99 04/26/19 01:02 Intake & Output 04/25/19 04/26/19 04/26/19 18:59 06:59 18:59 Intake Total 720 Output Total 475 Balance 245 Weight 113.398 kg Intake: Oral 720 Output: Urine 475 Other: Voiding Method Urinal Urinal # Bowel Movements 2 2 - Exam PHYSICAL EXAMINATION: GENERAL: The patient is alert and oriented x3, not in any acute distress. Well developed, well nourished. HEENT: Pupils are round and equally reacting to light. EOMI. No scleral icterus. No conjunctival pallor. Normocephalic, atraumatic. No pharyngeal erythema. No thyromegaly. CARDIOVASCULAR: S1 and S2 present. No murmurs, rubs, or gallops. PULMONARY: Chest is clear to auscultation, no wheezing or crackles. ABDOMEN: Says there is some abdominal wall edema mild tenderness in the month of bilateral lower quadrants. Bowel sounds present MUSCULOSKELETAL: No joint swelling or deformity. EXTREMITIES: No cyanosis, clubbing, or pedal edema. NEUROLOGICAL: Atrophy of both legs SKIN: Patient has stage II sacral decubitus ulcers doesn't appear to be infected. - Labs CBC & Chem 7: 04/25/19 13:05 04/25/19 23:19 Labs: Abnormal Lab Results - Last 24 Hours (Table) 04/25/19 04/25/19 04/25/19 Range/Units 13:05 13:05 13:05 RBC 3.55 L (4.30-5.90) m/uL Hgb 10.7 L (13.0-17.5) gm/dL Hct 32.9 L (39.0-53.0) % Lymphocytes # 0.7 L (1.0-4.8) k/uL APTT 32.8 H (22.0-30.0) sec Potassium 5.8 H (3.5-5.1) mmol/L Carbon Dioxide 34 H (22-30) mmol/L BUN 29 H (9-20) mg/dL Glucose 123 H (74-99) mg/dL POC Glucose (mg/dL) (75-99) mg/dL Total Protein (6.3-8.2) g/dL Albumin (3.5-5.0) g/dL Urine Protein (Negative) Urine Blood (Negative) Urine RBC (0-5) /hpf Urine Mucus (None) /hpf 04/25/19 04/25/19 04/25/19 Range/Units 17:25 20:49 23:19 RBC (4.30-5.90) m/uL Hgb (13.0-17.5) gm/dL Hct (39.0-53.0) % Lymphocytes # (1.0-4.8) k/uL APTT (22.0-30.0) sec Potassium (3.5-5.1) mmol/L Carbon Dioxide 36 H (22-30) mmol/L BUN 27 H (9-20) mg/dL Glucose 154 H (74-99) mg/dL POC Glucose (mg/dL) 205 H (75-99) mg/dL Total Protein 5.6 L (6.3-8.2) g/dL Albumin 2.9 L (3.5-5.0) g/dL Urine Protein 1+ H (Negative) Urine Blood Small H (Negative) Urine RBC 20 H (0-5) /hpf Urine Mucus Rare H (None) /hpf Assessment and Plan Plan: -Diarrhea, abdominal pain with the possible lower GI bleed: CAT scan of the abdomen showed constipation and patient although still has diarrhea. Does have bowel sounds. Gastroenterology was consulted and will evaluate the patient -Depression: Patient has a sitter because of his complaints of suicidal ideation to the nurse - atrial fibrillation with rapid ventricular rate patient's anti-coagulation is being held because of GI bleed and patient heart rate is well controlled or dig level is 0.5 -Type 2 diabetes mellitus metformin will be held because of diarrhea patient will resume and glipizide and as needed leading scale insulin. 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
[2019-04-26 11:59] LABS: Glucose,Whole Blood 133 mg/dL (75-99)
[2019-04-26 16:58] LABS: Glucose,Whole Blood 92 mg/dL (75-99)
--- NOTE | 2019-04-26 17:21 | CONS ---
CONSULTATION DATE OF SERVICE/DICTATION: 04/26/2019 IDENTIFYING DATA: This patient is a 73-year-old male who was admitted to the medical floor with abdominal pain and several days of diarrhea. HISTORY OF PRESENT ILLNESS: The patient presented with 5 days of diarrhea, abdominal discomfort, suspected lower GI bleed. Apparently, he made a comment of committing suicide because of his somatic symptoms. The patient has been treated. Nursing states that he is doing better. There are no other subsequent documented suicidal statements. The patient states that he said that at a time when he was struggling physically, but did not mean that he would act on it. He states he would never harm himself. He is [facility] and does not want to go to [facility]. I did discuss the case with his current nurse and she confirms that no other statements have been made and there is no signs of him being clinically depressed. He states that he is not clinically depressed. His mood is upbeat. He is feeling positive. He reports he is able to sleep. Appetite is stable. Energy level is adequate. He is endorsing no tearfulness or crying spells lately. He does not feel hopeless. He endorses no thoughts of harming others. He is endorsing no auditory or visual hallucinations or any specific delusions. He is endorsing no hypomanic or manic episodes. He states he has no firearms at home. PAST PSYCHIATRIC HISTORY: None reported. No inpatient admissions. No suicide attempts. He is on no psychotropic medications. PAST MEDICAL HISTORY: Recent diarrhea possibly due to constipation/impaction, history of atrial fibrillation with RVR, diabetes, hypertension, hyperlipidemia. CHEMICAL DEPENDENCY HISTORY: He states he has not used alcohol in 35 years. He did possibly overuse alcohol prior to that, and he did experiment with other drugs during his "". SOCIAL HISTORY: The patient is 73 years old. He is . He has no children. He resides at [facility]. MENTAL STATUS EXAM: The patient is a tall male, appearing his stated age. He is lying in bed. He is dressed in hospital attire and has blankets over top. He has a mustache and is balding. Eye contact is appropriate. Speech is fluent. He is soft spoken. He is pleasant, cooperative. He uses humor throughout the conversation and demonstrates humorous sarcasm. He reports he does not feel hopeless. He is endorsing no suicidal or homicidal ideation, intent, or plan. He is endorsing no auditory or visual hallucinations or any specific delusions. There is no observed evidence of psychosis. He does appear to have some at least mild hearing impairment. He demonstrates no tangential thinking, loose associations or flight of ideas. He does not appear hypomanic or manic. He is oriented to person, place, and date. He demonstrates no verbal or physical aggressiveness. He is noted to have a tremor of his right upper extremity noticed with intention. IMPRESSION: Adjustment disorder, depressed mood. PLAN: The patient requires no further psychiatric intervention. He appears to be responding to medical treatment. He has been cooperative with staff. He adamantly denies having any suicidal ideation, intent, or plan. He is feeling more hopeful. At this time, there is no imminent safety risk and does not require inpatient psychiatric hospitalization. The safety and health manager is no longer needed. We will sign off this case unless otherwise needed. MMCARLOS / IJN: [id number] /
[2019-04-26 20:56] LABS: Glucose,Whole Blood 186 mg/dL (75-99)
[2019-04-26] MEDS ORDERED: BISACODYL 10 MG SUPP RECTAL SCH (21:00)
[2019-04-26] MEDS: ATORVASTATIN 10 MG TAB PO SCH (21:36)
--- NOTE | 2019-04-27 00:23 | P.CONS ---
History of Present Illness - Reason for Consult Consult date: 04/26/19 Diarrhea Requesting physician: Adams Esqueda - Chief Complaint Diarrhea - History of Present Illness 73-year-old male with multiple medical comorbidities including diabetes mellitus, hyperlipidemia, hypertension and GERD who presented to the hospital with complaints of diarrhea. The patient denies any sick contacts, or unusual foods, travel or new medications prior to developing symptoms. He reports multiple loose bowel movements prior to presentation as well as 3 further loose bowel movements today. He does report some vague abdominal pain. She is across his abdomen as well as rectal pain. There is questionable blood per rectum with the bowel movements. He does report a prior colonoscopy but is unsure of the day and believes that this was normal. Laboratory evaluation on presentation was significant for WBC 4.8, hemoglobin 10.7, platelet count 167,000, total bilirubin 0.2, alkaline phosphatase 67, AST 36 and ALTs 38. Review of Systems REVIEW OF SYSTEMS: CONSTITUTIONAL: Denies any fevers, chills, weight change or fatigue. CARDIOVASCULAR: Denies any chest pain, palpitations high or low blood pressures RESPIRATORY: Denies any shortness of breath, hemoptysis or cough. GENITOURINARY: No dysuria or hematuria. MUSCULOSKELETAL: No weakness reported. SKIN: Denies any new rashes or lesions, jaundice or pallor. PSYCHIATRIC: Evaluated by the psychiatry service is denying any suicidal ideation at this time. NEUROLOGY: Denies headache, denies any new focal deficits. EARS/NOSE/THROAT: No recent hearing change, congestion, nasal discharge or sore throat. EYES: No pain in eyes, discharge or change in vision. GASTROINTESTINAL: As per HPI. Past Medical History Past Medical History: Atrial Fibrillation, Heart Failure, Diabetes Mellitus, GERD/Reflux, Hyperlipidemia, Hypertension, Osteoarthritis (OA), Pneumonia Additional Past Medical History / Comment(s): Tremors, chronic osteomylitis of the right ankle maintained on Bactrim on outpatient basis, chronic hypoxic respiratory failure on home O2 - 3L HOME 02, chronic lower extremities edema, falls, past gi bleed/coumadin toxcity, anemia History of Any Multi-Drug Resistant Organisms: None Reported Past Surgical History: Orthopedic Surgery Additional Past Surgical History / Comment(s): COMPOUND FX OF TIB/FIB R/T SHRAPNEL, liver injury with questionable surgical intervention to control the injury/bleed Past Anesthesia/Blood Transfusion Reactions: No Reported Reaction Past Psychological History: Depression Smoking Status: Former smoker Past Alcohol Use History: None Reported Past Drug Use History: None Reported - Past Family History Mother Additional Family Medical History / Comment(s): patient unaware of family medical history. He was adopted Medications and Allergies Home Medications Medication Instructions Recorded Confirmed Type Simvastatin [Zocor] 20 mg PO HS 08/03/14 04/25/19 History Omeprazole [PriLOSEC] 20 mg PO DAILY 12/25/16 04/25/19 History glipiZIDE [Glucotrol] 10 mg PO AC-BID 07/02/17 04/25/19 History Zolpidem [Ambien] 10 mg PO HS PRN #30 tab 12/18/17 04/25/19 Rx Ascorbic Acid [Vitamin C] 250 mg PO DAILY 11/12/18 04/25/19 History Calcium Carb-Vit D 250Mg-125Un 1 tab PO TID 11/12/18 04/25/19 History [Oscal 250+D] Enalapril [Vasotec] 5 mg PO BID 11/12/18 04/25/19 History Multivitamins, Thera [Multivitamin 1 tab PO DAILY 11/12/18 04/25/19 History (formulary)] metFORMIN HCL 1,000 mg PO BID 11/12/18 04/25/19 History Dabigatran [Pradaxa] 150 mg PO BID #60 cap 11/14/18 04/25/19 Rx Atenolol [Tenormin] 100 mg PO DAILY 04/25/19 04/25/19 History Citalopram Hydrobromide [CeleXA] 40 mg PO DAILY 04/25/19 04/25/19 History Digoxin [Digitek] 125 mcg PO DAILY 04/25/19 04/25/19 History Ergocalciferol (Vitamin D2) 50,000 unit PO Q7D 04/25/19 04/25/19 History [Drisdol] Ferrous Sulfate [Feosol] 325 mg PO DAILY 04/25/19 04/25/19 History Glucos Sul 2Kcl/MSM/Chond/C/Mn 1 cap PO BID 04/25/19 04/25/19 History [Glucosamine Chondroitin Cap] Sennosides [Senna] 8.6 mg PO BID 04/25/19 04/25/19 History Tamsulosin HCl [Flomax] 0.4 mg PO DAILY 04/25/19 04/25/19 History Allergies Allergy/AdvReac Type Severity Reaction Status Date / Time No Known Allergies Allergy Verified 04/25/19 14:07 Physical Exam Vitals: Vital Signs Temp Pulse Pulse Resp BP BP Pulse Ox 04/26/19 08:00 65 19 04/26/19 07:00 98 F 67 16 119/76 99 04/26/19 01:02 99.0 F 65 19 105/67 99 04/25/19 19:22 98.8 F 108 H 16 115/72 97 04/25/19 17:13 97.3 F L 116 H 18 102/85 96 04/25/19 17:01 98.8 F 108 H 16 115/72 97 04/25/19 13:43 103 H 18 123/77 98 04/25/19 12:58 97.3 F L 103 H 16 123/77 98 Intake and Output 04/25/19 04/26/19 04/26/19 22:59 06:59 14:59 Intake Total 720 Output Total 300 175 125 Balance 420 -175 -125 Intake: Oral 720 Output: Urine 300 175 125 Other: Voiding Method Urinal Urinal # Bowel Movements 2 2 On physical examination, patient appears comfortable in no apparent distress. HEAD: Normocephalic, atraumatic. EYES: No scleral icterus. No conjunctival injection. MOUTH: No lesions, tongue midline. NECK: Trachea midline, no gross abnormalities. CHEST: Clear to auscultation with no wheezing or rhonchi appreciated. HEART: S1-S2 appreciated. ABDOMEN: Soft, obese, mildly tender to palpation diffusely across the abdomen. Bowel sounds are positive. No organomegaly. No guarding or rigidity. EXTREMITIES: No pedal edema. SKIN: No rashes, no jaundice. NEUROLOGIC: Alert and oriented. Results CBC & Chem 7: 04/25/19 13:05 04/25/19 23:19 Labs: Abnormal Lab Results - Last 24 Hours (Table) 04/25/19 04/25/19 04/25/19 Range/Units 13:05 13:05 13:05 RBC 3.55 L (4.30-5.90) m/uL Hgb 10.7 L (13.0-17.5) gm/dL Hct 32.9 L (39.0-53.0) % Lymphocytes # 0.7 L (1.0-4.8) k/uL APTT 32.8 H (22.0-30.0) sec Potassium 5.8 H (3.5-5.1) mmol/L Carbon Dioxide 34 H (22-30) mmol/L BUN 29 H (9-20) mg/dL Glucose 123 H (74-99) mg/dL POC Glucose (mg/dL) (75-99) mg/dL Total Protein (6.3-8.2) g/dL Albumin (3.5-5.0) g/dL Urine Protein (Negative) Urine Blood (Negative) Urine RBC (0-5) /hpf Urine Mucus (None) /hpf 04/25/19 04/25/19 04/25/19 Range/Units 17:25 20:49 23:19 RBC (4.30-5.90) m/uL Hgb (13.0-17.5) gm/dL Hct (39.0-53.0) % Lymphocytes # (1.0-4.8) k/uL APTT (22.0-30.0) sec Potassium (3.5-5.1) mmol/L Carbon Dioxide 36 H (22-30) mmol/L BUN 27 H (9-20) mg/dL Glucose 154 H (74-99) mg/dL POC Glucose (mg/dL) 205 H (75-99) mg/dL Total Protein 5.6 L (6.3-8.2) g/dL Albumin 2.9 L (3.5-5.0) g/dL Urine Protein 1+ H (Negative) Urine Blood Small H (Negative) Urine RBC 20 H (0-5) /hpf Urine Mucus Rare H (None) /hpf 04/26/19 Range/Units 11:58 RBC (4.30-5.90) m/uL Hgb (13.0-17.5) gm/dL Hct (39.0-53.0) % Lymphocytes # (1.0-4.8) k/uL APTT (22.0-30.0) sec Potassium (3.5-5.1) mmol/L Carbon Dioxide (22-30) mmol/L BUN (9-20) mg/dL Glucose (74-99) mg/dL POC Glucose (mg/dL) 133 H (75-99) mg/dL Total Protein (6.3-8.2) g/dL Albumin (3.5-5.0) g/dL Urine Protein (Negative) Urine Blood (Negative) Urine RBC (0-5) /hpf Urine Mucus (None) /hpf Microbiology - Last 24 Hours (Table) 04/26/19 03:30 Stool Culture - Preliminary Stool CT scan - abdomen: report reviewed (Computed tomography scan of the abdomen with findings of constipation and retained stool and cholelithiasis.) Assessment and Plan (1) Diarrhea Narrative/Plan: 73-year-old with multiple medical comorbidities presenting to the hospital due to complaints of diarrhea. The patient reports multiple loose watery bowel movements prior to presentation. Computed tomography scan of the abdomen did show constipation and retained stool. Suspicion is for overflow incontinence given the patient's chronic debility. At this time will order bowel regimen and if no improvement in symptoms stool studies can be performed. Current Visit: Yes Status: Acute Code(s): R19.7 - DIARRHEA, UNSPECIFIED SNOMED Code(s): 33897823 (2) Anemia Narrative/Plan: Unclear if the anemia is chronic in nature with normocytic indices, there is likely a component of anemia of chronic disease. Current Visit: No Status: Acute Code(s): D64.9 - ANEMIA, UNSPECIFIED SNOMED Code(s): 191566451 Plan: Supportive care Okay for diet Given CT findings of constipation bowel regimen ordered with soapsuds enema followed by Dulcolax rectal suppository Abdominal x-ray in the morning to evaluate stool burden at that Anemia laboratory evaluation ordered This patient continues to have loose stools can consider stool studies for further evaluation Thank you for allowing us to participate in the care of the patient we will continue to follow
[2019-04-27] MEDS: HYDROcodone/APAP 5-325MG 1 EACH TAB PO PRN ×3 (06:21→21:09)
[2019-04-27 06:57] LABS: Reticulocyte % 0.8 % (0.5-2.0)
[2019-04-27 07:11] LABS: African American GFR (CKD) >90 (>60 ml/min/1.73 sqM); Anion Gap 3 mmol/L; Blood Urea Nitrogen 25 mg/dL (9-20); Calcium 8.8 mg/dL (8.4-10.2); Carbon Dioxide 32 mmol/L (22-30); Chloride 102 mmol/L (98-107); Glucose 82 mg/dL (74-99); Potassium 4.4 mmol/L (3.5-5.1); Sodium 137 mmol/L (137-145)
--- NOTE | 2019-04-27 07:13 | XR ---
EXAMINATION TYPE: XR abdomen 1V , 3 VIEWS DATE OF EXAM ORDERED: 04/27/2019 HISTORY: Constipation, stool burden. COMPARISON: Previous study dated 02/24/2014. FINDINGS: Shrapnel projects over the chest, abdomen and pelvis. There is barium within the colon fro m a previous CT scan of the abdomen. The abdominal gas pattern is within normal limits. There is no e vidence of obstruction or free air. The femoral heads are nonspherical. There is degenerative change in the spine. IMPRESSION: 1. NONOBSTRUCTIVE ABDOMINAL GAS PATTERN. 2. EVIDENCE OF OLD PENETRATING TRAUMA. 3. PLEASE CORRELATE CLINICALLY FOR FEMOROACETABULAR IMPINGEMENT SYNDROME.
[2019-04-27 07:47] LABS: Glucose,Whole Blood 94 mg/dL (75-99)
[2019-04-27] MEDS: FERROUS SULFATE 325 MG TAB PO SCH (07:49)
[2019-04-27] MEDS: METOPROLOL TARTRATE 50 MG TAB PO SCH ×2 (07:49→21:06)
[2019-04-27] MEDS: glipiZIDE 10 MG TAB PO SCH ×2 (07:49→17:21)
[2019-04-27] MEDS: CITALOPRAM HYDROBROMIDE 20 MG TAB PO SCH (07:49)
[2019-04-27] MEDS: CALCIUM CARB-VIT D 250MG-125UN 1 EACH TAB PO SCH ×3 (07:50→21:06)
[2019-04-27] MEDS: PANTOPRAZOLE 40 MG/10 ML VIAL IV SCH (07:50)
[2019-04-27] MEDS: DIGOXIN 125 MCG TAB PO SCH (07:50)
[2019-04-27] MEDS: TAMSULOSIN 0.4 MG CAP.ER.24H PO SCH (07:50)
[2019-04-27 12:11] LABS: Glucose,Whole Blood 114 mg/dL (75-99)
--- NOTE | 2019-04-27 14:29 | P.PN ---
Subjective 73-year-old pleasant gentleman resident of [facility] came in with 5 days of diarrhea multiple episodes patient had blood in the stools. Patient is on anticoagulations for atrial fibrillation which I have to hold in spite of his active atrial fibrillation at this time because the GI bleed. Gastroenterology consulted. Patient is presently in a A. fib with rapid ventricular rate. She does have some moderate amount of abdominal pain. Although he doesn't have any rebound or rigidity. Patient does have constant left ventricular hypertrophy and EF of 40-45% patient is started on IV fluids which will cut down to 75 mL/h. 04/26/2019 Patient is still having diarrhea, CT of the abdomen, showed constipation. And some cholelithiasis. Assessment probably will evaluate the patient. Patient is depressed he denied any suicidal ideation to me but patient apparently complained that he wanted to shoot himself and he is tired although it's still do not believe patient does suicidal patient presently has a sitter and psychiatry was consulted 04/27/2019 Patient is receiving enema for constipation his GI bleed is probably due to hemorrhoids Constitutional: Denied any fatigue denied any fever. Cardio vascular: denied any chest pain, palpitations Gastrointestinal as mentioned in HPI Pulmonary: Denied any shortness of breath cough Neurologic denied any new focal deficits All inpatient medications were reviewed and appropriate changes in these medications as dictated in the interval history and assessment and plan. Objective - Vital Signs Vital signs: Vital Signs Temp 98.6 F 04/27/19 07:55 Pulse 69 04/27/19 07:55 Resp 16 04/27/19 07:55 BP 124/65 04/27/19 07:55 Pulse Ox 98 04/27/19 07:55 Intake & Output 04/26/19 04/27/19 04/27/19 18:59 06:59 18:59 Intake Total 1240 Output Total 625 525 1 Balance -625 -525 1239 Weight 113.398 kg 122.924 kg Intake: Oral 1240 Output: Urine 625 525 Stool 1 Other: Voiding Method Urinal Urinal # Voids 1 1 # Bowel Movements 1 - Exam PHYSICAL EXAMINATION: GENERAL: The patient is alert and oriented x3, not in any acute distress. Well developed, well nourished. HEENT: Pupils are round and equally reacting to light. EOMI. No scleral icterus. No conjunctival pallor. Normocephalic, atraumatic. No pharyngeal erythema. No thyromegaly. CARDIOVASCULAR: S1 and S2 present. No murmurs, rubs, or gallops. PULMONARY: Chest is clear to auscultation, no wheezing or crackles. ABDOMEN: Says there is some abdominal wall edema mild tenderness in the month of bilateral lower quadrants. Bowel sounds present MUSCULOSKELETAL: No joint swelling or deformity. EXTREMITIES: No cyanosis, clubbing, or pedal edema. NEUROLOGICAL: Atrophy of both legs SKIN: Patient has stage II sacral decubitus ulcers doesn't appear to be infected. - Labs CBC & Chem 7: 04/25/19 13:05 04/27/19 06:01 Labs: Abnormal Lab Results - Last 24 Hours (Table) 04/26/19 04/27/19 04/27/19 Range/Units 20:45 06:01 12:09 Carbon Dioxide 32 H (22-30) mmol/L BUN 25 H (9-20) mg/dL POC Glucose (mg/dL) 186 H 114 H (75-99) mg/dL Assessment and Plan Plan: -Diarrhea, abdominal pain with the possible lower GI bleed: CAT scan of the abdomen showed constipation and patient although still has diarrhea. Receiving any enema, GI bleed secondary to possible hemorrhoids. Resumption of anticoagulation as per gastroenterology. -Depression: was evaluated by psychiatric they cleared him for discharge whenever it's medically appropriate - atrial fibrillation with rapid ventricular rate patient's anti-coagulation is being held because of GI bleed and patient heart rate is well controlled or dig level is 0.5 -Type 2 diabetes mellitus metformin will be held because of diarrhea patient will resume and glipizide and as needed leading scale insulin. 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
[2019-04-27 17:16] LABS: Glucose,Whole Blood 131 mg/dL (75-99)
--- NOTE | 2019-04-27 20:09 | P.PN ---
Subjective Progress Note Date: 04/27/19 Principal diagnosis: Diarrhea Lying in bed. Reporting tolerated his diet. Multiple bowel movements yesterday with tap water enema but no bowel movements today. Objective - Vital Signs Vital signs: Vital Signs Temp 98.6 F 04/27/19 07:55 Pulse 69 04/27/19 07:55 Resp 16 04/27/19 07:55 BP 124/65 04/27/19 07:55 Pulse Ox 98 04/27/19 07:55 Intake & Output 04/26/19 04/27/19 04/27/19 18:59 06:59 18:59 Intake Total 240 Output Total 625 525 Balance -625 -525 240 Weight 113.398 kg 122.924 kg Intake: Oral 240 Output: Urine 625 525 Other: Voiding Method Urinal Urinal # Voids 1 1 # Bowel Movements 1 - Exam On physical examination, patient appears comfortable in no apparent distress. HEAD: Normocephalic, atraumatic. EYES: No scleral icterus. No conjunctival injection. MOUTH: No lesions, tongue midline. NECK: Trachea midline, no gross abnormalities. ABDOMEN: Soft, obese. Bowel sounds are positive. No organomegaly. No guarding or rigidity. EXTREMITIES: No pedal edema. SKIN: No rashes, no jaundice. NEUROLOGIC: Alert and oriented x3. - Labs CBC & Chem 7: 04/25/19 13:05 04/27/19 06:01 Labs: Abnormal Lab Results - Last 24 Hours (Table) 04/26/19 04/26/19 04/27/19 Range/Units 11:58 20:45 06:01 Carbon Dioxide 32 H (22-30) mmol/L BUN 25 H (9-20) mg/dL POC Glucose (mg/dL) 133 H 186 H (75-99) mg/dL Microbiology - Last 24 Hours (Table) 04/26/19 03:30 Stool Culture - Preliminary Stool Assessment and Plan (1) Diarrhea Narrative/Plan: 73-year-old with multiple medical comorbidities presenting to the hospital due to complaints of diarrhea. The patient reports multiple loose watery bowel movements prior to presentation. Computed tomography scan of the abdomen did show constipation and retained stool. Suspicion is for overflow incontinence given the patient's chronic debility. Current Visit: Yes Status: Acute Code(s): R19.7 - DIARRHEA, UNSPECIFIED SNOMED Code(s): 34186272 (2) Anemia Narrative/Plan: Unclear if the anemia is chronic in nature with normocytic indices, there is likely a component of anemia of chronic disease. Current Visit: No Status: Acute Code(s): D64.9 - ANEMIA, UNSPECIFIED SNOMED Code(s): 335981564 Plan: Supportive care Okay for diet Given CT findings of constipation bowel regimen ordered with soapsuds enema followed by Dulcolax rectal suppository yesterday, with patient still passing some hard stool repeat tap water enema ordered for today Will start MiraLAX daily bowel regimen Abdominal x-ray in the morning to evaluate stool burden at that Anemia laboratory evaluation pending, with reticulocyte count inappropriately low This patient continues to have loose stools can consider stool studies for further evaluation Thank you for allowing us to participate in the care of the patient we will continue to follow
[2019-04-27] MEDS: ATORVASTATIN 10 MG TAB PO SCH (21:06)
[2019-04-27 21:12] LABS: Glucose,Whole Blood 112 mg/dL (75-99)
[2019-04-28] MEDS: HYDROcodone/APAP 5-325MG 1 EACH TAB PO PRN ×2 (06:16→20:24)
[2019-04-28 07:18] LABS: Glucose,Whole Blood 106 mg/dL (75-99)
[2019-04-28] MEDS: POLYETHYLENE GLYCOL 3350 17 GM POWD.PACK PO SCH (07:52)
[2019-04-28] MEDS: TAMSULOSIN 0.4 MG CAP.ER.24H PO SCH (07:52)
[2019-04-28] MEDS: glipiZIDE 10 MG TAB PO SCH ×2 (07:52→17:28)
[2019-04-28] MEDS: PANTOPRAZOLE 40 MG TABLET PO SCH (07:52)
[2019-04-28] MEDS: CITALOPRAM HYDROBROMIDE 20 MG TAB PO SCH (07:52)
[2019-04-28] MEDS: METOPROLOL TARTRATE 50 MG TAB PO SCH ×2 (07:52→20:22)
[2019-04-28] MEDS: FERROUS SULFATE 325 MG TAB PO SCH (07:52)
[2019-04-28] MEDS: CALCIUM CARB-VIT D 250MG-125UN 1 EACH TAB PO SCH ×3 (07:54→20:22)
[2019-04-28] MEDS: DIGOXIN 125 MCG TAB PO SCH (07:54)
[2019-04-28 10:42] LABS: Iron Saturation 16.09 (15.00-50.00)
[2019-04-28 10:51] LABS: Ferritin 166.1 ng/mL (22.0-322.0)
--- NOTE | 2019-04-28 11:06 | P.PN ---
Subjective Patient resting in bed complaining of abdominal pain. Noted open area to sacral area with liquid stool. Patient appears pale. Patient had consultation with gastroenterology orders pending. Patient cleared by psychiatric evaluation Dr. Rincon Objective - Vital Signs Vital signs: Vital Signs Temp 98.7 F 04/28/19 07:00 Pulse 81 04/28/19 07:00 Resp 17 04/28/19 07:00 BP 159/98 04/28/19 07:00 Pulse Ox 95 04/28/19 07:00 Intake & Output 04/27/19 04/28/19 04/28/19 18:59 06:59 18:59 Intake Total 1240 Output Total 251 650 175 Balance 989 -650 -175 Weight 122.924 kg Intake: Oral 1240 Output: Urine 250 650 175 Stool 1 Other: Voiding Method Urinal # Voids 1 1 1 - Constitutional General appearance: Present: mild distress - EENT Eyes: Present: PERRLA Ears: bilateral: normal - Neck Neck: Present: normal ROM - Respiratory Respiratory: bilateral: rhonchi - Cardiovascular Rhythm: irregularly irregular - Gastrointestinal General gastrointestinal: Present: normal bowel sounds, soft, tenderness Localized gastrointestinal: tender: diffuse - Integumentary Integumentary Comment(s): Skin breakdown noted to coccyx area with erythematous buttocks Integumentary: Present: pale - Neurologic Neurologic Comment(s): Resting tremor noted Neurologic: Present: CNII-XII intact - Musculoskeletal Musculoskeletal: Present: generalized weakness - Psychiatric Psychiatric Comment(s): Depressed affect Psychiatric: Present: A&O x's 3, appropriate affect - Labs CBC & Chem 7: 04/25/19 13:05 04/27/19 06:01 Labs: Abnormal Lab Results - Last 24 Hours (Table) 04/27/19 04/27/19 04/27/19 Range/Units 06:01 12:09 17:13 POC Glucose (mg/dL) 114 H 131 H (75-99) mg/dL Iron 37 L (65-175) ug/dL 04/27/19 04/28/19 Range/Units 21:01 07:03 POC Glucose (mg/dL) 112 H 106 H (75-99) mg/dL Iron (65-175) ug/dL - Imaging and Cardiology Abdominal x-ray: report reviewed CT scan - abdomen: report reviewed Assessment and Plan Plan: Assessment Abdominal pain with constipation diarrhea Depression cleared by psychiatry Dr. 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
--- NOTE | 2019-04-28 11:48 | P.CON ---
Consult Note - . Consult date: 04/28/19 Assessment/Plan:: This is a 73-year-old male who is being seen by wound care for nonhealing ulceration to the left gluteus. Patient states that the [facility] has been there for approximately 2 months and has been getting a cream applied daily at the [facility] where he lives. And weakness. Patient continues to have diarrhea at this time. The periwound area is excoriated. There is a approximately 1.5 x 0.5 x 0.1 cm nonhealing ulceration with pressure component noted to the left gluteus. The area shows granulation with Slough and exudate. Blanchable erythema is noted with atrophic skin changes. Review of systems: Integumentary: Reports wound, denies rash, denies itching, denies unusual bruising Physical exam: As noted as above Assessment/plan: 1. Nonhealing ulceration with fatty layer exposure with pressure component. Ap ply triad and foam dressing to the site 3 times a week. Keep the area clean and dry, continue with offloading, utilize cushion for sitting, consult nutrition. 2. Diarrhea. Continue to keep the area clean and dry, utilize skin protectant. Thank you for the consultation, any questions please contact the wound care center. DNP note has been reviewed and discussed with Dr. Drummond and the impression and plan of care has been directed as dictated.
[2019-04-28 11:50] LABS: Glucose,Whole Blood 106 mg/dL (75-99)
[2019-04-28 11:55] LABS: Basophils # (A) 0.1 k/uL (0-0.2); Basophils % (A) 1 %; Eosinophils # (A) 0.3 k/uL (0-0.7); Eosinophils % (A) 5 %; HCT 27.5 % (39.0-53.0); Lymphocytes # (A) 1.3 k/uL (1.0-4.8); Lymphocytes % (A) 24 %; MCH 29.5 pg (25.0-35.0); MCHC 32.4 g/dL (31.0-37.0); MCV 90.9 fL (80.0-100.0); Mean Platelet Volume 6.5; Monocytes # (A) 0.6 k/uL (0-1.0); Monocytes % (A) 11 %; Neutrophils # (A) 3.1 k/uL (1.3-7.7); Neutrophils % (A) 56 %; Platelet Count 142 k/uL (150-450); RBC 3.02 m/uL (4.30-5.90); RDW 12.1 % (11.5-15.5); WBC 5.5 k/uL (3.8-10.6)
[2019-04-28 12:13] LABS: ALT 35 U/L (21-72); AST 26 U/L (17-59); African American GFR (CKD) >90 (>60 ml/min/1.73 sqM); Albumin 2.6 g/dL (3.5-5.0); Alkaline Phosphatase 69 U/L (38-126); Anion Gap 2 mmol/L; Blood Urea Nitrogen 19 mg/dL (9-20); Calcium 8.7 mg/dL (8.4-10.2); Carbon Dioxide 33 mmol/L (22-30); Chloride 100 mmol/L (98-107); Glucose 91 mg/dL (74-99); Potassium 4.3 mmol/L (3.5-5.1); Sodium 135 mmol/L (137-145); Total Bilirubin 0.3 mg/dL (0.2-1.3); Total Protein 5.2 g/dL (6.3-8.2)
[2019-04-28 12:35] LABS: HGB 8.9 gm/dL (13.0-17.5)
[2019-04-28 14:10] LABS: Folate, Serum 8.7 ng/mL
[2019-04-28] MEDS: HYDROPHILIC CREAM 180 GM TUBE TOPICAL SCH (14:48)
[2019-04-28 14:58] VITALS: BMI 33.8
[2019-04-28 16:53] LABS: Glucose,Whole Blood 100 mg/dL (75-99)
[2019-04-28] MEDS ORDERED: PEG 3350-NA SULF,BICARB,CL/KCL 4,000 ML BOTTLE PO ONE (17:00)
[2019-04-28] MEDS: ATORVASTATIN 10 MG TAB PO SCH (20:22)
[2019-04-28 20:35] LABS: Glucose,Whole Blood 104 mg/dL (75-99)
--- NOTE | 2019-04-28 23:55 | P.PN ---
Subjective Progress Note Date: 04/28/19 Principal diagnosis: Diarrhea Lying in bed. Reporting tolerated his diet. The patient is still having liquid diarrhea. Objective - Vital Signs Vital signs: Vital Signs Temp 98.3 F 04/28/19 19:45 Pulse 60 04/28/19 19:45 Resp 18 04/28/19 19:45 BP 178/81 04/28/19 19:45 Pulse Ox 100 04/28/19 19:45 Intake & Output 04/28/19 04/28/19 04/29/19 06:59 18:59 06:59 Output Total 650 885 300 Balance -650 -885 -300 Weight 122.924 kg Output: Urine 650 885 300 Other: Voiding Method Urinal Urinal # Voids 1 2 # Bowel Movements 1 - Exam On physical examination, patient appears comfortable in no apparent distress. HEAD: Normocephalic, atraumatic. EYES: No scleral icterus. No conjunctival injection. MOUTH: No lesions, tongue midline. NECK: Trachea midline, no gross abnormalities. ABDOMEN: Soft, obese. Bowel sounds are positive. No organomegaly. No guarding or rigidity. EXTREMITIES: No pedal edema. SKIN: No rashes, no jaundice. NEUROLOGIC: Alert and oriented x3. - Labs CBC & Chem 7: 04/28/19 11:16 04/28/19 11:16 Labs: Abnormal Lab Results - Last 24 Hours (Table) 04/27/19 04/28/19 04/28/19 Range/Units 06:01 07:03 11:16 RBC 3.02 L (4.30-5.90) m/uL Hgb 8.9 L D (13.0-17.5) gm/dL Hct 27.5 L (39.0-53.0) % Plt Count 142 L (150-450) k/uL Sodium (137-145) mmol/L Carbon Dioxide (22-30) mmol/L Creatinine (0.66-1.25) mg/dL POC Glucose (mg/dL) 106 H (75-99) mg/dL Iron 37 L (65-175) ug/dL Total Protein (6.3-8.2) g/dL Albumin (3.5-5.0) g/dL 04/28/19 04/28/19 04/28/19 Range/Units 11:16 11:39 16:38 RBC (4.30-5.90) m/uL Hgb (13.0-17.5) gm/dL Hct (39.0-53.0) % Plt Count (150-450) k/uL Sodium 135 L (137-145) mmol/L Carbon Dioxide 33 H (22-30) mmol/L Creatinine 0.58 L (0.66-1.25) mg/dL POC Glucose (mg/dL) 106 H 100 H (75-99) mg/dL Iron (65-175) ug/dL Total Protein 5.2 L (6.3-8.2) g/dL Albumin 2.6 L (3.5-5.0) g/dL 04/28/19 Range/Units 20:33 RBC (4.30-5.90) m/uL Hgb (13.0-17.5) gm/dL Hct (39.0-53.0) % Plt Count (150-450) k/uL Sodium (137-145) mmol/L Carbon Dioxide (22-30) mmol/L Creatinine (0.66-1.25) mg/dL POC Glucose (mg/dL) 104 H (75-99) mg/dL Iron (65-175) ug/dL Total Protein (6.3-8.2) g/dL Albumin (3.5-5.0) g/dL Microbiology - Last 24 Hours (Table) 04/26/19 03:30 Stool Culture - Preliminary Stool Assessment and Plan (1) Diarrhea Narrative/Plan: 73-year-old with multiple medical comorbidities presenting to the hospital due to complaints of diarrhea. The patient reports multiple loose watery bowel movements prior to presentation. Computed tomography scan of the abdomen did show constipation and retained stool. Suspicion is for overflow incontinence given the patient's chronic debility. Current Visit: Yes Status: Acute Code(s): R19.7 - DIARRHEA, UNSPECIFIED SNOMED Code(s): 87827472 (2) Anemia Narrative/Plan: Unclear if the anemia is chronic in nature with normocytic indices, there is likely a component of anemia of chronic disease. Current Visit: No Status: Acute Code(s): D64.9 - ANEMIA, UNSPECIFIED SNOMED Code(s): 598443963 Plan: Supportive care Clear liquid diet MiraLAX daily bowel regimen Anemia laboratory evaluation pending, with reticulocyte count inappropriately low EGD and colonoscopy tomorrow for further evaluation of altered bowel habits and anemia Thank you for allowing us to participate in the care of the patient we will continue to follow
[2019-04-29] MEDS: HYDROcodone/APAP 5-325MG 1 EACH TAB PO PRN ×3 (01:32→19:21)
[2019-04-29 07:21] LABS: Glucose,Whole Blood 91 mg/dL (75-99)
[2019-04-29] MEDS: CITALOPRAM HYDROBROMIDE 20 MG TAB PO SCH (08:07)
[2019-04-29] MEDS: glipiZIDE 10 MG TAB PO SCH ×2 (08:07→15:59)
[2019-04-29] MEDS: CALCIUM CARB-VIT D 250MG-125UN 1 EACH TAB PO SCH ×3 (08:07→20:24)
[2019-04-29] MEDS: PANTOPRAZOLE 40 MG TABLET PO SCH (08:07)
[2019-04-29] MEDS: FERROUS SULFATE 325 MG TAB PO SCH (08:08)
[2019-04-29] MEDS: POLYETHYLENE GLYCOL 3350 17 GM POWD.PACK PO SCH (08:08)
[2019-04-29] MEDS: TAMSULOSIN 0.4 MG CAP.ER.24H PO SCH (08:08)
[2019-04-29] MEDS: BISACODYL 5 MG TABLET.DR PO ONE ×2 (08:12→09:50)
[2019-04-29] MEDS: METOPROLOL TARTRATE 50 MG TAB PO SCH (08:12)
[2019-04-29] MEDS: DIGOXIN 125 MCG TAB PO SCH (08:12)
[2019-04-29] MEDS: HYDROPHILIC CREAM 180 GM TUBE TOPICAL SCH (10:13)
[2019-04-29 12:20] LABS: Glucose,Whole Blood 91 mg/dL (75-99)
--- NOTE | 2019-04-29 13:07 | P.PN ---
Subjective Patient resting in bed more active than yesterday. Discussed going to [facility] for rehab. Continues to have continual stooling. Patient was scheduled for colonoscopy patient unable to unwilling to do prep Objective - Vital Signs Vital signs: Vital Signs Temp 98.0 F 04/29/19 07:09 Pulse 60 04/29/19 07:09 Resp 15 04/29/19 11:51 BP 147/68 04/29/19 07:09 Pulse Ox 93 L 04/29/19 08:31 Intake & Output 04/28/19 04/29/19 04/29/19 18:59 06:59 18:59 Output Total 885 400 1 Balance -885 -400 -1 Weight 122.924 kg Output: Urine 885 400 Stool 1 Other: Voiding Method Urinal Urinal Urinal # Voids 2 # Bowel Movements 1 2 - Constitutional General appearance: Present: mild distress - EENT Eyes: Present: PERRLA Ears: bilateral: normal - Neck Neck: Present: normal ROM - Respiratory Respiratory: bilateral: diminished - Cardiovascular Rhythm: irregularly irregular - Gastrointestinal General gastrointestinal: Present: soft - Integumentary Integumentary Comment(s): Skin breakdown to coccyx. - Musculoskeletal Musculoskeletal: Present: generalized weakness - Psychiatric Psychiatric: Present: A&O x's 3, appropriate affect, intact judgment & insight - Labs CBC & Chem 7: 04/28/19 11:16 04/28/19 11:16 Labs: Abnormal Lab Results - Last 24 Hours (Table) 04/28/19 04/28/19 Range/Units 16:38 20:33 POC Glucose (mg/dL) 100 H 104 H (75-99) mg/dL Microbiology - Last 24 Hours (Table) 04/26/19 03:30 Stool Culture - Preliminary Stool Assessment and Plan Plan: Assessment Diarrhea abdominal pain Cholelithiasis Anemia normocytic Depression cleared by psychiatry Atrial fibrillation controlled rate persistent Diabetes type 2 GERD Hypertension Hyperlipidemia Congestive heart failure systolic dysfunction with EF of 40-45% Muscle weakness deconditioning Plan continued wound care to consultation with gastroenterology rehab therapy on discharge at [facility]
[2019-04-29] MEDS ORDERED: LIDOCAINE 1% INJ 10MG/ML (20 ML MDV) ONE (15:22)
[2019-04-29] MEDS ORDERED: PROPOFOL 10 MG/ML 20 ML VIAL IV ONE (15:22)
[2019-04-29] MEDS ORDERED: SODIUM CHLORIDE 0.9% 500 ML IV ONE (15:27)
--- NOTE | 2019-04-29 16:21 | P.PCN ---
Date of Procedure: 04/29/19 Description of Procedure: Brief history: 73-year-old male admitted with complaints of loose stool. Computed tomography scan suggestive of large stool burden. Patient also noted to be anemic. EGD and colonoscopy order for further evaluation. Procedure performed: Esophagogastroduodenoscopy with biopsies Colonoscopy failed/aborted secondary to poor prep Preoperative diagnosis: Anemia, change in bowel habits Anesthesia: MAC Procedure: After informed consent was obtained from the patient was brought into the endoscopy unit and IV sedation was administered by anesthesia under continuous monitoring. Initially upper endoscopy was done. The Olympus GF 190 video endoscope was inserted inserted into the mouth and esophagus intubated without any difficulty and was gradually advanced into the stomach and duodenum and carefully examined. The bulb and second part of the duodenum appeared normal, with biopsies taken. The scope was then withdrawn into the stomach adequately insufflated with air and upon careful examination the antrum and body, cardia and fundus appeared normal, except for mild punctate erythema suggestive of mild gastritis with biopsies taken. The scope was then withdrawn into the esophagus. The GE junction was located at 40 cm to the incisors, with a small hiatal hernia noted. It appeared regular with no erythema erosions or ulcerations. Rest of the esophagus appeared normal. Patient tolerated the procedure well. At this time the patient continued to remain sedation. Initial digital rectal examination was normal. Olympus CF 190 video colonoscope was then inserted into the rectum and gradually into the descending colon. At this point the procedure was aborted as there was a large amount of solid and semi-liquid stool noted throughout the entire visualized colon. Mucosa unable to be visualized secondary to the large stool burden. Impression: 1. Mild gastritis antrum and body, biopsied. Duodenal biopsies. Small hiatal hernia. 2. Colonoscopy aborted due to a large amount of solid stool noted throughout the entire colon. Recommendations: Findings of this examination were discussed with the patient as well as the nursing team. Okay to resume diet. Continue MiraLAX daily. Will add Dulcolax rectally daily. Continue to adjust bowel regimen for daily formed bowel movements. Patient can follow-up after discharge if anemia persists for repeat colonoscopy at which time 2 day prep would be recommended.
[2019-04-29 17:21] LABS: Glucose,Whole Blood 91 mg/dL (75-99)
[2019-04-29 18:46] LABS: Hemoglobin A1C 5.3 % (4.0-6.0)
[2019-04-29 20:16] LABS: Glucose,Whole Blood 167 mg/dL (75-99)
[2019-04-29] MEDS: ATORVASTATIN 10 MG TAB PO SCH (20:24)
[2019-04-30] MEDS: HYDROcodone/APAP 5-325MG 1 EACH TAB PO PRN ×3 (02:43→17:38)
[2019-04-30] MEDS: METOPROLOL TARTRATE 50 MG TAB PO SCH ×3 (03:48→21:16)
[2019-04-30 07:34] LABS: Glucose,Whole Blood 96 mg/dL (75-99)
[2019-04-30] MEDS: CALCIUM CARB-VIT D 500MG-200UN 1 EACH TAB PO SCH ×3 (08:30→21:28)
[2019-04-30] MEDS: TAMSULOSIN 0.4 MG CAP.ER.24H PO SCH (08:31)
[2019-04-30] MEDS: DIGOXIN 125 MCG TAB PO SCH (08:31)
[2019-04-30] MEDS: glipiZIDE 10 MG TAB PO SCH ×2 (08:31→17:27)
[2019-04-30] MEDS: CITALOPRAM HYDROBROMIDE 20 MG TAB PO SCH (08:31)
[2019-04-30] MEDS: FERROUS SULFATE 325 MG TAB PO SCH (08:31)
[2019-04-30] MEDS: PANTOPRAZOLE 40 MG TABLET PO SCH (08:31)
[2019-04-30 10:00] LABS: Basophils # (A) 0.1 k/uL (0-0.2); Basophils % (A) 2 %; Eosinophils # (A) 0.3 k/uL (0-0.7); Eosinophils % (A) 6 %; HCT 27.8 % (39.0-53.0); HGB 8.6 gm/dL (13.0-17.5); Lymphocytes % (A) 20 %; MCHC 30.9 g/dL (31.0-37.0); Mean Platelet Volume 7.1; Monocytes # (A) 0.4 k/uL (0-1.0); Monocytes % (A) 9 %; Neutrophils % (A) 61 %; Platelet Count 181 k/uL (150-450); RBC 2.96 m/uL (4.30-5.90); RDW 12.1 % (11.5-15.5); WBC 4.9 k/uL (3.8-10.6)
[2019-04-30 10:18] LABS: ALT 23 U/L (21-72); AST 21 U/L (17-59); African American GFR (CKD) >90 (>60 ml/min/1.73 sqM); Albumin 2.6 g/dL (3.5-5.0); Alkaline Phosphatase 85 U/L (38-126); Anion Gap 3 mmol/L; Blood Urea Nitrogen 11 mg/dL (9-20); Calcium 8.6 mg/dL (8.4-10.2); Carbon Dioxide 33 mmol/L (22-30); Chloride 102 mmol/L (98-107); Glucose 150 mg/dL (74-99); Potassium 4.1 mmol/L (3.5-5.1); Sodium 138 mmol/L (137-145); Total Bilirubin 0.3 mg/dL (0.2-1.3); Total Protein 5.2 g/dL (6.3-8.2)
[2019-04-30] MEDS: BISACODYL 10 MG SUPP RECTAL SCH ×2 (10:31→14:58)
[2019-04-30] MEDS: POLYETHYLENE GLYCOL 3350 17 GM POWD.PACK PO SCH ×2 (10:32→15:25)
[2019-04-30] MEDS: HYDROPHILIC CREAM 180 GM TUBE TOPICAL SCH (11:05)
--- NOTE | 2019-04-30 11:57 | P.PN ---
Subjective EGD completed yesterday. Attempted colonoscopy unable to advance from extensive stool. Nurses report that patient had several bowel movements last night. We'll check KUB. Objective - Vital Signs Vital signs: Vital Signs Temp 98.5 F 04/30/19 07:00 Pulse 62 04/30/19 07:00 Resp 17 04/30/19 07:00 BP 151/74 04/30/19 07:00 Pulse Ox 98 04/30/19 07:00 Intake & Output 04/29/19 04/30/19 04/30/19 18:59 06:59 18:59 Intake Total 330 320 Output Total 1 Balance 329 320 Intake: IV 300 Oral 30 320 Output: Stool 1 Other: Voiding Method Urinal Urinal # Voids 1 # Bowel Movements 1 - Constitutional General appearance: Present: mild distress - EENT Eyes: Present: PERRLA Ears: bilateral: normal - Neck Neck: Present: normal ROM - Respiratory Respiratory: bilateral: diminished - Cardiovascular Rhythm: irregularly irregular - Gastrointestinal General gastrointestinal: Present: normal bowel sounds, soft Localized gastrointestinal: tender: diffuse - Integumentary Integumentary Comment(s): Skin breakdown to coccyx area - Neurologic Neurologic: Present: CNII-XII intact - Musculoskeletal Musculoskeletal: Present: generalized weakness - Psychiatric Psychiatric Comment(s): Patient awake and alert pleasantly confused - Labs CBC & Chem 7: 04/30/19 09:05 04/30/19 09:05 Labs: Abnormal Lab Results - Last 24 Hours (Table) 04/29/19 04/30/19 04/30/19 Range/Units 20:05 09:05 09:05 RBC 2.96 L (4.30-5.90) m/uL Hgb 8.6 L (13.0-17.5) gm/dL Hct 27.8 L (39.0-53.0) % MCHC 30.9 L (31.0-37.0) g/dL Carbon Dioxide 33 H (22-30) mmol/L Creatinine 0.58 L (0.66-1.25) mg/dL Glucose 150 H (74-99) mg/dL POC Glucose (mg/dL) 167 H (75-99) mg/dL Total Protein 5.2 L (6.3-8.2) g/dL Albumin 2.6 L (3.5-5.0) g/dL Microbiology - Last 24 Hours (Table) 04/26/19 03:30 Stool Culture - Final Stool Assessment and Plan Plan: Assessment Abdominal pain with the diarrhea Constipation Depression cleared by psychiatry Chronic persistent atrial fibrillation controlled Diabetes type 2 GERD Hypertension Anemia normocytic Cholelithiasis Congestive heart failure systolic dysfunction EF 40-45% chronic Muscle weakness deconditioning patient bed bound Gastritis plan We'll do a colonoscopy outpatient During KUB to assess for stool retention Hopeful discharge to [facility] for rehab
[2019-04-30 12:01] LABS: Glucose,Whole Blood 216 mg/dL (75-99)
--- NOTE | 2019-04-30 14:03 | XR ---
Abdomen HISTORY: Constipation and abdomen pain Frontal view of the abdomen on 3 images correlated prior abdomen 04/27/2019, CT 04/26/2019 Diffuse metallic densities are scattered over the abdomen and visualized soft tissues, there is sutur e material present in the right lower quadrant and midabdomen as on prior. No evident pneumoperitoneu m or bowel obstruction. Bones are stable. Retained fecal debris again noted within the rectum as on p rior CT. IMPRESSION: No significant interval change. Correlate for fecal impaction. Diffuse metallic densities scattered within the soft tissues as on prior.
--- NOTE | 2019-04-30 14:57 | P.DS ---
Providers Date of admission: 04/27/19 14:07 Expected date of discharge: 04/30/19 Attending physician: Edi Love Consults: 04/26/19 00:43 Consult Physician Urgent Consulting Provider: Inocencio Ramos Consult Reason/Comments: sucidal thoughts Do you want consulting provider notified?: Already Contacted Primary care physician: Edi Love Hospital Course: Patient evaluated by gastroenterology. Patient EGD showing mild gastritis. Unable to perform colonoscopy due to still retention. Patient is to follow outpatient for colonoscopy after proper prep. Patient has skin breakdown to decubitus area stage II Assessment abdominal pain diarrhea with constipation anemia normocytic cholelithiasis depression cleared by psychiatry chronic atrial fibrillation controlled rate diabetes type II GERD hypertension hyperlipidemia chronic congestive heart failure EF 40 to 45% deconditioned muscle atrophy secondary to being bedbound Plan transferred to [facility] follow up with gastroenterology for colonoscopy Patient Condition at Discharge: Fair Plan - Discharge Summary Discharge Rx Participant: No New Discharge Prescriptions: New Bisacodyl [Dulcolax] 10 mg RECTAL DAILY supp Polyethylene Glycol 3350 [Miralax] 17 gm PO DAILY powd.pack Hydrophilic Cream [Triad Cream] 1 applic TOPICAL DIRECTED applic Continue Simvastatin [Zocor] 20 mg PO HS Omeprazole [PriLOSEC] 20 mg PO DAILY glipiZIDE [Glucotrol] 10 mg PO AC-BID Zolpidem [Ambien] 10 mg PO HS PRN #30 tab PRN Reason: Insomnia Multivitamins, Thera [Multivitamin (formulary)] 1 tab PO DAILY Calcium Carb-Vit D 250Mg-125Un [Oscal 250+D] 1 tab PO TID Ascorbic Acid [Vitamin C] 250 mg PO DAILY metFORMIN HCL 1,000 mg PO BID Enalapril [Vasotec] 5 mg PO BID Dabigatran [Pradaxa] 150 mg PO BID #60 cap Atenolol [Tenormin] 100 mg PO DAILY Citalopram Hydrobromide [CeleXA] 40 mg PO DAILY Digoxin [Digitek] 125 mcg PO DAILY Ergocalciferol (Vitamin D2) [Drisdol] 50,000 unit PO Q7D Ferrous Sulfate [Iron (65 MG Elemental)] 325 mg PO DAILY Glucos Sul 2Kcl/MSM/Chond/C/Mn [Glucosamine Chondroitin Cap] 1 cap PO BID Sennosides [Senna] 8.6 mg PO BID Tamsulosin HCl [Flomax] 0.4 mg PO DAILY Discharge Medication List Simvastatin [Zocor] 20 mg PO HS 08/03/14 [History] Omeprazole [PriLOSEC] 20 mg PO DAILY 12/25/16 [History] glipiZIDE [Glucotrol] 10 mg PO AC-BID 07/02/17 [History] Zolpidem [Ambien] 10 mg PO HS PRN #30 tab 12/18/17 [Rx] Ascorbic Acid [Vitamin C] 250 mg PO DAILY 11/12/18 [History] Calcium Carb-Vit D 250Mg-125Un [Oscal 250+D] 1 tab PO TID 11/12/18 [History] Enalapril [Vasotec] 5 mg PO BID 11/12/18 [History] Multivitamins, Thera [Multivitamin (formulary)] 1 tab PO DAILY 11/12/18 [History] metFORMIN HCL 1,000 mg PO BID 11/12/18 [History] Dabigatran [Pradaxa] 150 mg PO BID #60 cap 11/14/18 [Rx] Atenolol [Tenormin] 100 mg PO DAILY 04/25/19 [History] Citalopram Hydrobromide [CeleXA] 40 mg PO DAILY 04/25/19 [History] Digoxin [Digitek] 125 mcg PO DAILY 04/25/19 [History] Ergocalciferol (Vitamin D2) [Drisdol] 50,000 unit PO Q7D 04/25/19 [History] Ferrous Sulfate [Iron (65 MG Elemental)] 325 mg PO DAILY 04/25/19 [History] Glucos Sul 2Kcl/MSM/Chond/C/Mn [Glucosamine Chondroitin Cap] 1 cap PO BID 04/25/19 [History] Sennosides [Senna] 8.6 mg PO BID 04/25/19 [History] Tamsulosin HCl [Flomax] 0.4 mg PO DAILY 04/25/19 [History] Bisacodyl [Dulcolax] 10 mg RECTAL DAILY supp 04/30/19 [Rx] Hydrophilic Cream [Triad Cream] 1 applic TOPICAL DIRECTED applic 04/30/19 [Rx] Polyethylene Glycol 3350 [Miralax] 17 gm PO DAILY powd.pack 04/30/19 [Rx] Follow up Appointment(s)/Referral(s): Edi Love MD [Primary Care Provider] - 1-2 days
[2019-04-30 20:22] LABS: Glucose,Whole Blood 247 mg/dL (75-99)
[2019-04-30] MEDS: ATORVASTATIN 10 MG TAB PO SCH (21:28)
[2019-05-01 07:05] LABS: Glucose,Whole Blood 103 mg/dL (75-99)
[2019-05-01] MEDS: CALCIUM CARB-VIT D 500MG-200UN 1 EACH TAB PO SCH ×3 (08:35→22:39)
[2019-05-01] MEDS: glipiZIDE 10 MG TAB PO SCH ×2 (08:35→17:00)
[2019-05-01] MEDS: CITALOPRAM HYDROBROMIDE 20 MG TAB PO SCH (08:35)
[2019-05-01] MEDS: METOPROLOL TARTRATE 50 MG TAB PO SCH ×2 (08:35→22:38)
[2019-05-01] MEDS: TAMSULOSIN 0.4 MG CAP.ER.24H PO SCH (08:35)
[2019-05-01] MEDS: PANTOPRAZOLE 40 MG TABLET PO SCH (08:35)
[2019-05-01] MEDS: FERROUS SULFATE 325 MG TAB PO SCH (08:35)
[2019-05-01] MEDS: DIGOXIN 125 MCG TAB PO SCH (08:36)
[2019-05-01] MEDS: POLYETHYLENE GLYCOL 3350 17 GM POWD.PACK PO SCH (08:36)
[2019-05-01] MEDS: HYDROcodone/APAP 5-325MG 1 EACH TAB PO PRN (08:45)
--- NOTE | 2019-05-01 11:02 | P.PN ---
Progress Note - Text Patient uncooperative with prep for colonoscopy. Patient uncooperative with physical therapy. Instructed patient on need to cooperate with physical therapy if he wants to be transferred to [facility]. Discussed case with foster care case manager. Plan is for transfer to [facility] for wound care rehabilitation and will continue on medication for constipation
[2019-05-01 11:54] LABS: Glucose,Whole Blood 126 mg/dL (75-99)
[2019-05-01] MEDS: BISACODYL 10 MG SUPP RECTAL SCH (16:56)
[2019-05-01 17:01] LABS: Glucose,Whole Blood 187 mg/dL (75-99)
[2019-05-01] MEDS: HYDROPHILIC CREAM 180 GM TUBE TOPICAL SCH (17:01)
[2019-05-01 21:25] LABS: Glucose,Whole Blood 244 mg/dL (75-99)
[2019-05-01] MEDS: ATORVASTATIN 10 MG TAB PO SCH (22:39)
[2019-05-02 07:03] LABS: Glucose,Whole Blood 122 mg/dL (75-99)
[2019-05-02] MEDS: DIGOXIN 125 MCG TAB PO SCH (09:20)
[2019-05-02] MEDS: FERROUS SULFATE 325 MG TAB PO SCH (09:20)
[2019-05-02] MEDS: METOPROLOL TARTRATE 50 MG TAB PO SCH (09:20)
[2019-05-02] MEDS: glipiZIDE 10 MG TAB PO SCH ×2 (09:20→19:18)
[2019-05-02] MEDS: CALCIUM CARB-VIT D 500MG-200UN 1 EACH TAB PO SCH ×2 (09:20→19:18)
[2019-05-02] MEDS: TAMSULOSIN 0.4 MG CAP.ER.24H PO SCH (09:20)
[2019-05-02] MEDS: PANTOPRAZOLE 40 MG TABLET PO SCH (09:20)
[2019-05-02] MEDS: POLYETHYLENE GLYCOL 3350 17 GM POWD.PACK PO SCH (09:20)
[2019-05-02] MEDS: HYDROcodone/APAP 5-325MG 1 EACH TAB PO PRN (09:20)
[2019-05-02] MEDS: CITALOPRAM HYDROBROMIDE 20 MG TAB PO SCH (09:20)
[2019-05-02 11:31] LABS: Glucose,Whole Blood 139 mg/dL (75-99)
[2019-05-02] MEDS: BISACODYL 10 MG SUPP RECTAL SCH (11:56)
[2019-05-02] MEDS: HYDROPHILIC CREAM 180 GM TUBE TOPICAL SCH (13:39)
[2019-05-02 16:55] LABS: Glucose,Whole Blood 151 mg/dL (75-99)
[2019-05-02 17:38] LABS: Glucose,Whole Blood 157 mg/dL (75-99)
--- NOTE | 2019-05-02 18:18 | CT ---
EXAMINATION TYPE: CT brain wo con for TPA DATE OF EXAM: 05/02/2019 COMPARISON: 08/16/2016 HISTORY: Code stroke CT DLP: 1154.8 mGycm Automated exposure control for dose reduction was used. FINDINGS: There is cerebral cortical atrophy. There is no mass effect nor midline shift. There is no sign of in tracranial hemorrhage. There is some patchy hypodensity in the periventricular white matter. The calv arium is intact. IMPRESSION: CEREBRAL ATROPHY AND CHRONIC SMALL VESSEL ISCHEMIA. NO ACUTE INTRACRANIAL ABNORMALITY. NO CHANGE.
[2019-05-02 18:29] LABS: Basophils # (A) 0.1 k/uL (0-0.2); Basophils % (A) 1 %; Eosinophils # (A) 0.3 k/uL (0-0.7); Eosinophils % (A) 4 %; HCT 28.8 % (39.0-53.0); HGB 9.2 gm/dL (13.0-17.5); Lymphocytes % (A) 15 %; MCH 28.8 pg (25.0-35.0); MCV 90.2 fL (80.0-100.0); Mean Platelet Volume 5.9; Monocytes # (A) 0.5 k/uL (0-1.0); Monocytes % (A) 7 %; Neutrophils # (A) 4.8 k/uL (1.3-7.7); Neutrophils % (A) 72 %; Platelet Count 241 k/uL (150-450); RBC 3.19 m/uL (4.30-5.90); RDW 12.1 % (11.5-15.5); WBC 6.8 k/uL (3.8-10.6)
[2019-05-02 18:31] LABS: INR 0.9 (<1.2); Partial Thromboplastin Time 25.6 sec (22.0-30.0); Prothrombin Time 9.9 sec (9.0-12.0)
[2019-05-02] MEDS ORDERED: Alteplase PER PHARMACY Stroke 1 EACH MISC MISCELLANE PRN (18:31)
--- NOTE | 2019-05-02 18:34 | CT ---
EXAMINATION TYPE: CODE STROKE: CTA head neck DATE OF EXAM: 05/02/2019 HISTORY: Weakness COMPARISON: CT DLP: 551.9 mGycm. Automated Exposure Control for Dose Reduction was Utilized. TECHNIQUE: CTA scan of the neck is performed with IV Contrast, patient injected with 65 mL of Isovue 370, axial images are obtained, coronal and sagittal reformatted images are reviewed. Three-D recons tructed images are created on an independent workstation and reviewed. FINDINGS: There is normal branching pattern of the great vessels on the aortic arch. There is bilateral arteria l flow in the subclavian arteries. There is arterial flow in the common internal and external carotid arteries bilaterally. There is mild plaque formation at the carotid artery bifurcations and lumen na rrowing less than 20%. There is no evidence of carotid artery aneurysm or dissection. There is bilate ral arterial flow in the vertebral arteries. Left vertebral artery is larger than the right. There is arterial flow in the vertebrobasilar artery system. There is no evidence of vertebral dissection. There is arterial flow in the anterior middle and posterior cerebral arteries. There is no mass effec t. There is normal contrast opacification of the venous sinuses. I see no evidence of aneurysm or олег vascularity. There is no mass effect. There is no evidence of intracranial hemodynamic stenosis. There are numerous calcifications in the parotid glands consistent with old granulomatous disease. IMPRESSION: No evidence of hemodynamic stenosis. No evidence of arterial dissection. No aneurysm. Mild plaque at the carotid artery bifurcations.
[2019-05-02] MEDS ORDERED: ALTEPLASE BOLUS 9 MG in EMPTY SYRINGE 1 SYR IV STA (18:35)
[2019-05-02 18:37] LABS: ALT 24 U/L (21-72); AST 17 U/L (17-59); African American GFR (CKD) >90 (>60 ml/min/1.73 sqM); Albumin 2.8 g/dL (3.5-5.0); Alkaline Phosphatase 106 U/L (38-126); Anion Gap 3 mmol/L; Blood Urea Nitrogen 11 mg/dL (9-20); Calcium 9.2 mg/dL (8.4-10.2); Carbon Dioxide 38 mmol/L (22-30); Chloride 98 mmol/L (98-107); Glucose 149 mg/dL (74-99); Potassium 4.3 mmol/L (3.5-5.1); Sodium 139 mmol/L (137-145); Total Bilirubin 0.2 mg/dL (0.2-1.3); Total Protein 5.7 g/dL (6.3-8.2)
[2019-05-02] MEDS ORDERED: ALTEPLASE 81 MG in EMPTY BAG 1 BAG IV STA (18:37)
[2019-05-02 18:48] LABS: Glucose,Whole Blood 163 mg/dL (75-99)
[2019-05-02] MEDS ORDERED: SODIUM CHLORIDE 0.9% 50 ML MINI-BAG IV ONE (19:31)
--- NOTE | 2019-05-02 19:51 | P.PN ---
Subjective Progress Note Date: 05/02/19 Principal diagnosis: Diarrhea with loose stools Mild antral gastritis 73-year-old pleasant gentleman resident of [place] came in with 5 days of diarrhea multiple episodes patient had blood in the stools. Patient is on anticoagulations for chronic atrial fibrillation which is on hold in spite of his active atrial fibrillation at this time because the GI bleed. Gastroente rology has seen the patient.. Patient does have chronic left ventricular hypertrophy and EF of 40-45%. Patient is status post EGD and colonoscopy was aborted due to large amount of solid stool noted throughout the entire colon. 04/26/2019 Patient is still having diarrhea, CT of the abdomen, showed constipation. And some cholelithiasis. Assessment probably will evaluate the patient. Patient is depressed he denied any suicidal ideation to me but patient apparently complained that he wanted to shoot himself and he is tired although it's still do not believe patient does suicidal patient presently has a sitter and psychiatry was consulted 04/27/2019 Patient is receiving enema for constipation his GI bleed is probably due to hemorrhoids 04/29/19 EGD and colonoscopy Impression: 1. Mild gastritis antrum and body, biopsied. Duodenal biopsies. Small hiatal hernia. 2. Colonoscopy aborted due to a large amount of solid stool noted throughout the entire colon. 05/02/2019 Patient denied any complaints of abdominal pain or diarrhea today. No complaints of dark-colored stools. Patient is status post EGD. Hemoglobin improved to 9.2 Anticoagulation is on hold due to drop in hemoglobin and possible GI bleed on admission. Patient started back on anticoagulation once cleared by GI. Patient was on Pradaxa at home. Patient is awaiting to be discharged to rehab. Patient is not participating in physical therapy. Constitutional:denied any fever. Patient does have generalized weakness. Cardio vascular: denied any chest pain, palpitations Gastrointestinal as mentioned in HPI Pulmonary: Denied any shortness of breath cough Neurologic denied any new focal deficits Active Medications Hydrocodone Bitart/Acetaminophen (Tyronza 5-325) 1 each PO Q6HR PRN PRN Reason: Pain Last Admin: 05/02/19 09:20 Dose: 1 each Documented by: Atorvastatin Calcium (Lipitor) 10 mg PO HS [facility] Last Admin: 05/01/19 22:39 Dose: 10 mg Documented by: Bisacodyl (Dulcolax) 10 mg RECTAL DAILY [facility] Last Admin: 05/02/19 11:56 Dose: Not Given Documented by: Calcium Carbonate (Oscal 500+D) 1 each PO TID [facility] Last Admin: 05/02/19 19:18 Dose: Not Given Documented by: Citalopram Hydrobromide (Celexa) 40 mg PO DAILY [facility] Last Admin: 05/02/19 09:20 Dose: 40 mg Documented by: Digoxin (Lanoxin) 125 mcg PO DAILY [facility] Last Admin: 05/02/19 09:20 Dose: 125 mcg Documented by: Ferrous Sulfate (Feosol) 325 mg PO DAILY [facility] Last Admin: 05/02/19 09:20 Dose: 325 mg Documented by: Glipizide (Glucotrol) 10 mg PO AC-BID [facility] Last Admin: 05/02/19 19:18 Dose: Not Given Documented by: Alteplase, Recombinant 9 mg/ (IV Solution) 9 mls @ 540 mls/hr IV ONCE STA Stop: 05/02/19 18:36 Last Admin: 05/02/19 18:47 Dose: 540 mls/hr Documented by: Metoprolol Tartrate (Lopressor) 100 mg PO BID [facility] Last Admin: 05/02/19 09:20 Dose: 100 mg Documented by: Multi-Ingred Cream/Lotion/Oil/Oint (Triad Cream) 1 applic TOPICAL DIRECTED [facility] Last Admin: 05/02/19 13:39 Dose: Not Given Documented by: Naloxone HCl (Narcan) 0.2 mg IV Q2M PRN PRN Reason: Opioid Reversal Pantoprazole Sodium (Protonix) 40 mg PO AC-BRKFST [facility] Last Admin: 05/02/19 09:20 Dose: 40 mg Documented by: Polyethylene Glycol (Miralax) 17 gm PO DAILY [facility] Last Admin: 05/02/19 09:20 Dose: 17 gm Documented by: Tamsulosin HCl (Flomax) 0.4 mg PO DAILY [facility] Last Admin: 05/02/19 09:20 Dose: 0.4 mg Documented by: Zolpidem Tartrate (Ambien) 10 mg PO HS PRN PRN Reason: Insomnia Objective - Vital Signs Vital signs: Vital Signs Temp 98.4 F 05/02/19 19:00 Pulse 73 05/02/19 19:15 Resp 24 05/02/19 19:15 BP 163/88 05/02/19 19:15 Pulse Ox 93 L 05/02/19 19:15 Intake & Output 05/02/19 05/02/19 05/03/19 06:59 18:59 06:59 Intake Total 480 236 Output Total 451 Balance 29 236 Intake: Oral 480 236 Output: Urine 451 Other: Voiding Method Urinal # Voids 2 - Exam PHYSICAL EXAMINATION: Patient is lying in the bed comfortably, no acute distress, awake alert and oriented. Generalized weakness. HEENT: Normocephalic. Neck is supple. Pupils reactive. Nostrils clear. Oral cavity is moist. Ears reveal no drainage. Neck reveals no JVD, carotid bruits, or thyromegaly. CHEST EXAMINATION: Trachea is central. Symmetrical expansion. Lung aleman clear to auscultation and percussion. CARDIAC: Normal S1, S2 with no gallops. No murmurs ABDOMEN: Soft. Bowel sounds normal. No organomegaly. No abdominal bruits. Extremities: reveal no edema. No clubbing or cyanosis Neurologically awake, alert, oriented x3 with well-coordinated movements. No focal deficits noted Skin: Left gluteal decub ulcer. No rash or skin lesions. Psychiatric: Coperative. Nonsuicidal Musculoskeletal: No joint swelling or deformity. Normal range of motion. - Labs CBC & Chem 7: 05/02/19 18:13 05/02/19 18:13 Labs: Abnormal Lab Results - Last 24 Hours (Table) 05/01/19 05/02/19 05/02/19 Range/Units 21:14 07:02 11:29 RBC (4.30-5.90) m/uL Hgb (13.0-17.5) gm/dL Hct (39.0-53.0) % Carbon Dioxide (22-30) mmol/L Creatinine (0.66-1.25) mg/dL Glucose (74-99) mg/dL POC Glucose (mg/dL) 244 H 122 H 139 H (75-99) mg/dL Total Protein (6.3-8.2) g/dL Albumin (3.5-5.0) g/dL 05/02/19 05/02/19 05/02/19 Range/Units 16:54 17:30 18:13 RBC 3.19 L (4.30-5.90) m/uL Hgb 9.2 L (13.0-17.5) gm/dL Hct 28.8 L (39.0-53.0) % Carbon Dioxide (22-30) mmol/L Creatinine (0.66-1.25) mg/dL Glucose (74-99) mg/dL POC Glucose (mg/dL) 151 H 157 H (75-99) mg/dL Total Protein (6.3-8.2) g/dL Albumin (3.5-5.0) g/dL 05/02/19 05/02/19 Range/Units 18:13 18:37 RBC (4.30-5.90) m/uL Hgb (13.0-17.5) gm/dL Hct (39.0-53.0) % Carbon Dioxide 38 H (22-30) mmol/L Creatinine 0.54 L (0.66-1.25) mg/dL Glucose 149 H (74-99) mg/dL POC Glucose (mg/dL) 163 H (75-99) mg/dL Total Protein 5.7 L (6.3-8.2) g/dL Albumin 2.8 L (3.5-5.0) g/dL Assessment and Plan Assessment: -Diarrhea, abdominal pain with a large amount of stool in the colon. CAT scan of the abdomen showed constipation and patient although still has diarrhea. GI bleed secondary to -acute on chronic anemia due to GI bleed. possible hemorrhoids. EGD showed mild antral gastritis. Resumption of anticoagulation as per gastroenterology. -Anemia of chronic disease. -Depression: was evaluated by psychiatric they cleared him for discharge whenever it's medically appropriate - atrial fibrillation with rapid ventricular rate patient's anti-coagulation is being held because of GI bleed and patient heart rate is well controlled or dig level is 0.5 -Type 2 diabetes mellitus metformin will be held because of diarrhea patient w ill resume and glipizide and as needed leading scale insulin. 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 Time with Patient: Greater than 30
[2019-05-02 20:25] VITALS: BP 145/72; PULSE 71; RESP 16; TEMP 98.5
[2019-05-02] MEDS ORDERED: niCARdipine 20 MG in SODIUM CHLORIDE 0.9% 192 ML IV SCH (20:30)
== END 2019-05-02 21:21 | DRG 394 ==
LOC: EC 12:40 → 4MS4W 16:32 → 4SSUR 17:38 → OBSVTOIN 04-27 14:07 → 2SICU 05-02 18:40
PROVIDERS: ADMIT Family Medicine; ATTEND Family Medicine
PROC: 0DB68ZX Excision of Stomach, Via Natural or Artificial Opening Endoscopic, Diagnostic (ICD-10-PCS; 2019-04-29)
PROC: 0WJP8ZZ Inspection of Gastrointestinal Tract, Via Natural or Artificial Opening Endoscopic Approach (ICD-10-PCS; 2019-04-29)
PROC: 0DB98ZX Excision of Duodenum, Via Natural or Artificial Opening Endoscopic, Diagnostic (ICD-10-PCS; principal; 2019-04-29 08:55)
PROC: 0DB78ZX Excision of Stomach, Pylorus, Via Natural or Artificial Opening Endoscopic, Diagnostic (ICD-10-PCS; 2019-04-29 08:55)
DX: K64.9 Unspecified hemorrhoids (principal); D62 Acute posthemorrhagic anemia; I50.42 Chronic combined systolic (congestive) and diastolic (congestive) heart failure; J96.11 Chronic respiratory failure with hypoxia; I48.19 Other persistent atrial fibrillation; R19.7 Diarrhea, unspecified; D63.8 Anemia in other chronic diseases classified elsewhere; E11.9 Type 2 diabetes mellitus without complications; E78.5 Hyperlipidemia, unspecified; E86.0 Dehydration; E86.1 Hypovolemia; F43.21 Adjustment disorder with depressed mood; H91.90 Unspecified hearing loss, unspecified ear; I11.0 Hypertensive heart disease with heart failure; K21.9 Gastro-esophageal reflux disease without esophagitis; K29.70 Gastritis, unspecified, without bleeding; K44.9 Diaphragmatic hernia without obstruction or gangrene; K59.00 Constipation, unspecified; K80.20 Calculus of gallbladder without cholecystitis without obstruction; L89.152 Pressure ulcer of sacral region, stage 2; M62.50 Muscle wasting and atrophy, not elsewhere classified, unspecified site; Z53.09 Procedure and treatment not carried out because of other contraindication; Z74.01 Bed confinement status; Z79.02 Long term (current) use of antithrombotics/antiplatelets; Z79.84 Long term (current) use of oral hypoglycemic drugs; Z79.899 Other long term (current) drug therapy; Z85.89 Personal history of malignant neoplasm of other organs and systems; Z87.891 Personal history of nicotine dependence; Z99.81 Dependence on supplemental oxygen; Z87.01 Personal history of pneumonia (recurrent); M19.90 Unspecified osteoarthritis, unspecified site; Z91.81 History of falling; Z87.19 Personal history of other diseases of the digestive system
CPT/HCPCS: 36415; 43239; 45378; 70450; 70496; 70498; 74018; 74022; 74177; 80048; 80053; 80162; 81001; 82607; 82728; 82746; 83036; 83540; 83550; 83605; 83735; 84100; 84443; 84484; 85025; 85045; 85610; 85730; 87045; 87046; 87324; 88305; 93005; 94760; 96360; 96361; 99285